=== PATIENT | male | born 1950 | race Caucasian/White ===

== ENCOUNTER 2020-03-28 13:47 | Outpatient (CLI) | payer MEDICARE, SELFPAY ==
[2020-03-28 14:21] LABS: Blood Urea Nitrogen 13 mg/dL (9-20); Calcium 8.9 mg/dL (8.4-10.2); Carbon Dioxide 28 mmol/L (22-30); Chloride 91 mmol/L (98-107); Estimated Glomerular Filt Rate > 60; Glucose 110 mg/dL (75-110); Potassium 4.6 mmol/L (3.4-5.0); Sodium 124 mmol/L (137-145)
== END 2020-03-28 13:48 | disposition home or self-care (01) ==
PROVIDERS: PCP Physician Assistant; Visit Provider Internal Medicine Cardiovascular Disease
DX: R60.0 Localized edema (principal)
CPT/HCPCS: 36415; 80048; 83735

== ENCOUNTER 2020-08-10 13:09 | Outpatient (RCR) | payer MEDICARE, SELFPAY ==
--- NOTE | 2020-08-10 14:06 | PTOPEVAL ---
Thank you for referring Ced Sellers to [facility].? The patient is scheduled to be seen for therapy? ____x/week for ___ weeks. Please review, sign, date and return this plan of care WADE. I agree with and certify that the following plan of care is medically necessary. Referring Physician Date Admitting Provider: Attending Provider: Nora Aragon, JALEN Referring Provider: *GLADYS Outpatient Evaluation Start: 08/10/20 13:02 Freq: Status: Active Protocol: Document 08/10/20 13:03 [facility] (Rec: 08/10/20 14:05 [facility] [id number]) Therapy Assessment Status Assessment Status Assessment Status Evaluation Evaluation Information Problem Diagnosis chronic low back pain with bilateral sciatica Onset 08/08/20 Additional Evaluation Detail oswestry = 58% functionally declined. Subjective Information patient reports he has chronic Query Text:As Reported By Patient/ lower back pain. patient Family reports this is his 4th time going to therapy for his back in the past 10 years. he reports he is getting to the point now when he is unable to get up after bending over. he reports he has had x-rays and MRI's of the lower back. he reports he has had chiropractic work. he reports he was last in physical therapy about 2-3 years ago. he reports he did pool therapy at that time. Prior Level of Function Comments Additional Prior Level of Function patient reports he is Comments struggling lately to stand without assist, walking up and down steps (must go down backwards), and reports he must use a walker for ambulation early in the mornings. he reports he does not want to have surgery. he reports he has never seen a surgeon for his back. he has had no injections for the back recently. 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 patient has a diastisis recti. Pain Assessment Timing of Pain Assessment Timing of Pain Assessment Asses
== END 2020-09-01 18:44 | disposition home or self-care (01) ==
LOC: CHSPT 13:09
PROVIDERS: PCP Physician Assistant; Visit Provider Physician Assistant
DX: M54.42 Lumbago with sciatica, left side (principal)
CPT/HCPCS: 97014; 97110; 97162; G0283

== ENCOUNTER 2020-09-12 10:12 | Emergency (ER) | payer MEDICARE, SELFPAY ==
[2020-09-12 10:30] VITALS: BP 157/90; PULSE 79; RESP 20; TEMP 36.6; O2SAT 98
[2020-09-12 10:47] LABS: Add Urine Microscopic? NO; Appearance Urine Clear (Clear); Bilirubin Urine Negative (Negative); Blood Urine Negative (Negative); Color Urine Yellow (Yellow); Glucose Urine UA Negative (Negative); Ketones Urine Negative (Negative); Leukocyte Esterase Ur Negative LEU/UL (Negative); Nitrate Urine Negative (Negative); Protein Urine Negative (Negative); Urobilinogen Urine 0.2 mg/dL (0.2-1.0); pH Urine 5.5 (5.0-8.0)
--- NOTE | 2020-09-12 10:57 | ED.MALEGU ---
HPI - Male Genitourinary General Chief complaint: Urogenital-Male Stated complaint: painful unrination Source: patient and RN notes reviewed Mode of arrival: ambulatory (Walks with a cane) Limitations: no limitations History of Present Illness HPI Narrative: Patient states he has been having some burning in his urethra. He he has some urinary frequency but also states that is pretty normal for him. He thinks he may have a yeast infection the tip of his penis has been red and sticky at times. He was prescribed some Lotrimin powder and then also had some Mycelex cream which seemed to help a little. He denies any fever chills. Onset (ago): day(s) (5) Relieving factors: none Exacerbating factors: urination Related Data Home Medications Medication Instructions Recorded Confirmed acetaminophen 500 mg tablet 500 mg PO Q6H PRN tablet 09/25/19 09/12/20 gabapentin 300 mg capsule 300 mg PO TID cap 09/25/19 09/12/20 loratadine 10 mg capsule 10 mg PO DAILY 09/25/19 09/12/20 tramadol 50 mg tablet 50 mg PO Q6H PRN 03/28/20 09/12/20 aspirin [Aspir-81] 81 mg PO DAILY 09/12/20 09/12/20 carvedilol 12.5 mg PO BID 09/12/20 09/12/20 melatonin 1 mg PO HS PRN 09/12/20 09/12/20 Allergies Allergy/AdvReac Type Severity Reaction Status Date / Time Sulfa (Sulfonamide Allergy Unknown Unknown Verified 03/28/20 13:07 Antibiotics) Review of Systems Review of Systems: All systems reviewed & are unremarkable except as noted in HPI and below PMFSH Past Medical History Medical History OG (dyspnea on exertion) Edema of both legs HTN (hypertension) (07/03/18) Hyperlipidemia (07/03/18) Hypersomnia SAIMA on CPAP Type 2 diabetes mellitus (07/03/18) Surgical History Surgical History History of hip replacement History of knee surgery History of shoulder surgery Family History Family History Mother Family history of chronic obstructive pulmonary disease Father Family history of lung cancer Mother Family history of chronic obstructive pulmonary disease Social History Social History Smoking status: Never smoker Exam Const: General: healthy appearing and no acute distress Nutritional Appearance: obese Orientation/consciousness: oriented to person and patient oriented x3 HENMT: Head: normal to inspection Ears: external ears normal Eyes: Conjunctivae: conjunctivae normal Pupils: Equal, round and reactive pupils present EOM: EOMs intact bilaterally Neck: Neck: normal visual inspection Resp: Effort & Inspection: normal respiratory effort Auscultation: clear to auscultation bilaterally Cardio: Rate: regular rate Rhythm: regular rhythm GI: GI Palp: Yes Soft to palpation and No Tenderness to palpation present (GI) Auscultation: normal bowel sounds : Penis: Yes circumcised Meatus: no meatla discharge and Erythema at meatus (Mild with erythema inside on the distal urethra) Back/Spine/Pelvis: Cervical Spine: cervical ROM normal Thoracic/Lumbar Spine: thoraco-lumbar ROM normal Skin: General skin exam: normal color Neuro: General: patient oriented x3, moves all extremities and no focal motor deficits Speech: normal speech Gait exam (Neuro): Normal gait present Extrem: General: normal to inspection Psych: Appearance: grossly normal and well kempt Mental Status: mental status grossly normal Affect: normal affect Attitude: cooperative Thought content: Yes Normal thought content present Course Course Emergency Course: Patient given single dose of Diflucan. He will follow up with primary care if he is not significantly improving to 3 days. MDM - Male Genitourinary Lab Data Labs: Lab Results 09/12/20 Range/Units 10:40 Urine Color Yellow (Yellow) Urine Appearance Clear (Clear) Urine pH 5.5
[2020-09-12] MEDS: FLUCONAZOLE 100 MG TABLET 150 MG PO (11:14)
== END 2020-09-12 11:22 | disposition home or self-care (01) ==
PROVIDERS: Emergency Provider Emergency Medicine; PCP Physician Assistant
DX: N34.2 Other urethritis (principal); I10 Essential (primary) hypertension; E78.5 Hyperlipidemia, unspecified; E11.9 Type 2 diabetes mellitus without complications; G47.33 Obstructive sleep apnea (adult) (pediatric)
CPT/HCPCS: 81003; 99282; 99283; A9270

== ENCOUNTER 2020-09-26 14:17 | Outpatient (CLI) | payer MEDICARE, SELFPAY ==
[2020-09-26 15:49] LABS: Cholesterol 141 mg/dL (0-200); HDL Direct 54 mg/dL (40-60); LDL Cholesterol Calculated 61 mg/dL (<130); Triglycerides 132 mg/dL (0-150)
[2020-09-26 16:13] LABS: Anion Gap 5 mmol/L (8-16); Blood Urea Nitrogen 15 mg/dL (7-18); Calcium 9.2 mg/dL (8.5-10.1); Carbon Dioxide 30 mmol/L (21-32); Chloride 95 mmol/L (98-108); Estimated Glomerular Filt Rate > 60; Glucose 108 mg/dL (70-99); Osmolality Calculated 271 mOsm/kg (285-295); Potassium 4.8 mmol/L (3.5-5.1); Sodium 130 mmol/L (136-145)
== END 2020-09-26 14:18 | disposition home or self-care (01) ==
LOC: CHSLAB 14:19
PROVIDERS: PCP Physician Assistant; Visit Provider Internal Medicine Cardiovascular Disease
DX: E78.5 Hyperlipidemia, unspecified (principal)
CPT/HCPCS: 36415; 80048; 80061

== ENCOUNTER 2020-12-22 15:39 | Outpatient (CLI) | payer MEDICARE, SELFPAY ==
[2020-12-22 16:31] LABS: Anion Gap 5 mmol/L (8-16); Blood Urea Nitrogen 17 mg/dL (9-20); Calcium 9.2 mg/dL (8.4-10.2); Carbon Dioxide 29 mmol/L (22-30); Chloride 92 mmol/L (98-107); Estimated Glomerular Filt Rate > 60; Glucose 111 mg/dL (75-110); Magnesium 1.9 mg/dL (1.6-2.3); Potassium 4.5 mmol/L (3.4-5.0); Sodium 126 mmol/L (137-145)
== END 2020-12-22 15:40 | disposition home or self-care (01) ==
LOC: ANHLAB 15:41
PROVIDERS: PCP Physician Assistant; Visit Provider Internal Medicine Cardiovascular Disease
DX: R25.2 Cramp and spasm (principal); R35.0 Frequency of micturition; E78.5 Hyperlipidemia, unspecified; I10 Essential (primary) hypertension
CPT/HCPCS: 36415; 80048; 83735

== ENCOUNTER 2021-09-22 08:07 | Outpatient (CLI) | payer MEDICARE, SELFPAY ==
[2021-09-22 09:05] LABS: Alanine Aminotransferase 28 U/L (16-63); Albumin Level 3.5 g/dL (3.4-5.0); Alkaline Phosphatase 80 U/L (46-116); Anion Gap 9 mmol/L (8-16); Aspartate Amino Transferase 15 U/L (15-37); Bilirubin,Total 0.4 mg/dL (0.00-1.00); Blood Urea Nitrogen 14 mg/dL (7-18); Calcium 8.9 mg/dL (8.5-10.1); Carbon Dioxide 29 mmol/L (21-32); Chloride 100 mmol/L (98-108); Cholesterol 140 mg/dL (0-200); Estimated Glomerular Filt Rate > 60; Glucose 118 mg/dL (70-99); HDL Direct 44 mg/dL (40-60); LDL Cholesterol Calculated 77 mg/dL (<130); Osmolality Calculated 287 mOsm/kg (285-295); Potassium 4.4 mmol/L (3.5-5.1); Sodium 138 mmol/L (136-145); Total Protein 6.5 g/dL (6.4-8.2); Triglycerides 94 mg/dL (0-150)
== END 2021-09-22 08:08 | disposition home or self-care (01) ==
LOC: CHSLAB 08:08
PROVIDERS: PCP Physician Assistant; Visit Provider Internal Medicine Cardiovascular Disease
DX: E78.5 Hyperlipidemia, unspecified (principal)
CPT/HCPCS: 36415; 80053; 80061

== ENCOUNTER 2021-11-07 08:03 | Outpatient (CLI) | payer MEDICARE, SELFPAY ==
--- NOTE | ~2021-11-07 | XR_ITS ---
XR knee LT min 4V DATE: 11/07/2021 08:38 INDICATION: Chronic bilateral knee pain TECHNIQUE: [place], lateral and AP and PA weightbearing views of left knee COMPARISON: 05/19/2014 bilateral knees FINDINGS: There is prominent periarticular spurring at all 3 compartments and severe narrowing at the lateral and medial compartments. Diffuse osteopenia. No fracture or dislocation, periosteal reaction or bone destruction is detected. IMPRESSION: Severe tricompartment osteoarthritis Reviewed, dictated and finalized at location A. ERTY FIELD ADJUSTER
--- NOTE | ~2021-11-07 | XR_ITS ---
XR knee RT min 4V DATE: 11/07/2021 08:38 INDICATION: Chronic bilateral knee pain TECHNIQUE: [place], lateral and weightbearing AP and PA views COMPARISON: 05/19/2014 bilateral knees FINDINGS: There is chronic mild cupping of the lateral tibial plateau articular surface. There is severe tricompartment osteoarthritis, with prominent particular spurring at all 3 compartmen ts, severe joint space narrowing at the lateral compartment and moderately severe joint space narrowi ng at the medial compartment. There is mild lateral subluxation at the femoral tibial joint. Probable suprapatellar knee joint effusion. No fracture, dislocation, periosteal reaction or bone destruction is evident. IMPRESSION: Severe tricompartment osteoarthritis Probable joint effusion Reviewed, dictated and finalized at location A. CAL PRACTITIONERS
== END 2021-11-07 08:04 | disposition home or self-care (01) ==
LOC: CHSLAB 08:07
PROVIDERS: PCP Physician Assistant; Visit Provider Orthopaedic Surgery
DX: M25.562 Pain in left knee (principal); M25.561 Pain in right knee
CPT/HCPCS: 73564

== ENCOUNTER 2021-11-27 09:00 | Outpatient (CLI) | payer MEDICARE, SELFPAY ==
--- NOTE | ~2021-11-27 | NM_ITS ---
EXAMINATION: NM buddy stress w perfusion DATE: 11/27/2021 12:14 INDICATION: Other forms of dyspnea TECHNIQUE: Rest images were obtained following intravenous administration of 10.2 mCi Tc99m tetrofosm in (Myoview). The patient was infused intravenously with Lexiscan (Regadenoson). Then, 31 mCi Tc99m t etrofosmin (Myoview) was administered intravenously, and stress images were obtained. Data was recons tructed into short axis and horizontal and vertical long axis SPECT images. Gated SPECT images were a lso obtained. COMPARISON: None. FINDINGS: There is no definite reversible or fixed perfusion abnormality to suggest ischemia or infar ction. There is normal left ventricular chamber size, wall motion and ejection fraction. Left ventr icular ejection fraction measures >70%. IMPRESSION: 1. Normal myocardial perfusion at rest and during stress. 2. Left ventricular ejection fraction measuring >70%. Reviewed, dictated and finalized at location A. 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
--- NOTE | 2021-11-27 09:02 | EST_ITS ---
Patient Info Name: Ced Sellers Age: 70 years : 1950 Gender: Male Ht: 68 in Wt: 260 lbs BSA: 2.43 m2 HR: 70 bpm BP: 150 / 93 mmHg Heart Rhythm: Sinus Rhythm Exam Date: 11/27/2021 10:12 AM Exam Location: [facility] Stress Patient Status: Outpatient Admit Date: 11/27/2021 Staff Ordering Physician: Josef Morillo DO Attending Provider: Josef Morillo DO Exercise Technologist: Estephania Wright CT Exercise Physician: Josef Morillo DO Exam Type: CA stress buddy w NM Study Info Indications R06.09 - Other forms of dyspnea A regadenoson stress test was performed. Summary 1. 1. Negative lexiscan stress test for ischemic ST changes by ECG criteria. 2. 2. Baseline hypertension. 3. 3. Nuclear scan to follow and will be reported separately. Please correlate with it. 4. 4. Patient informed of the above results. Protocol: Lexiscan Stress ECG Details Stage: REST Duration (min): 0 min : 57 sec HR (bpm): 78 SBP (mmHg): 150 DBP (mmHg): 93 Stage: REST Duration (min): 10 min : 25 sec HR (bpm): 80 SBP (mmHg): 150 DBP (mmHg): 93 Stage: STAGE 1 Duration (min): 1 min : 0 sec HR (bpm): 101 SBP (mmHg): 143 DBP (mmHg): 64 Stage: RECOVERY Duration (min): 1 min : 0 sec HR (bpm): 108 SBP (mmHg): 143 DBP (mmHg): 64 Stage: RECOVERY Duration (min): 2 min : 0 sec HR (bpm): 103 SBP (mmHg): 143 DBP (mmHg): 64 Stage: RECOVERY Duration (min): 3 min : 0 sec HR (bpm): 97 SBP (mmHg): 136 DBP (mmHg): 67 Stage: RECOVERY Duration (min): 3 min : 3 sec HR (bpm): 97 SBP (mmHg): 136 DBP (mmHg): 67 Rest HR: 80 bpm Peak HR: 111 bpm Rest Sys BP: 150 mmHg Peak Sys BP: 143 mmHg Max Pred HR: 150 bpm % Max Pred HR: 74 % Target HR: 128 bpm Max RPP: 15,873 bpm*mmHg Termination Reason: Completed protocol Cardiac Symptoms: Shortness of breath, Dizziness Total Time: 1 min : 0 sec Rest Eckert BP: 93 mmHg Peak Eckert BP: 64 mmHg Total Dose: 0.4 mg Resting ECG Sinus rhythm. Stress ECG No ST changes. Arrhythmias None. Report Signatures
== END 2021-11-27 09:01 | disposition home or self-care (01) ==
PROVIDERS: PCP Physician Assistant; Visit Provider Internal Medicine Cardiovascular Disease
DX: R06.09 Other forms of dyspnea (principal)
CPT/HCPCS: 78452; 93017; A9502; J2785

== ENCOUNTER 2022-01-17 11:04 | Outpatient (RCR) | payer MEDICARE, SELFPAY ==
--- NOTE | 2022-01-17 11:48 | PTOPEVAL ---
Thank you for referring Ced Sellers to [facility].? The patient is scheduled to be seen for therapy? ____x/week for ___ weeks. Please review, sign, date and return this plan of care WADE. I agree with and certify that the following plan of care is medically necessary. Referring Physician Date Admitting Provider: Attending Provider: Nora Aragon, JALEN Referring Provider: *PT Outpatient Evaluation Start: 01/17/22 11:08 Freq: Status: Active Protocol: Document 01/17/22 11:08 [facility] (Rec: 01/17/22 11:48 [facility] [id number]) Therapy Assessment Status Assessment Status Assessment Status Evaluation Outpatient Past Medical History Cardiovascular History Hx Hypercholesterolemia Yes Hx Hypertension Yes Musculoskeletal History Hx Arthritis Yes Hx Back Pain Yes Hx Crutches or Walker Use Yes Query Text:If Yes, Enter Crutches, Walker, or Both in the Comment Endocrine History Hx Diabetes Yes Pain History Has Past Pain Affected Your Daily Life Yes Evaluation Information Problem Diagnosis generalized weakness Onset 01/08/22 Subjective Information patient reports he has been Query Text:As Reported By Patient/ loosing strength, mobility, Family and balance since lock down for fabio began. he reports he is having knee replacement on 02/20/22. he reports he would like to improve his strength and balance prior to knee surgery. he reports he has had no falls. he reports he uses a walker at home. he reports he uses a cane in the community, and keeps a walker in the car with him. Prior Level of Function Comments Additional Prior Level of Function patient has been getting Comments progressively weak for a few years since lock down for covid began. he reports he would like to be able to work on bicycles in his garage, work on his car, and work back and forth without feeling like he is going to fall. Pain Assessment Timing of Pain Assessment Timing of Pain Assessment Assessment Pain Scale Pain Scale Used Numeric (1 - 10) Self Report Pain Assessment Knee(s) Reported Pain Level 0 Greatest Pain Intensity 3 Pain Score Pain Scor
--- NOTE | 2022-02-01 12:24 | PTOPEVAL ---
Thank you for referring Ced Sellers to [facility].? The patient is scheduled to be seen for therapy? ____x/week for ___ weeks. Please review, sign, date and return this plan of care WADE. I agree with and certify that the following plan of care is medically necessary. Referring Physician Date Admitting Provider: Attending Provider: Nora Aragon, JALEN Referring Provider: *PT Outpatient Evaluation Start: 01/17/22 11:08 Freq: Status: Active Protocol: Document 02/01/22 11:05 [facility] (Rec: 02/01/22 12:16 [facility] [id number]) Therapy Assessment Status Assessment Status Assessment Status Discharge Outpatient Past Medical History Cardiovascular History Hx Hypercholesterolemia Yes Hx Hypertension Yes Musculoskeletal History Hx Arthritis Yes Hx Back Pain Yes Hx Crutches or Walker Use Yes Query Text:If Yes, Enter Crutches, Walker, or Both in the Comment Endocrine History Hx Diabetes Yes Pain History Has Past Pain Affected Your Daily Life Yes Evaluation Information Problem Diagnosis generalized weakness Onset 01/08/22 Additional Evaluation Detail LEFS = 63% functionally declined Subjective Information patient reports he feels good Query Text:As Reported By Patient/ this date. he reports he Family feels better in all areas since coming to therapy. he reports he is having knee replacement in february and will be back after surgery for therapy on the knee. Pain Assessment Timing of Pain Assessment Timing of Pain Assessment Assessment Pain Scale Pain Scale Used Numeric (1 - 10) Self Report Pain Assessment Knee(s) Reported Pain Level 3 Pain Score Pain Score 3: Self Report Interventions Used Interventions Used By Clinicians Activity or ADL's,Education, Exercise Lower Extremity Muscle Strength Testing General Lower Extremity Strength Gross Lower Extremity Strength 4/5 R hip flex sitting 4/5 L hip flex sitting 4/5 bilateral hip abd sitting 4+/5 bilateral knee flex 4/5 bilateral knee ext Balance Assessment Tinetti Balance Assessment Sitting Balance Steady, safe Ability to Arise Able, uses arms to help Attempts to Arise Arises on 1st attempt Immediate Standing Balance Steady w/o support Standing Balance Steady, wide stance Nudged Response Staggers, catches
== END 2022-02-01 17:00 | disposition home or self-care (01) ==
LOC: CHSPT 11:04
PROVIDERS: PCP Physician Assistant; Visit Provider Physician Assistant
DX: M62.81 Muscle weakness (generalized) (principal); R26.81 Unsteadiness on feet; E11.42 Type 2 diabetes mellitus with diabetic polyneuropathy
CPT/HCPCS: 97110; 97112; 97161; 97530

== ENCOUNTER 2022-02-20 13:06 | Outpatient (RCR) | payer MEDICARE, SELFPAY ==
--- NOTE | 2022-02-20 13:57 | PTOPEVAL ---
Thank you for referring Ced Sellers to [facility].? The patient is scheduled to be seen for therapy? ____x/week for ___ weeks. Please review, sign, date and return this plan of care WADE. I agree with and certify that the following plan of care is medically necessary. Referring Physician Date Admitting Provider: Attending Provider: Maurisio Burger MD Referring Provider: *PT Outpatient Evaluation Start: 02/20/22 13:06 Freq: Status: Active Protocol: Document 02/20/22 13:10 [facility] (Rec: 02/20/22 13:56 [facility] [id number]) Therapy Assessment Status Assessment Status Assessment Status Evaluation Outpatient Past Medical History Cardiovascular History Hx Hypercholesterolemia Yes Hx Hypertension Yes Musculoskeletal History Hx Arthritis Yes Hx Back Pain Yes Hx Crutches or Walker Use Yes Query Text:If Yes, Enter Crutches, Walker, or Both in the Comment Endocrine History Hx Diabetes Yes Pain History Has Past Pain Affected Your Daily Life Yes Evaluation Information Problem Diagnosis primary OA of bilateral knees Onset 02/13/22 Additional Evaluation Detail LEFS = 66% functionally declined Subjective Information patient reports he was Query Text:As Reported By Patient/ supposed to have surgery on Family the R knee today, but due to his current BMI he is unable to have surgery at this time. he reports he has had an injection on 02/13/22. he reports he wants to return to therapy because his knees have been feeling worse since stopping therapy last. he reports he has an appointment on 07/03/22 to have another physical done to assess for ability to have the R knee replaced. he reports he has difficulty with walking, stair ambulation, and standing. Prior Level of Function Comments Additional Prior Level of Function patient reports he has been Comments getting progressively worse since having covid about 1 year ago. Pain Assessment Timing of Pain Assessment Timing of Pain Assessment Assessment Pain Scale Pain Scale Used Numeric (1 - 10) Self Report Pain Assessment Lower Back Reported Pain Level 6 Bilateral Knee(s) Reporte
--- NOTE | 2022-03-16 13:23 | PTOPEVAL ---
Thank you for referring Ced Sellers to [facility].? The patient is scheduled to be seen for therapy? ____x/week for ___ weeks. Please review, sign, date and return this plan of care WADE. I agree with and certify that the following plan of care is medically necessary. Referring Physician Date Admitting Provider: Attending Provider: Maurisio Burger MD Referring Provider: *PT Outpatient Evaluation Start: 02/20/22 13:06 Freq: Status: Active Protocol: Document 03/16/22 11:00 [facility] (Rec: 03/16/22 11:36 [facility] [id number]) Therapy Assessment Status Assessment Status Assessment Status Discharge Outpatient Past Medical History Cardiovascular History Hx Hypercholesterolemia Yes Hx Hypertension Yes Musculoskeletal History Hx Arthritis Yes Hx Back Pain Yes Hx Crutches or Walker Use Yes Query Text:If Yes, Enter Crutches, Walker, or Both in the Comment Endocrine History Hx Diabetes Yes Pain History Has Past Pain Affected Your Daily Life Yes Evaluation Information Problem Diagnosis primary OA of bilateral knees Onset 02/13/22 Additional Evaluation Detail LEFS = 48% functionally impaired Subjective Information Pt reports that he has been Query Text:As Reported By Patient/ able to pick objects up off of Family the floor recently, and has not been able to do this for a while. He states that his back has been bothering him more recently also. He states that his knees have felt better, that his endurance has increased, and that he is able to walk with more confidence. Pain Assessment Timing of Pain Assessment Timing of Pain Assessment Pre-Treatment Pain Scale Pain Scale Used Numeric (1 - 10) Self Report Pain Assessment Lower Back Reported Pain Level 4 Bilateral Knee(s) Reported Pain Level 4 Pain Score Pain Score 4,4: Self Report Interventions Used Interventions Used By Clinicians Activity or ADL's,Education, Exercise Lower Extremity Range of Motion Knee Range of Motion Right Knee Extension Range of Motion - Active 122 Query Text: Knee Extension Range of Motion - Passive -3 Left Knee Flexion Range of Motion - Passive 110 Knee Extension Range of Motion - Passive -5 Lower Extremity Muscle Strength Testing Hip Strength Right Hip Flexion Strength 3+ Fair + Left Hip Flexion Strength
== END 2022-03-16 14:06 | disposition home or self-care (01) ==
LOC: CHSPT 13:06
PROVIDERS: PCP Physician Assistant; Visit Provider Orthopaedic Surgery
DX: M17.0 Bilateral primary osteoarthritis of knee (principal)
CPT/HCPCS: 97110; 97161; 97530

== ENCOUNTER 2022-04-04 07:06 | Outpatient (CLI) | payer MEDICARE, SELFPAY ==
[2022-04-04 07:27] LABS: Basophils Absolute Auto 0.04 K/mm3 (0.00-0.10); Basophils Percent Auto 0.5 % (0.0-1.0); Eosinophils Absolute Auto 0.19 K/mm3 (0.02-0.50); Eosinophils Percent Auto 2.4 % (1.0-6.0); Hematocrit 39.7 % (37.0-46.0); Hemoglobin 13.5 g/dL (12.4-15.3); Immature Granulocyte Absolute 0.04 K/mm3 (0.00-0.00); Immature Granulocyte Percent A 0.5 % (0.0-0.0); Lymphocytes Absolute Auto 1.68 K/mm3 (1.10-4.50); Lymphocytes Percent Auto 21.1 % (18.0-42.0); Mean Corpuscular Hemoglobin 29.9 pg (27.0-31.0); Mean Platelet Volume 9.9 fl (8.7-11.0); Monocytes Absolute Auto 0.69 K/mm3 (0.10-0.90); Monocytes Percent Auto 8.7 % (2.0-11.0); Neutrophils Absolute Auto 5.3 K/mm3 (1.7-7.2); Neutrophils Percent Auto 66.8 % (50.0-70.0); Platelet Count Result 210 K/mm3 (150-420); Red Blood Count 4.51 M/mm3 (4.70-6.10); Red Cell Distribution Width 13.1 % (11.6-14.4)
[2022-04-04 07:57] LABS: Alanine Aminotransferase 30 U/L (16-63); Albumin Level 3.5 g/dL (3.4-5.0); Alkaline Phosphatase 77 U/L (46-116); Anion Gap 7 mmol/L (8-16); Aspartate Amino Transferase 16 U/L (15-37); Bilirubin,Total 0.3 mg/dL (0.00-1.00); Blood Urea Nitrogen 13 mg/dL (7-18); Calcium 9.1 mg/dL (8.5-10.1); Carbon Dioxide 27 mmol/L (21-32); Chloride 98 mmol/L (98-108); Cholesterol 125 mg/dL (0-200); Estimated Glomerular Filt Rate > 60; Glucose 109 mg/dL (70-99); HDL Direct 45 mg/dL (40-60); LDL Cholesterol Calculated 55 mg/dL (<130); Osmolality Calculated 275 mOsm/kg (285-295); Potassium 4.3 mmol/L (3.5-5.1); Sodium 132 mmol/L (136-145); Thyroid Stimulating Hormone 1.78 uIU/mL (0.36-3.74); Total Protein 6.7 g/dL (6.4-8.2); Triglycerides 124 mg/dL (0-150)
[2022-04-04 15:22] LABS: Creatinine Urine 91.55 mg/dL (40-278); MALB Creatinine Ratio 14.1 mg/g (0-30); Microalbumin Urine Random < 13.0 mg/L
== END 2022-04-04 07:07 | disposition home or self-care (01) ==
LOC: CHSLAB 07:08
PROVIDERS: PCP Family Medicine; Visit Provider Family Medicine
DX: E78.2 Mixed hyperlipidemia (principal); E11.42 Type 2 diabetes mellitus with diabetic polyneuropathy
CPT/HCPCS: 36415; 80053; 80061; 82043; 83036; 84443; 85025

== ENCOUNTER → 2022-08-23 20:02 | Outpatient (CLI) | payer MEDICARE, MEDICAID, SELFPAY ==
--- NOTE | 2022-09-20 21:03 | WPDSLEEPSTUD ---
Sleep Study Date of Study: 08/23/22 Ordering Provider: Juan Polanco MD Interpreting Physician: Lia Reynoso MD Sleep Study Type: Split Polysomnogram Height: 1.7 m Weight: 120.656 kg Body Mass Index: 41.6 Neck Circumference (inches): 18 [place]: 12 Reason for Sleep Study Hypersomnolence; know obstructive sleep apnea * 07/02/2017, split night study; severe obstructive sleep apnea, AHI 54.6, desaturation and snoring, treated with CPAP 11 cm. Sleep History Ced Sellers is a 71-year-old man with with obstructive sleep apnea he uses CPAP regularly. He has been on treatment for 5 years. He does not awaken from sleep feeling short of breath. He occasionally awakens at night with heartburn, belching or coughing. He occasionally snores. When he does snore, it is frequently loud enough that others complain. He occasionally sweats excessively at night and occasionally notices his heart pounding or beating irregularly at night. He occasionally falls asleep during the day, occasionally falls asleep involuntarily but never while driving. He frequently has loss of muscle tone with strong emotion. He frequently has daytime difficulties due to excessive sleepiness. He frequently feels paralyzed on waking or falling asleep. He frequently has vivid dreamlike scenes upon awakening or falling asleep. He has never frayed to go to sleep. He occasionally has nightmares. He frequently remembers his dreams. He occasionally has racing thoughts. He rarely feels sad depressed or anxious. He frequently has muscular tension. He rarely notices parts of his body jerking. He occasionally kicks at night. He rarely has crawling aching feelings in his legs. at night. Denies morning jaw pain. He does not grind his teeth at night. He frequently is bothered by pain during the day. He occasionally is awakened by pain at night. He frequently wakes up feeling stiff in the morning. Rarely wakes up with sore achy muscles. He always wakes up with pain in the neck and spine. Normal bedtime 10 30-11 p.m., falling asleep within 5-10 minutes, typically waking 2-3 times at night to urinate, and he is able to return to sleep within 5 minutes. He wakes between 6 and 7:00 a.m.. Weekend schedule is the same. He estimates getting 7 hours of sleep at night. He takes naps during the day. A short nap lasting 10 or 15 minutes may be refreshing. Most of the time he feels adequate on waking. He feels better in the morning compared to other times of day. Habits: Caffeine 2 cups in the morning. [facility] Past Medical History Medical History (Updated 09/20/22 @ 21:34 by Lia Reynoso MD) Arthritis Chronic migraine OG (dyspnea on exertion) Edema of both legs GERD (gastroesophageal reflux disease) History of adverse reaction to anesthesia History of COVID-19 HTN (hypertension) (07/03/18) Hyperlipidemia (07/03/18) Hypersomnia Obstructive sleep apnea SAIMA on CPAP Osteoporosis Type 2 diabetes mellitus (07/03/18) Urinary frequency Surgical History Surgical History History of hip replacement History of knee surgery History of shoulder surgery Family History Family History Mother Family history of chronic obstructive pulmonary disease Father Family history of lung cancer Mother Family history of chronic obstructive pulmonary disease Daughter Cerebrovascular accident Deficient knowledge of pacemaker insertion Other Arthritis Asthma Diabetes mellitus Hypertension Neuropathy Social History Social History Smoking status: Never smoker Substance use: never Gender identity (if verbalized by the patient): Male Medications Home Medications Medication Instructions Recorded Confirmed Type acetaminophen 500 mg tablet 500 mg PO Q6H PRN Pain 09/25/19 07/03/22 Hist
[2022-09-20 21:09] VITALS: BMI 41.6
== END ==
PROVIDERS: PCP Family Medicine; Visit Provider Family Medicine
DX: G47.33 Obstructive sleep apnea (adult) (pediatric) (principal)
CPT/HCPCS: 95811

== ENCOUNTER 2023-02-20 11:48 | Outpatient (CLI) | payer MEDICARE, SELFPAY ==
--- NOTE | ~2023-02-20 | XR_ITS ---
Right Shoulder Technique: AP and scapular Y views were obtained. Clinical History: Pain Findings: No fracture or dislocation is seen. Osseous alignment is anatomic. There is moderate AC mary nt degenerative change. There is minimal glenohumeral joint degenerative change.. Soft tissues are un remarkable. Impression: Degenerative changes, as above. Reviewed, dictated and finalized at location . Impression: Degenerative changes, as above.
== END 2023-02-20 11:49 | disposition home or self-care (01) ==
LOC: CHSIMG 11:50
PROVIDERS: PCP Family Medicine; Visit Provider Family Medicine
DX: M25.511 Pain in right shoulder (principal)
CPT/HCPCS: 73030

== ENCOUNTER 2023-02-26 08:21 | Outpatient (CLI) | payer MEDICARE, MEDICAID, SELFPAY ==
--- NOTE | ~2023-02-26 | XR_ITS ---
Right Knee Technique: AP, lateral, and sunrise views were obtained. Clinical History: Pain, osteoarthritis Findings: No fracture or dislocation is seen. There is severe tricompartmental degenerative change of the knee, with tricompartment osteophytes. There is marked lateral compartment narrowing with remode ling of the lateral tibial plateau. There is also moderate to severe medial compartment joint space n arrowing. Small joint effusion is seen. Impression: Severe tricompartmental osteoarthritis, especially in the medial and lateral compartments, as detaile d above. Small joint effusion. Reviewed, dictated and finalized at location M. Impression: Severe tricompartmental osteoarthritis, especially in the medial and lateral co mpartments, as detailed above. Small joint effusion.
--- NOTE | ~2023-02-26 | XR_ITS ---
Left Knee Technique: AP, lateral, and sunrise views were obtained. Clinical History: Pain Findings: No fracture or dislocation is seen. There is severe tricompartmental osteoarthritis. There is marked narrowing of the medial and lateral joint spaces with mild remodeling of the medial and lat eral tibial plateaus. Large joint effusion is seen, with probable small intra-articular loose body in the suprapatellar pouch. There is amorphous mineralization posterior to the right could reflect debr is within a Lucas's cyst. Impression: Severe tricompartmental osteoarthritis, as detailed above. Large joint effusion with interarticular loose body in suprapatellar pouch. Suspected mineralized debris/small loose bodies within a Lucas's cyst posterior to the knee. Reviewed, dictated and finalized at location M. Impression: Severe tricompartmental osteoarthritis, as detailed above. Large joint effusion with interarticular loose body in suprapatellar pouch. Suspected mineralized debris/small loose bodies within a Lucas's cyst posterior to the knee.
== END 2023-02-26 08:22 | disposition home or self-care (01) ==
LOC: CHSIMG 08:24
PROVIDERS: PCP Family Medicine; Visit Provider Orthopaedic Surgery
DX: M25.561 Pain in right knee (principal); M25.562 Pain in left knee; M25.462 Effusion, left knee; M23.42 Loose body in knee, left knee; M71.22 Synovial cyst of popliteal space [Baker], left knee; M17.0 Bilateral primary osteoarthritis of knee; M25.461 Effusion, right knee
CPT/HCPCS: 73564

== ENCOUNTER 2023-03-01 09:45 | Outpatient (RCR) | payer MEDICARE, MEDICAID, SELFPAY ==
--- NOTE | 2023-03-01 10:58 | PTOPEVAL1 ---
Assessment and note entered by Grecia Bolton DPT Evaluation Information Assessment Status Evaluation Diagnosis R shoulder pain Onset 02/20/23 Subjective Information Patient reports he started having R shoulder pain around February 18. He reports he first fell out of bed onto the R shoulder and then a few days later and reached up while shopping and lifted a box and felt a pop in the R shoulder. Since inital injury he reports his shoulder has improved. He reports his pain is posterior at the R shoulder. Patient reports he now has trouble reaching over head, lifting anything of weight, and push/pull. He reports pain is better with anti inflammatory and heat. Patient is retired. He reports prior L shoulder RTC repair Reported Pain Level Pain Score 4: Self Report Assessment PT Clinical Summary Patient is a 72 year old male who presents to PT with R shoulder pain. Patient demonstrates decreased R shoulder ROM, decreased R shoulder strength and positive empty can test indicating possible RTC involement. He has difficulty with reaching and lifting for house hold activites and would benefit from skilled PT to address impairments and return to PLOF. Plan of Care Interventions Electrical Stimulation,Hot Pack/Cold Pack,Manual Therapy,Neuro Re-education,Patient/Caregiver Educati,Therapeutic Activities,Therapeutic Exercise PT Services Indicated Yes Treatment Frequency and 3x weekly for 12 visits Duration These treatments will address the objective and functional deficits as defined above. The patient will be advanced safely and appropriately in order for the patient to progress towards his/her prior level of function. Additional exercises will be introduced and as well as a comprehensive home exercise program upon discharge, if needed, ?to ensure carryover of functional gains achieved in the clinic. This treatment plan has been reviewed and agreement upon by the patient.
--- NOTE | 2023-03-25 15:30 | PTOPEVAL1 ---
Assessment and note entered by JT File, PT Evaluation Information Assessment Status Discharge Diagnosis R shoulder pain Onset 02/20/23 Subjective Information Patient reports he started having R shoulder pain around February 18. He reports he first fell out of bed onto the R shoulder and then a few days later and reached up while shopping and lifted a box and felt a pop in the R shoulder. Since inital injury he reports his shoulder has improved. He reports his pain is posterior at the R shoulder. Patient reports he now has trouble reaching over head, lifting anything of weight, and push/pull. He reports pain is better with anti inflammatory and heat. Patient is retired. He reports prior L shoulder RTC repair Reported Pain Level Pain Score 0: Self Report Assessment PT Clinical Summary mr. richardson presents to skilled PT services for his 7th skilled PT visit. he presents today with no pain, and reports he has had no pain for more than a week. he was in the hospital recently due to other medical issues. as of today, he has met all goals for skilled PT, except for mm strength goal. he would benefit from continued HEP exercises at home to improve strength, but will DC skilled PT this date. Plan of Care Interventions Electrical Stimulation,Hot Pack/Cold Pack,Manual Therapy,Neuro Re-education,Patient/Caregiver Educati,Therapeutic Activities,Therapeutic Exercise PT Services Indicated Yes Treatment Frequency and DC to independent HEP Duration These treatments will address the objective and functional deficits as defined above. The patient will be advanced safely and appropriately in order for the patient to progress towards his/her prior level of function. Additional exercises will be introduced and as well as a comprehensive home exercise program upon discharge, if needed, ?to ensure carryover of functional gains achieved in the clinic. This treatment plan has been reviewed and agreement upon by the patient.
== END 2023-03-25 17:02 | disposition home or self-care (01) ==
LOC: CHSPT 09:45
PROVIDERS: PCP Family Medicine; Visit Provider Family Medicine
DX: M25.511 Pain in right shoulder (principal)
CPT/HCPCS: 97014; 97110; 97140; 97161; G0283

== ENCOUNTER 2023-03-17 20:20 | Observation (INO) | payer MEDICARE, MEDICAID, SELFPAY ==
--- NOTE | ~2023-03-17 | XR_ITS ---
EXAMINATION: XR chest 1V DATE: 03/17/2023 22:01 INDICATION: Chest injury. TECHNIQUE: A single frontal view of the chest was obtained. COMPARISON: Chest 2 views 06/26/2010, thoracic spine CT 03/17/2023 FINDINGS: There is mild atelectasis versus scarring at the lung bases. No pleural effusion or pneumot horax. The heart size is normal. There are suture anchors in left humeral head. IMPRESSION: 1. Mild atelectasis versus scarring at the lung bases. Reviewed, dictated and finalized at location A.
--- NOTE | ~2023-03-17 | CT_ITS ---
EXAMINATION: CT thoracic lumbar wo con DATE: 03/17/2023 22:04 INDICATION: Acute on chronic back pain. Fall. TECHNIQUE: Computed tomography (CT) of the thoracic and lumbar spine was performed without intravenou s contrast. Automated exposure control and iterative reconstruction technique were employed. The dose -length product was 2067.94 mGy-cm. COMPARISON: None FINDINGS: CT THORACIC SPINE: There is a small sliding hiatal hernia. There is 9 degrees dextrocurvature of thor acic spine. There is mild chronic anterior wedging of T1, T2, T3, T11, and T12 vertebral bodies. Ther e is multilevel decreased disc height, severe from T1-T2 through T5-T6 and at T8-T9, T10-T11, and T11 -T12. There is interbody fusion at T3-T4 and T10-T11. There is multilevel facet joint osteoarthritis, severe at many levels. There is multilevel mild neural foraminal stenosis bilaterally. On the right, there is moderate neural foraminal stenosis at T1-T2, T8-T9, and T11-T12. On the left, there is mode rate neural foraminal stenosis at T6-T7, T8-T9, T9-T10, and T10-T11. There is mild central canal sten osis at T2-T3, T4-T5, T5-T6, T7-T8, T8-T9, T9-T10, and T10-T11. CT LUMBAR SPINE: Partially visualized is a 7.2 x 6.2 cm hypodense mass in right iliopsoas muscle. The re is 12 degrees levoscoliosis of lumbar spine. There are chronic bilateral L5 pars defects. There is 13 mm anterolisthesis of L5 on S1. There is severely decreased disc height from L1-L2 through L5-S1 with interbody fusion at L5-S1. The following disc levels are specifically discussed: L1-L2: The disc is bulging. There is moderate right and mild left facet joint osteoarthritis. There i s moderate right and mild left neural foraminal stenosis. There is mild central canal stenosis. L2-L3: The disc is bulging. There is moderate bilateral facet joint osteoarthritis. There is moderate bilateral neural foraminal stenosis. There is mild central canal stenosis. L3-L4: The disc is bulging. There is severe bilateral facet joint osteoarthritis. There is moderate b ilateral neural foraminal stenosis. There is mild central canal stenosis. L4-L5: The disc is bulging. There is moderate right and severe left facet joint osteoarthritis. There is moderate bilateral neural foraminal stenosis. There is mild central canal stenosis. L5-S1: There is moderate bilateral facet joint osteoarthritis. There is moderate bilateral neural for aminal stenosis. There is moderate central canal stenosis. IMPRESSION: 1. No acute fracture. 2. Severe thoracic and lumbar spondylosis. 3. Lumbar levoscoliosis. 4. Partially visualized 7.2 cm mass in right iliopsoas muscle, likely a subacute hematoma. Reviewed, dictated and finalized at location A. IMPRESSION: 1. No acute fracture. 2. Severe thoracic and lumbar spondylosis. 3. Lumbar levoscoliosis. 4. Partially visualized 7.2 cm mass in right iliopsoas muscle, likely a subacut e hematoma.
--- NOTE | ~2023-03-17 | CT_ITS ---
EXAMINATION: CT cervical spine wo con DATE: 03/17/2023 22:03 INDICATION: Neck pain. Fall. TECHNIQUE: Computed tomography (CT) of the cervical spine was performed without intravenous contrast. Automated exposure control and iterative reconstruction technique were employed. The dose-length pro duct was 443.53 mGy-cm. COMPARISON: None FINDINGS: There is 6 degrees dextrocurvature of cervical spine. There is 2 mm retrolisthesis of C6 on C7. There is mild chronic anterior wedging of T1 vertebral body. C1 and C2 are ununited posteriorly, normal variants. There is severely decreased disc height from C3-C4 through C6-C7 and moderately dec reased disc height at C7-T1. The following disc levels are specifically discussed: C2-C3: There is severe bilateral uncovertebral joint osteoarthritis. There is moderate right and alejandra re left facet joint osteoarthritis. There is mild right and moderate left neural foraminal stenosis. There is no central canal stenosis. C3-C4: There is severe bilateral uncovertebral joint osteoarthritis. There is moderate right and alejandra re left facet joint osteoarthritis. There is mild right and moderate left neural foraminal stenosis. There is mild central canal stenosis. C4-C5: There is severe bilateral uncovertebral joint osteoarthritis. There is severe bilateral facet joint osteoarthritis. There is moderate right and mild left neural foraminal stenosis. There is mild central canal stenosis. C5-C6: There is mild right and severe left uncovertebral joint osteoarthritis. There is mild right an d moderate left facet joint osteoarthritis. There is mild bilateral neural foraminal stenosis. There is mild central canal stenosis. C6-C7: There is severe bilateral uncovertebral joint osteoarthritis. There is moderate bilateral face t joint osteoarthritis. There is moderate bilateral neural foraminal stenosis. There is mild central canal stenosis. C7-T1: There is no uncovertebral joint osteoarthritis. There is mild right and moderate left facet jayda int osteoarthritis. There is no neural foraminal stenosis. There is no central canal stenosis. IMPRESSION: 1. No fracture. 2. Severe cervical spondylosis. Reviewed, dictated and finalized at location A.
--- NOTE | ~2023-03-17 | CT_ITS ---
EXAMINATION: CT brain wo con DATE: 03/17/2023 22:03 INDICATION: Head injury. Headache. TECHNIQUE: Computed tomography (CT) of the head was performed without intravenous contrast. The mA wa s adjusted according to patient size. Iterative reconstruction technique was employed. The dose-lengt h product was 681.00 mGy-cm. COMPARISON: Head CT 12/30/2016 FINDINGS: There is no intracranial hemorrhage, acute infarction, or abnormal intracranial mass lesion . The ventricles are normal in size. There is mild mucosal thickening in the paranasal sinuses. There are bilateral mastoid effusions. There is a posterior scalp lipoma. IMPRESSION: 1. Normal brain. Reviewed, dictated and finalized at location A. IMPRESSION: 1. Normal brain.
[2023-03-17 20:29] VITALS: BP 171/100; PULSE 86; RESP 18; TEMP 37.1; O2SAT 97
--- NOTE | 2023-03-17 21:04 | ED.GENADULT ---
HPI - General Adult General Chief complaint: Head Injury Stated complaint: Fall Source: patient Mode of arrival: ambulatory Limitations: no limitations History of Present Illness HPI narrative: Fell backwards when his walker that he sat on broke and he fell back and hit his head on the grass with questionable loss of consciousness and then after 3-5 minutes feeling little dizzy he was better night complains of a headache a 5/10 in severity. Patient thinks that he was off balance and that is why fell on the ground. Does have peripheral neuropathy and bad knees. Says he has not felt well for the last few days has been dizzy when he stands he is more irritable and the light seems to be bothering his eyes. And he has a headache. 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 He last saw his primary care provider Dr. Moore here in town and 20 days ago his sodium low 117. his doctor told him to restrict his fluids to 2 L a day which he has done and then pt had a second Na drawn 13 days ago But the doctor never called him back. Past medical history:? hypertension, dyslipidemia, DM, SAIMA on CPAP (followed by PCP), hyponatremia.? Sleep apnea GERD Past surgical history:? Bilateral knee osteoarthritis severe DJD tonsillectomy and adenoidectomy arthroscopy joint replacement hip replacement rotator cuff tear surgery, right knee arthroscopy and ACL reconstruction Related Data Home Medications Medication Instructions Recorded Confirmed acetaminophen 500 mg tablet 500 mg PO Q6H PRN Pain 09/25/19 03/17/23 (Tylenol Extra Strength) loratadine 10 mg capsule 10 mg PO DAILY 09/25/19 03/17/23 aspirin 81 mg tablet,delayed 81 mg PO DAILY 09/12/20 03/17/23 release melatonin 1 mg tablet 1 mg PO HS PRN Sleep 09/12/20 03/17/23 metformin 500 mg tablet 500 mg PO BID 11/10/21 03/17/23 tamsulosin 0.4 mg capsule 0.4 mg PO DAILY 11/10/21 03/17/23 docusate sodium 100 mg capsule 100 mg PO BID 10/01/22 03/17/23 tramadol 50 mg PO Q6-8H PRN Pain 03/17/23 03/17/23 Allergies Allergy/AdvReac Type Severity Reaction Status Date / Time Sulfa (Sulfonamide Allergy Unknown Unknown Verified 03/17/23 20:38 Antibiotics) Review of Systems Constitutional: Constitutional: Denies chills, Denies fatigue, Denies fever(s) and Denies weakness Eyes: Eyes: Reports photophobia ENT: Denies dysphagia, Reports dizziness and Denies sore throat Neurologic: Reports dizziness, Reports headache(s), Denies focal weakness and Reports weakness Comments: patient states he gets dizzy when he stands up Psychiatric: Comments: he has had feelings of feeling irritable Endocrine: Endocrine: Denies excessive sweating and Denies polydipsia Hematologic/Lymphatic: Hematologic/Lymphatic: Denies easy bleeding and Denies easy bruising Allergic/Immunologic: Allergic/Immunologic: Denies lip swelling and Denies throat swelling PMFSH Past Medical History Medical History Arthritis Chronic migraine OG (dyspnea on exertion) Edema of both legs GERD (gastroesophageal reflux disease) History of adverse reaction to anesthesia History of COVID-19 HTN (hypertension) (07/03/18) Hyperlipidemia (07/03/18) Hypersomnia Obstructive sleep apnea SAIMA on CPAP Osteoporosis Type 2 diabetes mellitus (07/03/18) Urinary frequency Surgical History Surgical History History of hip replacement History of knee surgery History of shoulder surgery Family History Family History Mother Family history of chronic obstructive pulmonary disease Father Family history of lung cancer Mother Family history of chronic obstructive p
--- NOTE | 2023-03-17 21:05 | ECG_ITS ---
Measurements Intervals [place] Rate: 83 P: 100 TX: 170 QRS: -11 QRSD: 93 T: 3 QT: 347 QTc: 410 Interpretive Statements SINUS RHYTHM CONSIDER INFERIOR INFARCT, AGE INDETERMINATE BASELINE ARTIFACT- I, II, III, AVR, AVL, AVF, V1 ABNORMAL ECG NO PREVIOUS ECG AVAILABLE FOR COMPARISON Electronically Signed On 03-18-2023 8:03:47 CDT by Josef Morillo D.O.
[2023-03-17 21:31] LABS: Hematocrit 39.5 % (37.0-46.0); Hemoglobin 13.5 g/dL (12.4-15.3); Mean Corpuscular HGB Conc 34.2 g/dL (32.0-36.0); Mean Corpuscular Hemoglobin 29.8 pg (27.0-31.0); Mean Corpuscular Volume 87.2 fL (78.0-102.0); Platelet Count Result 220 K/mm3 (150-420); Red Blood Count 4.53 M/mm3 (4.70-6.10); Red Cell Distribution Width 13.2 % (11.6-14.4); White Blood Count 6.7 K/mm3 (4.8-10.8)
[2023-03-17 21:45] LABS: INR 0.9; Partial Thromboplastin Time 27.1 SEC (23.90-30.70); Prothrombin Time 10.2 Seconds (9.50-12.10)
[2023-03-17 21:48] LABS: Alanine Aminotransferase 44 U/L (16-63); Albumin Level 3.7 g/dL (3.4-5.0); Alkaline Phosphatase 86 U/L (46-116); Aspartate Amino Transferase 25 U/L (15-37); Bilirubin,Total 0.3 mg/dL (0.00-1.00); Blood Urea Nitrogen 18 mg/dL (7-18); Calcium 8.3 mg/dL (8.5-10.1); Carbon Dioxide 30 mmol/L (21-32); Estimated CRCL calculation 83 ml/min; Estimated Glomerular Filt Rate > 60; Glucose 125 mg/dL (70-99); Total Protein 6.7 g/dL (6.4-8.2); Troponin I 5.7 ng/L (0.00-60.4)
[2023-03-17] MEDS: HYDROcodone/acetaminophen (*CRX) 7.5-325 MG TABLET 1 TAB PO (22:01)
[2023-03-17 22:02] LABS: Anion Gap -2 mmol/L (8-16); Chloride 88 mmol/L (98-108); Osmolality Calculated 244 mOsm/kg (285-295); Potassium 3.8 mmol/L (3.5-5.1)
[2023-03-17 22:03] LABS: Sodium 116 mmol/L (136-145)
[2023-03-17 22:20] VITALS: BP 175/116; PULSE 83; RESP 18; O2SAT 96
[2023-03-17 23:05] VITALS: PULSE 83; RESP 19; O2SAT 96
[2023-03-17 23:08] VITALS: PULSE 80; RESP 13; O2SAT 94
[2023-03-18] VITALS (12 sets, daily range): BP systolic 135–160; BP diastolic 77–90; PULSE 71–97; RESP 17–19; TEMP 36–36.7; O2SAT 94–97; BMI 41.1
[2023-03-18] MEDS: SODIUM CHLORIDE 3% 100 ML 300 ML IV CONT (00:31)
--- NOTE | 2023-03-18 01:10 | ADMGEN ---
This patient, Ced Sellers, was admitted to 2nd Floor Room 205-1. Patient oriented to hospital policies and general routines including ID bracelet, bed and alarms, visiting hours, pain management, procedures, bathroom and other care routines, personal items, smoking policy, room service/diet, and visiting hours. Information on how to activate the Rapid Response Team has been discussed. Patient are encouraged to report perceived risks to care and to ask questions if they do not understand what they are told or what they should do.
[2023-03-18 01:22] LABS: Creatinine Urine 62.23 mg/dL (40-278)
--- NOTE | 2023-03-18 01:34 | PC.NURSE ---
Pt to hold hydrochlorothiazide doses per Dr. Baker in ED.
[2023-03-18 01:53] LABS: Sodium Urine Random 162 mmol/L (20-110)
[2023-03-18 02:07] LABS: Appearance Urine Clear (Clear); Bilirubin Urine Negative (Negative); Blood Urine Negative (Negative); Color Urine Light Yellow (Yellow); Glucose Urine UA Negative (Negative); Ketones Urine Negative (Negative); Leukocyte Esterase Ur Negative (Negative); Nitrate Urine Negative (Negative); Protein Urine Negative (Negative); Urobilinogen Urine 0.2 mg/dL (0.2-1.0)
[2023-03-18 02:12] LABS: Add Urine Microscopic? NO
[2023-03-18 02:12] LABS: Anion Gap 8 mmol/L (8-16); Blood Urea Nitrogen 16 mg/dL (7-18); Calcium 8.3 mg/dL (8.5-10.1); Carbon Dioxide 26 mmol/L (21-32); Chloride 96 mmol/L (98-108); Estimated CRCL calculation 87 ml/min; Estimated Glomerular Filt Rate > 60; Glucose 115 mg/dL (70-99); Osmolality Calculated 272 mOsm/kg (285-295); Potassium 4.3 mmol/L (3.5-5.1); Sodium 130 mmol/L (136-145)
[2023-03-18 02:14] LABS: Uric Acid 4.3 mg/dL (3.5-7.2)
[2023-03-18 02:14] LABS: Thyroid Stimulating Hormone 1.99 uIU/mL (0.36-3.74)
--- NOTE | 2023-03-18 02:41 | PC.NURSE ---
Pt does not have CGM device. Pt does use a glucometer at home to test his bg levels.
[2023-03-18 06:07] LABS: Alanine Aminotransferase 38 U/L (16-63); Albumin Level 3.4 g/dL (3.4-5.0); Alkaline Phosphatase 72 U/L (46-116); Anion Gap 8 mmol/L (8-16); Aspartate Amino Transferase 18 U/L (15-37); Bilirubin,Total 0.3 mg/dL (0.00-1.00); Blood Urea Nitrogen 13 mg/dL (7-18); Carbon Dioxide 26 mmol/L (21-32); Chloride 96 mmol/L (98-108); Estimated CRCL calculation 91 ml/min; Estimated Glomerular Filt Rate > 60; Glucose 111 mg/dL (70-99); Osmolality Calculated 271 mOsm/kg (285-295); Potassium 4.2 mmol/L (3.5-5.1); Sodium 130 mmol/L (136-145); Total Protein 6.1 g/dL (6.4-8.2)
[2023-03-18] MEDS: ASPIRIN 81 MG ENTERIC TABLET PO (09:53)
[2023-03-18] MEDS: amLODIPine BESYLATE 5 MG TABLET BY MOUTH (09:53)
[2023-03-18] MEDS: hydroCHLOROthiazide 12.5 MG CAPSULE BY MOUTH (09:53)
[2023-03-18] MEDS: DICLOFENAC SODIUM 1% 100 GM GEL (*BKC) 1 APPLIC TOPICAL ×3 (09:53→21:11)
[2023-03-18] MEDS: LORATADINE 10 MG TABLET PO (09:53)
[2023-03-18] MEDS: PRAVASTATIN SODIUM 10 MG TABLET BY MOUTH (09:53)
[2023-03-18] MEDS: TAMSULOSIN HCL 0.4 MG CAPSULE PO (09:53)
[2023-03-18] MEDS: carvediloL 12.5 MG TABLET BY MOUTH ×2 (09:53→21:10)
[2023-03-18] MEDS: cloNIDine HCL 0.1 MG TABLET PO ×2 (09:53→21:10)
--- NOTE | 2023-03-18 10:24 | PM.IMHP ---
H&P: HPI History of Present Illness Date/Time: 03/18/23 10:24 Chief Complaint: Fall, Hyponatremia Narrative: this is a 72-year-old male that presented to the emergency room at [facility] fall off of his walker that broke fell hit his head on the grass patient was not able to tell whether or not he had loss of consciousness patient had a CT of his head, cervical spine, thoracic spine nothing acute was noted. Patient did have noted a sodium level of 114 in which she was admitted due to hyponatremia started on some IV fluids patient also had a subacute mass noted. Patient today sodium is 130 patient states he has a history of hyponatremia past medical history of some diabetes, obesity, hypertension, chronic headaches/migraines, hyperlipidemia,. Patient today is alert oriented talking no sense of confusion at this time noted we will continue to monitor patient's intake and output as well as maintain him on a fluid restriction plan for possible discharge in the morning. Review of Systems Review of Systems: head ache, Hyponatremia All systems reviewed & are unremarkable except as noted in HPI and below PMFSH Past Medical History Medical History Arthritis Chronic migraine OG (dyspnea on exertion) Edema of both legs GERD (gastroesophageal reflux disease) History of adverse reaction to anesthesia History of COVID-19 HTN (hypertension) (07/03/18) Hyperlipidemia (07/03/18) Hypersomnia Obstructive sleep apnea SAIMA on CPAP Osteoporosis Type 2 diabetes mellitus (07/03/18) Urinary frequency Surgical History Surgical History History of hip replacement History of knee surgery History of shoulder surgery Family History Family History Mother Family history of chronic obstructive pulmonary disease Father Family history of lung cancer Mother Family history of chronic obstructive pulmonary disease Daughter Cerebrovascular accident Deficient knowledge of pacemaker insertion Other Arthritis Asthma Diabetes mellitus Hypertension Neuropathy Social History Social History Smoking status: Never smoker Second hand tobacco smoke exposure: No Alcohol intake: never Substance use: never Lack of Transportation: No Lack of Food: Never True Current Housing: I Have Housing Concerned About Future Housing: No Difficulty Paying Gas/Electric Bills: No Difficulty Paying for Meds: No Currently Unemployed: No Education: Decline to Answer Difficulty w/ Childcare or Family Care: No Living arrangements: [place] Occupation/Education: retired Gender identity (if verbalized by the patient): Male Spiritual care concerns: No Meds Home Medications and Allergies Home Medications Medication Instructions Recorded Confirmed Type acetaminophen 500 mg tablet 500 mg PO Q6H PRN Pain 09/25/19 03/18/23 History (Tylenol Extra Strength) loratadine 10 mg capsule 10 mg PO DAILY 09/25/19 03/17/23 History aspirin 81 mg tablet,delayed 81 mg PO DAILY 09/12/20 03/17/23 History release melatonin 1 mg tablet 1 mg PO HS PRN Sleep 09/12/20 03/17/23 History metformin 500 mg tablet 500 mg PO DAILY 11/10/21 03/18/23 History tamsulosin 0.4 mg capsule 0.4 mg PO DAILY 11/10/21 03/17/23 History carvedilol 12.5 mg tablet See Rx Instructions .Route 04/02/22 03/17/23 Rx .COMPLEX #180 tabs hydrochlorothiazide 12.5 mg tablet See Rx Instructions .Route 04/02/22 03/17/23 Rx .COMPLEX #90 tabs docusate sodium 100 mg capsule 100 mg PO BID PRN Constipation 10/01/22 03/17/23 History clonidine HCl 0.1 mg tablet See Rx Instructions .Route 11/19/22 03/17/23 Rx .COMPLEX #60 tabs olmesartan 40 mg tablet See Rx Instructions .Route 11/19/22 03/17/23 Rx .COMPLEX #90 tabs amlodipine 5 mg tablet S
[2023-03-18] MEDS: DOCUSATE SODIUM 100 MG CAPSULE PO ×2 (12:30→21:10)
[2023-03-19] VITALS: BP 146/88; PULSE 63; PULSE 70; RESP 20; TEMP 36.5; O2SAT 95
--- NOTE | 2023-03-19 00:12 | PC.NURSE ---
Pt up to the bathroom with standby assist of one. Pt voided 250 ml of clear, yellow urine and returned to bed with assist of one.
--- NOTE | 2023-03-19 01:15 | PC.NURSE ---
Pt up to the bathroom with standby assist and voided 250 ml of clear, yellow urine. Pt back to bed with standby assist of one.
[2023-03-19 04:00] VITALS: BP 137/80; PULSE 64; PULSE 68; RESP 20; TEMP 36.2; O2SAT 96
--- NOTE | 2023-03-19 04:00 | PC.NURSE ---
VS taken and pt doesnt voice any c/o discomfort.
--- NOTE | 2023-03-19 05:10 | PC.NURSE ---
Pt up to the bathroom with standby assist and the walker. Pt voided 250 ml of clear, yellow urine and returned to the chair with the walker and standby assist of one.
[2023-03-19 05:48] LABS: Hematocrit 39.7 % (37.0-46.0); Hemoglobin 13.4 g/dL (12.4-15.3); Mean Corpuscular HGB Conc 33.8 g/dL (32.0-36.0); Mean Corpuscular Hemoglobin 29.5 pg (27.0-31.0); Mean Corpuscular Volume 87.4 fL (78.0-102.0); Mean Platelet Volume 9.9 fl (8.7-11.0); Platelet Count Result 205 K/mm3 (150-420); Red Blood Count 4.54 M/mm3 (4.70-6.10); Red Cell Distribution Width 13.1 % (11.6-14.4); White Blood Count 7.1 K/mm3 (4.8-10.8)
[2023-03-19 06:08] LABS: Anion Gap 5 mmol/L (8-16); Blood Urea Nitrogen 14 mg/dL (7-18); Carbon Dioxide 28 mmol/L (21-32); Chloride 96 mmol/L (98-108); Estimated CRCL calculation 95 ml/min; Estimated Glomerular Filt Rate > 60; Glucose 106 mg/dL (70-99); Osmolality Calculated 268 mOsm/kg (285-295); Potassium 4.4 mmol/L (3.5-5.1); Sodium 129 mmol/L (136-145)
[2023-03-19 06:21] LABS: Calcium 8.5 mg/dL (8.5-10.1)
[2023-03-19 08:00] VITALS: BP 142/84; PULSE 67; PULSE 72; RESP 16; TEMP 35.9; O2SAT 99
[2023-03-19 08:10] VITALS: PULSE 72
[2023-03-19] MEDS: carvediloL 12.5 MG TABLET BY MOUTH (08:10)
[2023-03-19] MEDS: DOCUSATE SODIUM 100 MG CAPSULE PO (08:10)
[2023-03-19] MEDS: cloNIDine HCL 0.1 MG TABLET PO (08:10)
[2023-03-19] MEDS: ASPIRIN 81 MG ENTERIC TABLET PO (08:10)
[2023-03-19] MEDS: PRAVASTATIN SODIUM 10 MG TABLET BY MOUTH (08:12)
[2023-03-19] MEDS: TAMSULOSIN HCL 0.4 MG CAPSULE PO (08:12)
[2023-03-19] MEDS: amLODIPine BESYLATE 5 MG TABLET BY MOUTH (08:13)
[2023-03-19] MEDS: DICLOFENAC SODIUM 1% 100 GM GEL (*BKC) 1 APPLIC TOPICAL (08:13)
[2023-03-19] MEDS: LORATADINE 10 MG TABLET PO (08:13)
[2023-03-19] MEDS: SODIUM CHLORIDE 1 GM TABLET PO (08:47)
[2023-03-19] MEDS: hydroCHLOROthiazide 12.5 MG CAPSULE BY MOUTH (08:47)
--- NOTE | 2023-03-19 10:24 | PM.DS ---
DS: Admitting Diagnosis Discharge Date 03/19/2023 Admitting Diagnosis Hyponatremia, Fall, Cervical strain DS: Discharge Diagnosis Discharge Diagnosis (1) Hyponatremia: Code(s): E87.1 - Hypo-osmolality and hyponatremia Status: Acute Assessment and Plan: fluid restriction monitor lab levels IV fluids as indication 116...130...130 (2) Fall from ground level: Code(s): W18.30XA - Fall on same level, unspecified, initial encounter Status: Acute Assessment and Plan: fall precation monitor use walker PT/OT to evaluate (3) Cervical muscle strain: Qualifiers: Encounter type: initial encounter Qualified Code(s): S16.1XXA - Strain of muscle, fascia and tendon at neck level, initial encounter Code(s): S16.1XXA - Strain of muscle, fascia and tendon at neck level, initial encounter Status: Acute Assessment and Plan: Tylenol and or Ibuprofen (4) Low back pain: Qualifiers: Back pain laterality: unspecified Chronicity: unspecified Sciatica presence: without sciatica Qualified Code(s): M54.50 - Low back pain, unspecified Code(s): M54.50 - Low back pain, unspecified Status: Acute (5) Obesity (BMI 35.0-39.9 without comorbidity): Code(s): E66.9 - Obesity, unspecified Status: Acute (6) HTN (hypertension): Onset Date: 07/03/18 Code(s): I10 - Essential (primary) hypertension Status: Acute Assessment and Plan: continue home medication monitor blood pressure make adjustment as indicated DS: Summary Hospital Course Reason for hospitalization: Cervical Strain, hyponatremia, fall Hospital Course: ?this is a 72-year-old male that [facility] with Hyponatremia and cervical strain. Patient has a past medical history of diabetes, obesity, hypertension, chronic headaches or migraines, hyperlipidemia. Patient was treated with fluid restriction was given some IV normal saline was treated for his pain due to his headache and was placed on fall precautions patient so this shows sodium was 114 patient was worried in trying to get back home patient discharged home with a sodium of 128. Patient has been alert and oriented and seems to be doing a lot better call placed to patient's primary care provider and informed him of patient's condition patient was adamant that he was not going to stay send him home with a few days of sodium tablets prior to talking to the primary care provider patient discharged home but he is aware and will have close follow-up. Time Spent with Patient Time attestation: Total time spent providing and/or coordinating discharge services: Exam Narrative: GENERAL:Well-appearing, well-nourished, and in no acute distress. HEAD:Normocephalic, traumatic. nothing noted at this time EYES: PERRLA ENT: Nares clear, no rhinorrhea or epistaxis. Mucous membranes moist. CHEST: Clear to auscultation. No respiratory distress. HEART: Regular rate and rhythm. Normal peripheral pulses. ABDOMEN: Soft, nontender, nondistended, normal active bowel sounds. EXTREMITIES: Normal range of motion. trace edema bilaterally SKIN: Warm, dry, no rash. NEURO: No focal deficits. Alert and oriented x3. Eyes: Direct Ophthalmoscopy: photophobia DS: Data Data Completed and Pending Labs on day of discharge: Labs from last 24 hours 03/19/23 05:28 WBC 7.1 RBC 4.54 L Hgb 13.4 Hct 39.7 MCV 87.4 MCH 29.5 MCHC 33.8 RDW 13.1 Plt Count 205 MPV 9.9 Sodium 129 L Potassium 4.4 Chloride 96 L Carbon Dioxide 28 Anion Gap 5 L BUN 14 Creatinine 0.75 Estim Creat Clear Calc 95 Estimated GFR > 60 Glucose 106 H Calculated Osmolality 268 L Calcium 8.5 Discharge Plan Discharge Attending physician on discharge: Clay Gonsalez Consulting providers: Teresa Nazario; Josef Morillo; Crow Pires V. Discharging Clinician: Teresa Nazario
[2023-03-19 12:00] VITALS: BP 138/77; PULSE 77; RESP 14; TEMP 36.4; O2SAT 100
[2023-03-19 12:20] LABS: Sodium 128 mmol/L (136-145)
--- NOTE | 2023-03-19 14:37 | PC.NURSE ---
Discussed lab results with patient. Patient requested to return home. Prescription for sodium tablets given. F/U with Dr. Abreu on 03/26 at 0930. Lab work order given to be drawn on 03/22. Daughter aware of appointments Taken to private vehicle via wheelchair. Transferred self to vehicle.
--- NOTE | 2023-03-20 12:49 | PC.NURSE ---
Pt states he received and understood his discharge instructions. Pt also states the nurses were excellent, they were really good to me. They were nice to talk too. The food was excellent and they did a great job keeping the room clean every day.
[2023-03-20 22:40] LABS: Osmolality, Urine 778 mOsm/kg (50-1200)
[2023-03-22 04:52] LABS: Cortisol Random 2.1 mcg/dL (***)
== END 2023-03-19 14:35 | disposition home or self-care (01) ==
LOC: CHSED 21:54 → CHS2ND 03-18 00:57
PROVIDERS: Nurse Practitioner Family; Admitting Provider Internal Medicine; Emergency Provider Emergency Medicine; PCP Family Medicine; Visit Provider Internal Medicine
DX: E87.1 Hypo-osmolality and hyponatremia (principal); I10 Essential (primary) hypertension; E78.5 Hyperlipidemia, unspecified; E11.42 Type 2 diabetes mellitus with diabetic polyneuropathy; K21.9 Gastro-esophageal reflux disease without esophagitis; M81.0 Age-related osteoporosis without current pathological fracture; M54.50 Low back pain, unspecified; R51.9 Headache, unspecified; G47.33 Obstructive sleep apnea (adult) (pediatric); S16.1XXA Strain of muscle, fascia and tendon at neck level, initial encounter; W19.XXXA Unspecified fall, initial encounter; Z79.82 Long term (current) use of aspirin; Z96.649 Presence of unspecified artificial hip joint
CPT/HCPCS: 36415; 70450; 71045; 72125; 72128; 72131; 80048; 80053; 81003; 82533; 82570; 83735; 83930; 83935; 84295; 84300; 84443; 84484; 84550; 85027; 85610; 85730; 93005; 97161; 99285; A9270; G0378; J7131

== ENCOUNTER 2023-03-22 10:31 | Outpatient (CLI) | payer MEDICARE, SELFPAY ==
[2023-03-22 10:43] LABS: Hematocrit 39.1 % (37.0-46.0); Hemoglobin 13.4 g/dL (12.4-15.3); Mean Corpuscular HGB Conc 34.3 g/dL (32.0-36.0); Mean Corpuscular Hemoglobin 30.3 pg (27.0-31.0); Mean Corpuscular Volume 88.5 fL (78.0-102.0); Mean Platelet Volume 9.3 fl (8.7-11.0); Platelet Count Result 223 K/mm3 (150-420); Red Blood Count 4.42 M/mm3 (4.70-6.10); Red Cell Distribution Width 13.1 % (11.6-14.4); White Blood Count 6.9 K/mm3 (4.8-10.8)
[2023-03-22 11:04] LABS: Anion Gap 6 mmol/L (8-16); Blood Urea Nitrogen 16 mg/dL (7-18); Calcium 8.6 mg/dL (8.5-10.1); Carbon Dioxide 28 mmol/L (21-32); Chloride 96 mmol/L (98-108); Estimated Glomerular Filt Rate > 60; Glucose 123 mg/dL (70-99); Osmolality Calculated 272 mOsm/kg (285-295); Potassium 4.7 mmol/L (3.5-5.1); Sodium 130 mmol/L (136-145)
== END 2023-03-22 10:32 | disposition home or self-care (01) ==
LOC: CHSLAB 10:33
PROVIDERS: PCP Family Medicine; Visit Provider Nurse Practitioner Family
DX: I10 Essential (primary) hypertension (principal); E78.5 Hyperlipidemia, unspecified; E87.1 Hypo-osmolality and hyponatremia
CPT/HCPCS: 36415; 80048; 85027

== ENCOUNTER 2023-03-26 08:20 | Outpatient (CLI) | payer MEDICARE, MEDICAID, SELFPAY ==
[2023-03-26 09:31] LABS: Anion Gap 9 mmol/L (8-16); Blood Urea Nitrogen 20 mg/dL (7-18); Calcium 9.4 mg/dL (8.5-10.1); Carbon Dioxide 28 mmol/L (21-32); Chloride 98 mmol/L (98-108); Estimated Glomerular Filt Rate > 60; Glucose 123 mg/dL (70-99); Osmolality Calculated 283 mOsm/kg (285-295); Potassium 4.7 mmol/L (3.5-5.1); Sodium 135 mmol/L (136-145)
== END 2023-03-26 08:21 | disposition home or self-care (01) ==
LOC: CHSLAB 08:22
PROVIDERS: PCP Family Medicine; Visit Provider Family Medicine
DX: E87.1 Hypo-osmolality and hyponatremia (principal)
CPT/HCPCS: 36415; 80048

== ENCOUNTER 2023-04-10 08:25 | Outpatient (CLI) | payer MEDICARE, MEDICAID, SELFPAY ==
--- NOTE | 2023-04-14 18:04 | WPDPFTINT ---
PFT Procedure Performed PFT Procedure Performed Spirometry with Pre/Post Bronchodilator Plethysmography (Lung Vol) Diffusing Cap (DLCO) PFT Interpretation DOS: 04/10/2023 REQUESTING: Juan Polanco MD REASON FOR TESTING: Cough PULMONARY FUNCTION TESTS Results for the spirometry, lung volumes and diffusion are reproducible. Spirometry: Pre-bronchodilator FEV1 is 2.74 L, 103%, normal. Pre-bronchodilator FVC is 3.75 L, 107% predicted. FEV1/FVC is 74%, normal. After bronchodilator, there is a 1% decrease in FEV1 and 1% increase in FVC. FEV1/FVC ratio is 72%. Lung volumes: Total lung capacity is 5.56 L, 96% predicted, normal. RV is 1.81 L, 81% predicted. RV/TLC is 33%, not elevated. Airway resistance is 3.23, 172%, elevated. Diffusion: DLCO is 22.1, 89% predicted. DLCO/VA is 4.27, 121%, normal. Flow volume loop: The flow volume loop had artifact, was not reproducible. IMPRESSION: Normal spirometry, lung volumes and diffusion. No response to bronchodilator. Lack of response to bronchodilator should not preclude use if clinically indicated. Lia Reynoso MD
== END 2023-04-10 08:26 | disposition home or self-care (01) ==
PROVIDERS: PCP Family Medicine; Visit Provider Family Medicine
DX: R05.8 Other specified cough (principal)
CPT/HCPCS: 94060; 94726; 94729

== ENCOUNTER 2023-04-22 07:35 | Outpatient (CLI) | payer MEDICARE, SELFPAY ==
[2023-04-22 08:35] LABS: Anion Gap 6 mmol/L (8-16); Blood Urea Nitrogen 14 mg/dL (7-18); Calcium 8.7 mg/dL (8.5-10.1); Carbon Dioxide 30 mmol/L (21-32); Chloride 94 mmol/L (98-108); Estimated Glomerular Filt Rate > 60; Potassium 4.9 mmol/L (3.5-5.1); Sodium 130 mmol/L (136-145)
[2023-04-22 08:42] LABS: Glucose 141 mg/dL (70-99); Osmolality Calculated 272 mOsm/kg (285-295)
== END 2023-04-22 07:36 | disposition home or self-care (01) ==
LOC: CHSLAB 07:37
PROVIDERS: PCP Family Medicine; Visit Provider Family Medicine
DX: E87.1 Hypo-osmolality and hyponatremia (principal)
CPT/HCPCS: 36415; 80048

== ENCOUNTER 2023-04-24 09:31 | Outpatient (CLI) | payer MEDICARE, MEDICAID, SELFPAY ==
--- NOTE | ~2023-04-24 | XR_ITS ---
Lumbosacral Spine: AP and lateral views Clinical History: Pain Findings: There is 16 degrees levoscoliosis. There is probable 5 mm retrolisthesis of L1 over L2. The re is anterolisthesis of L5 over S1, measuring up to 19 mm. There is severe degenerative disc narrowi ng at all lumbar levels. There is severe facet arthropathy at L4-L5 and L5-S1. The sacroiliac joints are normally outlined. Impression: Severe degenerative spondylosis, with associated 19 mm anterolisthesis of L5 over S1, and 5 mm retrol isthesis of L1 over L2. 16 degrees levoscoliosis. Reviewed, dictated and finalized at location M. Impression: Severe degenerative spondylosis, with associated 19 mm anterolisthesis of L5 ov er S1, and 5 mm retrolisthesis of L1 over L2. 16 degrees levoscoliosis.
--- NOTE | ~2023-04-24 | XR_ITS ---
EXAMINATION: XR hip LT min 2V DATE: 04/24/2023 09:55 INDICATION: Left hip pain TECHNIQUE: Anteroposterior and frog-leg lateral views of the left hip were obtained. COMPARISON: 05/19/2014 FINDINGS: Alignment is normal. No fracture or suspected avascular necrosis. Partially visualized acetabular com ponent of a right total hip arthroplasty. Mild osteoarthritis at the left hip and bilateral sacroilia c joints. A few phleboliths in the pelvis. Enthesopathic ossification along the bilateral ischial tub erosities, right greater than left and at the left lesser trochanter. IMPRESSION: 1. Mild osteoarthritis at the left hip and bilateral sacroiliac joints. Reviewed, dictated and finalized at location B.
== END 2023-04-24 09:32 | disposition home or self-care (01) ==
LOC: CHSIMG 09:33
PROVIDERS: PCP Family Medicine; Visit Provider Family Medicine
DX: M25.552 Pain in left hip (principal); M48.00 Spinal stenosis, site unspecified; M43.06 Spondylolysis, lumbar region; M41.87 Other forms of scoliosis, lumbosacral region
CPT/HCPCS: 72100; 73502

== ENCOUNTER 2023-05-02 10:33 | Outpatient (CLI) | payer MEDICARE, MEDICAID, SELFPAY ==
--- NOTE | ~2023-05-02 | MR_ITS ---
MRI of the lumbar spine Clinical History: Stenosis Technique: Axial T2-weighted images, and sagittal T1-weighted, T2-weighted, and T2 fat-sat images wer e acquired. Findings: There are bilateral L5 pars interarticularis defects, with 16 mm anterolisthesis of L5 over S1. No other fracture seen. There is reactive marrow edema due to underlying degenerative disc disea se in the lumbar spine. There is advanced degenerative disc narrowing at all lumbar levels. At L1-L2, there is minimal disc bulge with minimal facet arthropathy. No central canal stenosis. Ther e is moderate to severe right neural foraminal narrowing, and minimal left neural foraminal narrowing . At L2-L3, there is minimal disc bulge with advanced right-sided facet arthropathy and mild to moderat e left facet arthropathy. No central canal stenosis. There is severe bilateral neural foraminal narro wing. At L3-L4, there is left paracentral disc extrusion, which in conjunction with facet arthropathy, resu lts in severe spinal canal stenosis/thecal sac compression. There is moderate to severe right neural foraminal narrowing and moderate left neural foraminal narrowing. At L4-L5, disc bulge and facet arthropathy result in moderate to severe spinal canal stenosis/thecal sac compression. There is severe bilateral neural foraminal narrowing. At L5-S1, there is focal severe spinal canal stenosis related to the listhesis. There is advanced fac et arthropathy. There is severe bilateral neural foraminal narrowing. Paravertebral soft tissues are unremarkable. There is a partially imaged probable cystic mass in the right upper pelvis measuring 6.5 cm in diameter. Impression: Bilateral L5 pars interarticularis defects, with 16 mm anterolisthesis of L5 over S1. Severe degenerative spondylosis throughout the lumbar spine, as detailed above. Partially imaged probable cystic, or at least partially cystic, mass in the upper right pelvis measur ing at least 6.5 cm in diameter. Consider dedicated imaging to further evaluate. Reviewed, dictated and finalized at [facility]. Impression: Bilateral L5 pars interarticularis defects, with 16 mm anterolisthesis of L5 ov er S1. Severe degenerative spondylosis throughout the lumbar spine, as detailed above. Partially imaged probable cystic, or at least partially cystic, mass in the upp er right pelvis measuring at least 6.5 cm in diameter. Consider dedicated imagi ng to further evaluate.
== END 2023-05-02 10:34 | disposition home or self-care (01) ==
LOC: CHSIMG 10:34
PROVIDERS: PCP Family Medicine; Visit Provider Family Medicine
DX: M48.00 Spinal stenosis, site unspecified (principal); M43.16 Spondylolisthesis, lumbar region; R19.09 Other intra-abdominal and pelvic swelling, mass and lump
CPT/HCPCS: 72148

== ENCOUNTER 2023-05-11 10:02 | Outpatient (CLI) | payer MEDICARE, MEDICAID, SELFPAY ==
--- NOTE | ~2023-05-11 | MR_ITS ---
EXAMINATION: MR pelvis wo/w con DATE: 05/11/2023 11:15 INDICATION: Pelvic cyst seen on prior lumbar spine MR TECHNIQUE: Magnetic resonance imaging (MRI) of the pelvis was performed without and with 20 mL Multih ance intravenous contrast. Sequences included axial T1-weighted FSE, axial T2-weighted FS FSE, bundy l T1-weighted FSE, coronal fluid sensitive FSE STIR and postcontrast axial, sagittal and coronal T1-w eighted FS FSE. COMPARISON: Lumbar spine MR dated 05/02/[address] lumbar spine dated 03/17/2023 FINDINGS: There is prominent metallic magnetic field artifact associated with a right total hip arthroplasty. T his obscures the immediately adjacent bone and soft tissues. There is loss of fat saturation extendin g into the soft tissues of the greater distance from the arthroplasty which somewhat limits the asses sment on the post contrast imaging. There is a large T2 hyperintense cystic structure measuring 7.7 x 6.8 x 6.9 cm located along the posterior margin of the distal right psoas muscle. This was partially visualized on the CT from 2 months prior. There is a second smaller T2 hyperintense cystic structure measuring 4.5 x 2.6 x 2.2 cm within the distal right iliacus muscle. No evident solid nodular enhanc ing soft tissue component associated with either lesion. Differential would include chronic hematomas or more likely ganglion cyst arising from the joint or iliopsoas bursitis. No evident separate right hip joint effusion. Asymmetric fatty atrophy of the left gluteus medius and minimus muscle bellies w ith retraction of the myotendinous junctions consistent with partial tears of the left gluteus medius and minimus tendons. There is also a small region with proximal retraction of the myotendinous junct ion at the midportion of the right gluteus medius medius consistent with additional smaller partial t ear. Mild lumbar levoscoliosis with severe spondylosis. Normal bone marrow signal with no fracture, r eactive edema or pathologic marrow replacing process. Small fat-containing left inguinal hernia. Blad randy and visualized portions of bowels are unremarkable. No pathologically enlarged pelvic or inguinal lymphadenopathy. IMPRESSION: 1. Right total hip arthroplasty with large cystic structure along the distal right psoas muscle and s maller cystic structure within the distal right iliacus muscle most likely representing either gangli on cysts arising from the right hip joint or iliopsoas bursitis versus less likely chronic hematoma/s eromas related to muscle strains. No solid enhancing soft tissue component to suggest neoplasm. Reviewed, dictated and finalized at location A. IMPRESSION: 1. Right total hip arthroplasty with large cystic structure along the distal ri ght psoas muscle and smaller cystic structure within the distal right iliacus m uscle most likely representing either ganglion cysts arising from the right hip joint or iliopsoas bursitis versus less likely chronic hematoma/seromas relate d to muscle strains. No solid enhancing soft tissue component to suggest neopla sm.
== END 2023-05-11 10:03 | disposition home or self-care (01) ==
LOC: CHSIMG 10:04
PROVIDERS: PCP Family Medicine; Visit Provider Family Medicine
DX: R19.07 Generalized intra-abdominal and pelvic swelling, mass and lump (principal); Z96.641 Presence of right artificial hip joint
CPT/HCPCS: 72197; A9577

== ENCOUNTER 2023-05-24 09:52 | Outpatient (RCR) | payer MEDICARE, MEDICAID, SELFPAY ==
--- NOTE | 2023-05-24 11:09 | OPREHPOC ---
Outpatient Therapy Plan of Care This is a Multidisciplinary Plan of Care that may contain components documented by all disciplines (PT, OT, and ST.) PT Problem 1 PT Problem #1 Knowledge Deficit PT Goal 1 Goal Patient to demonstrate independence with HEP Target Visit 6 PT Problem 2 PT Problem #2 Pain PT Goal 1 Goal 1. Patient to report highest pain at 2/10 2. Patient to report ability perform ADLs at PLOF Target Visit 18 PT Problem 3 PT Problem #3 Impaired Strength PT Goal 1 Goal Patient to display 5/5 strength of B LE to improve ability to lift for hosue hold tasks Target Visit 18 PT Problem 4 PT Problem #4 Impaired Functional Mobil PT Goal 1 Goal 1. Patient to report ability to get into and out of car with no increase in pain 2. Patient to report ability to complete yard work at PLOF. 3. Patient to report ability to ambulate >30 minutes for grocery shopping Target Visit 18
--- NOTE | 2023-05-24 11:09 | PTOPEVAL1 ---
Assessment and note entered by Grecia Bolton DPT Evaluation Information Assessment Status Evaluation Diagnosis low back pain Onset 03/17/23 Subjective Information Patient reports low back pain following incident of doing yard work and falling backward when sitting down on rollator. Patient reports he went to the ER and was kept overnight. Patient reports he was given a back brace and is scheduled for an injections. Patient reports that pain is worse standing, walking, standing up from chair, and getting into and out of the van. Pain is better with sitting and heat. Prior to fall patient had low back pain but reports it has since increased. Reported Pain Level Pain Score 6: Self Report Assessment PT Clinical Summary Patient is a 72 year old male who presents to PT with low back pain following fall. Patient demonstrates decreased lumbar ROM, decreased B LE ROM and impaired posture limting his ability to get into and out of his car, perofmr house hold tasks, and ambulating prolonged distances. He would benefit from skilled PT to address impairments and return to PLOF. Plan of Care Interventions Electrical Stimulation,Gait Training,Hot Pack/Cold Pack,Manual Therapy,Mechanical Traction,Neuro Re- education,Patient/Caregiver Educati,Therapeutic Activities,Therapeutic Exercise PT Services Indicated Yes Treatment Frequency and 3x weekly for 18 visits Duration These treatments will address the objective and functional deficits as defined above. The patient will be advanced safely and appropriately in order for the patient to progress towards his/her prior level of function. Additional exercises will be introduced and as well as a comprehensive home exercise program upon discharge, if needed, ?to ensure carryover of functional gains achieved in the clinic. This treatment plan has been reviewed and agreement upon by the patient.
--- NOTE | 2023-06-20 08:57 | OPREHPOC ---
Outpatient Therapy Plan of Care This is a Multidisciplinary Plan of Care that may contain components documented by all disciplines (PT, OT, and ST.) PT Problem 1 PT Problem #1 Knowledge Deficit PT Goal 1 Goal Patient to demonstrate independence with HEP Target Visit 6 Progress Met PT Problem 2 PT Problem #2 Pain PT Goal 1 Goal 1. Patient to report highest pain at 2/10 2. Patient to report ability perform ADLs at PLOF Target Visit 18 Progress Met PT Problem 3 PT Problem #3 Impaired Strength PT Goal 1 Goal Patient to display 5/5 strength of B LE to improve ability to lift for hosue hold tasks Target Visit 18 Progress Partially Met PT Problem 4 PT Problem #4 Impaired Functional Mobil PT Goal 1 Goal 1. Patient to report ability to get into and out of car with no increase in pain 2. Patient to report ability to complete yard work at PLOF. 3. Patient to report ability to ambulate >30 minutes for grocery shopping Target Visit 18 Progress Partially Met
--- NOTE | 2023-06-20 08:58 | PTOPDC ---
Assessment and note entered by Grecia Bolton DPT Evaluation Information Assessment Status Re-evaluation Diagnosis low back pain Onset 03/17/23 Subjective Information Patient reports since starting PT his back has improved. He reports he has days with no pain. He reports that he can stand up straighter for longer periods of time without increase in pain. He reports he is independent with HEP Reported Pain Level Pain Score 2: Self Report Assessment PT Clinical Summary Patient has been seen for 10 visits of skilled PT with great progress towards goals. He demonstrates improved lumbar ROM and LE strength with reports of improved ability to stand for cooking and walking for grocery shopping. Patient reports he is independent with HEP and is appropriate for DC at this time. Plan of Care PT Services Indicated No
== END 2023-06-20 15:43 | disposition home or self-care (01) ==
LOC: CHSPT 09:52
PROVIDERS: Visit Provider Nurse Practitioner Family
DX: M54.50 Low back pain, unspecified (principal)
CPT/HCPCS: 97012; 97014; 97110; 97112; 97150; 97161; 97530; G0283

== ENCOUNTER 2023-05-27 10:09 | Outpatient (CLI) | payer MEDICARE, MEDICAID, SELFPAY ==
--- NOTE | 2023-05-27 10:15 | ECHO_ITS ---
Patient Info Name: Ced Sellers Age: 72 years : 1950 Gender: Male Ht: 67 in Wt: 273 lbs BSA: 2.48 m2 HR: 85 bpm BP: 177 / 98 mmHg Heart Rhythm: Sinus Rhythm Technical Quality: Fair Exam Date: 05/27/2023 10:24 AM Exam Location: [facility] Patient Status: Outpatient Admit Date: 05/27/2023 Staff Ordering Physician: Josef Morillo DO Restaurant Area Director: Jessica Prescott RDCS Attending Provider: Josef Morillo DO Referring Physician: Ilia AVITIA; Exam Type: CA echo dop color flow w con Study Info Indications - other forms of dyspnea Complete two-dimensional, color flow and Doppler transthoracic echocardiogram is performed with contrast to opacify the left ventricle and to improve the deliniation of the left ventricle endocardial borders. Summary 1. Left ventricular chamber dimension is normal. 2. Definity contrast administered improved wall motion interpretation. 3. Left ventricular systolic function is normal, estimated at 65-70%. 4. There is mild concentric increased left ventricular wall thickness. 5. The left ventricular diastolic function is grade I diastolic dysfunction. 6. E/e' 11 is mildly elevated. 7. Left atrial chamber dimension is mildly enlarged. 8. There is mild aortic valve sclerosis. 9. No pulmonary hypertension, estimated pulmonary arterial systolic pressure is 13 mmHg. Left Ventricle E/e' 11 is mildly elevated. Definity contrast administered improved wall motion interpretation. Left ventricular chamber dimension is normal. Left ventricular systolic function is normal, estimated at 65-70%. There is mild concentric increased left ventricular wall thickness. The left ventricular diastolic function is grade I diastolic dysfunction. Right Ventricle Right ventricular systolic function is normal and with normal TAPSE 2.9 cm. Right ventricular chamber dimension is normal. Left Atria Left atrial chamber dimension is mildly enlarged. Right Atria Right atrial chamber dimension is normal. Aortic Valve The aortic valve is trileaflet. There is mild aortic valve sclerosis. There is no aortic valve stenosis. There is no aortic valve regurgitation. Pulmonic Valve There is no pulmonic regurgitation. Mitral Valve There is no mitral valve stenosis. There is no mitral valve regurgitation. Tricuspid Valve There is no tricuspid valve regurgitation. No pulmonary hypertension, estimated pulmonary arterial systolic pressure is 13 mmHg. Pericardium/Pleural There is no pericardial effusion. Inferior Vena Cava Normal inferior vena cava with >50% collapse upon inspiration consistent with normal right atrial pressure, 5 mmHg. Aorta The aortic root size at the sinus of Valsalva is normal. Left Ventricular Outflow Tract Name Value Normal LVOT 2D LVOT Diameter 2.10 cm LVOT Doppler LVOT Peak Velocity 108.40 cm/s LVOT Peak Gradient 5 mmHg LVOT Mean Gradient 2 mmHg LVOT VTI 25.94 cm LVOT VTI/AV VTI Ratio 0.90 LVOT Stroke Volume 90.21 ml Pulmonic Valve Name
== END 2023-05-27 10:10 | disposition home or self-care (01) ==
LOC: CHSIMG 10:10
PROVIDERS: PCP Family Medicine; Visit Provider Internal Medicine Cardiovascular Disease
DX: I51.7 Cardiomegaly (principal); I35.8 Other nonrheumatic aortic valve disorders; R06.09 Other forms of dyspnea; R93.1 Abnormal findings on diagnostic imaging of heart and coronary circulation; I50.30 Unspecified diastolic (congestive) heart failure
CPT/HCPCS: C8929

== ENCOUNTER 2023-07-22 08:58 | Outpatient (RCR) | payer MEDICARE, MEDICAID, SELFPAY ==
--- NOTE | 2023-07-22 09:37 | PTOPEVAL1 ---
Assessment and note entered by Ced Mckinney Evaluation Information Assessment Status Evaluation Diagnosis right and left knee pain Onset 07/17/23 Subjective Information Pt. reports that he has experineced right and left knee pain for years. He states that he cannot walk for greater than 5-10 minutes due to his pain . He currently uses a cane for all walking and will use a walker occasional at night. He reports that he has been using some sort of AD for the past several months. He reports that he has home health workers that assist with his grocery shopping. He reports that he can go to the store if a scooter is provided to ride. He still drives . He reports that his goal is to be able to stand longer and reduce his pain. Reported Pain Level Pain Score 0,0: Self Report Assessment PT Clinical Summary Pt. is a 72 year old male who enters the clinic with bilateral knee pain. He presents with impaired knee ROM, impaired gait, impaired standing endurance, pain and functional decline. Continued skilled PT is indicated in order to improve these areas to allow the pt. to be able to complete standing activities with better comfort and efficiency. Plan of Care Interventions Electrical Stimulation,Gait Training,Hot Pack/Cold Pack,Manual Therapy,Neuro Re-education,Patient/ Caregiver Educati,Therapeutic Activities, Therapeutic Exercise PT Services Indicated Yes Treatment Frequency and 2x/week x 10 visits Duration These treatments will address the objective and functional deficits as defined above. The patient will be advanced safely and appropriately in order for the patient to progress towards his/her prior level of function. Additional exercises will be introduced and as well as a comprehensive home exercise program upon discharge, if needed, ?to ensure carryover of functional gains achieved in the clinic. This treatment plan has been reviewed and agreement upon by the patient.
--- NOTE | 2023-07-22 09:38 | OPREHPOC ---
Outpatient Therapy Plan of Care This is a Multidisciplinary Plan of Care that may contain components documented by all disciplines (PT, OT, and ST.) PT Problem 1 PT Problem #1 Knowledge Deficit PT Goal 1 Goal Independent with a HEP addressing strength and ROM orthodoxy. Target Visit 2 PT Problem 2 PT Problem #2 Impaired Range of Motion PT Goal 1 Goal -Pt. will present at less than 5 degrees from full knee extension on right and left to improve gait mechanics. Target Visit 10 PT Problem 3 PT Problem #3 Impaired Gait PT Goal 1 Goal -Pt. will demonstrate ability to stand for 10-20 minutes to complete ckc exercise in order to improve ability to complete standing ADL's and IADL's. Target Visit 10 PT Problem 4 PT Problem #4 Impaired Strength PT Goal 1 Goal Pt. will increase left hip abductor strength to 3+ /5 to improve gait mechanics and stability with standing activities. Target Visit 10
--- NOTE | 2023-09-04 12:53 | OPREHPOC ---
Outpatient Therapy Plan of Care This is a Multidisciplinary Plan of Care that may contain components documented by all disciplines (PT, OT, and ST.) PT Problem 1 PT Problem #1 Knowledge Deficit PT Goal 1 Goal Independent with a HEP addressing strength and ROM latter-day. Target Visit 2 Progress Met PT Problem 2 PT Problem #2 Impaired Range of Motion PT Goal 1 Goal -Pt. will present at less than 5 degrees from full knee extension on right and left to improve gait mechanics. Target Visit 14 Progress Not Met PT Problem 3 PT Problem #3 Impaired Gait PT Goal 1 Goal -Pt. will demonstrate ability to stand for 10-20 minutes to complete ckc exercise in order to improve ability to complete standing ADL's and IADL's. Target Visit 14 Progress Not Met PT Problem 4 PT Problem #4 Impaired Strength PT Goal 1 Goal Pt. will increase left hip abductor strength to 3+ /5 to improve gait mechanics and stability with standing activities. Target Visit 14 Progress Not Met
--- NOTE | 2023-09-04 12:53 | PTOPREEVAL ---
Assessment and note entered by JT File, PT Evaluation Information Assessment Status Re-evaluation Diagnosis right and left knee pain Onset 07/17/23 Subjective Information patient reports he has had pain in the bilateral kness since his last injection. he reports he has his final injections today. he reports he has a new order from the MD to continue skilled PT for 2 more weeks. he reports he requires to continue skilled PT as he has been having more pain since the last injection. he reports standing or walking for more than 10 minutes requires holding/leaning onto something. Reported Pain Level Pain Score 8,8: Self Report Assessment PT Clinical Summary mr. richardson presents to skilled PT for his 10th skilled therapy visit. over the past few weeks he has been getting injections to the knees. he was doing well after the 1st injection, but the 2nd injection has left him with increased pain since. he displays increased ambulation endurance today and improved bilateral knee strength. however, he continues to have pain with standing/ambulation, weak hips, and difficulty with ambulation and stair climbing. he would benefit from continued skilled PT per patient wishes and MD orders to further improve objective/functional deficits and progress towards achievement of all goals. Plan of Care Interventions Electrical Stimulation,Gait Training,Hot Pack/Cold Pack,Manual Therapy,Neuro Re-education,Patient/ Caregiver Educati,Therapeutic Activities, Therapeutic Exercise PT Services Indicated Yes Treatment Frequency and continue skilled PT 2x weekly for 4 more visits Duration These treatments will address the objective and functional deficits as defined above. The patient will be advanced safely and appropriately in order for the patient to progress towards his/her prior level of function. Additional exercises will be introduced and as well as a comprehensive home exercise program upon discharge, if needed, ?to ensure carryover of functional gains achieved in the clinic. This treatment plan has been reviewed and agreement upon by the patient.
--- NOTE | 2023-09-17 13:48 | OPREHPOC ---
Outpatient Therapy Plan of Care This is a Multidisciplinary Plan of Care that may contain components documented by all disciplines (PT, OT, and ST.) PT Problem 1 PT Problem #1 Knowledge Deficit PT Goal 1 Goal Independent with a HEP addressing strength and ROM cheondoism. Target Visit 2 Progress Met PT Problem 2 PT Problem #2 Impaired Range of Motion PT Goal 1 Goal -Pt. will present at less than 5 degrees from full knee extension on right and left to improve gait mechanics. Target Visit 14 Progress Not Met PT Problem 3 PT Problem #3 Impaired Gait PT Goal 1 Goal -Pt. will demonstrate ability to stand for 10-20 minutes to complete ckc exercise in order to improve ability to complete standing ADL's and IADL's. Target Visit 14 Progress Not Met PT Problem 4 PT Problem #4 Impaired Strength PT Goal 1 Goal Pt. will increase left hip abductor strength to 3+ /5 to improve gait mechanics and stability with standing activities. Target Visit 14 Progress Not Met
--- NOTE | 2023-09-17 13:48 | PTOPDC ---
Assessment and note entered by Grecia Bolton DPT Evaluation Information Assessment Status Re-evaluation Diagnosis right and left knee pain Onset 07/17/23 Subjective Information Patient reports when he wears braces he notices an increase in pain. Patient reports since getting injections pain levels increased. He reports he is able to stand for 5 minutes prior to needing to set down due to pain. He report he follows up with MD on 09/24/23. Reported Pain Level Pain Score 8,8: Self Report Assessment PT Clinical Summary Mr. Sellers attended 13 visits of skilled PT. He did not meet goals set during POC except for HEP. He continues to lack strength and ROM and has increased pain at B knees. He returns to MD next week regarding continued knee pain. Patient will be discharged at this time due to minimal progress made during POC. Plan of Care PT Services Indicated No
== END 2023-09-17 14:37 | disposition home or self-care (01) ==
LOC: CHSPT 08:58
PROVIDERS: Visit Provider Nurse Practitioner Family
DX: M25.561 Pain in right knee (principal); M25.562 Pain in left knee
CPT/HCPCS: 97110; 97161; 97530; 97750

== ENCOUNTER 2023-07-26 07:15 | Outpatient (CLI) | payer MEDICARE, MEDICAID, SELFPAY ==
[2023-07-26 07:31] LABS: Basophils Absolute Auto 0.04 K/mm3 (0.00-0.10); Basophils Percent Auto 0.5 % (0.0-1.0); Eosinophils Absolute Auto 0.15 K/mm3 (0.02-0.50); Eosinophils Percent Auto 1.9 % (1.0-6.0); Hematocrit 41.5 % (37.0-46.0); Hemoglobin 13.9 g/dL (12.4-15.3); Immature Granulocyte Absolute 0.07 K/mm3 (0.00-0.00); Immature Granulocyte Percent A 0.9 % (0.0-0.0); Lymphocytes Absolute Auto 1.38 K/mm3 (1.10-4.50); Lymphocytes Percent Auto 17.9 % (18.0-42.0); Mean Corpuscular HGB Conc 33.5 g/dL (32.0-36.0); Mean Corpuscular Hemoglobin 29.7 pg (27.0-31.0); Mean Corpuscular Volume 88.7 fL (78.0-102.0); Monocytes Absolute Auto 0.86 K/mm3 (0.10-0.90); Monocytes Percent Auto 11.1 % (2.0-11.0); Neutrophils Absolute Auto 5.2 K/mm3 (1.7-7.2); Neutrophils Percent Auto 67.7 % (50.0-70.0); Platelet Count Result 213 K/mm3 (150-420); Red Blood Count 4.68 M/mm3 (4.70-6.10); White Blood Count 7.7 K/mm3 (4.8-10.8)
[2023-07-26 07:43] LABS: Hemoglobin A1C 6.2 % (<5.7)
[2023-07-26 08:11] LABS: Alanine Aminotransferase 39 U/L (16-63); Albumin Level 3.6 g/dL (3.4-5.0); Alkaline Phosphatase 76 U/L (46-116); Anion Gap 6 mmol/L (8-16); Aspartate Amino Transferase 14 U/L (15-37); Bilirubin,Total 0.4 mg/dL (0.00-1.00); Blood Urea Nitrogen 15 mg/dL (7-18); Calcium 9.1 mg/dL (8.5-10.1); Carbon Dioxide 27 mmol/L (21-32); Chloride 97 mmol/L (98-108); Estimated Glomerular Filt Rate > 60; Glucose 123 mg/dL (70-99); Osmolality Calculated 271 mOsm/kg (285-295); Potassium 4.7 mmol/L (3.5-5.1); Sodium 130 mmol/L (136-145); Total Protein 6.2 g/dL (6.4-8.2)
== END 2023-07-26 07:16 | disposition home or self-care (01) ==
LOC: CHSLAB 07:18
PROVIDERS: PCP Family Medicine; Visit Provider Family Medicine
DX: E11.40 Type 2 diabetes mellitus with diabetic neuropathy, unspecified (principal); E87.1 Hypo-osmolality and hyponatremia
CPT/HCPCS: 36415; 80053; 83036; 85025

== ENCOUNTER 2023-10-30 08:00 | Outpatient (CLI) | payer MEDICARE, MEDICAID, SELFPAY ==
[2023-10-30 08:29] LABS: Basophils Absolute Auto 0.04 K/mm3 (0.00-0.10); Basophils Percent Auto 0.6 % (0.0-1.0); Eosinophils Absolute Auto 0.17 K/mm3 (0.02-0.50); Eosinophils Percent Auto 2.4 % (1.0-6.0); Hematocrit 42.3 % (37.0-46.0); Hemoglobin 14.2 g/dL (12.4-15.3); Immature Granulocyte Absolute 0.05 K/mm3 (0.00-0.00); Immature Granulocyte Percent A 0.7 % (0.0-0.0); Lymphocytes Absolute Auto 1.35 K/mm3 (1.10-4.50); Lymphocytes Percent Auto 18.7 % (18.0-42.0); Mean Corpuscular HGB Conc 33.6 g/dL (32.0-36.0); Mean Corpuscular Hemoglobin 29.7 pg (27.0-31.0); Mean Corpuscular Volume 88.5 fL (78.0-102.0); Mean Platelet Volume 9.5 fl (8.7-11.0); Monocytes Absolute Auto 0.61 K/mm3 (0.10-0.90); Monocytes Percent Auto 8.4 % (2.0-11.0); Neutrophils Percent Auto 69.2 % (50.0-70.0); Platelet Count Result 211 K/mm3 (150-420); Red Blood Count 4.78 M/mm3 (4.70-6.10); Red Cell Distribution Width 12.5 % (11.6-14.4); White Blood Count 7.2 K/mm3 (4.8-10.8)
[2023-10-30 09:07] LABS: Alanine Aminotransferase 35 U/L (16-63); Albumin Level 3.5 g/dL (3.4-5.0); Alkaline Phosphatase 84 U/L (46-116); Anion Gap 8 mmol/L (8-16); Aspartate Amino Transferase 17 U/L (15-37); Bilirubin,Total 0.5 mg/dL (0.00-1.00); Blood Urea Nitrogen 13 mg/dL (7-18); Calcium 9.4 mg/dL (8.5-10.1); Carbon Dioxide 29 mmol/L (21-32); Chloride 95 mmol/L (98-108); Estimated Glomerular Filt Rate > 60; Glucose 125 mg/dL (70-99); Osmolality Calculated 275 mOsm/kg (285-295); Potassium 4.8 mmol/L (3.5-5.1); Sodium 132 mmol/L (136-145); Total Protein 6.4 g/dL (6.4-8.2)
== END 2023-10-30 08:01 | disposition home or self-care (01) ==
LOC: CHSLAB 08:01
PROVIDERS: PCP Family Medicine; Visit Provider Family Medicine
DX: E11.40 Type 2 diabetes mellitus with diabetic neuropathy, unspecified (principal); J06.9 Acute upper respiratory infection, unspecified
CPT/HCPCS: 36415; 80053; 83036; 85025

== ENCOUNTER 2024-02-17 16:02 | Outpatient (CLI) | payer MEDICARE, MEDICAID, SELFPAY ==
--- NOTE | ~2024-02-17 | XR_ITS ---
EXAMINATION: XR abdomen obstructive series DATE: 02/17/2024 16:35 INDICATION: Constipation. TECHNIQUE: Supine and upright views of the abdomen. FINDINGS: Supine and upright views of the abdomen The visualized lung parenchyma is normal.. There is a nonobstructive bowel gas pattern. Large amount of retained fecal material in the colon. Gas and stool are seen throughout the colon to the level of the rectum. There is no free air. There are changes of right total hip arthroplasty. Severe lumbar s pondylosis with levoscoliosis. IMPRESSION: 1. No acute abdominal abnormality. Reviewed, dictated and finalized at location B.
== END 2024-02-17 16:03 | disposition home or self-care (01) ==
LOC: CHSIMG 16:05
PROVIDERS: PCP Family Medicine; Visit Provider Family Medicine
DX: K59.00 Constipation, unspecified (principal)
CPT/HCPCS: 74019

== ENCOUNTER 2024-03-06 07:23 | Outpatient (CLI) | payer MEDICARE, MEDICAID, SELFPAY ==
[2024-03-06 08:04] LABS: Basophils Absolute Auto 0.04 K/mm3 (0.00-0.10); Basophils Percent Auto 0.6 % (0.0-1.0); Eosinophils Absolute Auto 0.19 K/mm3 (0.02-0.50); Eosinophils Percent Auto 2.9 % (1.0-6.0); Hematocrit 41.6 % (37.0-46.0); Hemoglobin 13.9 g/dL (12.4-15.3); Immature Granulocyte Absolute 0.06 K/mm3 (0.00-0.00); Immature Granulocyte Percent A 0.9 % (0.0-0.0); Lymphocytes Absolute Auto 1.31 K/mm3 (1.10-4.50); Lymphocytes Percent Auto 19.9 % (18.0-42.0); Mean Corpuscular HGB Conc 33.4 g/dL (32-36); Mean Corpuscular Hemoglobin 29.3 pg (27.0-31.0); Mean Corpuscular Volume 87.8 fL (78.0-102.0); Mean Platelet Volume 9.4 fl (8.7-11.0); Monocytes Absolute Auto 0.57 K/mm3 (0.10-0.90); Monocytes Percent Auto 8.7 % (2.0-11.0); Neutrophils Absolute Auto 4.41 K/mm3 (1.70-7.20); Platelet Count Result 227 K/mm3 (150-420); Red Blood Count 4.74 M/mm3 (4.70-6.10); White Blood Count 6.6 K/mm3 (4.8-10.8)
[2024-03-06 08:33] LABS: Anion Gap 6 mmol/L (4-12); Blood Urea Nitrogen 17 mg/dL (7-18); Calcium 9.5 mg/dL (8.5-10.1); Carbon Dioxide 30 mmol/L (21-32); Chloride 95 mmol/L (98-108); Estimated Glomerular Filt Rate > 60; Glucose 113 mg/dL (70-99); Osmolality Calculated 274 mOsm/kg (285-295); Potassium 4.5 mmol/L (3.5-5.1); Sodium 131 mmol/L (136-145)
== END 2024-03-06 07:24 | disposition home or self-care (01) ==
LOC: CHSLAB 07:26
PROVIDERS: PCP Family Medicine; Visit Provider Family Medicine
DX: I10 Essential (primary) hypertension (principal); E11.40 Type 2 diabetes mellitus with diabetic neuropathy, unspecified
CPT/HCPCS: 36415; 80048; 83036; 85025

== ENCOUNTER 2024-05-12 10:45 | Outpatient (CLI) | payer MEDICARE, MEDICAID, SELFPAY ==
--- NOTE | ~2024-05-12 | XR_ITS ---
3 VIEWS LUMBAR SPINE Ordering provider: Jaun Polanco MD History: . severe low back pain X 15 days, THR 15 yrs ago . Comparison: April 24, 2023 FINDINGS: VERTEBRAL BODIES: Anterolisthesis at the level of L5-S1. Levoscoliosis. Degenerative changes of the s pine. Right hip arthroplasty. No visible fracture or subluxation. DISK SPACES: Narrowing of all the disc space. Multilevel facet joint disease. SOFT TISSUES: Calcific area in the right paraspinal region unchanged from previous examination. IMPRESSION: No acute osseous abnormality lumbar spine. Multilevel degenerative disc disease. Levoscoliosis. Reviewed, dictated and finalized at location A.
== END 2024-05-12 10:46 | disposition home or self-care (01) ==
LOC: CHSLAB 10:48 → CHSIMG 10:51
PROVIDERS: PCP Family Medicine; Visit Provider Family Medicine
DX: M54.50 Low back pain, unspecified (principal); M51.36 Other intervertebral disc degeneration, lumbar region; M41.86 Other forms of scoliosis, lumbar region
CPT/HCPCS: 72100

== ENCOUNTER 2024-05-13 08:06 | Emergency (ER) | payer MEDICARE, MEDICAID, SELFPAY ==
[2024-05-13] VITALS (15 sets, daily range): BP systolic 162–189; BP diastolic 90–106; PULSE 74–92; RESP 12–24; TEMP 36.8; O2SAT 93–97
--- NOTE | ~2024-05-13 | XR_ITS ---
XR chest 1V portable Ordering provider: Merlin Bradford MD History: 73 years Male with . rule out pneumonia . Comparison: March 17, 2023 FINDINGS: MEDIASTINUM: The cardiac silhouette is slightly enlarged. Prominent right hilum. LUNGS: No effusions or pneumothorax. Minimal opacification in the left lung base is not excluded. Pro minent markings in the right perihilar area. OTHER: No free air under the diaphragm. IMPRESSION: Minimal opacification in the left lung base which may indicate atelectasis versus pneumonia. Follow-u p advised. Prominent markings in the right perihilar area. Reviewed, dictated and finalized at location A. IMPRESSION: Minimal opacification in the left lung base which may indicate atelectasis vers us pneumonia. Follow-up advised. Prominent markings in the right perihilar area .
--- NOTE | ~2024-05-13 | CT_ITS ---
CT brain wo con Ordering provider: Merlin Bradford MD History: 73 years Male with . dizziness . Comparison: March 17, 2023 Technique: CT of the head without contrast. Radiation reduction technique utilized. The dose-length product was 756.67 mGy-cm. FINDINGS: BRAIN PARENCHYMA AND CSF SPACES: No midline shift, mass effect or hemorrhage. The brain parenchyma a nd CSF spaces are otherwise normal. VISUALIZED PARANASAL SINUSES: Bilateral ethmoid sinus disease. MASTOIDS: Bilateral air cells effusion. BONES: The bones appear intact. Bifid posterior arch of C1. SOFT TISSUES: Visualized nasopharynx is normal. Superficial soft tissues are normal. IMPRESSION: No acute intracranial findings. Reviewed, dictated and finalized at location A.
--- NOTE | 2024-05-13 08:21 | ED.DIZZY ---
HPI - Dizziness General Chief Complaint: Dizziness Stated Complaint: right lower back pain; dizziness Source: patient Mode of arrival: ambulatory Limitations: no limitations History of Present Illness HPI Narrative: 73-year-old male with a history of obesity, SAIMA on CPAP, arthritis status post hip and knee replacement, hyponatremia, hypertension, dyslipidemia, diabetes mellitus, EF of 65-70%, diastolic dysfunction, negative stress test in November of 2019 to presents to the ED with a 2 day history of -- upper respiratory tract symptoms. The patient has nasal congestion, sore throat and noisy respiration from upper respiratory sounds. the patient has been tested negative for influenza /RSV / COVID at his doctor's office yesterday -- dizziness. The patient does not have lightheadedness. The patient has vertigo especially with change of position. The vertigo is associated with nausea. The patient has a prior diagnosis of benign positional vertigo. The patient does not have any focal neuro deficits. patient has some gait instability secondary to his dizziness. The patient normally uses a walker on a regular basis. -- Chronic low back pain the patient's symptoms appear to have worsened after he started doxycycline. The patient read the package insert for doxycycline and noted that it causes dizziness. -- headache. the headache is bilateral and is similar to his usual headaches. Patient denied chest pain shortness of breath. No fever or chills. No vomiting or diarrhea MD elicited complaint: dizziness and difficulty walking Pertinent past history: BPPV Onset (ago): day(s) ( 2 days) Timing: gradual onset Severity: moderate Description: room spinning Context: change in medication History of similar symptoms: Yes Exacerbating factors: change in body position Relieving factors: remaining still Associated symptoms: nausea Related Data Home Medications Medication Instructions Recorded Confirmed acetaminophen 500 mg tablet 500 mg PO Q6H PRN Pain 09/25/19 05/13/24 (Tylenol Extra Strength) loratadine 10 mg capsule 10 mg PO DAILY 09/25/19 05/13/24 aspirin 81 mg tablet,delayed 81 mg PO DAILY 09/12/20 05/13/24 release melatonin 1 mg tablet 1 mg PO HS PRN Sleep 09/12/20 05/13/24 docusate sodium 100 mg capsule 100 mg PO BID PRN Constipation 10/01/22 05/13/24 amlodipine 5 mg tablet 5 mg PO DAILY 05/13/24 05/13/24 carvedilol 12.5 mg tablet 12.5 mg PO DAILY 05/13/24 05/13/24 clonidine HCl 0.1 mg tablet 0.1 mg PO DAILY 05/13/24 05/13/24 olmesartan 40 mg tablet 40 mg PO DAILY 05/13/24 05/13/24 pravastatin 10 mg tablet 10 mg PO DAILY 05/13/24 05/13/24 Allergies Allergy/AdvReac Type Severity Reaction Status Date / Time Sulfa (Sulfonamide Allergy Unknown Unknown Verified 05/13/24 08:14 Antibiotics) Review of Systems Review of Systems: All systems reviewed & are unremarkable except as noted in HPI and below Constitutional: Constitutional: Reports as per HPI and Reports no additional constitutional complaints Eyes: Eyes: Reports as per HPI and Reports no additional eye complaints ENT: Reports system reviewed and no additional complaints, except as documented, Reports as per HPI, Reports vertigo, Reports dizziness and Reports nasal congestion Cardiovascular: Cardiovascular: Reports as per HPI and Reports no additional cardiovascular complaints Respiratory: Respiratory: Reports as per HPI and Reports no additional respiratory complaints Gastrointestinal: Gastrointestinal: Reports as per HPI, Reports no additional gastrointestinal complaints and Reports nausea Genitourinary: Genitourinary: Reports no additional male genitourinary complaints and Reports as per HPI Musculoskeletal: Musculoskeletal: Reports no additional musculoskeletal complaints and Reports as per HPI Integumentary/Breasts: Skin/Breast: Reports system reviewed and no additional complaints, except as docu and Reports as per HPI Neurologic: Reports system rev
--- NOTE | 2024-05-13 08:35 | ECG_ITS ---
Test Date: 2024-05-13 09:08:41 Measurements Intervals [place] Rate: 81 P: 24 SC: 148 QRS: 5 QRSD: 103 T: -13 QT: 357 QTc: 416 Interpretive Statements SINUS RHYTHM INFERIOR MYOCARDIAL INFARCTION , OF INDETERMINATE AGE ABNORMAL ECG No previous ECG available for comparison Electronically Signed On 05-13-2024 09:10:23 CDT by Josef Morillo D.O.
[2024-05-13 08:40] LABS: Appearance Urine Clear (Clear); Bilirubin Urine Negative (Negative); Blood Urine Negative (Negative); Color Urine Light Yellow (Yellow); Glucose Urine UA Negative (Negative); Ketones Urine Negative (Negative); Leukocyte Esterase Ur Negative LEU/UL (Negative); Nitrate Urine Negative (Negative); Protein Urine Negative (Negative); Urobilinogen Urine 0.2 mg/dL (0.2-1.0)
[2024-05-13 08:41] LABS: Add Urine Microscopic? NO
[2024-05-13 09:06] LABS: Basophils Absolute Auto 0.02 K/mm3 (0.00-0.10); Basophils Percent Auto 0.2 % (0.0-1.0); Eosinophils Absolute Auto 0.28 K/mm3 (0.02-0.50); Eosinophils Percent Auto 3.1 % (1.0-6.0); Hematocrit 41.1 % (37.0-46.0); Hemoglobin 14.7 g/dL (12.4-15.3); Immature Granulocyte Absolute 0.05 K/mm3 (0.00-0.00); Immature Granulocyte Percent A 0.5 % (0.0-0.0); Lymphocytes Absolute Auto 0.93 K/mm3 (1.10-4.50); Lymphocytes Percent Auto 10.2 % (18.0-42.0); Mean Corpuscular HGB Conc 35.8 g/dL (32-36); Mean Corpuscular Hemoglobin 29.8 pg (27.0-31.0); Mean Corpuscular Volume 83.4 fL (78.0-102.0); Mean Platelet Volume 8.7 fl (8.7-11.0); Monocytes Absolute Auto 0.82 K/mm3 (0.10-0.90); Neutrophils Absolute Auto 7.06 K/mm3 (1.70-7.20); Platelet Count Result 223 K/mm3 (150-420); Red Blood Count 4.93 M/mm3 (4.70-6.10); Red Cell Distribution Width 12.4 % (11.6-14.4); White Blood Count 9.2 K/mm3 (4.8-10.8)
[2024-05-13 09:29] LABS: Alanine Aminotransferase 36 U/L (16-63); Albumin Level 3.9 g/dL (3.4-5.0); Alkaline Phosphatase 89 U/L (46-116); Anion Gap 9 mmol/L (4-12); Aspartate Amino Transferase 22 U/L (15-37); Bilirubin,Total 0.5 mg/dL (0.00-1.00); Blood Urea Nitrogen 13 mg/dL (7-18); Calcium 8.9 mg/dL (8.5-10.1); Carbon Dioxide 25 mmol/L (21-32); Chloride 84 mmol/L (98-108); Estimated CRCL calculation 89 ml/min; Estimated Glomerular Filt Rate > 60; Glucose 129 mg/dL (70-99); NT Pro B Type Natriuretic Pept 100 pg/mL (0-125); Osmolality Calculated 248 mOsm/kg (285-295); Potassium 4.4 mmol/L (3.5-5.1); Total Protein 7.3 g/dL (6.4-8.2); Troponin I 4.8 ng/L (0.00-60.4)
[2024-05-13 09:30] LABS: Sodium 118 mmol/L (136-145)
--- NOTE | 2024-05-13 09:47 | PC.NURSE ---
Pt resting comfortably in his bed. Called house sup at [facility] to request ICU bed for hyponatremia.
[2024-05-13 10:06] LABS: Thyroid Stimulating Hormone Reflex 1.34 u/IU/mL (0.36-3.74)
[2024-05-13] MEDS: SODIUM CHLORIDE 3% 100 ML 30 ML IV CONT (10:44)
--- NOTE | 2024-05-13 11:55 | PC.NURSE ---
Pt resting semi supine in stretcher. Reports that his headache has not improved. Son at bedside.
--- NOTE | 2024-05-13 13:00 | PC.NURSE ---
Pt given cereal and reid crackers. Sitting on side of bed eating. Son at bedside.
== END 2024-05-13 13:22 | disposition short-term general hospital (02) ==
PROVIDERS: Emergency Provider Internal Medicine Critical Care Medicine; PCP Family Medicine
DX: E87.1 Hypo-osmolality and hyponatremia (principal); R42 Dizziness and giddiness; E78.5 Hyperlipidemia, unspecified; I10 Essential (primary) hypertension; E11.9 Type 2 diabetes mellitus without complications; I51.89 Other ill-defined heart diseases; Z79.899 Other long term (current) drug therapy; Z79.82 Long term (current) use of aspirin
CPT/HCPCS: 36415; 70450; 71045; 80053; 81003; 83880; 84443; 84484; 85025; 93005; 96360; 96361; 99285; J7131

== ENCOUNTER 2024-05-13 15:23 | Inpatient (IN) | payer MEDICARE, MEDICAID, SELFPAY ==
[2024-05-13] VITALS (7 sets, daily range): BP systolic 155–172; BP diastolic 93–111; PULSE 81–98; RESP 22; TEMP 36.4–37.2; O2SAT 95–96; BMI 42.5
--- NOTE | ~2024-05-13 | CT_ITS ---
CT diagnostic chest wo con Ordering provider: Susan Decker MD History: 73 years Male with . wheeze, hyponatremia, productive cough . Comparison: None. Technique: CT chest without IV contrast. FINDINGS: VISUALIZED THORACIC INLET: Normal. MEDIASTINUM: Aorta/coronary arteries: Mild atheromatous disease. Heart/other: The heart is not enlarged. Trace of pericardial effusion. Lymph nodes: No mediastinal or hilar adenopathy. LUNGS: Atelectatic changes with underlying fibrotic changes. Minimal left pleural effusion or thicken ing. No pulmonary nodules or masses. No infiltrates. No pneumothorax. VISUALIZED UPPER ABDOMEN: Sliding hiatus hernia. Small left adrenal adenoma. No follow-up is advised unless clinically warranted. Otherwise, the visualized upper abdomen is normal. MUSCULOSKELETAL: Soft tissues: The superficial soft tissues are normal. Bones: Age appropriate degenerative changes of the spine. Fusion of vertebrae is seen in the lower th oracic area. IMPRESSION: 1. No acute cardiopulmonary pathology. 2. Minimal fibrotic changes seen in the lung bases with minimal pleural thickening. 3. Sliding hiatus hernia. 4. Small adrenal adenoma. Reviewed, dictated and finalized at location A. IMPRESSION: 1. No acute cardiopulmonary pathology. 2. Minimal fibrotic changes seen in the lung bases with minimal pleural thicke stuart. 3. Sliding hiatus hernia. 4. Small adrenal adenoma.
--- NOTE | ~2024-05-13 | US_ITS ---
EXAMINATION:US venous doppler LE BI INDICATION:Bilateral lower extremity edema TECHNIQUE: Multiple grayscale, color flow and Doppler images of the right and left lower extremity de ep venous systems were obtained and reviewed. COMPARISON:No prior studies for comparison. FINDINGS: The common femoral, superficial femoral and popliteal veins demonstrate normal respiratory variation, augmentation and compressibility. Color flow is also seen within the posterior tibial, pe roneal, greater saphenous and profunda veins. IMPRESSION: 1: No lower extremity deep venous thrombosis. Reviewed, dictated and finalized at location B.
--- NOTE | 2024-05-13 14:28 | ADMGEN ---
This patient, Ced Sellers, was admitted to IMU Room 203-01. Patient/family oriented to hospital policies and general routines including ID bracelet, bed and alarms, visiting hours, pain management, procedures, bathroom and other care routines, personal items, smoking policy, room service/diet, and visiting hours. Information on how to activate the Rapid Response Team has been discussed. Patient/Family are encouraged to report perceived risks to care and to ask questions if they do not understand what they are told or what they should do.
--- NOTE | 2024-05-13 15:15 | PM.IMHP ---
H&P: HPI History of Present Illness Date/Time: 05/13/24 15:15 Chief Complaint: Hyponatremia. Narrative: This is a pleasant 73-year-old male with hypertension, hyperlipidemia, diastolic dysfunction,, obstructive sleep apnea on CPAP, type 2 diabetes mellitus, and chronic back pain who is being directly admitted to the IMU from the emergency department at [facility] for further treatment and evaluation after he was found to have severe hyponatremia. The patient presented to their facility with complaints of lightheadedness and dizziness with nasal congestion, sore throat, and wet but nonproductive cough for couple of days. He was prescribed doxycycline (respiratory panel was negative) and was told he could take Coricidin which he reports ?dried me out.? When he got up this morning he felt dehydrated, nauseated, and dizzy. He drank 2, 16.9 oz of bottled water however he continued to feel poorly and he went to the ER. He was found to have a sodium of 118 for which he was given a liter normal saline bolus. Transfer was initiated to [facility] for higher level of care. It is noted that he has a history of hyponatremia with sodiums as low as 116 in February 2023. He was told to restrict his fluid to 64 oz a day which he continues to do. He was on HCTZ for many years and that was recently changed too indapamide. At the time my evaluation he reports that he has urinated quite a bit after receiving the fluid. He has chronic lower extremity edema which is unchanged. He continues to feel nauseated but would like to try something the eat. He also complains of a generalized headache and his chronic low back pain. He denies fever, chills, sweats, vomiting, and diarrhea. Of note, the patient's last week and he reports having increasing anxiety since then. Review of Systems Review of Systems: 12 systems were reviewed and are negative except for as per HPI. [facility] Past Medical History Medical History (Updated 05/13/24 @ 21:46 by Ashley Stack PA-C) Arthritis Benign prostatic hyperplasia Chronic back pain Chronic migraine Diastolic dysfunction Gastroesophageal reflux disease History of adverse reaction to anesthesia History of COVID-19 Hyperlipidemia Hypertension Obstructive sleep apnea Osteoporosis Type 2 diabetes mellitus Surgical History Surgical History (Updated 05/13/24 @ 21:33 by Ashley Stack PA-C) History of arthroplasty of right hip (2007) History of arthroscopy of right knee (1996) History of repair of left rotator cuff (2000) Family History Family History Mother Family history of chronic obstructive pulmonary disease Father Family history of lung cancer Mother Family history of chronic obstructive pulmonary disease Daughter Cerebrovascular accident Deficient knowledge of pacemaker insertion Other Arthritis Asthma Diabetes mellitus Hypertension Neuropathy Social History Social History (Updated 05/13/24 @ 21:40 by Ashley Stack PA-C) Social History: Surrogate medical decision maker: Ronna Garber, daughter. Code status: Full code. Smoking status: Never smoker Second hand tobacco smoke exposure: No Alcohol intake: never Substance use: never Do You Feel Safe in your Home?: Yes Lack of Transportation: No Lack of Food: Never True Current Housing: I Have Housing Concerned About Future Housing: No Difficulty Paying Gas/Electric Bills: No Difficulty Paying for Meds: No Currently Unemployed: No Education: High School Diploma/GED Difficulty w/ Childcare or Family Care: No Living arrangements: senior living [facility] Occupation/Education: retired Spiritual care concerns: No Meds Home Medications and Allergies Home Medications Medication Instructions Recorded Confirmed Type acetaminophen 500 mg tablet 500 mg PO Q6H PRN Pain 09/25/19 05/13/24 History (Tylenol Extra Strength)
[2024-05-13] MEDS: amLODIPine BESYLATE 5 MG TABLET PO (15:33)
[2024-05-13] MEDS: cloNIDine HCL 0.1 MG TABLET PO (15:34)
[2024-05-13] MEDS: ONDANSETRON INJ 4 MG/2 ML VIAL IV PUSH (15:44)
[2024-05-13] MEDS: ACETAMINOPHEN 325 MG TABLET 650 MG PO ×2 (15:44→20:53)
[2024-05-13 17:17] LABS: Anion Gap 10 mmol/L (4-12); Blood Urea Nitrogen 12 mg/dL (9-20); Calcium 8.9 mg/dL (8.4-10.2); Carbon Dioxide 26 mmol/L (22-30); Chloride 81 mmol/L (98-107); Estimated CRCL calculation 102 ml/min; Estimated Glomerular Filt Rate > 60; Glucose 130 mg/dL (65-110); Potassium 4.1 mmol/L (3.4-5.0); Sodium 117 mmol/L (137-145)
[2024-05-13 18:23] LABS: Glucose Point of Care 130 mg/dl (65-105)
[2024-05-13 18:34] LABS: Urea Random Urine 593 MG/DL
[2024-05-13 18:41] LABS: Sodium Urine Random 183 meq/L
[2024-05-13] MEDS: DOCUSATE SODIUM 100 MG CAPSULE PO (20:53)
[2024-05-13] MEDS: carvediloL 12.5 MG TABLET PO (20:53)
[2024-05-13] MEDS: LIDOCAINE 1 EACH XX (21:20)
[2024-05-13] MEDS: MELATONIN 3 MG TABLET PO (21:30)
[2024-05-13] MEDS: LIDOCAINE 5% PATCH 1 PATCH TRANSDERM (21:30)
[2024-05-13] MEDS: polyethylene glycoL 3350 17 GM POWD.PACK PO (21:31)
[2024-05-13 23:46] LABS: Sodium 117 mmol/L (137-145)
[2024-05-14] VITALS (20 sets, daily range): BP systolic 111–167; BP diastolic 54–88; PULSE 66–85; RESP 19–22; TEMP 35.8–36.5; O2SAT 96–100
[2024-05-14 00:11] LABS: Glucose Point of Care 140 mg/dl (65-105)
[2024-05-14 03:21] LABS: Sodium 116 mmol/L (137-145)
[2024-05-14] MEDS: ACETAMINOPHEN 325 MG TABLET 650 MG PO ×2 (05:18→20:03)
[2024-05-14 05:27] LABS: Glucose Point of Care 128 mg/dl (65-105)
[2024-05-14] MEDS: LIDOCAINE 5% PATCH 1 PATCH TRANSDERM (08:30)
[2024-05-14] MEDS: LORATADINE 10 MG TABLET PO (08:31)
[2024-05-14] MEDS: carvediloL 12.5 MG TABLET PO ×2 (08:31→20:04)
[2024-05-14] MEDS: PRAVASTATIN SODIUM 10 MG TABLET PO (08:31)
[2024-05-14] MEDS: ASPIRIN 81 MG ENTERIC TABLET PO (08:32)
[2024-05-14] MEDS: DOCUSATE SODIUM 100 MG CAPSULE PO ×2 (08:32→20:04)
[2024-05-14] MEDS: OLMESARTAN MEDOXOMIL 20 MG TABLET 40 MG PO (08:33)
[2024-05-14] MEDS: cloNIDine HCL 0.1 MG TABLET PO (08:34)
[2024-05-14] MEDS: ENOXAPARIN 40 MG/0.4 ML SYRINGE SUB-Q (08:34)
[2024-05-14] MEDS: amLODIPine BESYLATE 5 MG TABLET PO (08:34)
[2024-05-14] MEDS: polyethylene glycoL 3350 17 GM POWD.PACK PO (08:35)
[2024-05-14 09:17] LABS: Sodium 117 mmol/L (137-145)
[2024-05-14 11:20] LABS: Glucose Point of Care 137 mg/dl (65-105)
[2024-05-14 12:11] LABS: Sodium 118 mmol/L (137-145)
--- NOTE | 2024-05-14 12:52 | PM.CNNEP ---
Assessment and Plan Assessment and plan (1) Hyponatremia: Code(s): E87.1 - Hypo-osmolality and hyponatremia Status: Acute Assessment and Plan: the patient has hyponatremia. He has had longstanding low sodiums for about the last 16 years. At 1st they are intermittent and now they are fairly constant. He was on hydrochlorothiazide in the past but only took this as needed so I doubt if this is the only reason his sodium is low. His cortisol level was only 2 in the past. It is unclear what the setting was when they checked that but will recheck 1 today. Causes of hyponatremia include: DINING ROOM MAID disease. 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 Pulmonary disease. His chest x-ray is clear and he has no. History or symptoms of this. Cancer. He has no history of cancer and seems to be fairly up-to-date with his screening. Medicines. He is on indapamide. This was discontinued hormone will check a cortisol level. TSH is okay the patient also had acutely worsened hyponatremia. Possibly when he was sick he was drinking more water than he realized. He insists that he didn't drink more water. He does say that he drink the 2 bottles of water the morning before admission which may have diluted the sodium a little bit but probably not from 130-117. At this point since we stopped the indapamide, he may spontaneously correct. we will continue the fluid restriction and watch for the rise in sodium. If nothing happens by tomorrow will add other measures to try to get the sodium back up. In the meantime will get serum and urine osmolality, cortisol level, and SPEP. (2) SAIMA on CPAP: Code(s): G47.33 - Obstructive sleep apnea (adult) (pediatric); Z99.89 - Dependence on other enabling machines and devices Status: Acute (3) Hyperlipidemia: Code(s): E78.5 - Hyperlipidemia, unspecified Status: Acute Assessment and Plan: He is on pravastatin (4) HTN (hypertension): Onset Date: 07/03/18 Code(s): I10 - Essential (primary) hypertension Status: Acute Assessment and Plan: he takes olmesartan and amlodipine (5) Type 2 diabetes mellitus: Code(s): E11.9 - Type 2 diabetes mellitus without complications Status: Acute Assessment and Plan: he is on Accu-Cheks. Hospitalist managing this (6) Diastolic dysfunction: Code(s): I51.89 - Other ill-defined heart diseases Status: Acute Assessment and Plan: he sees Dr. Morillo History of Present Illness Reason for Consult Consult date: 05/14/24 Chief Complaint Chief complaint: Hyponatremia severe History of Present Illness Narrative: Ced is a very pleasant 73-year-old gentleman who has multiple medical problems including hypertension, diabetes, hyperlipidemia diastolic dysfunction, BPH and overactive bladder, obstructive sleep apnea, dyslipidemia, GERD, chronic migraines. The patient came in the hospital because of low sodium. He has had low sodiums for a long time to a mild degree. The 1st low sodium I can find in the records was in 2007. And it has been mostly low since then. Generally it runs somewhere between 126 and 135. He has had much lower sodiums than that and been hospitalized twice before this. Each time they gave him medications that brought the sodiums up and he was discharged and continue to have his mildly low sodiums after that. He says that he was on hydrochlorothiazide for a long time which he only took as needed for swelling. Recently he was switched from hydrochlorothiazide to indapamide and he took that every day. He says that he watches a fluid he drinks. He is very limited on what he drinks only taking sips. This is because his doctor told him if restrict his fluids to keep his sodium from going down. He has had some issues in the last week or so with cough and drainage. He went to urgent care and he was given inhalers. Then he was told to take chlo
[2024-05-14 14:06] LABS: Cortisol Random 9.12 ug/dL
--- NOTE | 2024-05-14 15:44 | PM.IMPN ---
Progress Note: A&P Assessment and Plan (1) Hyponatremia: Code(s): E87.1 - Hypo-osmolality and hyponatremia Status: Acute (2) Bronchitis: Code(s): J40 - Bronchitis, not specified as acute or chronic Status: Acute (3) Hypertension: Code(s): I10 - Essential (primary) hypertension Status: Acute (4) Obstructive sleep apnea: Code(s): G47.33 - Obstructive sleep apnea (adult) (pediatric) Status: Acute (5) Type 2 diabetes mellitus: Code(s): E11.9 - Type 2 diabetes mellitus without complications Status: Acute (6) Benign prostatic hyperplasia: Code(s): N40.0 - Benign prostatic hyperplasia without lower urinary tract symptoms Status: Acute Plan The patient presented to the emergency department the outside facility with complaints of dizziness, nasal congestion, and cough as detailed in HPI. Labs, imaging, EKG, and all reports were personally reviewed. He has profound hyponatremia of unclear etiology although he has had issues with chronic hyponatremia for at least several years. He has some tahir ankle edema but does not look overtly volume overloaded nor does he look dehydrated. Hold on initiating further IV fluid pending repeat sodium, urine and serum osmolalities, urine sodium and urea, and TSH. Fluid restrict and hold thiazide diuretic. Sodium will be monitored closely. Bladder scan to rule out urinary retention which could lead to SIADH. Clinically he has bronchitis and doxycycline will be continued. Radiologist recommends follow-up chest x-ray to resolution. Rpt sodium levels in AM continue fluid restriction hopeful vern martinez Nephrology rounding Subjective Date/time seen: 05/14/24 15:44 Interval history: 73-year-old male with hypertension, hyperlipidemia, diastolic dysfunction,, obstructive sleep apnea on CPAP, type 2 diabetes mellitus, and chronic back pain who is being directly admitted to the IMU from the emergency department at [facility] for further treatment and evaluation after he was found to have severe hyponatremia. The patient presented to their facility with complaints of lightheadedness and dizziness with nasal congestion, sore throat, and wet but nonproductive cough for couple of days. He was prescribed doxycycline (respiratory panel was negative) and was told he could take Coricidin which he reports ?dried me out.? When he got up this morning he felt dehydrated, nauseated, and dizzy. He drank 2, 16.9 oz of bottled water however he continued to feel poorly and he went to the ER. He was found to have a sodium of 118 for which he was given a liter normal saline bolus. Transfer was initiated to [facility] for higher level of care. It is noted that he has a history of hyponatremia with sodiums as low as 116 in February 2023. He was told to restrict his fluid to 64 oz a day which he continues to do. He was on HCTZ for many years and that was recently changed too indapamide. 05/14 sodium improving to 118 pt runs low chronically hopeful dc michelle if sodium is around 120 and above pt seen by nephrology MD Review of Systems Review of Systems: Asymptomatic Exam Narrative: General: Well-developed, nontoxic-appearing male sitting at the side of bed in no distress. Respiratory: Lungs are clear to auscultation bilaterally. Cardiovascular: Regular rate and rhythm with S1-S2. Gastrointestinal: Abdomen is soft, protuberant, nontender, and nondistended with positive bowel sounds. Skin: Warm and dry. Extremities: No cyanosis or clubbing. 1+ tahir ankle edema bilaterally, left greater than right. No palpable knots or cords. Radial and pedal pulses intact. Neurological: Alert. Cranial nerves 2-12 are grossly intact. No gross focal deficits to casual conversation. Psychiatric: Pleasant and cooperative with normal mood and affect. Judgment and insight intact. Objective Data Vital Signs Vital Signs: Vital Signs - 24 hr 05/13/24 16:00 05/13/24
[2024-05-14 15:54] LABS: Glucose Point of Care 125 mg/dl (65-105)
[2024-05-14 16:38] LABS: Osmolality, Urine 621 mOsm/kg (50-1200)
[2024-05-14 16:44] LABS: Sodium 118 mmol/L (137-145)
[2024-05-14 19:40] LABS: Glucose Point of Care 132 mg/dl (65-105)
[2024-05-14] MEDS: MELATONIN 3 MG TABLET PO (20:04)
[2024-05-14 22:44] LABS: Sodium 115 mmol/L (137-145)
[2024-05-15] VITALS (15 sets, daily range): BP systolic 108–162; BP diastolic 67–100; PULSE 63–87; RESP 16–24; TEMP 36.3–36.9; O2SAT 96–98
[2024-05-15] MEDS: ACETAMINOPHEN 325 MG TABLET 650 MG PO ×3 (03:34→21:09)
[2024-05-15 05:08] LABS: Anion Gap 10 mmol/L (4-12); Blood Urea Nitrogen 16 mg/dL (9-20); Calcium 8.6 mg/dL (8.4-10.2); Carbon Dioxide 25 mmol/L (22-30); Chloride 82 mmol/L (98-107); Estimated CRCL calculation 89 ml/min; Estimated Glomerular Filt Rate > 60; Glucose 116 mg/dL (65-110); Potassium 4.3 mmol/L (3.4-5.0); Sodium 117 mmol/L (137-145)
[2024-05-15 06:31] LABS: Glucose Point of Care 118 mg/dl (65-105)
[2024-05-15 08:33] LABS: Protein, Total 6.1 g/dL (6.1-8.1)
[2024-05-15] MEDS: amLODIPine BESYLATE 5 MG TABLET PO ×2 (08:53→11:10)
[2024-05-15] MEDS: OLMESARTAN MEDOXOMIL 20 MG TABLET 40 MG PO (08:53)
[2024-05-15] MEDS: LORATADINE 10 MG TABLET PO (08:53)
[2024-05-15] MEDS: ENOXAPARIN 40 MG/0.4 ML SYRINGE SUB-Q (08:54)
[2024-05-15] MEDS: cloNIDine HCL 0.1 MG TABLET PO (08:54)
[2024-05-15] MEDS: carvediloL 12.5 MG TABLET PO ×2 (08:54→21:08)
[2024-05-15] MEDS: PRAVASTATIN SODIUM 10 MG TABLET PO (08:54)
[2024-05-15] MEDS: LIDOCAINE 5% PATCH 1 PATCH TRANSDERM (08:54)
[2024-05-15] MEDS: ASPIRIN 81 MG ENTERIC TABLET PO (08:54)
--- NOTE | 2024-05-15 10:41 | PM.PNNEP ---
Progress Note: A&P Assessment and Plan (1) Hyponatremia: Code(s): E87.1 - Hypo-osmolality and hyponatremia Status: Acute Assessment and Plan: the patient has hyponatremia. He has had longstanding low sodiums for about the last 16 years. At 1st they are intermittent and now they are fairly constant. He was on hydrochlorothiazide in the past but only took this as needed so I doubt if this is the only reason his sodium is low. His cortisol level was only 2 in the past. It is unclear what the setting was when they checked that but will recheck 1 today. 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 Pulmonary disease. His chest x-ray is clear and he has no. History or symptoms of this. Cancer. He has no history of cancer and seems to be fairly up-to-date with his screening. Medicines. He is on indapamide. This was discontinued hormone will check a cortisol level. TSH is okay Fractional excretion of urea shows pre renal azotemia. Cortisol level was 9.1 the patient also had acutely worsened hyponatremia. Possibly due to his indapamide and fluid intake. He might be a bit dry. He does have an infiltrate on his chest x-ray as well. Adrenal insufficiency could do this as well. We waited 24hours to treat because of the concern for auto correction. He has not started doing this and I think the and the indapamide has probably worn off. At this point will try sodium chloride since the fractional excretion of urea was low. Will check a sodium this afternoon. Sodium comes up that great. If it goes down then we will use 3% saline. Will get a Cortrosyn stim test. Consider antibiotics for his chest x-ray infiltrate? I discussed with Dr Raymundo. she will investigate. (2) SAIMA on CPAP: Code(s): G47.33 - Obstructive sleep apnea (adult) (pediatric); Z99.89 - Dependence on other enabling machines and devices Status: Acute (3) Hyperlipidemia: Code(s): E78.5 - Hyperlipidemia, unspecified Status: Acute Assessment and Plan: He is on pravastatin (4) HTN (hypertension): Onset Date: 07/03/18 Code(s): I10 - Essential (primary) hypertension Status: Acute Assessment and Plan: he takes olmesartan and amlodipine Will increase the latter to 10mg (5) Type 2 diabetes mellitus: Code(s): E11.9 - Type 2 diabetes mellitus without complications Status: Acute Assessment and Plan: he is on Accu-Cheks. Hospitalist managing this (6) Diastolic dysfunction: Code(s): I51.89 - Other ill-defined heart diseases Status: Acute Assessment and Plan: he sees Dr. Morillo Subjective Date/time seen: 05/15/24 10:41 Interval history: Ced is feeling about the same. Sitting up in a chair. He has a cough with very thick tenacious sputum. No shortness of breath and his oxygen level has been fine. Review of Systems Cardiovascular: Cardiovascular: Reports no additional cardiovascular complaints Respiratory: Respiratory: Reports no additional respiratory complaints Gastrointestinal: Gastrointestinal: Reports no additional gastrointestinal complaints Genitourinary: Genitourinary: Reports no additional male genitourinary complaints Exam Narrative: WDWN in NAD skin no rash head ncat lungs clear cor reg no rub abd BS+ nontender and soft ext 1+ bilateral edema. Objective Data Vital Signs Vital Signs: Vital Signs - 24 hr 05/14/24 11:03 05/14/24 12:20 05/14/24 13:59 Temperature 96.5 F L Pulse Rate 75 80 69 Respiratory Rate 20 Blood Pressure 135/77 Pulse Oximetry 98 Oxygen Delivery 05/14/24 15:44 05/14/24 16:35 05/14/24 16:35 Temperature 96.9 F L Pulse Rate 74 78 78 Respiratory Rate 20 20 Blood Pressure 146/85 H Pulse Oximetry 96 96 Oxygen Delivery Room Air 05/14/24 18:00 05/14/24 19:51 05/14/24 20:04 Temperature 97.6 F Puls
[2024-05-15] MEDS: COSYNTROPIN 0.25 MG/ML VIAL IV PUSH (11:06)
[2024-05-15] MEDS: SODIUM CHLORIDE 0.9% IV 1,000 ML 100 ML IV CONT (11:10)
[2024-05-15 11:26] LABS: Glucose Point of Care 154 mg/dl (65-105)
--- NOTE | 2024-05-15 14:23 | PM.IMPN ---
Progress Note: A&P Assessment and Plan (1) Hyponatremia: Code(s): E87.1 - Hypo-osmolality and hyponatremia Status: Acute (2) Bronchitis: Code(s): J40 - Bronchitis, not specified as acute or chronic Status: Acute (3) Hypertension: Code(s): I10 - Essential (primary) hypertension Status: Acute (4) Obstructive sleep apnea: Code(s): G47.33 - Obstructive sleep apnea (adult) (pediatric) Status: Acute (5) Type 2 diabetes mellitus: Code(s): E11.9 - Type 2 diabetes mellitus without complications Status: Acute (6) Benign prostatic hyperplasia: Code(s): N40.0 - Benign prostatic hyperplasia without lower urinary tract symptoms Status: Acute Plan The patient presented to the emergency department the outside facility with complaints of dizziness, nasal congestion, and cough as detailed in HPI. Labs, imaging, EKG, and all reports were personally reviewed. He has profound hyponatremia of unclear etiology although he has had issues with chronic hyponatremia for at least several years. He has some tahir ankle edema but does not look overtly volume overloaded nor does he look dehydrated. Hold on initiating further IV fluid pending repeat sodium, urine and serum osmolalities, urine sodium and urea, and TSH. Fluid restrict and hold thiazide diuretic. Sodium will be monitored closely. Bladder scan to rule out urinary retention which could lead to SIADH. Clinically he has bronchitis and doxycycline will be continued. Radiologist recommends follow-up chest x-ray to resolution. Rpt sodium levels in AM pt started on iv fluids, iv rocephin and zithromax today Nephrology rounding await improvement on sodium levels Subjective Date/time seen: 05/15/24 14:23 Interval history: 73-year-old male with hypertension, hyperlipidemia, diastolic dysfunction,, obstructive sleep apnea on CPAP, type 2 diabetes mellitus, and chronic back pain who is being directly admitted to the IMU from the emergency department at [facility] for further treatment and evaluation after he was found to have severe hyponatremia. The patient presented to their facility with complaints of lightheadedness and dizziness with nasal congestion, sore throat, and wet but nonproductive cough for couple of days. He was prescribed doxycycline (respiratory panel was negative) and was told he could take Coricidin which he reports ?dried me out.? When he got up this morning he felt dehydrated, nauseated, and dizzy. He drank 2, 16.9 oz of bottled water however he continued to feel poorly and he went to the ER. He was found to have a sodium of 118 for which he was given a liter normal saline bolus. Transfer was initiated to [place] for higher level of care. It is noted that he has a history of hyponatremia with sodiums as low as 116 in February 2023. He was told to restrict his fluid to 64 oz a day which he continues to do. He was on HCTZ for many years and that was recently changed too indapamide. 05/14 sodium improving to 118 pt runs low chronically hopeful dc michelle if sodium is around 125 and above pt seen by nephrology MD 05/15 Pt with wet cough cxr shows L opacification will start IV abx, fluids started, watch Na, sp cosyntropin test, Nephrology rounding Review of Systems Review of Systems: mild cough Exam Narrative: General: Well-developed, nontoxic-appearing male sitting at the side of bed in no distress. Respiratory: Lungs with crackles at bases Cardiovascular: Regular rate and rhythm with S1-S2. Gastrointestinal: Abdomen is soft, protuberant, nontender, and nondistended with positive bowel sounds. Skin: Warm and dry. Extremities: No cyanosis or clubbing. 1+ tahir ankle edema bilaterally, left greater than right. No palpable knots or cords. Radial and pedal pulses intact. Neurological: Alert. Cranial nerves 2-12 are grossly intact. No gross focal deficits to casual conversation. Psychiatric: Pleasant a
[2024-05-15 16:03] LABS: Sodium 116 mmol/L (137-145)
[2024-05-15 16:04] LABS: Albumin 3.5 g/dL (3.8-4.8); Alpha 1 Globulin 0.3 g/dL (0.2-0.3); Alpha 2 Globulin 0.8 g/dL (0.5-0.9); Beta 1 Globulin 0.4 g/dL (0.4-0.6); Gamma Globulin 0.7 g/dL (0.8-1.7)
[2024-05-15 16:18] LABS: Glucose Point of Care 142 mg/dl (65-105)
[2024-05-15] MEDS: SODIUM CHLORIDE 3% 500 ML 50 ML IV CONT (16:50)
[2024-05-15 20:51] LABS: Glucose Point of Care 125 mg/dl (65-105)
[2024-05-15] MEDS: guaiFENesin 12 HR 600 MG TABCR PO (21:08)
[2024-05-15] MEDS: MELATONIN 3 MG TABLET PO (21:09)
[2024-05-16] VITALS (7 sets, daily range): BP systolic 147–155; BP diastolic 76–83; PULSE 67–86; RESP 16–20; TEMP 36.1–36.4; O2SAT 96–100
[2024-05-16 05:00] LABS: Albumin Level 4.1 g/dL (3.5-5.1); Anion Gap 9 mmol/L (4-12); Blood Urea Nitrogen 14 mg/dL (9-20); Calcium 8.5 mg/dL (8.4-10.2); Carbon Dioxide 26 mmol/L (22-30); Chloride 86 mmol/L (98-107); Estimated CRCL calculation 89 ml/min; Estimated Glomerular Filt Rate > 60; Glucose 111 mg/dL (65-110); Phosphorus 2.9 mg/dL (2.5-4.5); Potassium 3.9 mmol/L (3.4-5.0); Sodium 121 mmol/L (137-145)
[2024-05-16 06:37] LABS: Glucose Point of Care 106 mg/dl (65-105)
[2024-05-16] MEDS: ASPIRIN 81 MG ENTERIC TABLET PO (08:36)
[2024-05-16] MEDS: OLMESARTAN MEDOXOMIL 20 MG TABLET 40 MG PO (08:36)
[2024-05-16] MEDS: ENOXAPARIN 40 MG/0.4 ML SYRINGE SUB-Q (08:36)
[2024-05-16] MEDS: amLODIPine BESYLATE 10 MG TABLET PO (08:37)
[2024-05-16] MEDS: carvediloL 12.5 MG TABLET PO ×2 (08:37→20:49)
[2024-05-16] MEDS: LORATADINE 10 MG TABLET PO (08:37)
[2024-05-16] MEDS: AZITHROMYCIN 250 MG TABLET 500 MG PO (08:37)
[2024-05-16] MEDS: cloNIDine HCL 0.1 MG TABLET PO (08:37)
[2024-05-16] MEDS: guaiFENesin 12 HR 600 MG TABCR PO ×2 (08:38→20:50)
[2024-05-16] MEDS: PRAVASTATIN SODIUM 10 MG TABLET PO (08:40)
[2024-05-16] MEDS: LIDOCAINE 5% PATCH 1 PATCH TRANSDERM (08:42)
[2024-05-16] MEDS: FUROSEMIDE 20 MG TABLET PO ×2 (10:32→16:21)
[2024-05-16] MEDS: SODIUM CHLORIDE 1 GM TABLET PO ×2 (10:33→16:21)
--- NOTE | 2024-05-16 11:48 | PM.PNNEP ---
Progress Note: A&P Assessment and Plan (1) Hyponatremia: Code(s): E87.1 - Hypo-osmolality and hyponatremia Status: Acute Assessment and Plan: the patient has hyponatremia. He has had longstanding low sodiums for about the last 16 years. At 1st they are intermittent and now they are fairly constant. 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 Pulmonary disease. His chest x-ray is clear and he has no. History or symptoms of this. Cancer. He has no history of cancer and seems to be fairly up-to-date with his screening. Medicines. He was on indapamide. This was discontinued hormone hunter stim test okay TSH is okay Fractional excretion of urea shows pre renal azotemia. He was on hydrochlorothiazide in the past but only took this as needed so I doubt if this is the only reason his sodium was chronically low but may have contributed at times when on the med. the patient also had acutely worsened hyponatremia. Possibly due to his indapamide and fluid intake. He might be a bit dry (urine 'lytes prerenal). He does have an infiltrate on his chest x-ray as well. He didn't autocorrect so yesterday I gave a dose of 3% saline. his sodium came up to 121 this am. will give lasix and salt tabs and repeat Na at 4pm he continues on the fluid restriction (2) SAIMA on CPAP: Code(s): G47.33 - Obstructive sleep apnea (adult) (pediatric); Z99.89 - Dependence on other enabling machines and devices Status: Acute (3) Hyperlipidemia: Code(s): E78.5 - Hyperlipidemia, unspecified Status: Acute Assessment and Plan: He is on pravastatin (4) HTN (hypertension): Onset Date: 07/03/18 Code(s): I10 - Essential (primary) hypertension Status: Acute Assessment and Plan: he takes olmesartan and amlodipine BP doing really well today (5) Type 2 diabetes mellitus: Code(s): E11.9 - Type 2 diabetes mellitus without complications Status: Acute Assessment and Plan: he is on Accu-Cheks. Hospitalist managing this (6) Diastolic dysfunction: Code(s): I51.89 - Other ill-defined heart diseases Status: Acute Assessment and Plan: he sees Dr. Morillo (7) Pulmonary infiltrate: Code(s): R91.8 - Other nonspecific abnormal finding of lung field Status: Acute Assessment and Plan: pt has a pulmonary infiltrate. he is on azith and ceftriaxone. Subjective Date/time seen: 05/16/24 11:48 Interval history: pt sitting up in a chair. cough seems better. no sob . eating okay Exam Narrative: WDWN in NAD skin no rash head ncat lungs clear bilaterally. some inc in expiratory phase cor reg no rub or gallop abd BS+ nontender and soft ext 1+ bilateral edema. Objective Data Vital Signs Vital Signs: Vital Signs - 24 hr 05/15/24 12:00 05/15/24 15:57 05/15/24 12:00 Temperature 97.4 F L Pulse Rate 74 80 Respiratory Rate 24 H Blood Pressure 131/79 Pulse Oximetry 98 Oxygen Delivery Room Air 05/15/24 16:00 05/15/24 19:47 05/15/24 23:40 Temperature 98.4 F 98.3 F Pulse Rate 76 85 73 Respiratory Rate 18 16 Blood Pressure 134/70 108/67 Pulse Oximetry 98 97 Oxygen Delivery 05/15/24 22:27 05/16/24 02:50 05/16/24 07:38 Temperature 97.0 F L Pulse Rate 65 69 83 Respiratory Rate 20 Blood Pressure 148/81 H Pulse Oximetry 96 97 98 Oxygen Delivery Autopap Autopap 05/16/24 08:37 05/16/24 08:00 Temperature Pulse Rate 80 Respiratory Rate Blood Pressure Pulse Oximetry Oxygen Delivery Room Air Intake/Output Intake/Output: Intake & Output 05/13/24 05/14/24 05/15/24 05/16/24 23:59 23:59 23:59 23:59 Intake Total 034 109 0756.7 480 Output Total 250 1550 1250 400 Balance -14 -764 1411.7 80 Meds/Results Medications: Active Medications Generic Name Dose Route Start Last Admin Trade Name Freq
[2024-05-16 12:13] LABS: Glucose Point of Care 122 mg/dl (65-105)
--- NOTE | 2024-05-16 12:45 | PC.NURSE ---
This patient, Ced Sellers, was received from IMU [id number] on 05/16/24 at 1245. Patient/family oriented to unit policies and routines. Report received per Ame FAGAN.
--- NOTE | 2024-05-16 13:08 | PC.NURSE ---
This patient, Ced Sellers, was transferred to [[id number]] on 05/16/24 at 1240. Personal belongings sent with patient. Report given to [Josefina FAGAN ]. Appropriate documentation sent with patient.
--- NOTE | 2024-05-16 15:12 | PM.IMPN ---
Progress Note: A&P Assessment and Plan (1) Hyponatremia: Code(s): E87.1 - Hypo-osmolality and hyponatremia Status: Acute (2) Bronchitis: Code(s): J40 - Bronchitis, not specified as acute or chronic Status: Acute (3) Hypertension: Code(s): I10 - Essential (primary) hypertension Status: Acute (4) Obstructive sleep apnea: Code(s): G47.33 - Obstructive sleep apnea (adult) (pediatric) Status: Acute (5) Type 2 diabetes mellitus: Code(s): E11.9 - Type 2 diabetes mellitus without complications Status: Acute (6) Benign prostatic hyperplasia: Code(s): N40.0 - Benign prostatic hyperplasia without lower urinary tract symptoms Status: Acute Plan Infiltrate noted on x-ray although it is not impressive. Patient has cough productive of white sputum (for 1 whole year now) but no fever shortness of breath. Like to investigate this further considering his hyponatremia. Obtain CT chest without contrast. 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 He has never been diagnosed with any lung conditions. Continue to cycle sodium levels. Management Nephrology. Full code. Subjective Date/time seen: 05/16/24 15:12 Interval history: Complaining of cough productive clear sputum. No fever no shortness of breath Review of Systems Review of Systems: All systems reviewed & are unremarkable except as noted in HPI and below (Subjective) Exam Const: General: comfortable and no acute distress Eyes: Pupils: Equal, round and reactive pupils present Neck: Neck: supple Resp: Effort & Inspection: normal respiratory effort Auscultation: clear to auscultation bilaterally Cardio: Rate: regular rate Rhythm: regular rhythm GI: GI Palp: Yes Soft to palpation and No Tenderness to palpation present (GI) Extrem: General: no edema Objective Data Vital Signs Vital Signs: Vital Signs - 24 hr 05/15/24 15:57 05/15/24 16:00 05/15/24 19:47 Temperature 97.4 F L 98.4 F Pulse Rate 74 76 85 Respiratory Rate 24 H 18 Blood Pressure 131/79 134/70 Pulse Oximetry 98 98 Oxygen Delivery 05/15/24 23:40 05/15/24 22:27 05/16/24 02:50 Temperature 98.3 F Pulse Rate 73 65 69 Respiratory Rate 16 Blood Pressure 108/67 Pulse Oximetry 97 96 97 Oxygen Delivery Autopap Autopap 05/16/24 07:38 05/16/24 08:37 05/16/24 08:00 Temperature 97.0 F L Pulse Rate 83 80 Respiratory Rate 20 Blood Pressure 148/81 H Pulse Oximetry 98 Oxygen Delivery Room Air Intake/Output Intake/Output: Intake & Output 05/13/24 05/14/24 05/15/24 05/16/24 23:59 23:59 23:59 23:59 Intake Total 528 546 6634.7 720 Output Total 250 1550 1250 600 Balance -14 -770 1411.7 120 Meds/Results Medications: Active Medications Generic Name Dose Route Start Last Admin Trade Name Freq PRN Reason Stop Dose Admin Acetaminophen 650 mg 05/13/24 15:13 05/15/24 21:09 Acetaminophen 325 Mg Tablet PO 650 mg Q4H PRN Administration Mild Pain (1-3) or Fever Amlodipine Besylate 10 mg 05/16/24 09:00 05/16/24 08:37 Amlodipine Besylate 10 Mg Tablet PO 10 mg DAILY ÓSCAR Administration Aspirin 81 mg 05/14/24 09:00 05/16/24 08:36 Aspirin 81 Mg Enteric Tablet PO 81 mg DAILY ÓSCAR Administration Azithromycin 500 mg 05/16/24 09:00 05/16/24 08:37 Azithromycin 250 Mg Tablet PO 500 mg DAILY ÓSCAR Administration Carvedilol 12.5 mg 05/13/24 21:00 05/16/24 08:37 Carvedilol 12.5 Mg Tablet PO 12.5 mg Q12HR ÓSCAR Administration Clonidine HCl 0.1 mg 05/13/24 15:20 05/16/24 08:37 Clonidine Hcl 0.1 Mg Tablet PO 0.1 mg DAILY ÓSCAR Administration Docusate Sodium 100 mg 05/13/24 15:16 05/14/24 20:04 Docusate Sodium 100 Mg Capsule PO 100 mg BID PRN Administration Constipation Enoxaparin Sodium 40 mg 05/14/24 09:00 05/16/24 08:36 Enoxaparin 40 Mg/0.4 Ml Syringe SUB-Q 40 mg DAILY S
[2024-05-16 16:40] LABS: Sodium 120 mmol/L (137-145)
--- NOTE | 2024-05-16 16:54 | PC.NURSE ---
On 05/16/24, the RETRIMMER, Josefina Harris, provided care and completed [employer] documentation on this patient. I have reviewed the RETRIMMER's documentation and agree with the findings.
[2024-05-16 16:55] LABS: Glucose Point of Care 106 mg/dl (65-105)
[2024-05-16] MEDS: MELATONIN 3 MG TABLET PO (20:50)
[2024-05-16 21:20] LABS: Glucose Point of Care 124 mg/dl (65-105)
[2024-05-17] MEDS: ACETAMINOPHEN 325 MG TABLET 650 MG PO (04:53)
[2024-05-17 05:59] VITALS: BP 125/74; PULSE 84; RESP 16; TEMP 36.4; O2SAT 100
[2024-05-17 06:39] LABS: Albumin Level 4.1 g/dL (3.5-5.1); Anion Gap 8 mmol/L (4-12); Blood Urea Nitrogen 15 mg/dL (9-20); Calcium 8.5 mg/dL (8.4-10.2); Carbon Dioxide 27 mmol/L (22-30); Chloride 90 mmol/L (98-107); Estimated CRCL calculation 91 ml/min; Estimated Glomerular Filt Rate > 60; Glucose 111 mg/dL (65-110); Potassium 4.3 mmol/L (3.4-5.0); Sodium 125 mmol/L (137-145)
[2024-05-17 08:13] LABS: Glucose Point of Care 119 mg/dl (65-105)
[2024-05-17] MEDS: LIDOCAINE 5% PATCH 1 PATCH TRANSDERM (10:08)
[2024-05-17] MEDS: amLODIPine BESYLATE 10 MG TABLET PO (10:08)
[2024-05-17] MEDS: PRAVASTATIN SODIUM 10 MG TABLET PO (10:10)
[2024-05-17] MEDS: OLMESARTAN MEDOXOMIL 20 MG TABLET 40 MG PO (10:10)
[2024-05-17] MEDS: cloNIDine HCL 0.1 MG TABLET PO (10:10)
[2024-05-17] MEDS: LORATADINE 10 MG TABLET PO (10:11)
[2024-05-17] MEDS: FUROSEMIDE 20 MG TABLET PO ×2 (10:11→16:51)
[2024-05-17 10:12] VITALS: PULSE 60
[2024-05-17] MEDS: guaiFENesin 12 HR 600 MG TABCR PO ×2 (10:12→21:10)
[2024-05-17] MEDS: carvediloL 12.5 MG TABLET PO ×2 (10:12→21:10)
[2024-05-17] MEDS: ASPIRIN 81 MG ENTERIC TABLET PO (10:13)
[2024-05-17] MEDS: AZITHROMYCIN 250 MG TABLET 500 MG PO (10:13)
[2024-05-17] MEDS: SODIUM CHLORIDE 1 GM TABLET PO ×2 (10:14→16:52)
[2024-05-17] MEDS: ENOXAPARIN 40 MG/0.4 ML SYRINGE SUB-Q (10:14)
--- NOTE | 2024-05-17 10:35 | PM.PNNEP ---
Progress Note: A&P Assessment and Plan (1) Hyponatremia: Code(s): E87.1 - Hypo-osmolality and hyponatremia Status: Acute Assessment and Plan: the patient has hyponatremia. He has had longstanding low sodiums for about the last 16 years. At 1st they are intermittent and now they are fairly constant. 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 Pulmonary disease. His chest x-ray is clear and he has no. History or symptoms of this. Cancer. He has no history of cancer and seems to be fairly up-to-date with his screening. Medicines. He was on indapamide. This was discontinued hormone hunter stim test okay TSH is okay Fractional excretion of urea shows pre renal azotemia. Most likely the hyponatremia that we have now is due to the indapamide plus fluid intake. Sodium level did not auto correct. Was given 3% saline on Saturday which brought him from 117-121. Yesterday during the day the sodium level still did not change even though he is on fluid restriction plus Lasix plus salt tablets. So a get another round of 3% saline and today it is up to 125. Will repeat the sodium level at 4:00 p.m. today. I can give another round if we need to. he continues on the fluid restriction as well as salt tablets and Lasix. (2) SAIMA on CPAP: Code(s): G47.33 - Obstructive sleep apnea (adult) (pediatric); Z99.89 - Dependence on other enabling machines and devices Status: Acute (3) Hyperlipidemia: Code(s): E78.5 - Hyperlipidemia, unspecified Status: Acute Assessment and Plan: He is on pravastatin (4) HTN (hypertension): Onset Date: 07/03/18 Code(s): I10 - Essential (primary) hypertension Status: Acute Assessment and Plan: he takes olmesartan and amlodipine BP running 125-155. Will wait another day before adjusting meds (5) Type 2 diabetes mellitus: Code(s): E11.9 - Type 2 diabetes mellitus without complications Status: Acute Assessment and Plan: he is on Accu-Cheks. Hospitalist managing this (6) Diastolic dysfunction: Code(s): I51.89 - Other ill-defined heart diseases Status: Acute Assessment and Plan: He has diastolic dysfunction he sees Dr. Morillo (7) Pulmonary infiltrate: Code(s): R91.8 - Other nonspecific abnormal finding of lung field Status: Acute Assessment and Plan: pt has a pulmonary infiltrate. The CT scan showed no infiltrate. he is on azith and ceftriaxone. Subjective Date/time seen: 05/17/24 10:35 Interval history: Mr. Hernandez feels better. Sitting up in a chair pain Cough is better but he still has some. Exam Narrative: WDWN in NAD skin no rash head ncat lungs clear bilaterally. some inc in expiratory phase. No wheezing. cor reg no rub or gallop abd BS+ nontender and soft ext 1+ bilateral edema. Objective Data Vital Signs Vital Signs: Vital Signs - 24 hr 05/16/24 16:00 05/16/24 12:45 05/16/24 20:49 Temperature 96.9 F L Pulse Rate 86 68 Respiratory Rate 16 Blood Pressure 147/76 H Pulse Oximetry 100 Oxygen Delivery Room Air 05/16/24 22:46 05/16/24 23:33 05/17/24 05:59 Temperature 97.5 F L 97.5 F L Pulse Rate 67 83 84 Respiratory Rate 17 16 Blood Pressure 155/83 H 125/74 Pulse Oximetry 96 98 100 Oxygen Delivery Autopap 05/17/24 10:12 Temperature Pulse Rate 60 Respiratory Rate Blood Pressure Pulse Oximetry Oxygen Delivery Intake/Output Intake/Output: Intake & Output 05/14/24 05/15/24 05/16/24 05/17/24 23:59 23:59 23:59 23:59 Intake Total 780 2661.7 1250 830 Output Total 1550 1250 600 Balance -770 1411.7 650 830 Meds/Results Medications: Active Medications Generic Name Dose Route Start Last Admin Trade Name Freq PRN Reason Stop Dose Admin Acetaminophen 650 mg 05/13/24 15:13 05/17/24 04:53 Acetaminophen 325 Mg Tablet PO 650 mg
[2024-05-17 12:08] LABS: Glucose Point of Care 136 mg/dl (65-105)
--- NOTE | 2024-05-17 14:15 | PM.IMPN ---
Progress Note: A&P Assessment and Plan (1) SAIMA on CPAP: Code(s): G47.33 - Obstructive sleep apnea (adult) (pediatric); Z99.89 - Dependence on other enabling machines and devices Status: Acute (2) Hyponatremia: Code(s): E87.1 - Hypo-osmolality and hyponatremia Status: Acute (3) Lung fibrosis: Code(s): J84.10 - Pulmonary fibrosis, unspecified Status: Acute (4) Occupational exposure to chemicals: Code(s): Z77.098 - Contact with and (suspected) exposure to other hazardous, chiefly nonmedicinal, chemicals Status: Acute Plan H&P via Ashley Stack PA-C This is a pleasant 73-year-old male with hypertension, hyperlipidemia, diastolic dysfunction,, obstructive sleep apnea on CPAP, type 2 diabetes mellitus, and chronic back pain who is being directly admitted to the IMU from the emergency department at [facility] for further treatment and evaluation after he was found to have severe hyponatremia. The patient presented to their facility with complaints of lightheadedness and dizziness with nasal congestion, sore throat, and wet but nonproductive cough for couple of days. He was prescribed doxycycline (respiratory panel was negative) and was told he could take Coricidin which he reports ?dried me out.? When he got up this morning he felt dehydrated, nauseated, and dizzy. He drank 2, 16.9 oz of bottled water however he continued to feel poorly and he went to the ER. He was found to have a sodium of 118 for which he was given a liter normal saline bolus. Transfer was initiated to [place] for higher level of care. It is noted that he has a history of hyponatremia with sodiums as low as 116 in February 2023. He was told to restrict his fluid to 64 oz a day which he continues to do. He was on HCTZ for many years and that was recently changed too indapamide. At the time my evaluation he reports that he has urinated quite a bit after receiving the fluid. He has chronic lower extremity edema which is unchanged. He continues to feel nauseated but would like to try something the eat. He also complains of a generalized headache and his chronic low back pain. He denies fever, chills, sweats, vomiting, and diarrhea. Of note, the patient's last week and he reports having increasing anxiety since then. ----- May 17: His sodium is improving. Continue salt tabs and fluid restriction and Lasix per Nephrology. Differential is wide, could be due to his chronic cough and fibrosis. Fractional excretion of urea demonstrates pre renal azotemia however it did not correct her fluid resuscitation. There was improvement with hypertonic saline alongside fluid restriction Lasix and salt tablets. Previously identified right perihilar infiltrate not consistent with CT scan chest without contrast. Antibiotics not indicated. Check a quad viral screen. He has very fine crackles at the bilateral bases. CT chest reveals lung fibrosis and minimal left pleural effusion versus thickening. 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 He reports large amount of exposure to chemical aerosols. He possibly has a pneumoconiosis. Suspect his 1 year for coughing and mucus production has something to do with this. Continue guaifenesin and Tessalon Perles. Patient would like to follow-up with his PCP/establish care with pulmonology to investigate further. Patient is a never smoker. Advised to avoid secondhand smoke, mold, dust, chemical aerosols exposure. Full code. Lovenox 40 mg subQ q.day. patient requires continued admission to monitor sodium to prevent sudden morbidity/mortality. Subjective Date/time seen: 05/17/24 14:15 Interval history: No acute overnight events. Patient reports the Tessalon Perles and guaifenesin have greatly improved his ingestion. He has expectorated almost all of his mucus. He has no complaints. Review of Systems Review of Systems: All systems reviewed & are unremarkable
[2024-05-17 16:19] LABS: Sodium 124 mmol/L (137-145)
[2024-05-17] MEDS: BENZONATATE 100 MG CAPSULE 200 MG PO (16:51)
[2024-05-17] MEDS: DICLOFENAC SODIUM 1% 100 GM GEL (*BKC) 1 APPLIC TOPICAL (17:00)
[2024-05-17 17:34] LABS: Influenza A QL RT-PCR Negative (Negative); Influenza B QL RT-PCR Negative (Negative); RSV RNA, RT-PCR Negative (Negative); SARS-CoV-2 RNA PCR Negative (Negative)
[2024-05-17 17:39] LABS: Glucose Point of Care 128 mg/dl (65-105)
--- NOTE | 2024-05-17 20:08 | PC.NURSE ---
On 05/17/24, the COLLECTIONS TECHNICIAN, Josefina, provided care and completed [facility] documentation on this patient. I have reviewed the COLLECTIONS TECHNICIAN's documentation and agree with the findings.
[2024-05-17 20:15] VITALS: BP 125/83; PULSE 79; RESP 20; TEMP 37.6; O2SAT 98
[2024-05-17 21:10] VITALS: PULSE 79
[2024-05-17] MEDS: MELATONIN 3 MG TABLET PO (21:10)
[2024-05-17 21:56] LABS: Glucose Point of Care 137 mg/dl (65-105)
[2024-05-17 22:50] VITALS: PULSE 74; O2SAT 97
[2024-05-18 04:35] VITALS: BP 161/87; PULSE 80; RESP 20; TEMP 37.1; O2SAT 99
[2024-05-18 06:02] LABS: Anion Gap 8 mmol/L (4-12); Blood Urea Nitrogen 14 mg/dL (9-20); Calcium 8.4 mg/dL (8.4-10.2); Carbon Dioxide 25 mmol/L (22-30); Chloride 93 mmol/L (98-107); Estimated CRCL calculation 90 ml/min; Estimated Glomerular Filt Rate > 60; Glucose 107 mg/dL (65-110); Potassium 3.9 mmol/L (3.4-5.0); Sodium 126 mmol/L (137-145)
[2024-05-18 07:41] LABS: Glucose Point of Care 129 mg/dl (65-105)
[2024-05-18] MEDS: BENZONATATE 100 MG CAPSULE 200 MG PO ×3 (07:59→17:52)
[2024-05-18] MEDS: ENOXAPARIN 40 MG/0.4 ML SYRINGE SUB-Q (07:59)
[2024-05-18] MEDS: SODIUM CHLORIDE 1 GM TABLET PO ×2 (07:59→17:52)
[2024-05-18] MEDS: carvediloL 12.5 MG TABLET PO ×2 (07:59→20:55)
[2024-05-18] MEDS: guaiFENesin 12 HR 600 MG TABCR PO ×2 (07:59→20:59)
[2024-05-18] MEDS: DOCUSATE SODIUM 100 MG CAPSULE PO (07:59)
[2024-05-18] MEDS: ASPIRIN 81 MG ENTERIC TABLET PO (07:59)
[2024-05-18] MEDS: LORATADINE 10 MG TABLET PO (07:59)
[2024-05-18] MEDS: LIDOCAINE 5% PATCH 1 PATCH TRANSDERM (07:59)
[2024-05-18] MEDS: DICLOFENAC SODIUM 1% 100 GM GEL (*BKC) 1 APPLIC TOPICAL (07:59)
[2024-05-18] MEDS: ACETAMINOPHEN 325 MG TABLET 650 MG PO ×2 (08:00→23:04)
[2024-05-18] MEDS: amLODIPine BESYLATE 10 MG TABLET PO (08:00)
[2024-05-18] MEDS: cloNIDine HCL 0.1 MG TABLET PO (08:00)
[2024-05-18] MEDS: PRAVASTATIN SODIUM 10 MG TABLET PO (08:00)
[2024-05-18] MEDS: FUROSEMIDE 20 MG TABLET PO ×2 (08:00→17:52)
[2024-05-18] MEDS: OLMESARTAN MEDOXOMIL 20 MG TABLET 40 MG PO (08:00)
[2024-05-18 11:29] LABS: Glucose Point of Care 176 mg/dl (65-105)
--- NOTE | 2024-05-18 13:36 | PM.PNNEP ---
Progress Note: A&P Assessment and Plan (1) Hyponatremia: Code(s): E87.1 - Hypo-osmolality and hyponatremia Status: Acute Assessment and Plan: the patient has hyponatremia. He has had longstanding low sodiums for about the last 16 years. At 1st they are intermittent and now they are fairly constant. 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 Pulmonary disease. His chest x-ray is clear and he has no. History or symptoms of this. Cancer. He has no history of cancer and seems to be fairly up-to-date with his screening. Medicines. He was on indapamide. This was discontinued hormone hunter stim test okay TSH is okay Fractional excretion of urea shows pre renal azotemia. Most likely the hyponatremia that we have now is due to the indapamide plus fluid intake. Sodium level has been difficult to increase. He is on fluid restriction Lasix and salt tabs. But this does not seem to be working to increase it however does keep it from dropping. He will receive another dose of 3% saline today. Will repeat the sodium level at 4:00 p.m. today. He can probably be discharged pretty soon. He will need to follow up in our office to monitor his sodium. (2) SAIMA on CPAP: Code(s): G47.33 - Obstructive sleep apnea (adult) (pediatric); Z99.89 - Dependence on other enabling machines and devices Status: Acute (3) Hyperlipidemia: Code(s): E78.5 - Hyperlipidemia, unspecified Status: Acute Assessment and Plan: He is on pravastatin (4) HTN (hypertension): Onset Date: 07/03/18 Code(s): I10 - Essential (primary) hypertension Status: Acute Assessment and Plan: he takes olmesartan and amlodipine BP running 120s-160s. he is on amlodipine 10, carvedilol 12.5 twice a day, clonidine, furosemide, olmesartan. He cannot have a diuretic, of course. It is not ideal to have him on both clonidine and carvedilol. Carvedilol is much better for the heart. I will increase the carvedilol to 25mg twice a day. Will try to wean the clonidine while here or as an outpatient As permitted by the blood pressure. (5) Type 2 diabetes mellitus: Code(s): E11.9 - Type 2 diabetes mellitus without complications Status: Acute Assessment and Plan: he is on Accu-Cheks. Hospitalist managing this (6) Diastolic dysfunction: Code(s): I51.89 - Other ill-defined heart diseases Status: Acute Assessment and Plan: He has diastolic dysfunction he sees Dr. Morillo (7) Pulmonary infiltrate: Code(s): R91.8 - Other nonspecific abnormal finding of lung field Status: Acute Assessment and Plan: pt has a pulmonary infiltrate on plane film of the chest. The CT scan showed no infiltrate. he is on azith and ceftriaxone. Subjective Date/time seen: 05/18/24 13:36 Interval history: patient is up in a chair. He is feeling much better. Exam Narrative: WDWN in NAD skin no rash head ncat lungs clear bilaterally. cor reg no rub or gallop abd BS+ nontender and soft ext Trace to 1+ bilateral edema. Objective Data Vital Signs Vital Signs: Vital Signs - 24 hr 05/17/24 21:10 05/17/24 20:15 05/17/24 22:50 Temperature 99.7 F H Pulse Rate 79 79 74 Respiratory Rate 20 Blood Pressure 125/83 Pulse Oximetry 98 97 Oxygen Delivery Autopap 05/18/24 04:35 05/18/24 08:00 Temperature 98.7 F Pulse Rate 80 Respiratory Rate 20 Blood Pressure 161/87 H Pulse Oximetry 99 Oxygen Delivery Room Air Intake/Output Intake/Output: Intake & Output 05/15/24 05/16/24 05/17/24 05/18/24 23:59 23:59 23:59 23:59 Intake Total 2661.7 1250 1550 840 Output Total 1250 600 Balance 1411.7 650 1550 840 Meds/Results Medications: Active Medications Generic Name Dose Route Start Last Admin Trade Name Freq PRN Reason Stop Dose Admin Acetaminophen 650 mg
--- NOTE | 2024-05-18 13:52 | PM.IMPN ---
Progress Note: A&P Assessment and Plan (1) SAIMA on CPAP: Code(s): G47.33 - Obstructive sleep apnea (adult) (pediatric); Z99.89 - Dependence on other enabling machines and devices Status: Acute (2) Hyponatremia: Code(s): E87.1 - Hypo-osmolality and hyponatremia Status: Acute (3) Lung fibrosis: Code(s): J84.10 - Pulmonary fibrosis, unspecified Status: Acute (4) Occupational exposure to chemicals: Code(s): Z77.098 - Contact with and (suspected) exposure to other hazardous, chiefly nonmedicinal, chemicals Status: Acute Plan H&P via Ashley Stack PA-C This is a pleasant 73-year-old male with hypertension, hyperlipidemia, diastolic dysfunction,, obstructive sleep apnea on CPAP, type 2 diabetes mellitus, and chronic back pain who is being directly admitted to the IMU from the emergency department at [facility] for further treatment and evaluation after he was found to have severe hyponatremia. The patient presented to their facility with complaints of lightheadedness and dizziness with nasal congestion, sore throat, and wet but nonproductive cough for couple of days. He was prescribed doxycycline (respiratory panel was negative) and was told he could take Coricidin which he reports ?dried me out.? When he got up this morning he felt dehydrated, nauseated, and dizzy. He drank 2, 16.9 oz of bottled water however he continued to feel poorly and he went to the ER. He was found to have a sodium of 118 for which he was given a liter normal saline bolus. Transfer was initiated to [place] for higher level of care. It is noted that he has a history of hyponatremia with sodiums as low as 116 in February 2023. He was told to restrict his fluid to 64 oz a day which he continues to do. He was on HCTZ for many years and that was recently changed too indapamide. At the time my evaluation he reports that he has urinated quite a bit after receiving the fluid. He has chronic lower extremity edema which is unchanged. He continues to feel nauseated but would like to try something the eat. He also complains of a generalized headache and his chronic low back pain. He denies fever, chills, sweats, vomiting, and diarrhea. Of note, the patient's last week and he reports having increasing anxiety since then. ----- May 17: His sodium is improving. Continue salt tabs and fluid restriction and Lasix per Nephrology. Differential is wide, could be due to his chronic cough and fibrosis. Fractional excretion of urea demonstrates pre renal azotemia however it did not correct her fluid resuscitation. There was improvement with hypertonic saline alongside fluid restriction Lasix and salt tablets. Previously identified right perihilar infiltrate not consistent with CT scan chest without contrast. Antibiotics not indicated. Check a quad viral screen. He has very fine crackles at the bilateral bases. CT chest reveals lung fibrosis and minimal left pleural effusion versus thickening. 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 He reports large amount of exposure to chemical aerosols. He possibly has a pneumoconiosis. Suspect his 1 year for coughing and mucus production has something to do with this. Continue guaifenesin and Tessalon Perles. Patient would like to follow-up with his PCP/establish care with pulmonology to investigate further. Patient is a never smoker. Advised to avoid secondhand smoke, mold, dust, chemical aerosols exposure. May 18: His sodium has improved to 126. Continue management per Nephrology which currently includes hypertonic saline again today with trending BMP. Suspect discharge tomorrow although will follow-up. He will need continue follow-up in the outpatient setting for sodium levels. Full code. Lovenox 40 mg subQ q.day. patient requires continued admission to monitor sodium to prevent sudden morbidity/mortality. Subjective Date/time seen: 05/18/24 13:52
[2024-05-18 14:00] VITALS: BP 126/73; PULSE 80; RESP 18; TEMP 36.4; O2SAT 97
[2024-05-18 16:44] LABS: Sodium 130 mmol/L (137-145)
[2024-05-18 16:59] LABS: Glucose Point of Care 113 mg/dl (65-105)
[2024-05-18] MEDS: polyethylene glycoL 3350 17 GM POWD.PACK PO (17:52)
[2024-05-18 20:55] VITALS: BP 175/85; PULSE 83; PULSE 84; RESP 20; TEMP 36.6; O2SAT 99
[2024-05-18] MEDS: MELATONIN 3 MG TABLET PO (20:59)
[2024-05-18 22:00] LABS: Glucose Point of Care 115 mg/dl (65-105)
[2024-05-18 23:04] VITALS: PULSE 80; O2SAT 97
[2024-05-18 23:35] VITALS: BP 134/66; PULSE 77; RESP 20; TEMP 36.6; O2SAT 97
[2024-05-19 02:22] VITALS: PULSE 83; O2SAT 98
[2024-05-19 03:55] VITALS: BP 145/75; PULSE 84; RESP 20; TEMP 35.9; O2SAT 99
[2024-05-19 06:37] LABS: Anion Gap 10 mmol/L (4-12); Blood Urea Nitrogen 13 mg/dL (9-20); Calcium 9.1 mg/dL (8.4-10.2); Carbon Dioxide 26 mmol/L (22-30); Chloride 92 mmol/L (98-107); Estimated CRCL calculation 101 ml/min; Estimated Glomerular Filt Rate > 60; Glucose 105 mg/dL (65-110); Potassium 4.1 mmol/L (3.4-5.0); Sodium 128 mmol/L (137-145)
[2024-05-19 07:37] LABS: Glucose Point of Care 124 mg/dl (65-105)
[2024-05-19] MEDS: OLMESARTAN MEDOXOMIL 20 MG TABLET 40 MG PO (08:17)
[2024-05-19] MEDS: guaiFENesin 12 HR 600 MG TABCR PO (08:17)
[2024-05-19] MEDS: ENOXAPARIN 40 MG/0.4 ML SYRINGE SUB-Q (08:17)
[2024-05-19] MEDS: LORATADINE 10 MG TABLET PO (08:17)
[2024-05-19] MEDS: LIDOCAINE 5% PATCH 1 PATCH TRANSDERM (08:17)
[2024-05-19] MEDS: cloNIDine HCL 0.1 MG TABLET PO (08:17)
[2024-05-19] MEDS: amLODIPine BESYLATE 10 MG TABLET PO (08:17)
[2024-05-19] MEDS: ASPIRIN 81 MG ENTERIC TABLET PO (08:17)
[2024-05-19] MEDS: PRAVASTATIN SODIUM 10 MG TABLET PO (08:17)
[2024-05-19] MEDS: SODIUM CHLORIDE 1 GM TABLET PO (08:17)
[2024-05-19] MEDS: ACETAMINOPHEN 325 MG TABLET 650 MG PO (08:17)
[2024-05-19] MEDS: BENZONATATE 100 MG CAPSULE 200 MG PO (08:17)
[2024-05-19 08:24] VITALS: PULSE 82
[2024-05-19] MEDS: carvediloL 12.5 MG TABLET PO (08:24)
[2024-05-19] MEDS: FUROSEMIDE 20 MG TABLET PO (08:24)
--- NOTE | 2024-05-19 11:17 | PM.PNNEP ---
Progress Note: A&P Assessment and Plan (1) Hyponatremia: Code(s): E87.1 - Hypo-osmolality and hyponatremia Status: Acute Assessment and Plan: acute on chronic long standing issue that has been present for the last 16 years evaluation to date: CT of head negative (no VALIDATION ANALYST issues/problems) CXR clear (no lung disease) no evidence of malgnancy TSH okay cortisol good urine electroytes c/w prerenal azotemia indapamide (thiazide diuretic) on hold suspect drop in sodium due to indapamide + increased free water intake s/p 3% saline due to resistance in increasing sodium level on salt tabs + lasix + fluid restriction as well follow trend of repeat sodiums (2) HTN (hypertension): Onset Date: 07/03/18 Code(s): I10 - Essential (primary) hypertension Status: Acute Assessment and Plan: reasonable control follow trend of hemodynamics (3) Type 2 diabetes mellitus: Code(s): E11.9 - Type 2 diabetes mellitus without complications Status: Acute Assessment and Plan: follow accu-cheks glycemic control per hospitalists Not opposed to discharge from renal perspective if otherwise medically stable -- he can follow-up with Dr. Zamudio for ongoing management of his hyponatremia. Will continue to follow. Subjective Date/time seen: 05/19/24 11:17 Interval history: Follow-up for acute on chronic hyponatremia. Chart reviewed -- assuming care from Dr. Zamudio; sodium remains relatively stable on current interventions/therapy; no apparent distress noted at the time of my visit; asking me about possible discharge today since he feels pretty good. Exam Narrative: General: elderly but WD/WN male in NAD Heart: normal S1 and S2; no rub Lungs: clear to auscultation Abdomen: soft, nontender, nondistended, positive bowel sounds Extremities: no cyanosis or clubbing; trace edema Skin: warm and dry Objective Data Vital Signs Vital Signs: Vital Signs Temp Pulse Resp BP Pulse Ox O2 Del Method 05/19/24 08:00 Room Air 05/19/24 08:24 82 05/19/24 03:55 96.6 F L 84 20 145/75 H 99 05/19/24 02:22 83 98 Autopap 05/18/24 23:35 98 F 77 20 134/66 97 05/18/24 23:04 80 97 Autopap 05/18/24 20:55 98 F 84 20 175/85 H 99 05/18/24 20:55 83 05/18/24 14:00 97.6 F 80 18 126/73 97 Intake/Output Intake/Output: Intake & Output 05/16/24 05/17/24 05/18/24 05/19/24 23:59 23:59 23:59 23:59 Intake Total 1250 1550 1935 840 Output Total 600 1 Balance 650 1550 1934 840 Meds/Results Medications: Active Medications Generic Name Dose Route Start Last Admin Trade Name Freq PRN Reason Stop Dose Admin Acetaminophen 650 mg 05/13/24 15:13 05/19/24 08:17 Acetaminophen 325 Mg Tablet PO 650 mg Q4H PRN Administration Mild Pain (1-3) or Fever Amlodipine Besylate 10 mg 05/16/24 09:00 05/19/24 08:17 Amlodipine Besylate 10 Mg Tablet PO 10 mg DAILY ÓSCAR Administration Aspirin 81 mg 05/14/24 09:00 05/19/24 08:17 Aspirin 81 Mg Enteric Tablet PO 81 mg DAILY ÓSCAR Administration Benzonatate 200 mg 05/17/24 17:00 05/19/24 08:17 Benzonatate 100 Mg Capsule PO 200 mg TID ÓSCAR Administration Carvedilol 12.5 mg 05/13/24 21:00 05/19/24 08:24 Carvedilol 12.5 Mg Tablet PO 12.5 mg Q12HR ÓSCAR Administration Clonidine HCl 0.1 mg 05/13/24 15:20 05/19/24 08:17 Clonidine Hcl 0.1 Mg Tablet PO 0.1 mg DAILY ÓSCAR Administration Diclofenac Sodium 1 applic 05/17/24 10:33 05/18/24 07:59 Diclofenac Sodium 1% 100 Gm Gel (*Bkc) TOPICAL 1 applic QID PRN Administration pain Docusate Sodium 100 mg 05/13/24 15:16 05/18/24 07:59 Docusate Sodium 100 Mg Capsule PO 100 mg BID PRN Administration Constipation Enoxaparin Sodium 40 mg 05/14/24 09:00 05/19/24 08:17 Enoxaparin 40 Mg/0.4 Ml Syringe SUB-Q 40 mg DAILY [facility] Adm
[2024-05-19 11:27] LABS: Glucose Point of Care 131 mg/dl (65-105)
--- NOTE | 2024-05-19 12:33 | PC.NURSE ---
IV discontinued and discharge teaching done. Patient awaiting ride
--- NOTE | 2024-05-24 16:09 | PM.DS ---
DS: Admitting Diagnosis Discharge Date 05/19/24 Admitting Diagnosis Lightheadedness, dizziness, nasal congestion, sore throat, wet but nonproductive cough, hyponatremia DS: Discharge Diagnosis Discharge Diagnosis (1) Occupational exposure to chemicals: Code(s): Z77.098 - Contact with and (suspected) exposure to other hazardous, chiefly nonmedicinal, chemicals Status: Acute (2) SAIMA on CPAP: Code(s): G47.33 - Obstructive sleep apnea (adult) (pediatric); Z99.89 - Dependence on other enabling machines and devices Status: Acute (3) Lung fibrosis: Code(s): J84.10 - Pulmonary fibrosis, unspecified Status: Acute (4) Hyponatremia: Code(s): E87.1 - Hypo-osmolality and hyponatremia Status: Acute DS: Summary Hospital Course Hospital Course: H&P via Ashley Stack PA-C This is a pleasant 73-year-old male with hypertension, hyperlipidemia, diastolic dysfunction,, obstructive sleep apnea on CPAP, type 2 diabetes mellitus, and chronic back pain who is being directly admitted to the IMU from the emergency department at [facility] for further treatment and evaluation after he was found to have severe hyponatremia. The patient presented to their facility with complaints of lightheadedness and dizziness with nasal congestion, sore throat, and wet but nonproductive cough for couple of days. He was prescribed doxycycline (respiratory panel was negative) and was told he could take Coricidin which he reports ?dried me out.? When he got up this morning he felt dehydrated, nauseated, and dizzy. He drank 2, 16.9 oz of bottled water however he continued to feel poorly and he went to the ER. He was found to have a sodium of 118 for which he was given a liter normal saline bolus. Transfer was initiated to [place] for higher level of care. It is noted that he has a history of hyponatremia with sodiums as low as 116 in February 2023. He was told to restrict his fluid to 64 oz a day which he continues to do. He was on HCTZ for many years and that was recently changed too indapamide. At the time my evaluation he reports that he has urinated quite a bit after receiving the fluid. He has chronic lower extremity edema which is unchanged. He continues to feel nauseated but would like to try something the eat. He also complains of a generalized headache and his chronic low back pain. He denies fever, chills, sweats, vomiting, and diarrhea. Of note, the patient's last week and he reports having increasing anxiety since then. ----- May 17: His sodium is improving. Continue salt tabs and fluid restriction and Lasix per Nephrology. Differential is wide, could be due to his chronic cough and fibrosis. Fractional excretion of urea demonstrates pre renal azotemia however it did not correct her fluid resuscitation. There was improvement with hypertonic saline alongside fluid restriction Lasix and salt tablets. Previously identified right perihilar infiltrate not consistent with CT scan chest without contrast. Antibiotics not indicated. Check a quad viral screen. He has very fine crackles at the bilateral bases. CT chest reveals lung fibrosis and minimal left pleural effusion versus thickening. 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 He reports large amount of exposure to chemical aerosols. He possibly has a pneumoconiosis. Suspect his 1 year for coughing and mucus production has something to do with this. Continue guaifenesin and Tessalon Perles. Patient would like to follow-up with his PCP/establish care with pulmonology to investigate further. Patient is a never smoker. Advised to avoid secondhand smoke, mold, dust, chemical aerosols exposure. May 18: His sodium has improved to 126. Continue management per Nephrology which currently includes hypertonic saline again today with trending BMP. Suspect discharge tomorrow although will follow-up. He will need continue follow-up in the
== END 2024-05-19 13:15 | disposition home or self-care (01) | DRG 641 ==
LOC: ANHIMU 05-14 11:56 → ANH3MEDSUR 05-16 11:42
PROVIDERS: Internal Medicine Nephrology; Physician Assistant; Admitting Provider Family Medicine; PCP Family Medicine; Visit Provider General Practice
DX: E87.1 Hypo-osmolality and hyponatremia (principal); E11.9 Type 2 diabetes mellitus without complications; G47.33 Obstructive sleep apnea (adult) (pediatric); J84.10 Pulmonary fibrosis, unspecified; R91.8 Other nonspecific abnormal finding of lung field; Z77.098 Contact with and (suspected) exposure to other hazardous, chiefly nonmedicinal, chemicals; E78.5 Hyperlipidemia, unspecified; M54.9 Dorsalgia, unspecified; G89.29 Other chronic pain; Z20.822 Contact with and (suspected) exposure to COVID-19; M19.90 Unspecified osteoarthritis, unspecified site; J40 Bronchitis, not specified as acute or chronic; K21.9 Gastro-esophageal reflux disease without esophagitis; I10 Essential (primary) hypertension; M81.0 Age-related osteoporosis without current pathological fracture; Z99.89 Dependence on other enabling machines and devices; Z86.16 Personal history of COVID-19; Z96.641 Presence of right artificial hip joint; Z79.82 Long term (current) use of aspirin; N40.1 Benign prostatic hyperplasia with lower urinary tract symptoms; N32.81 Overactive bladder
CPT/HCPCS: 36415; 71250; 80048; 80069; 82533; 82570; 82948; 83930; 83935; 84155; 84165; 84295; 84300; 84443; 84540; 87637; 93970; A9270; G0378; G0379; J0696; J0834; J1650; J2405; J7030; J7131

== ENCOUNTER 2024-05-21 09:47 | Outpatient (CLI) | payer MEDICARE, MEDICAID, SELFPAY ==
[2024-05-21 10:25] LABS: Anion Gap 6 mmol/L (4-12); Blood Urea Nitrogen 18 mg/dL (7-18); Carbon Dioxide 28 mmol/L (21-32); Chloride 96 mmol/L (98-108); Estimated Glomerular Filt Rate > 60; Glucose 121 mg/dL (70-99); Osmolality Calculated 272 mOsm/kg (285-295); Potassium 4.9 mmol/L (3.5-5.1); Sodium 130 mmol/L (136-145)
== END 2024-05-21 09:48 | disposition home or self-care (01) ==
LOC: CHSLAB 09:51
PROVIDERS: PCP Family Medicine; Visit Provider General Practice
DX: E87.1 Hypo-osmolality and hyponatremia (principal)
CPT/HCPCS: 36415; 80048

== ENCOUNTER 2024-05-25 09:57 | Outpatient (CLI) | payer MEDICARE, MEDICAID, SELFPAY ==
[2024-05-26 17:16] LABS: Anion Gap 10 mmol/L (4-12); Blood Urea Nitrogen 19 mg/dL (7-18); Calcium 8.9 mg/dL (8.5-10.1); Carbon Dioxide 27 mmol/L (21-32); Chloride 97 mmol/L (98-108); Estimated Glomerular Filt Rate > 60; Glucose 117 mg/dL (70-99); Osmolality Calculated 281 mOsm/kg (285-295); Potassium 4.7 mmol/L (3.5-5.1); Sodium 134 mmol/L (136-145)
== END 2024-05-25 09:58 | disposition home or self-care (01) ==
LOC: CHSLAB 09:59
PROVIDERS: PCP Family Medicine; Visit Provider General Practice
DX: E87.1 Hypo-osmolality and hyponatremia (principal)
CPT/HCPCS: 36415; 80048

== ENCOUNTER 2024-06-03 13:34 | Outpatient (RCR) | payer MEDICARE, MEDICAID, SELFPAY ==
--- NOTE | 2024-06-03 14:56 | PTOPEVAL1 ---
Assessment and note entered by Ced Mckinney Evaluation Information Assessment Status Evaluation ICD-10 Condition Codes (PT) M54.16 Onset 05/28/24 Subjective Information Pt. reports that he was hospitalized last week with low sodium. He was in IMU for 6 days. He reports that he did not move much while in the hospital and developed low back pain. He describes pain across the low back pain in the middle of the low back. He states that the pain does come and go since being able to return home and sleep in his own bed. He reports that pain is most notable with turning over in bed and changing positions. He reports that pain can wake him on occasion. He does use a heating pad and anti-inflammatory cream which help. He states that he is using a walker with all activities currently, but was using no AD in the home prior to his hospitalization. He reports that his goal is to reduce pain. Reported Pain Level Pain Score 9: Self Report Assessment PT Clinical Summary Pt. is a 73 year old male who enters the clinic with low back pain following prolonged hospitalization. He presents impaired balance, impaired gait, generalized l.e. weakness and low back pain making completion of IADL's difficult and unsafe. Continued skilled PT is indicated in order to improve these areas to allow for improved safety and efficiency with IADL's. Plan of Care Interventions Electrical Stimulation,Gait Training,Hot Pack/Cold Pack,Manual Therapy,Mechanical Traction,Neuro Re- education,Patient/Caregiver Educati,Therapeutic Activities,Therapeutic Exercise PT Services Indicated Yes Treatment Frequency and 3x/week x 12 visits Duration These treatments will address the objective and functional deficits as defined above. The patient will be advanced safely and appropriately in order for the patient to progress towards his/her prior level of function. Additional exercises will be introduced and as well as a comprehensive home exercise program upon discharge, if needed, ?to ensure carryover of functional gains achieved in the clinic. This treatment plan has been reviewed and agreement upon by the patient.
--- NOTE | 2024-06-03 14:57 | OPREHPOC ---
Outpatient Therapy Plan of Care This is a Multidisciplinary Plan of Care that may contain components documented by all disciplines (PT, OT, and ST.) PT Problem 1 PT Problem #1 Knowledge Deficit PT Goal 1 Goal Independent with a HEP addressing l.e. strength and trunk mobility Target Visit 2 PT Problem 2 PT Problem #2 Impaired Balance PT Goal 1 Goal Improve tinetti score to 24 or greater indicating low fall risk. Target Visit 12 PT Problem 3 PT Problem #3 Impaired Gait PT Goal 1 Goal Pt. will be able to ambulate 100' without an AD for easier navigation within the home. Target Visit 12 PT Problem 4 PT Problem #4 Impaired Strength PT Goal 1 Goal Present with 4+/5 gross l.e. strength in order to improve stability with standing activities Target Visit 12 PT Problem 5 PT Problem #5 Impaired Gait PT Goal 1 Goal Pt. will complete the 6 minute walk test with standard cane for a distance of 600' demonstrating improved gait efficiency. Target Visit 12
--- NOTE | 2024-06-26 15:18 | OPREHPOC ---
Outpatient Therapy Plan of Care This is a Multidisciplinary Plan of Care that may contain components documented by all disciplines (PT, OT, and ST.) PT Problem 1 PT Problem #1 Knowledge Deficit PT Goal 1 Goal / Goal Update Independent with a HEP addressing l.e. strength and trunk mobility Target Visit 2 Progress Met PT Problem 2 PT Problem #2 Impaired Balance PT Goal 1 Goal / Goal Update Improve tinetti score to 24 or greater indicating low fall risk. Target Visit 12 Progress Not Met PT Problem 3 PT Problem #3 Impaired Gait PT Goal 1 Goal / Goal Update Pt. will be able to ambulate 100' without an AD for easier navigation within the home. Target Visit 12 Progress Not Met PT Problem 4 PT Problem #4 Impaired Strength PT Goal 1 Goal / Goal Update Present with 4+/5 gross l.e. strength in order to improve stability with standing activities Target Visit 12 Progress Not Met PT Problem 5 PT Problem #5 Impaired Gait PT Goal 1 Goal / Goal Update Pt. will complete the 6 minute walk test with standard cane for a distance of 600' demonstrating improved gait efficiency. Target Visit 12 Progress Not Met
--- NOTE | 2024-06-26 15:18 | PTOPPROGNS ---
Assessment and note entered by JT File, PT Evaluation Information Assessment Status Progress ICD-10 Condition Codes (PT) M54.16 Onset 05/28/24 Subjective Information patient reports he is increased in pain today. he reports being very sore. he reports he is sleeping well, and is able to bend down to parts picker objects off the floor. he reports he is able to sit without pain. he reports he is unsure why his soreness/pain is increased today. Assessment PT Clinical Summary mr. richardson presents to skilled PT today for his 10th skilled PT visit. he presents with increased pain and soreness today. he has made minimal progress towards goals, but this is likely the result of his increased pain and soreness. he has been compliant with his HEP. patient will benefit from continued skilled PT to address his remaining objective/functional deficits and achievement of nursing home goals for skilled PT/quality of life. Plan of Care Interventions Electrical Stimulation,Gait Training,Hot Pack/Cold Pack,Manual Therapy,Mechanical Traction,Neuro Re- education,Patient/Caregiver Educati,Therapeutic Activities,Therapeutic Exercise PT Services Indicated Yes Treatment Frequency and continue skilled PT per initial POC Duration These treatments will address the objective and functional deficits as defined above. The patient will be advanced safely and appropriately in order for the patient to progress towards his/her prior level of function. Additional exercises will be introduced and as well as a comprehensive home exercise program upon discharge, if needed, ?to ensure carryover of functional gains achieved in the clinic. This treatment plan has been reviewed and agreement upon by the patient.
--- NOTE | 2024-07-03 14:07 | PTOPREEVAL ---
Assessment and note entered by JT File, PT Evaluation Information Assessment Status Re-evaluation ICD-10 Condition Codes (PT) M54.16 Onset 05/28/24 Subjective Information patient reports he has not noticed much change since being in skilled PT thus far. he reports his pain has changed minimally. he is most painful in the mornings, and a little bit better in the afternoons. he reports he feels he has improved maybe 30% overall. he reports he is in a lot of pain today, and feels it is due to the change in weather. he reports he has tried several bouts of hot pack application at home, but this has not helped much. he reports his ultimate goal is to be able to walk without a walker. he reports he has used a walker in his home for a year and a half or more. he reports he has also used his walker outside for a significant portion of time as well. he reports he feels he is fearful of falling and doesn't feel stable on his feet, knees, and back to walk without his walker. Reported Pain Level Pain Score 8: Self Report Assessment PT Clinical Summary mr. richardson presents to skilled PT services again today with continued increased pain in the back, hips, and knees. he presents with little improvement towards his goals from his progress note on 06/26/24. however, again, this could be due to his current pain status. he would like to continue therapy as he feels it has helped in the past, and he is hopeful it will help again with more time. given patient has yet to achieve goals, he would benefit from continued skilled PT. he will see the MD this coming week and is hopeful to get a referral to a new pain management doctor. he has been educated about the adjustment of some goals to make them more achievable and realistic for his future. Plan of Care Interventions Electrical Stimulation,Gait Training,Hot Pack/Cold Pack,Manual Therapy,Mechanical Traction,Neuro Re- education,Patient/Caregiver Educati,Therapeutic Activities,Therapeutic Exercise PT Services Indicated Yes Treatment Frequency and continue skilled PT 2x weekly for 6 more visits Duration These treatments will address the objective and functional deficits as defined above. The patient will be advanced safely and appropriately in order for the patient to progress towards his/her prior level of function. Additional exercises will be introduced and as well as a comprehensive home exercise program upon discharge, if nee
--- NOTE | 2024-07-22 15:04 | OPREHPOC ---
Outpatient Therapy Plan of Care This is a Multidisciplinary Plan of Care that may contain components documented by all disciplines (PT, OT, and ST.) PT Problem 1 PT Problem #1 Knowledge Deficit PT Goal 1 Goal / Goal Update Independent with a HEP addressing l.e. strength and trunk mobility Target Visit 2 Progress Met PT Problem 2 PT Problem #2 Impaired Balance PT Goal 1 Goal / Goal Update Improve tinetti score to 24 or greater indicating low fall risk. Target Visit 18 Progress Not Met PT Problem 3 PT Problem #3 Impaired Gait PT Goal 1 Goal / Goal Update Pt. will be able to ambulate 100' without an AD for easier navigation within the home. Target Visit 12 Progress Not Met PT Goal 2 Goal / Goal Update DC goal PT Problem 4 PT Problem #4 Impaired Strength PT Goal 1 Goal / Goal Update Present with 4+/5 gross l.e. strength in order to improve stability with standing activities Target Visit 18 Progress Not Met PT Problem 5 PT Problem #5 Impaired Gait PT Goal 1 Goal / Goal Update Pt. will complete the 6 minute walk test with wheeled walker for a distance of 600' or more demonstrating improved gait efficiency. Target Visit 18 Progress Not Met PT Goal 2 Goal / Goal Update modified goal to be completed with wheeled walker Progress Not Met
--- NOTE | 2024-07-22 15:04 | PTOPDC ---
Assessment and note entered by JT File, PT Evaluation Information Assessment Status Discharge ICD-10 Condition Codes (PT) M54.16 Onset 05/28/24 Subjective Information patient reports he feels pretty good today. he reports feeling he is ready to be done. he reports he has had no falls. he reports he uses a mix of the cane and walker for ambulation, and almost always now wears his bilateral knee braces and lower back brace. Reported Pain Level Pain Score 2: Self Report Pain Score 0: Self Report Assessment PT Clinical Summary mr. richardson presents to skilled PT for his 18th skilled PT visit. he presents today with continued high fall risk per the tinetti, tug, and 5x sit to stand. however, he is now more consistent with his bilateral knee and lower back brace wear and walker/cane use. he has met only 20% of goals for skilled PT. due to his lack of significant progress/change, he will be DC'd from skilled PT, and patient will continue with his HEP independent at home. Plan of Care PT Services Indicated Yes
== END 2024-07-22 15:31 | disposition home or self-care (01) ==
LOC: CHSPT 13:34
PROVIDERS: Visit Provider Nurse Practitioner Family
DX: M46.1 Sacroiliitis, not elsewhere classified (principal); M41.9 Scoliosis, unspecified; M54.59 Other low back pain; M54.16 Radiculopathy, lumbar region
CPT/HCPCS: 97110; 97150; 97161; 97530

== ENCOUNTER 2024-06-08 10:47 | Outpatient (CLI) | payer MEDICARE, MEDICAID, SELFPAY ==
[2024-06-08 11:38] LABS: Albumin Level 4.1 g/dL (3.5-5.1); Anion Gap 6 mmol/L (4-12); Blood Urea Nitrogen 22 mg/dL (9-20); Calcium 9.2 mg/dL (8.4-10.2); Carbon Dioxide 29 mmol/L (22-30); Chloride 101 mmol/L (98-107); Estimated Glomerular Filt Rate > 60; Glucose 127 mg/dL (65-110); Phosphorus 3.8 mg/dL (2.5-4.5); Potassium 4.2 mmol/L (3.4-5.0); Sodium 136 mmol/L (137-145)
== END 2024-06-08 10:48 | disposition home or self-care (01) ==
PROVIDERS: PCP Family Medicine; Visit Provider Internal Medicine Nephrology
DX: E87.1 Hypo-osmolality and hyponatremia (principal)
CPT/HCPCS: 36415; 80069

== ENCOUNTER 2024-07-07 11:11 | Outpatient (CLI) | payer MEDICARE, SELFPAY ==
[2024-07-07 12:07] LABS: Albumin Level 4.2 g/dL (3.5-5.1); Anion Gap 11 mmol/L (4-12); Blood Urea Nitrogen 14 mg/dL (9-20); Carbon Dioxide 24 mmol/L (22-30); Chloride 98 mmol/L (98-107); Estimated Glomerular Filt Rate > 60; Glucose 121 mg/dL (65-110); Phosphorus 3.7 mg/dL (2.5-4.5); Potassium 4.2 mmol/L (3.4-5.0); Sodium 133 mmol/L (137-145)
== END 2024-07-07 11:12 | disposition home or self-care (01) ==
PROVIDERS: PCP Family Medicine; Visit Provider Internal Medicine Nephrology
DX: E87.1 Hypo-osmolality and hyponatremia (principal)
CPT/HCPCS: 36415; 80069

== ENCOUNTER 2024-07-14 09:43 | Outpatient (CLI) | payer MEDICARE, MEDICAID, SELFPAY ==
--- NOTE | 2024-07-14 13:54 | WPDPFTINT ---
PFT Procedure Performed PFT Procedure Performed Spirometry with Pre/Post Bronchodilator Plethysmography (Lung Vol) Diffusing Cap (DLCO) PFT Interpretation DOS: 07/14/2024 REQUESTING: Dr. 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 Spirometry: The pre-bronchodilator FEV1 is 2.66 L, 105%. The pre-bronchodilator FVC is 3.64 L, 110%. The FEV1/FVC ratio is 73%. After bronchodilator, the FEV1 is 2.58 L, 102%, -3%.. The FVC is 3.51 L, 106%, -4%. The FEV1/FVC ratio is 73%. Lung volumes: The total lung capacity is 5.34 L, 97%. The residual volume is 1.70 L, 73%. The RV/TLC is 32%. Airway resistance is increased. Diffusion: DLCO is 19.8, 80%. The DLCO/VA is 4.04, 116%. Flow volume loop: The flow volume loop is unremarkable. IMPRESSION: This study shows normal spirometry without response to bronchodilator, normal lung volumes and normal diffusion. It is similar to a prior study on 04/10/2023. Lia Reynoso MD
== END 2024-07-14 09:44 | disposition home or self-care (01) ==
LOC: CHSCARD 09:45
PROVIDERS: PCP Family Medicine; Visit Provider Internal Medicine Pulmonary Disease
DX: J61 Pneumoconiosis due to asbestos and other mineral fibers (principal); R94.2 Abnormal results of pulmonary function studies
CPT/HCPCS: 94060; 94726; 94729

== ENCOUNTER 2024-07-21 10:03 | Outpatient (CLI) | payer MEDICARE, MEDICAID, SELFPAY ==
[2024-07-21 10:55] LABS: Albumin Level 3.5 g/dL (3.4-5.0); Anion Gap 5 mmol/L (4-12); Blood Urea Nitrogen 16 mg/dL (7-18); Calcium 9.7 mg/dL (8.5-10.1); Carbon Dioxide 31 mmol/L (21-32); Chloride 98 mmol/L (98-108); Estimated Glomerular Filt Rate > 60; Glucose 141 mg/dL (70-99); Osmolality Calculated 281 mOsm/kg (285-295); Phosphorus 4.5 mg/dL (2.6-4.7); Potassium 4.7 mmol/L (3.5-5.1); Sodium 134 mmol/L (136-145)
== END 2024-07-21 10:04 | disposition home or self-care (01) ==
LOC: CHSLAB 10:04
PROVIDERS: PCP Family Medicine; Visit Provider Internal Medicine Nephrology
DX: E87.1 Hypo-osmolality and hyponatremia (principal)
CPT/HCPCS: 36415; 80069

== ENCOUNTER 2024-07-30 11:30 | Outpatient (CLI) | payer MEDICARE, MEDICAID, SELFPAY ==
[2024-07-30 12:20] LABS: Influenza A QL RT-PCR Negative (Negative); Influenza B QL RT-PCR Negative (Negative); SARS-CoV-2 RNA PCR Negative (Negative)
== END 2024-07-30 11:31 | disposition home or self-care (01) ==
PROVIDERS: PCP Family Medicine; Visit Provider Family Medicine
DX: J01.10 Acute frontal sinusitis, unspecified (principal)
CPT/HCPCS: 87636

== ENCOUNTER 2024-08-18 02:39 | Day surgery (SDC) | payer MEDICARE, MEDICAID, SELFPAY ==
[2024-08-06 11:43] VITALS: BMI 42.3
[2024-08-18 07:09] VITALS: BP 152/82; PULSE 77; RESP 20; TEMP 36.2; O2SAT 98
[2024-08-18] MEDS: LACTATED RINGERS 1,000 ML 150 ML IV CONT (07:17)
[2024-08-18 10:18] VITALS: BP 133/70; PULSE 68; RESP 20; O2SAT 97
--- NOTE | 2024-08-18 12:31 | PM.IMHP ---
H&P: HPI History of Present Illness Date/Time: 08/18/24 12:31 Chief Complaint: screening for colorectal cancer Narrative: this is a 73-year-old man who presents for colonoscopy. He denies any family history of colon cancer. He denies any hematochezia or melena. He thinks he had a colonoscopy around 5 years ago which she says was normal. Records are not available for review here. Review of Systems Review of Systems: All systems reviewed & are unremarkable except as noted in HPI and below Constitutional: Constitutional: Denies chills, Denies fever(s), Denies headache(s) and Denies weight loss Eyes: Eyes: Denies change in vision ENT: Denies dizziness, Denies headache(s), Denies neck mass and Denies throat swelling Cardiovascular: Cardiovascular: Denies chest pain, Denies lightheadedness and Denies dyspnea Respiratory: Respiratory: Denies cough, Denies dyspnea and Denies wheezing Gastrointestinal: Gastrointestinal: Denies abdominal pain, Denies change in bowel habits, Denies nausea and Denies vomiting Genitourinary: Genitourinary: Denies hematuria and Denies dysuria Musculoskeletal: Musculoskeletal: Reports as per HPI Integumentary/Breasts: Skin/Breast: Reports as per HPI Neurologic: Denies dizziness and Denies headache(s) Allergic/Immunologic: Allergic/Immunologic: Denies throat swelling and Denies wheezing PMFSH Past Medical History Medical History Arthritis Benign prostatic hyperplasia Chronic back pain Chronic migraine Diastolic dysfunction Gastroesophageal reflux disease History of adverse reaction to anesthesia History of COVID-19 Hyperlipidemia Hypertension Obstructive sleep apnea Osteoporosis Type 2 diabetes mellitus Surgical History Surgical History History of arthroplasty of right hip (2007) History of arthroscopy of right knee (1996) History of repair of left rotator cuff (2000) Family History Family History Mother Family history of chronic obstructive pulmonary disease Father Family history of lung cancer Mother Family history of chronic obstructive pulmonary disease Daughter Cerebrovascular accident Deficient knowledge of pacemaker insertion Other Arthritis Asthma Diabetes mellitus Hypertension Neuropathy Social History Social History Social History: Surrogate medical decision maker: Ronna Garber, daughter. Code status: Full code. Smoking status: Never smoker Second hand tobacco smoke exposure: No Alcohol intake: never Substance use: never Substance use type: does not use Do You Feel Safe in your Home?: Yes Lack of Transportation: No Lack of Food: Never True Current Housing: I Have Housing Concerned About Future Housing: No Difficulty Paying Gas/Electric Bills: No Difficulty Paying for Meds: No Currently Unemployed: No Education: High School Diploma/GED Difficulty w/ Childcare or Family Care: No Living arrangements: with family Occupation/Education: retired Gender identity (if verbalized by the patient): Male Spiritual care concerns: No Meds Home Medications and Allergies Home Medications Medication Instructions Recorded Confirmed Type acetaminophen 500 mg tablet 500 mg PO Q6H PRN Pain 09/25/19 08/18/24 History (Tylenol Extra Strength) loratadine 10 mg capsule 10 mg PO DAILY 09/25/19 08/18/24 History aspirin 81 mg tablet,delayed 81 mg PO DAILY 09/12/20 08/18/24 History release melatonin 1 mg tablet 1 mg PO HS PRN Sleep 09/12/20 08/18/24 History docusate sodium 100 mg capsule 100 mg PO BID PRN Constipation 10/01/22 08/18/24 History carvedilol 12.5 mg tablet 12.5 mg PO DAILY 05/13/24 08/18/24 History clonidine HCl 0.1 mg tablet 0.1 mg PO DAILY 05/13/24 08/18/24 History olmesartan 40 mg tablet 40 mg PO DAILY 05/13/24 08/18/24 History pravastatin 10 mg tablet 10 mg PO DAILY 05/13/24 08/18/24 History guaifenesin 600 mg tablet, 600 mg PO Q12HR PRN congestion #60 05/19/24 08/18/24 Rx extended release 12 hr (Mucus tabs Relief ER) sodium chloride 1,000 mg soluble 1,000 mg PO BID #60 tabs 05/19/24 08/18/24 Rx tablet amlodipine 10 mg tablet 10 mg PO DAILY #30 tabs 06/15/24 08/18/24 Rx furosemide 20 mg tablet 20 mg PO BID #60 tabs 06/15/24 08/18/24 Rx polyethylene glycol 3350 17 17 g PO DAILY 08/06/24 08/18/24 History gram/dose oral powder (Miralax) Allergies Allergy/AdvReac Type Severity Reaction Status Date / Time Sulfa (Sulfonamide Allergy Unknown Unknown Verified 08/18/24 07:02 Antibiotics) Vital Signs Vital Signs - 24 hr 08/18/24 07:09 08/18/24 10:18 Temperature 97.1 F L Pulse Rate 77 68 Respiratory Rate 20 20 Blood Pressure 152/82 H 133/70 Pulse Oximetry 98 97 Oxygen Delivery Room Air Room Air Exam Const: General: no acute distress and alert Orientation/consciousness: patient oriented x3 HENMT: Head: normocephalic and atraumatic Ears: hearing grossly normal bilaterally Face/Nose/Sinus: Normal nares present Mouth: Yes Normal oral and palatal mucosa present Eyes: Periorbital: periorbital findings normal Sclera: sclerae normal EOM: EOMs intact bilaterally Neck: Neck: normal visual inspection, no lymphadenopathy and trachea midline Chest: Chest palpation & inspection: normal inspection of the chest Resp: Effort & Inspection: normal respiratory effort Auscultation: clear to auscultation bilaterally Cardio: Jugular venous distension: no JVD Rate: regular rate Rhythm: regular rhythm Heart sounds: S1 normal heart sound present and S2 normal heart sound present Peripheral pulses: Peripheral pulses 2+ throughout GI: Inspection: normal to inspection GI Palp: Yes Soft to palpation, No Tenderness to palpation present (GI), No Guarding due to palpation present (GI) and No Rebound tenderness present Percussion: Yes normal to percussion Auscultation: normal bowel sounds : General: Yes no CVA tenderness Back/Spine/Pelvis: Back: no CVA tenderness Neuro: General: patient oriented x3, no focal motor deficits and CN's II-XI intact bilaterally Cognition (Neuro): normal cognition Speech: normal speech Motor exam (neuro): 5/5 motor strength present throughout Extrem: General: capillary refill normal and no clubbing, cyanosis or edema Assessment and Plan Assessment and plan (1) Screening for colorectal cancer: Code(s): Z12.11 - Encounter for screening for malignant neoplasm of colon; Z12.12 - Encounter for screening for malignant neoplasm of rectum Status: Acute Assessment and Plan: I have recommended colonoscopy. I have discussed the procedure, risks, benefits, and alternatives. Questions were answered. Patient is agreeable to proceed.
[2024-08-18 14:03] VITALS: BP 114/68; PULSE 83; RESP 19; O2SAT 93
[2024-08-18 14:13] VITALS: BP 112/70; PULSE 76; RESP 24; O2SAT 97
[2024-08-18 14:23] VITALS: BP 144/79; PULSE 74; RESP 23; O2SAT 97
--- NOTE | 2024-08-18 14:27 | SUR.PREOP ---
Pt. reports having a cough drop at 0430 this morning, and anesthesia team aware. Will continue to monitor.
== END 2024-08-18 14:35 | disposition home or self-care (01) ==
PROVIDERS: PCP Family Medicine; Visit Provider Surgery
PROC: 0DJD8ZZ Inspection of Lower Intestinal Tract, Via Natural or Artificial Opening Endoscopic (ICD-10-PCS; CPT 45378; principal; 2024-08-18 08:30)
DX: Z12.11 Encounter for screening for malignant neoplasm of colon (principal); D12.0 Benign neoplasm of cecum; D12.3 Benign neoplasm of transverse colon; K57.30 Diverticulosis of large intestine without perforation or abscess without bleeding; E78.5 Hyperlipidemia, unspecified; E11.9 Type 2 diabetes mellitus without complications; N40.0 Benign prostatic hyperplasia without lower urinary tract symptoms; I11.0 Hypertensive heart disease with heart failure; I50.30 Unspecified diastolic (congestive) heart failure; K21.9 Gastro-esophageal reflux disease without esophagitis; G47.33 Obstructive sleep apnea (adult) (pediatric); G89.29 Other chronic pain; M54.9 Dorsalgia, unspecified; G43.909 Migraine, unspecified, not intractable, without status migrainosus; M81.0 Age-related osteoporosis without current pathological fracture; Z79.82 Long term (current) use of aspirin; Z98.890 Other specified postprocedural states; Z80.1 Family history of malignant neoplasm of trachea, bronchus and lung; Z82.49 Family history of ischemic heart disease and other diseases of the circulatory system
CPT/HCPCS: 45385; 88305; J2704; J7120

== ENCOUNTER 2024-12-24 08:09 | Outpatient (CLI) | payer MEDICARE, MEDICAID, SELFPAY ==
--- OUTSIDE RECORDS SUMMARY | 2024-12-24 08:22 | XMS_ITS | Encounter Summary ---
Author Organization [facility] Address [address] [place] [address] Care Team Providers Care Meter Mechanic Name Role Phone Reanna Owen DO Primary Care Provider [phone] Nora Aragon Primary Care Provider [phone] Juan Polanco MD Primary Care Provider [phone] Tejas Yu DOJairo V Unavailable [phone] Encounter Details Date Type Department Care Team (Late st Contact Info) Description 03/28/2019 Abstract [facility]FL CONVERSION [address] [place] [address] , Generic Conversion, Social History Tobacco Use Types Packs/Day Years Used Date Smoking Tobacco: Never Assessed Sex and Gender Information Value Date Recorded Sex Assigned at Male 11/19/2024 1:28 PM 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 Legal Sex Male 1:26 AM CDT Gender Identity Not on file Sexual Orientation Not on file documented as of this encounter Plan of Treatment Not on file documented as of this encounter Visit Diagnoses Not on filedocumented in this encounter Additional Health Concerns Infection Onset Date Last Indicated Resolved Time COVID-19 Rule Out 01/14/2021 01/14/2021 01/15/2021 12:25 PM CDT documented as of this encounter Care Teams Meter Mechanic Relationship Specialty Start Date End Date Reanna Owen DO PCP - General FAMILY PRACTICE 04/27/19 01/09/21 Nora Aragon PA [address] [place] [address] PCP - General PHYSICIAN SALT PLANT OPERATOR 01/10/21 04/23/23 Juan Polanco MD [address] [place] [address] PCP - General FAMILY PRACTICE 04/24/23 Jairo Lazaro Jr., [address] [place] [address] Physician ORTHOPAEDIC SURGERY 12/17/24 documented as of this encounter
--- OUTSIDE RECORDS SUMMARY | 2024-12-24 08:22 | XMS_ITS ---
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 Name Role Phone EVIE ERNANDEZ Unavailable [phone] Juan Polanco Unavailable Unavailable JOSE RAUL IBRAHIM Unavailable [phone] Allergies Allergen (clinical drug ingredient) Drug/Non Drug Allergy documented on EMR Reaction Allergy Type Onset Date Status Product containing sulfonamide (product) (uncoded) Unknown Allergy 02/14/2019 active REASON FOR VISIT *General care Medications Medication SIG (Take, Route, Frequency, Duration) Notes Start Date End Date Status hydroCHLOROthiazide 12.5 MG Oral for 90 Days Active Carvedilol 12.5 MG Oral for 90 Days Active metFORMIN HCl 500 MG Oral for 90 Days Active Olmesartan Medoxomil 40 MG Oral for 90 Days Active cloNIDine HCl 0.1 MG Oral for 30 Days Active Tamsulosin HCl 0.4 MG Oral for 30 Days Active Pravastatin Sodium 10 MG Oral for 30 Days Active amLODIPine Besylate 5 MG Oral for 90 Days Active Encounters Encounter Location Date Provider Diagnosis [address] [id number] 06/11/2024 JOSE RAUL IBRAHIM Tinea unguium B35.1 ; Pain in right toe(s) M79.674 ; Pain in left toe(s) M79.675 ; Other hammer toe(s) (acquired), right foot M20.41 ; Other hammer toe(s) (acquired), left foot M20.42 ; Unspecified atherosclerosis of [place] arteries of extremities, bilateral legs I70.203 and Type 2 diabetes mellitus with diabetic peripheral angiopathy without gangrene E11.51 Assessments Encounter Date Diagnosis (ICD Code) Assessment Notes Treatment Notes Treatment Clinical Notes Section Notes 06/11/2024 Tinea unguium (ICD-10 - B35.1) Aseptic debridement of elongated thickened nails x 10 using sterile nippers, nails were debrided in length and thickness by 30% utilizing a nail nipper without incident. The patient was educated regarding all treatment options that include topical and oral antifungal treatments. I discussed the options of taking a sample of the nail to confirm diagnosis. Nail clippings were not sent for pathology analysis. The patient was educated why and how the fungal infection evolved in their feet and the patient was given information regarding how to prevent further infection. The patient was told to keep feet dry and change socks. The patient was told to be careful with old shoes and excessive sweating. The patient was educated regarding both OTC and prescription treatments. 06/11/2024 Pain in right toe(s) (ICD-10 - M79.674) 06/11/2024 Pain in left toe(s) (ICD-10 - M79.675) 06/11/2024 Other hammer toe(s) (acquired), right foot (ICD-10 - M20.41) The patient was educated regarding how to mechanically stabilize their deformity. The patient was given education about shoe recommendations specific for the condition. The patient was educated about custom orthotics and how appropriate shoes and orthotics can prevent further worsening of the deformity. The patient was educated about how bad shoe habits can worsen the condition. NSAIDS, P.T., injections and other conservative treatments were discussed. Both surgical and non surgical treatments were discussed, but conservative options were emphasized. 06/11/2024 Other hammer toe(s) (acquired), left foot (ICD-10 - M20.42) 06/11/2024 Unspecified atherosclerosis of [place] arteries of extremities, bilateral legs (ICD-10 - I70.203) Patient educated on risks and aggravating factors of PVD, including conservative treatment options such as a diet and exercise regimen to aid in slowing progression of vascular disease 06/11/2024 Type 2 diabetes mellitus with diabetic peripheral angiopathy without gangrene (ICD-10 - E11.51) Patient educated on proper diabetic foot care and the importance of tight glycemic control in regards to the prevention of diabetic manifestations and symptomatology in lower extremity. Explained to patient the importance of keeping interdigital spaces dry, not walking bare foot, having supportive shoe gear, using moisturizer to skin on feet daily especially in winter months, and checking feet daily for any new lesions or areas suspicious of trauma infection or ulceration. Explained to patient to return to ED if any change in foot health associated with signs of systemic infection including but not limited to nausea, vomiting, fever. Plan Of Treatment Treatment Notes Assessment Notes Tinea unguium Aseptic debridement of elongated thickened nails x 10 using sterile nippers, nails were debrided in length and thickness by 30% utilizing a nail nipper without incident. The patient was educated regarding all treatment options that include topical and oral antifungal treatments. I discussed the options of taking a sample of the nail to confirm diagnosis. Nail clippings were not sent for pathology analysis. The patient was educated why and how the fungal infection evolved in their feet and the patient was given information regarding how to prevent further infection. The patient was told to keep feet dry and change socks. The patient was told to be careful with old shoes and excessive sweating. The patient was educated regarding both OTC and prescription treatments. Other hammer toe(s) (acquired), right fo ot The patient was educated regarding how to mechanically stabilize their deformity. The patient was given education about shoe recommendations specific for the condition. The patient was educated about custom orthotics and how appropriate shoes and orthotics can prevent further worsening of the deformity. The patient was educated about how bad shoe habits can worsen the condition. NSAIDS, P.T., injections and other conservative treatments were discussed. Both surgical and non surgical treatments were discussed, but conservative options were emphasized. Unspecified atherosclerosis of [place] arteries of extremities, bilateral legs Patient educated on risks and aggravating factors of PVD, including conservative treatment options such as a diet and exercise regimen to aid in slowing progression of vascular disease Type 2 diabetes mellitus wit h diabetic peripheral angiopathy without gangrene Patient educated on proper diabetic foot care and the importance of tight glycemic control in regards to the prevention of diabetic manifestations and symptomatology in lower extremity. Explained to patient the importance of keeping interdigital spaces dry, not walking bare foot, having supportive shoe gear, using moisturizer to skin on feet daily especially in winter months, and checking feet daily for any new lesions or areas suspicious of trauma infection or ulceration. Explained to patient to return to ED if any change in foot health associated with signs of systemic infection including but not limited to nausea, vomiting, fever. Next Appt Details Follow Up: 3 Months, Reason: Progress Notes * CYNTHIA AUSTIN EDOB:[birth year] (73 yo M)Acc No.[id number]:06/11/2024 Patient: CYNTHIA DA SILVA Provider: Bety IBRAHIM :1950 A ge:73 Y S ex:Male Date:06/11/2024 Address:[address] [place] [address] Subjective: * Chief Complaints: * 1 . *General care. * HPI: H PI: General care P atient presents to the office for diabetic foot care. Patient states that their nails are thickened, elongated and painful. Patient states that it is aggravated by shoe gear. Onset is gradual., Patient denies taking prescription blood thinners but does take a daily aspirin., Date last seen by Dr. Polanco was 05/2024., Initials [facility]. * ROS: G eneral / Constitutional: Patient denies w eakness. R espiratory: Patient denies c hronic cough, shortness of breath, sputum production. C ardiovascular: Patient denies c hest pain, history of MA, irregular heartbeat. M usculoskeletal: Patient complains of h ammertoes. P eripheral Vascular: Patient denies b lanching of skin, cold extremities, decreased sensation in extremities. S kin: Patient complains of f ungal nails, nail changes. ? N eurologic: Patient denies d izziness, gait abnormality, headache. * Medical History: * Medications: T aking [...] Allergy - Onset Date 02/14/2019. Objective: * Examination: P hysical Examination: V ascular: Dorsalis Pedis pulse noted at 1/4 right foot and 1/4 left foot and Posterior Tibial pulse noted at 1/4 right foot and 1/4 left foot, Capillary refill times noted to be less than three seconds x ten, Temperature gradient noted to be warm to cool to bilateral foot, pedal hair present to bilateral foot and no varicosities are noted Dermatologic: there are no open lesions, no signs of active clinical infection, no erythema noted, no ecchymoses, nails are elongated thickened and dystrophic with subungual debris x ten Musculoskeletal: there is pain to palpation onto nail plate x ten, no calf pain noted bilaterally, arch height noted at 2/5 non-weight bearing bilaterally, first metatarsophalangeal joint range of motion 30 deg non-weight bearing bilaterally, flexible fifth digit hammer toe deformity noted to bilateral foot reducible with kelikian push up test Neurology: protective sensation intact to light touch bilateral digits one through five, vibratory sensation intact to first metatarsophalangeal joint bilaterally. Assessment: * Assessment: 1. T inea unguium - B35.1 (Primary) 2 . P ain in right toe(s) - M79.674 3 . P ain in left toe(s) - M79.675 4 . O ther hammer toe(s) (acquired), right foot - M20.41 5 .?Other hammer toe(s) (acquired), left foot - M20.42 6 . U nspecified atherosclerosis of [place] arteries of extremities, bilateral legs - I70.203 7 . T ype 2 diabetes mellitus with diabetic peripheral angiopathy without gangrene - E11.51 Plan: * Treatment: 2. O ther hammer toe(s) (acquired), right foot Notes: The patient was educated regarding how to mechanically stabilize their deformity. The patient was given education about shoe recommendations specific for the condition. The patient was educated about custom orthotics and how appropriate shoes and orthotics can prevent further worsening of the deformity. The patient was educated about how bad shoe habits can worsen the condition. NSAIDS, P.T., injections and other conservative treatments were discussed. Both surgical and non surgical treatments were discussed, but conservative options were emphasized. 3. U nspecified atherosclerosis of [place] arteries of extremities, bilateral legs Notes: Patient educated on risks and aggravating factors of PVD, including conservative treatment options such as a diet and exercise regimen to aid in slowing progression of vascular disease ? 4. T ype 2 diabetes mellitus with diabetic peripheral angiopathy without gangrene Notes: Patient educated on proper diabetic foot care and the importance of tight glycemic control in regards to the prevention of diabetic manifestations and symptomatology in lower extremity. Explained to patient the importance of keeping interdigital spaces dry, not walking bare foot, having supportive shoe gear, using moisturizer to skin on feet daily especially in winter months, and checking feet daily for any new lesions or areas suspicious of trauma infection or ulceration. Explained to patient to return to ED if any change in foot health associated with signs of systemic infection including but not limited to nausea, vomiting, fever. * Follow Up: 3 Months * Billing Information: * Visit Code: 30961 Office Visit, Est Pt., Level 3. 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 Polanco was 05/2024., Initials [facility] Examination Category Sub-Category Detail Notes Category Not es Physical Examination Vascular: Dorsalis Pedis pulse noted at 1/4 right foot and 1/4 left foot and Posterior Tibial pulse noted at 1/4 right foot and 1/4 left foot, Capillary refill times noted to be less than three seconds x ten, Temperature gradient noted to be warm to cool to bilateral foot, pedal hair present to bilateral foot and no varicosities are noted Dermatologic: there are no open lesions, no signs of active clinical infection, no erythema noted, no ecchymoses, nails are elongated thickened and dystrophic with subungual debris x ten Musculoskeletal: there is pain to palpation onto nail plate x ten, no calf pain noted bilaterally, arch height noted at 2/5 non-weight bearing bilaterally, first metatarsophalangeal joint range of motion 30 deg non-weight bearing bilaterally, flexible fifth digit hammer toe deformity noted to bilateral foot reducible with kelikian push up test Neurology: protective sensation intact to light touch bilateral digits one through five, vibratory sensation intact to first metatarsophalangeal joint bilaterally
--- OUTSIDE RECORDS SUMMARY | 2024-12-24 08:22 | XMS_ITS | Encounter Summary ---
Author Organization [facility] Address [address] [place] [address] Care Team Providers Care Director Strategic Planning Name Role Phone Juan Polanco MD Primary Care Provider [phone] Tejas Yu DO, George V Unavailable [phone] Encounter Details Date Type Department Care Team (Late st Contact Info) Description 11/19/2024 Aframe Message [facility] [address] [facility] [address] [place] [address] Aneta Wong, [facility] [address] [place] [address] [place] [address] Visit Follow Up Social History Tobacco Use Types Packs/Day Years Used Date Smoking Tobacco: Never Smokeless Tobacco: Never Alcohol Use Standard Drinks/Week Comments Not Currently 0 (1 standard drink = 0.6 oz pur e alcohol) Sex and Gender Information Value Date Recorded Sex Assigned at Male 11/19/2024 1:28 PM [employer] Legal Sex Male 1:26 AM CDT Gender Identity Not on file Sexual Orientation Not on file documented as of this encounter Plan of Treatment Not on file documented as of this encounter Visit Diagnoses Not on filedocumented in this encounter Care Teams Director Strategic Planning Relationship Specialty Start Date End Date Juan Polanco MD [address] [place] [address] PCP - General FAMILY PRACTICE 04/24/23 Jairo Lazaro Jr., DO [address] [place] [address] Physician ORTHOPAEDIC SURGERY 12/17/24 documented as of this encounter
--- OUTSIDE RECORDS SUMMARY | 2024-12-24 08:22 | XMS_ITS | Clinical Summary ---
Author Organization [facility] Address [address] [place] [address] Care Team Providers Care Edge Baster Name Role Phone Juan Polanco MD Primary Care Provider [phone] Tejas Yu DO, George V Unavailable [phone] Allergies Active Allergy Reactions Criticality Noted Date Comments Sulfa Antibiotics Unknown 05/05/2015 Medications carvedilol 12.5 MG tablet 5 04/22/2019 Active cloNIDine 0.1 MG tablet 3 03/13/2019 Active amlodipine 5 MG tablet 3 03/17/2019 Active pravastatin 10 MG tablet 3 03/13/2019 Active Melatonin 5 MG Cap 03/26/2017 Active aspirin EC (ASPIRIN EC) 81 MG tablet Take 1 tablet (81 mg total) by mouth daily. 03/26/2017 Active traMADol 50 MG tablet Take 1 tablet (50 mg total) by mouth as needed. 0 04/09/2019 Active Olmesartan Medoxomil 40 MG Tab 02/27/2021 Active tamsulosin 0.4 MG Cap 02/27/2021 Active acetaminophen 325 MG tablet Take 2 tablets (650 mg total) by mouth every 6 (six) hours as needed for Pain. Active furosemide (LASIX) 20 MG tablet Take 1 tablet (20 mg total) by mouth 2 (two) times daily as needed. Active loratadine (CLARITIN) 10 MG tablet Take 1 tablet (10 mg total) by mouth daily. Active docusate sodium (COLACE) 100 MG capsule Take 1 capsule (100 mg total) by mouth daily. Active omeprazole (PRILOSEC) 40 MG capsule Take 1 capsule (40 mg total) by mouth daily. Active Active Problems Problem Noted Date Diagnosed Date Effusion of left knee joint 03/16/2021 Primary osteoarthritis of right knee 03/15/2021 Primary osteoarthritis of left knee 03/15/2021 Effusion of right knee joint 03/15/2021 Frequency of micturition 01/16/2021 Overview (01/16/2021): Added automatically from request for surgery [id number] Micturition frequency 01/10/2021 Overview (01/10/2021): Added automatically from request for surgery [id number] Puncture wound without forei gn body, left thigh, subsequent encounter 04/29/2019 Open wound of right thigh, subsequent encounter 04/29/2019 Lumbar stenosis 02/08/2017 Left lumbar radiculopathy 02/03/2017 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 Resolved Problems Problem Noted Date Diagnosed Date Resolved Date History of constipation 03/26/201710/23 Backache 01/31/2017 11/19/2024 Ganglion cyst of wrist 05/05/201511/19 Encounters Date Type Department Care Team Description 12/17/[address] [address] Jairo Lazaro Jr., DO Follow Up Call 12/14/2024 1:15 PM PRICE ACCURACY SUPERVISOR Office Visit [address] [address] Jairo Lazaro Jr., DO Knee Pain (RIGHT); Pre-Op Exam 12/14/2024 Travel 11/23/[address] [address] Lisa Collins PA Surgical Clearance (Cardiac) 11/19/2024 2:00 PM PRICE ACCURACY SUPERVISOR Office Visit [address] [place] [address] Vinay Wong FNP-BC New Patient; Knee Pain (BILATERAL) 11/19/2024 1:30 PM PRICE ACCURACY SUPERVISOR - 11/19/2024 11:59 PM PRICE ACCURACY SUPERVISOR Hospital Encounter [facility] [address] [place] [address] Vinay Wong FNP-BC Discharge Disposition: Home or Self Care (Routine Discharge) 11/19/2024 MyChart Message Enc [address] [address] Vinay Wong FNP-BC Visit Follow Up 11/19/2024 Travel 11/13/2024 Orders Only [address] [address] Vinay Wong FNP-BC from Last 3 Months Family History Medical History Relation Comments Cancer Father Diabetes Maternal Grandmother Cancer Mother Diabetes Paternal Grandmother Relation Status Comments Father Maternal Grandfather Maternal Grandmother Mother Paternal Grandfather Paternal Grandmother Social History Tobacco Use Types Packs/Day Years Used Date Smoking Tobacco: Never Smokeless Tobacco: Never Alcohol Use Standard Drinks/Week Comments Not Currently 0 (1 standard drink = 0.6 oz pur e alcohol) Sex and Gender Information Value Date Recorded Sex Assigned at Male 11/19/2024 1:28 PM PRICE ACCURACY SUPERVISOR Legal Sex Male 1:26 AM CDT Gender Identity Not on file Sexual Orientation Not on file Last Filed Vital Signs Vital Sign Reading Time Taken Comments Blood Pressure 140/80 01/17/2021 8:14 AM CDT Pulse 77 01/17/2021 8:14 AM CDT Temperature 35.4 C (95.7 F) 01/17/2021 8:14 AM CDT Respiratory Rate 18 01/17/2021 8:14 AM CDT Oxygen Saturation 97% 01/17/2021 8:14 AM CDT Inhaled Oxygen Concentration - - Weight 126.6 kg (279 lb) 12/14/2024 1:06 PM PRICE ACCURACY SUPERVISOR Height 170.2 cm (5' 7 ) 12/14/2024 1:06 PM PRICE ACCURACY SUPERVISOR Body Mass Index 43.7 12/14/2024 1:06 PM PRICE ACCURACY SUPERVISOR Plan of Treatment Health Maintenance Due Date Last Done Comments Colorectal Cancer Screening Colonoscopy (10 Years) 1950 Hepatitis C 1968 DTaP, Tdap and Td Vaccines ( 1 - Tdap) 1969 RSV Immunization or 60+ Years (1 - Risk 60-74 years 1-dose series) 2010 Annual Medicare Wellness Visit 2015 Pneumococcal Vaccine: 65+ Years (2 of 2 - PPSV23 or PCV20) 07/15/2018 07/15/2017 Zoster Vaccines (2 of 3) 01/29/2020 12/04/2019 COVID-19 Vaccine (3 - 2023-2 5 season) 2024 01/04/2021, 12/13/2020 Influenza Adult (#1) 2024 07/29/2023 Meningococcal B Vaccine Aged Out No l onger eligible based on patient's age to complete this topic Meningococcal Vaccine Aged Out No erasto leonid eligible based on patient's age to complete this topic RSV Immunizations Under 20 Months Aged Out No longer eligible b ased on patient's age to complete this topic Procedures Procedure Name Priority Date/Time Associated Diagnosis Comments XR KNEE STAND AP JT ONLY Routine 11/19/2024 1:50 PM PRICE ACCURACY SUPERVISOR Acute pain of right knee XR KNEE JT 3V Routine 11/19/2024 1:50 PM PRICE ACCURACY SUPERVISOR Acute pain of right knee from Last 3 Months Results * XR KNEE TJ 3V (11/19/2024 1:50 PM PRICE ACCURACY SUPERVISOR) Anatomical Region Laterality Modality Knee Radiographic Marlen ging 11/20/2024 1:34 PM PRICE ACCURACY SUPERVISOR Impressions 11/20/2024 1:36 PM PRICE ACCURACY SUPERVISOR IMPRESSION: 1) Interval progression of 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 Ordered By: VINAY WONG Interpreted By: Jayy Vee MD, 11/20/2024 1:34 PM Narrative 11/20/2024 1:36 PM PRICE ACCURACY SUPERVISOR [place] [id number] [place] [address] Examination: XR KNEE STAND AP JT ONLY, XR KNEE JT 3V Exam time: 11/19/2024 1:32 PM Clinical history: Chronic knee pain Comparison: 03/15/2021 Technique: Standing PA views of both knees were obtained along with a lateral and sunrise views of both knees. Findings: Right knee: No acute soft tissue abnormality. No joint effusion. No evidence of acute fracture or focal lytic bone destructive lesion. There is been interval progression of severe chronic degenerative osteoarthritis involving the lateral compartment more than medial compartment with valgus angulation. There is essentially complete loss of lateral articular cartilage with subchondral sclerosis and osteophyte formation. Left knee: No soft tissue abnormality. No significant joint effusion. No evidence of acute fracture or focal lytic bone destructive lesion. Severe chronic degenerative osteoarthritis medial compartment worse than lateral compartment similar to previous study. Patellofemoral compartment is fairly well-maintained. There is near complete loss of medial articular cartilage with subchondral sclerosis and osteophyte formation. Procedure Note Jayy Vee MD - 11/20/2024 [facility] [address] [place] [address] Examination: XR KNEE STAND AP JT ONLY, XR KNEE JT 3V Exam time: 11/19/2024 1:32 PM Clinical history: Chronic knee pain Comparison: 03/15/2021 Technique: Standing PA views of both knees were obtained along with alateral and sunrise views of both knees. Findings: Right knee: No acute soft tissue abnormality. No joint effusion. Noevidence of acute fracture or focal lytic bone destructive lesion. Thereis been interval progression of severe chronic degenerative osteoarthritisinvolving the lateral compartment more than medial compartment with valgusangulation. There is essentially complete loss of lateral articularcartilage with subchondral sclerosis and osteophyte formation. Left knee: No soft tissue abnormality. No significant joint effusion. Noevidence of acute fracture or focal lytic bone destructive lesion. Severechronic degenerative osteoarthritis medial compartment worse than lateralcompartment similar to previous study. Patellofemoral compartment isfairly well-maintained. There is near complete loss of medial articularcartilage with subchondral sclerosis and osteophyte formation. IMPRESSION: 1) Interval progression of severe chronic degenerative osteoarthritismedial and lateral compartments of both knees as described. Ordered By: VINAY WONG Interpreted By: Jayy Vee MD, 11/20/2024 1:34 PM us Vinay Wong TRAFFIC OBSERVER-BC GENERAL IMAGING Final Resu lt * XR KNEE STAND AP JT ONLY (11/19/2024 1:50 PM PRICE ACCURACY SUPERVISOR) Anatomical Region Laterality Modality Knee Radiographic Marlen ging 11/20/2024 1:34 PM PRICE ACCURACY SUPERVISOR Impressions 11/20/2024 1:36 PM PRICE ACCURACY SUPERVISOR IMPRESSION: 1) Interval progression of 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 Ordered By: VINAY WONG Interpreted By: Jayy Vee MD, 11/20/2024 1:34 PM Narrative 11/20/2024 1:36 PM PRICE ACCURACY SUPERVISOR [address] [place] [address] Examination: XR KNEE STAND AP JT ONLY, XR KNEE JT 3V Exam time: 11/19/2024 1:32 PM Clinical history: Chronic knee pain Comparison: 03/15/2021 Technique: Standing PA views of both knees were obtained along with a lateral and sunrise views of both knees. Findings: Right knee: No acute soft tissue abnormality. No joint effusion. No evidence of acute fracture or focal lytic bone destructive lesion. There is been interval progression of severe chronic degenerative osteoarthritis involving the lateral compartment more than medial compartment with valgus angulation. There is essentially complete loss of lateral articular cartilage with subchondral sclerosis and osteophyte formation. Left knee: No soft tissue abnormality. No significant joint effusion. No evidence of acute fracture or focal lytic bone destructive lesion. Severe chronic degenerative osteoarthritis medial compartment worse than lateral compartment similar to previous study. Patellofemoral compartment is fairly well-maintained. There is near complete loss of medial articular cartilage with subchondral sclerosis and osteophyte formation. Procedure Note Jayy Vee MD - 11/20/2024 [place] [id number] [place] [address] Examination: XR KNEE STAND AP JT ONLY, XR KNEE JT 3V Exam time: 11/19/2024 1:32 PM Clinical history: Chronic knee pain Comparison: 03/15/2021 Technique: Standing PA views of both knees were obtained along with alateral and sunrise views of both knees. Findings: Right knee: No acute soft tissue abnormality. No joint effusion. Noevidence of acute fracture or focal lytic bone destructive lesion. Thereis been interval progression of severe chronic degenerative osteoarthritisinvolving the lateral compartment more than medial compartment with valgusangulation. There is essentially complete loss of lateral articularcartilage with subchondral sclerosis and osteophyte formation. Left knee: No soft tissue abnormality. No significant joint effusion. Noevidence of acute fracture or focal lytic bone destructive lesion. Severechronic degenerative osteoarthritis medial compartment worse than lateralcompartment similar to previous study. Patellofemoral compartment isfairly well-maintained. There is near complete loss of medial articularcartilage with subchondral sclerosis and osteophyte formation. IMPRESSION: 1) Interval progression of severe chronic degenerative osteoarthritismedial and lateral compartments of both knees as described. Ordered By: VINAY WONG Interpreted By: Jayy Vee MD, 11/20/2024 1:34 PM us Vinay Wong TRAFFIC OBSERVER-BC GENERAL IMAGING Final Resu lt from Last 3 Months Insurance MEDICARE MEDICAID Care Teams Edge Baster Relationship Specialty Start Date End Date Juan Polanco MD [address], [place] [id number] PCP - General FAMILY PRACTICE 04/24/23 Jairo Lazaro Jr., DO [address] [place] [phone] Physician ORTHOPAEDIC SURGERY 12/17/24
--- OUTSIDE RECORDS SUMMARY | 2024-12-24 08:22 | XMS_ITS | Patient Health Record ---
Author Organization [facility] Address [address] [place], [place] [address] Care Team Providers Care New Product Trainer Name Role Phone EVIE ERNANDEZ Unavailable [phone] Juan Polanco Unavailable Unavailable JOSE RAUL IBRAHIM Unavailable [phone] Allergies Allergen (clinical drug ingredient) Drug/Non Drug Allergy documented on EMR Reaction Allergy Type Onset Date Status Product containing sulfonamide (product) (uncoded) Unknown Allergy 02/14/2019 active Reason For Referral No Information Medications Medication SIG (Take, Route, Frequency, Duration) Notes Start Date End Date Status hydroCHLOROthiazide 12.5 MG Oral for 90 Days Active Pravastatin Sodium 10 MG Oral for 30 Days Active amLODIPine Besylate 5 MG Oral for 90 Days Active cloNIDine HCl 0.1 MG Oral for 30 Days Active Tamsulosin HCl 0.4 MG Oral for 30 Days Active Olmesartan Medoxomil 40 MG Oral for 90 Days Active Carvedilol 12.5 MG Oral for 90 Days Active metFORMIN HCl 500 MG Oral for 90 Days Active Immunizations Vaccine Route Administration Date Status Comme nts Influenza, high dose seasonal Unknown 07/29/2023 Admini stered Vital Signs Height-cm 172.72 cm 04/09/2024 Weight-kg 117.93 kg 04/09/2024 Height 68.00 in 04/09/2024 Weight 260 lbs 04/09/2024 BMI 39.53 kg/m2 04/09/2024 Encounters Encounter Location Date Provider Diagnosis [address] [id number] 02/06/2024 JOSE RAUL IBRAHIM Tinea unguium B35.1 ; Pain in right toe(s) M79.674 ; Pain in left toe(s) M79.675 ; Other hammer toe(s) (acquired), right foot M20.41 ; Other hammer toe(s) (acquired), left foot M20.42 ; Unspecified atherosclerosis of [place] arteries of extremities, bilateral legs I70.203 and Type 2 diabetes mellitus with diabetic peripheral angiopathy without gangrene E11.[address] [id number] 04/09/2024 JOSE RAUL IBRAHIM Tinea unguium B35.1 ; Pain in right toe(s) M79.674 ; Pain in left toe(s) M79.675 ; Other hammer toe(s) (acquired), right foot M20.41 ; Other hammer toe(s) (acquired), left foot M20.42 ; Unspecified atherosclerosis of [place] arteries of extremities, bilateral legs I70.203 and Type 2 diabetes mellitus with diabetic peripheral angiopathy without gangrene E11.[address] [id number] 06/11/2024 JOSE RAUL IBRAHIM Tinea unguium B35.1 ; Pain in right toe(s) M79.674 ; Pain in left toe(s) M79.675 ; Other hammer toe(s) (acquired), right foot M20.41 ; Other hammer toe(s) (acquired), left foot M20.42 ; Unspecified atherosclerosis of [place] arteries of extremities, bilateral legs I70.203 and Type 2 diabetes mellitus with diabetic peripheral angiopathy without gangrene E11.51 Assessments Encounter Date Diagnosis (ICD Code) Assessment Notes Treatment Notes Treatment Clinical Notes Section Notes 02/06/2024 Tinea unguium (ICD-10 - B35.1) Aseptic debridement [...] educated regarding both OTC and prescription treatments. 02/06/2024 Pain in right toe(s) (ICD-10 - M79.674) 04/09/2024 Tinea unguium (ICD-10 - B35.1) Aseptic debridement [...] educated regarding both OTC and prescription treatments. 04/09/2024 Pain in right toe(s) (ICD-10 - M79.674) 06/11/2024 Tinea unguium (ICD-10 - B35.1) Aseptic [...] Pain in left toe(s) (ICD-10 - M79.675) 04/09/2024 Pain in left toe(s) (ICD-10 - M79.675) 02/06/2024 Pain in left toe(s) (ICD-10 - M79.675) 02/06/2024 Other hammer toe(s) (acquired), right foot (ICD-10 [...] were discussed, but conservative options were emphasized. 04/09/2024 Other hammer toe(s) (acquired), right foot (ICD-10 [...] were emphasized. 06/11/2024 Other hammer toe(s) (acquired), right foot [...] toe(s) (acquired), left foot (ICD-10 - M20.42) 04/09/2024 Other hammer toe(s) (acquired), left foot (ICD-10 - M20.42) 02/06/2024 Other hammer toe(s) (acquired), left foot (ICD-10 - M20.42) 02/06/2024 Unspecified atherosclerosis of [place] arteries of extremities, bilateral legs (ICD-10 - I70.203) Patient educated on risks and aggravating factors of PVD, including conservative treatment options such as a diet and exercise regimen to aid in slowing progression of vascular disease 04/09/2024 Unspecified atherosclerosis of [place] arteries of extremities, bilateral legs (ICD-10 - I70.203) Patient educated on risks and aggravating factors of PVD, including conservative treatment options such as a diet and exercise regimen to aid in slowing progression of vascular disease 06/11/2024 Unspecified atherosclerosis of [place] arteries of extremities, bilateral legs (ICD-10 - [...] but not limited to nausea, vomiting, fever. 04/09/2024 Type 2 diabetes mellitus with diabetic peripheral [...] but not limited to nausea, vomiting, fever. 02/06/2024 Type 2 diabetes mellitus with diabetic peripheral [...] to nausea, vomiting, fever. Plan Of Treatment No Information Insurance Providers Payer Name Payer Address Payer Phone Subscriber Number Group Number Insured Name Patient Relationship to Insured Coverage Start Date Coverage End Date AARP MedicareComp lidia ([facility]) [address] [place], [place] [id number] CYNTHIA GUTIERREZ Self - patient is the insured
--- OUTSIDE RECORDS SUMMARY | 2024-12-24 08:23 | XMS_ITS ---
Author Organization [facility] Address [address] [place], [place] [address] Care Team Providers Care Clinical Research Spec Name Role Phone EVIE ERNANDEZ Unavailable [phone] Juan Polanco Unavailable Unavailable JOSE RAUL IBRAHIM Unavailable [phone] Allergies Allergen (clinical drug ingredient) Drug/Non Drug Allergy documented on EMR Reaction Allergy Type Onset Date Status Product containing sulfonamide (product) (uncoded) Unknown Allergy 02/14/2019 active REASON FOR VISIT *General care Medications Medication SIG (Take, Route, Frequency, Duration) Notes Start Date End Date Status hydroCHLOROthiazide 12.5 MG Oral for 90 Days Active cloNIDine HCl 0.1 MG Oral for 30 Days Active Olmesartan Medoxomil 40 MG Oral for 90 Days Active Carvedilol 12.5 MG Oral for 90 Days Active metFORMIN HCl 500 MG Oral for 90 Days Active Pravastatin Sodium 10 MG Oral for 30 Days Active amLODIPine Besylate 5 MG Oral for 90 Days Active Tamsulosin HCl 0.4 MG Oral for 30 Days Active Encounters Encounter Location Date Provider Diagnosis [address] [id number] 08/13/2024 JOSE RAUL IBRAHIM Plan Of Treatment No Information Progress Notes * CYNTHIA AUSTIN EDOB:[birth year] (74 yo M)Acc No.[id number]:08/13/2024 Patient: Ho CYNTHIA CARNEY Provider: Bety IBRAHIM :1950 A ge:73 Y S ex:Male Date:08/13/2024 Address:[address] [place] [address] , [place] [address] Subjective: * Chief Complaints: * 1 . [...] seen by Dr. Polanco was 07/2024., Initials [facility]. * Medical History: * Medications: T aking [...] Electronic signature of CHAY IBRAHIM DPM on 12/24/2024 at 08:23 AM METAL COATER Sign off status: Pending * Provider: Bety IBRAHIM Date: 1 Generated for Chun kearney/Jeff/Mabel on: 0 12/24/2024 08:23 AM METAL COATER History and Physical Notes * HPI (History [...] seen by Dr. Polanco was 07/2024., Initials [facility]
--- OUTSIDE RECORDS SUMMARY | 2024-12-24 08:23 | XMS_ITS ---
Author Organization [facility] Address [address] [place], [place] [address] Care Team Providers Care Seconds Handler Name Role Phone EVIE ERNANDEZ Unavailable [phone] Juan Polanco Unavailable Unavailable JOSE RAUL IBRAHIM Unavailable [phone] Allergies Allergen (clinical drug ingredient) Drug/Non Drug Allergy documented on EMR Reaction Allergy Type Onset Date Status Product containing sulfonamide (product) (uncoded) Unknown Allergy 02/14/2019 active REASON FOR VISIT *General care Medications Medication SIG (Take, Route, Frequency, Duration) Notes Start Date End Date Status Carvedilol 12.5 MG Oral for 90 Days Active hydroCHLOROthiazide 12.5 MG Oral for 90 Days Active amLODIPine Besylate 5 MG Oral for 90 Days Active Olmesartan Medoxomil 40 MG Oral for 90 Days Active metFORMIN HCl 500 MG Oral for 90 Days Active Pravastatin Sodium 10 MG Oral for 30 Days Active Tamsulosin HCl 0.4 MG Oral for 30 Days Active cloNIDine HCl 0.1 MG Oral for 30 Days Active Vital Signs Height 68.00 in 04/09/2024 Weight 260 lbs 04/09/2024 BMI 39.53 kg/m2 04/09/2024 Height-cm 172.72 cm 04/09/2024 Weight-kg 117.93 kg 04/09/2024 Encounters Encounter Location Date Provider Diagnosis [address] [id number] 04/09/2024 JOSE RAUL IBRAHIM Tinea unguium B35.1 ; Pain in right toe(s) M79.674 ; Pain in left toe(s) M79.675 ; Other hammer toe(s) (acquired), right foot M20.41 ; Other hammer toe(s) (acquired), left foot M20.42 ; Unspecified atherosclerosis of [place] arteries of extremities, bilateral legs I70.203 and Type 2 diabetes mellitus with diabetic peripheral angiopathy without gangrene E11.51 Assessments Encounter Date Diagnosis (ICD Code) Assessment Notes Treatment Notes Treatment Clinical Notes Section Notes 04/09/2024 Tinea unguium (ICD-10 - B35.1) Aseptic [...] in right toe(s) (ICD-10 - M79.674) 04/09/2024 Pain in left toe(s) (ICD-10 - M79.675) 04/09/2024 Other hammer toe(s) (acquired), right foot [...] were emphasized. 04/09/2024 Other hammer toe(s) (acquired), left foot (ICD-10 - M20.42) 04/09/2024 Unspecified atherosclerosis of [place] arteries of extremities, bilateral legs (ICD-10 - I70.203) Patient educated on risks and aggravating factors of PVD, including conservative treatment options such as a diet and exercise regimen to aid in slowing progression of vascular disease 04/09/2024 Type 2 diabetes mellitus with diabetic [...] conservative options were emphasized. Unspecified atherosclerosis of [place] arteries of extremities, bilateral legs Patient educated [...] * CYNTHIA AUSTIN EDOB:[birth year] (73 yo M)Acc No.[id number]:04/09/2024 Patient: CYNTHIA DA SILVA Provider: Bety IBRAHIM :1950 A ge:73 Y S ex:Male Date:04/09/2024 Address:[address] [place] [address] Subjective: * Chief Complaints: * 1 . *General care. * HPI: H PI: General care P atient presents to the office for at risk foot care. Patient states that their nails are thickened, elongated and painful. Patient states that it is aggravated by shoe gear. Onset is gradual. Patient denies being diabetic., Patient denies taking prescription blood thinners but does take a daily aspirin., Date last seen by Dr. Polanco was 12/2023. GENIA;mls. * ROS: G eneral / Constitutional: Patient denies w eakness. R espiratory: Patient denies c hronic cough, shortness of breath, sputum production. C ardiovascular: Patient denies c hest pain, history of HI, irregular heartbeat. M usculoskeletal: Patient complains of h ammertoes. P eripheral Vascular: Patient denies b lanching of skin, cold extremities, decreased sensation in extremities. S kin: Patient complains of f ungal nails, nail changes. ? N eurologic: Patient denies d izziness, gait abnormality, headache. * Medical History: * Family History: F ather: PRN - Father: :: Arthritis,,known absent , :: Cancer,,known absent . M other: PRN - Mother: . Collette rother: SIB - Brother: . S ister: SIB - Sister: . * Social History: M igrated Social History: M igrated Social History: Smoking Status : Never smoked , History of tobacco use :. * Medications: T aking amLODIPine Besylate 5 [...] - Onset Date 02/14/2019. Objective: * Vitals: W t:260lbs, Wt-k.93 kg, Ht: 68.00 in, Ht-cm: 172.72 cm, BMI:39.53Index, Body Surface Area: 2.38. * Examination: P hysical Examination: V ascular: [...] M20.42 6 . U nspecified atherosclerosis of [place] arteries of extremities, bilateral legs - I70.203 [...] were emphasized. 3. U nspecified atherosclerosis of [place] arteries of extremities, bilateral legs Notes: Patient [...] Months * Billing Information: * Visit Code: 05666 Office Visit, Est Pt., Level 3. * Procedure Codes: * Sign off status: Completed true * Provider: Bety IBRAHIM Date: 0 04/09/2024 Generated for Chun kearney/Jeff/Mabel on: 0 12/24/2024 08:22 AM PACK TRAIN DRIVER History and Physical Notes * HPI (History of Present Illness) Category Sub-Category Detail Notes Category Not es HPI General care Patient presents to the office for at risk foot care. Patient states that their nails are thickened, elongated and painful. Patient states that it is aggravated by shoe gear. Onset is gradual. Patient denies being diabetic., Patient denies taking prescription blood thinners but does take a daily aspirin., Date last seen by Dr. Polanco was 12/2023. MA;mls Examination Category Sub-Category Detail Notes Category Not [...]
--- NOTE | 2024-12-24 08:26 | ECG_ITS ---
Test Date: 2024-12-24 08:41:23 Measurements Intervals [place] Rate: 71 P: 34 [place]: 143 QRS: 60 QRSD: 91 T: 7 QT: 364 QTc: 397 Interpretive Statements SINUS RHYTHM Compared to ECG 05/13/2024 09:08:41 Myocardial infarct finding no longer present Electronically Signed On 12-24-2024 14:00:20 ADMINISTRATIVE AND PROGRAM SPECIALIST by Randall Echols M.D.
[2024-12-24 08:31] LABS: Basophils Absolute Auto 0.04 K/mm3 (0.00-0.10); Basophils Percent Auto 0.5 % (0.0-1.0); Eosinophils Absolute Auto 0.18 K/mm3 (0.02-0.50); Eosinophils Percent Auto 2.1 % (1.0-6.0); Hematocrit 41.7 % (37.0-46.0); Hemoglobin 13.8 g/dL (12.4-15.3); Immature Granulocyte Absolute 0.04 K/mm3 (0.00-0.00); Immature Granulocyte Percent A 0.5 % (0.0-0.0); Lymphocytes Absolute Auto 1.36 K/mm3 (1.10-4.50); Lymphocytes Percent Auto 15.6 % (18.0-42.0); Mean Corpuscular HGB Conc 33.1 g/dL (32-36); Mean Corpuscular Hemoglobin 29.5 pg (27.0-31.0); Mean Corpuscular Volume 89.1 fL (78.0-102.0); Mean Platelet Volume 9.6 fl (8.7-11.0); Monocytes Percent Auto 9.2 % (2.0-11.0); Neutrophils Percent Auto 72.1 % (50.0-70.0); Platelet Count Result 231 K/mm3 (150-420); Red Blood Count 4.68 M/mm3 (4.70-6.10); Red Cell Distribution Width 13.8 % (11.6-14.4); White Blood Count 8.7 K/mm3 (4.8-10.8)
[2024-12-24 09:20] LABS: Alanine Aminotransferase 26 U/L (16-63); Albumin Level 3.8 g/dL (3.4-5.0); Alkaline Phosphatase 102 U/L (46-116); Anion Gap 9 mmol/L (4-12); Aspartate Amino Transferase 12 U/L (15-37); Bilirubin,Total 0.5 mg/dL (0.00-1.00); Blood Urea Nitrogen 16 mg/dL (7-18); Carbon Dioxide 28 mmol/L (21-32); Chloride 99 mmol/L (98-108); Estimated Glomerular Filt Rate > 60; Glucose 138 mg/dL (70-99); Osmolality Calculated 285 mOsm/kg (285-295); Potassium 4.8 mmol/L (3.5-5.1); Sodium 136 mmol/L (136-145); Total Protein 6.9 g/dL (6.4-8.2)
[2024-12-24 09:51] LABS: MRSA (PCR) NOT DETECTED (NOT DETECTE)
== END 2024-12-24 08:10 | disposition home or self-care (01) ==
LOC: CHSLAB 08:15
PROVIDERS: PCP Family Medicine; Visit Provider Internal Medicine Nephrology
DX: E11.40 Type 2 diabetes mellitus with diabetic neuropathy, unspecified (principal); I10 Essential (primary) hypertension
CPT/HCPCS: 36415; 80053; 85025; 87641; 93005

== ENCOUNTER 2025-01-18 14:38 | Outpatient (CLI) | payer MEDICARE, MEDICAID, SELFPAY ==
[2025-01-18 14:55] LABS: Basophils Absolute Auto 0.04 K/mm3 (0.00-0.10); Basophils Percent Auto 0.5 % (0.0-1.0); Eosinophils Absolute Auto 0.24 K/mm3 (0.02-0.50); Hemoglobin 13.7 g/dL (12.4-15.3); Immature Granulocyte Absolute 0.04 K/mm3 (0.00-0.00); Immature Granulocyte Percent A 0.5 % (0.0-0.0); Lymphocytes Absolute Auto 1.57 K/mm3 (1.10-4.50); Lymphocytes Percent Auto 19.9 % (18.0-42.0); Mean Corpuscular HGB Conc 33.4 g/dL (32-36); Mean Corpuscular Hemoglobin 29.4 pg (27.0-31.0); Mean Platelet Volume 10.2 fl (8.7-11.0); Monocytes Absolute Auto 0.74 K/mm3 (0.10-0.90); Monocytes Percent Auto 9.4 % (2.0-11.0); Neutrophils Absolute Auto 5.25 K/mm3 (1.70-7.20); Neutrophils Percent Auto 66.7 % (50.0-70.0); Platelet Count Result 243 K/mm3 (150-420); Red Blood Count 4.66 M/mm3 (4.70-6.10); Red Cell Distribution Width 13.1 % (11.6-14.4); White Blood Count 7.9 K/mm3 (4.8-10.8)
[2025-01-18 15:27] LABS: Alanine Aminotransferase 26 U/L (16-63); Albumin Level 3.6 g/dL (3.4-5.0); Alkaline Phosphatase 107 U/L (46-116); Amylase 35 U/L (25-115); Anion Gap 8 mmol/L (4-12); Aspartate Amino Transferase 14 U/L (15-37); Bilirubin,Total 0.5 mg/dL (0.00-1.00); Blood Urea Nitrogen 18 mg/dL (7-18); Calcium 8.7 mg/dL (8.5-10.1); Carbon Dioxide 28 mmol/L (21-32); Chloride 101 mmol/L (98-108); Estimated Glomerular Filt Rate > 60; Glucose 126 mg/dL (70-99); Lipase 27 U/L (16-77); Osmolality Calculated 287 mOsm/kg (285-295); Potassium 4.4 mmol/L (3.5-5.1); Sodium 137 mmol/L (136-145); Total Protein 6.6 g/dL (6.4-8.2)
--- OUTSIDE RECORDS SUMMARY | 2025-01-18 16:08 | XMS_ITS | Encounter Summary ---
Author Organization [facility] Address [address] [place] [address] Care Team Providers Care Farm Supervisor Name Role Phone Reanna Owen DO Primary Care Provider [phone] Nora Aragon Primary Care Provider [phone] Juan Polanco MD Primary Care Provider [phone] Tejas Yu DOJairo V Unavailable [phone] Encounter Details Date Type Department Care Team (Late st Contact Info) Description 03/28/2019 Abstract SFL CONVERSION [address] [place] [address] , Generic Conversion, Social History Tobacco Use Types Packs/Day Years Used Date Smoking Tobacco: Never Assessed Sex and Gender Information Value Date Recorded Sex Assigned at Male 11/19/2024 1:28 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
--- OUTSIDE RECORDS SUMMARY | 2025-01-18 16:08 | XMS_ITS ---
Author Organization [facility] Address [address] [place], [place] [address] Care Team Providers Care Convertible Top Installer Name Role Phone EVIE ERNANDEZ Unavailable [phone] Juan Polanco Unavailable Unavailable JOSE RAUL IBRAHIM Unavailable [phone] Allergies Allergen (clinical drug ingredient) Drug/Non Drug [...] 04/09/2024 Encounters Encounter Location Date Provider Diagnosis [address] [id number] 04/09/2024 JOSE RAUL IBRAHIM Tinea unguium B35.1 ; Pain in right toe(s) M79.674 ; Pain in left toe(s) M79.675 ; Other hammer toe(s) (acquired), right foot M20.41 ; Other hammer toe(s) (acquired), left foot M20.42 ; Unspecified atherosclerosis of [place] arteries of extremities, bilateral legs I70.203 and [...] (ICD-10 - M20.42) 04/09/2024 Unspecified atherosclerosis of [place] arteries of extremities, bilateral legs (ICD-10 - [...] conservative options were emphasized. Unspecified atherosclerosis of [place] arteries of extremities, bilateral legs Patient educated [...] * CYNTHIA AUSTIN EDOB:[birth year] (73 yo M)Acc No.[id number]:04/09/2024 Patient: CYNTHIA DA SILVA Provider: Bety IBRAHIM :1950 A ge:73 Y S ex:Male Date:04/09/2024 Address:[address] [place] [address] Subjective: * Chief Complaints: * 1 . [...] Patient denies c hest pain, history of NH, irregular heartbeat. M usculoskeletal: Patient complains of [...] M20.42 6 . U nspecified atherosclerosis of [place] arteries of extremities, bilateral legs - I70.203 [...] were emphasized. 3. U nspecified atherosclerosis of [place] arteries of extremities, bilateral legs Notes: Patient [...] Months * Billing Information: * Visit Code: 97270 Office Visit, Est Pt., Level 3. * Procedure Codes: * Sign off status: Completed true * Provider: Bety IBRAHIM Date: 0 04/09/2024 Generated for Chun kearney/Jeff/Mabel on: 0 01/18/2025 04:08 PM CDT History and Physical Notes * HPI [...]
--- OUTSIDE RECORDS SUMMARY | 2025-01-18 16:08 | XMS_ITS ---
Author Organization [facility] Address [address] [place], [place] [address] Care Team Providers Care Small Offset Printer Name Role Phone EVIE ERNANDEZ Unavailable [phone] Juan Polanco Unavailable Unavailable JOSE RAUL IBRAHIM Unavailable [phone] Allergies Allergen (clinical drug ingredient) Drug/Non Drug [...] Active Encounters Encounter Location Date Provider Diagnosis [address] [id number] 06/11/2024 JOSE RAUL IBRAHIM Tinea unguium B35.1 ; Pain in right toe(s) M79.674 ; Pain in left toe(s) M79.675 ; Other hammer toe(s) (acquired), right foot M20.41 ; Other hammer toe(s) (acquired), left foot M20.42 ; Unspecified atherosclerosis of [place] arteries of extremities, bilateral legs I70.203 and [...] (ICD-10 - M20.42) 06/11/2024 Unspecified atherosclerosis of [place] arteries of extremities, bilateral legs (ICD-10 - [...] conservative options were emphasized. Unspecified atherosclerosis of [place] arteries of extremities, bilateral legs Patient educated [...] * CYNTHIA AUSTIN EDOB:[birth year] (73 yo M)Acc No.[id number]:06/11/2024 Patient: CYNTHIA DA SILVA Provider: Bety IBRAHIM :1950 A ge:73 Y S ex:Male Date:06/11/2024 Address:[address] [place] [address] Subjective: * Chief Complaints: * 1 . [...] seen by Dr. Polanco was 05/2024., [facility]. * ROS: G eneral / Constitutional: Patient [...] M20.42 6 . U nspecified atherosclerosis of [place] arteries of extremities, bilateral legs - I70.203 [...] were emphasized. 3. U nspecified atherosclerosis of [place] arteries of extremities, bilateral legs Notes: Patient [...] Months * Billing Information: * Visit Code: 79893 Office Visit, Est Pt., Level 3. * Procedure Codes: * Sign off status: Completed true * Provider: Bety IBRAHIM Date: 0 06/11/2024 Generated for Chun kearney/Jeff/Mabel on: 0 01/18/2025 04:07 PM CDT History and Physical Notes * [...]
--- OUTSIDE RECORDS SUMMARY | 2025-01-18 16:08 | XMS_ITS | Clinical Summary ---
Author Organization [facility] Address [address] [place] [address] Care Team Providers Care Service Worker Name Role Phone Juan Polanco MD Primary Care Provider [phone] Tejas Yu DO, George V Unavailable [phone] Allergies Active Allergy Reactions Criticality Noted Date [...] (01/16/2021): Added automatically from request for surgery [id number] Micturition frequency 01/10/2021 Overview (01/10/2021): Added automatically from request for surgery [id number] Puncture wound without forei gn body, left [...] Type Department Care Team Description 12/17/[address] [address] Jairo Lazaro Jr., DO Follow Up Call 12/14/2024 1:15 PM SPORTS LAWYER Office Visit [address] [address] Jairo Lazaro Jr., DO Knee Pain (RIGHT); Pre-Op Exam 12/14/2024 Travel 11/23/[address] [address] Lisa Collins PA Surgical Clearance (Cardiac) 11/19/2024 2:00 PM SPORTS LAWYER Office Visit [address] [place] [address] Vinay Wong FNP-BC New Patient; Knee Pain (BILATERAL) 11/19/2024 1:30 PM SPORTS LAWYER - 11/19/2024 11:59 PM SPORTS LAWYER Hospital Encounter [facility] [address] [place] [address] Vinay Wong FNP-BC Discharge Disposition: Home or Self Care (Routine Discharge) 11/19/2024 MyChart Message Enc [address] [address] Vinay Wong FNP-BC Visit Follow Up 11/19/2024 Travel 11/13/2024 Orders Only [address] [address] Vinay Wong FNP-BC from Last 3 Months [...] Sex Assigned at Male 11/19/2024 1:28 PM SPORTS LAWYER Legal Sex Male 1:26 AM CDT Gender [...] 126.6 kg (279 lb) 12/14/2024 1:06 PM SPORTS LAWYER Height 170.2 cm (5' 7 ) 12/14/2024 1:06 PM SPORTS LAWYER Body Mass Index 43.7 12/14/2024 1:06 PM SPORTS LAWYER Plan of Treatment Health Maintenance Due Date [...] AP JT ONLY Routine 11/19/2024 1:50 PM SPORTS LAWYER Acute pain of right knee XR KNEE JT 3V Routine 11/19/2024 1:50 PM SPORTS LAWYER Acute pain of right knee from Last 3 Months Results * XR KNEE JT 3V (11/19/2024 1:50 PM SPORTS LAWYER) Anatomical Region Laterality Modality Knee Radiographic Marlen ging 11/20/2024 1:34 PM SPORTS LAWYER Impressions 11/20/2024 1:36 PM SPORTS LAWYER IMPRESSION: 1) Interval progression of 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 Ordered By: VINAY WONG Interpreted By: Jayy Vee MD, 11/20/2024 1:34 PM Narrative 11/20/2024 1:36 PM SPORTS LAWYER [place] [address] [place] [address] Examination: XR KNEE STAND AP JT ONLY, [...] Procedure Note Jayy Vee MD - 11/20/2024 [facility] [address] 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 Ordered By: VINAY WONG Interpreted By: Jayy Vee MD, 11/20/2024 1:34 PM Narrative 11/20/2024 1:36 PM SPORTS LAWYER [address] [place] [address] Examination: XR KNEE STAND AP JT ONLY, [...] Procedure Note Jayy Vee MD - 11/20/2024 [place] [address] [place] [address] Examination: XR KNEE STAND AP JT ONLY, [...] MD, 11/20/2024 1:34 PM us Vinay Wong [facility] Final Resu lt from Last 3 Months Insurance MEDICARE MEDICAID Care Teams Service Worker Relationship Specialty Start Date End Date Juan Polanco MD [address] [place], [place] [address] PCP - General FAMILY PRACTICE 04/24/23 Jairo Lazaro Jr., DO [address] [place] [id number] Physician ORTHOPAEDIC SURGERY 12/17/24
--- OUTSIDE RECORDS SUMMARY | 2025-01-18 16:08 | XMS_ITS ---
Author Organization [facility] Address [address] [place], [place] [address] Care Team Providers Care Education And Outreach Coordinator Name Role Phone EVIE ERNANDEZ Unavailable [phone] Juan Polanco Unavailable Unavailable JOSE RAUL IBRAHIM Unavailable [phone] Allergies Allergen (clinical drug ingredient) Drug/Non Drug [...] Active Encounters Encounter Location Date Provider Diagnosis [address] [id number] 08/13/2024 JOSE RAUL IBRAHIM Plan Of Treatment No Information Progress Notes * CYNTHIA AUSTIN EDOB:[birth year] (74 yo M)Acc No.[id number]:08/13/2024 Patient: Ho CYNTHIA CARNEY Provider: Bety IBRAHIM :1950 A ge:73 Y S ex:Male Date:08/13/2024 Address:[address] [place] [address] , [place] [address] Subjective: * Chief Complaints: * 1 . [...] seen by Dr. Polanco was 07/2024., Initials [facility]. * Medical History: * Medications: T [...] Electronic signature of CHAY IBRAHIM DPM on 01/18/2025 at 04:08 PM CDT Sign off status: Pending * Provider: Bety IBRAHIM Date: 1 Generated for Chun kearney/Jeff/Mabel on: 0 01/18/2025 [...] seen by Dr. Polanco was 07/2024., Initials [facility]
--- OUTSIDE RECORDS SUMMARY | 2025-01-18 16:08 | XMS_ITS | Patient Health Record ---
Author Organization [facility] Address [address] [place], [place] [address] Care Team Providers Care Men'S Swim Coach Name Role Phone EVIE ERNANDEZ Unavailable [phone] Juan Polanco Unavailable Unavailable JOSE RAUL IBRAHIM Unavailable [phone] Allergies Allergen (clinical drug ingredient) Drug/Non Drug [...] 04/09/2024 Encounters Encounter Location Date Provider Diagnosis [address] [id number] 02/06/2024 JOSE RAUL IBRAHIM Tinea unguium B35.1 ; Pain in right toe(s) M79.674 ; Pain in left toe(s) M79.675 ; Other hammer toe(s) (acquired), right foot M20.41 ; Other hammer toe(s) (acquired), left foot M20.42 ; Unspecified atherosclerosis of [place] arteries of extremities, bilateral legs I70.203 and Type 2 diabetes mellitus with diabetic peripheral angiopathy without gangrene E11.[address] [id number] 04/09/2024 JOSE RAUL IBRAHIM Tinea unguium B35.1 ; Pain in right toe(s) M79.674 ; Pain in left toe(s) M79.675 ; Other hammer toe(s) (acquired), right foot M20.41 ; Other hammer toe(s) (acquired), left foot M20.42 ; Unspecified atherosclerosis of [place] arteries of extremities, bilateral legs I70.203 and Type 2 diabetes mellitus with diabetic peripheral angiopathy without gangrene E11.[address] [id number] 06/11/2024 JOSE RAUL IBRAHIM Tinea unguium B35.1 ; Pain in right toe(s) M79.674 ; Pain in left toe(s) M79.675 ; Other hammer toe(s) (acquired), right foot M20.41 ; Other hammer toe(s) (acquired), left foot M20.42 ; Unspecified atherosclerosis of [place] arteries of extremities, bilateral legs I70.203 and [...] (ICD-10 - M20.42) 02/06/2024 Unspecified atherosclerosis of [place] arteries of extremities, bilateral legs (ICD-10 - I70.203) Patient educated on risks and aggravating factors of PVD, including conservative treatment options such as a diet and exercise regimen to aid in slowing progression of vascular disease 04/09/2024 Unspecified atherosclerosis of [place] arteries of extremities, bilateral legs (ICD-10 - I70.203) Patient educated on risks and aggravating factors of PVD, including conservative treatment options such as a diet and exercise regimen to aid in slowing progression of vascular disease 06/11/2024 Unspecified atherosclerosis of [place] arteries of extremities, bilateral legs (ICD-10 - [...] Date Coverage End Date AARP MedicareComp lidia ([facility]) [address] [place], [place] [id number] CYNTHIA GUTIERREZ Self - patient is the insured
--- OUTSIDE RECORDS SUMMARY | 2025-01-18 16:08 | XMS_ITS | Encounter Summary ---
Author Organization [facility] Address [address] [place] [address] Care Team Providers Care Bight Maker Name Role Phone Juan Polanco MD Primary Care Provider [phone] Tejas Yu DO, George V Unavailable [phone] Encounter Details Date Type Department Care Team (Late st Contact Info) Description 11/19/2024 [employer] 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
[2025-01-18 16:10] LABS: MRSA (PCR) NOT DETECTED (NOT DETECTE)
== END 2025-01-18 14:39 | disposition home or self-care (01) ==
LOC: CHSLAB 14:41
PROVIDERS: PCP Family Medicine; Visit Provider Family Medicine
DX: Z01.818 Encounter for other preprocedural examination (principal); I10 Essential (primary) hypertension
CPT/HCPCS: 36415; 80053; 82150; 83690; 85025; 87641

== ENCOUNTER 2025-01-29 14:44 | Outpatient (RCR) | payer MEDICARE, MEDICAID, SELFPAY ==
--- NOTE | 2025-02-01 16:19 | PCPTNOTE ---
Patient called & cancelled scheduled appointment this date due to incision.
--- NOTE | 2025-02-09 07:58 | PCPTNOTE ---
PT spoke with Aneta Wong from surgeons office on date of evaluation to discuss and show the issues with drainage on the R knee after TKA. she instructed PT to tell patient to avoid flexion activities over the weekend, and they will see him on Saturday to discuss any other steps. she would like him to keep the leg elevated, and wear a compression stocking or lenny bandage.
--- NOTE | 2025-02-09 08:00 | OPREHPOC ---
Outpatient Therapy Plan of Care This is a Multidisciplinary Plan of Care that may contain components documented by all disciplines (PT, OT, and ST.) PT Problem 1 PT Problem #1 Knowledge Deficit PT Goal 1 Goal / Goal Update independent and compliant with HEP Target Visit 6 PT Problem 2 PT Problem #2 Pain PT Goal 1 Goal / Goal Update decrease pain at worst to 2/10 or less in the R knee Target Visit 12 PT Problem 3 PT Problem #3 Impaired Range of Motion PT Goal 1 Goal / Goal Update 0- 110 degrees active R knee rom Target Visit 12 PT Problem 4 PT Problem #4 Impaired Strength PT Goal 1 Goal / Goal Update 4+/5 or better R knee strength 4/5 or better R hip flex 5/5 R ankle DF Target Visit 12 PT Problem 5 PT Problem #5 Impaired Functional Mobility PT Goal 1 Goal / Goal Update patient to ambulate with step through bilateral LE mechanics with equal stance time with a cane or less AD. patient to ambulate up and down steps with marked time pattern with 1 hand rail hold LEFS to display 40% or less functional deficits Target Visit 12
--- NOTE | 2025-02-09 08:00 | PTOPEVAL1 ---
Assessment and note entered by JT File, PT Evaluation Information Assessment Status Evaluation Diagnosis s/p R TKA ICD-10 Condition Codes (PT) Pain in right knee M25.561,Aftercare following joint replacement surgery Z47.1 Onset 01/26/25 Subjective Information patient reports he had R TKA earlier this week. he reports since surgery, he has not been able to walk. he does transfer and take a couple steps, but is getting around mostly with a WC/transport chair. he reports prior to his surgery, he was walking (WW and cane on and off). he reports the R knee had really been bothering him for a while, but was unable to get the operation for some time due to other medical issues. he repots the knee has been draining since an incident at home when he was on a little floor pedal bike and felt a pop in the knee. he had a soiled bandage at his PCP visit today which they changed and he is now he for skilled PT evaluation. Assessment PT Clinical Summary mr. richardson presents to skilled PT services for evaluation and treatment s/p R TKA. he presents today with some moderate drainage occuring on the R knee post op bandage. his surgeons office was notified, and patient is following up first thing next week. he displays decreased rom, mm weakness, pain, and deficits in ambulation/ADL independence . continued skilled PT is indicated to improve his objective/functional deficits, allow full healing of the R knee, and return to his prior level functional activity performance/quality of life. Plan of Care Interventions Electrical Stimulation,Hot Pack/Cold Pack,Manual Therapy,Neuro Re-education,Patient/Caregiver Education,Therapeutic Activities,Therapeutic Exercise PT Services Indicated Yes Treatment Frequency and 3x weekly for 12 visits Duration These treatments will address the objective and functional deficits as defined above. The patient will be advanced safely and appropriately in order for the patient to progress towards his/her prior level of function. Additional exercises will be introduced and as well as a comprehensive home exercise program upon discharge, if needed, ?to ensure carryover of functional gains achieved in the clinic. This treatment plan has been reviewed and agreement upon by the patient.
--- NOTE | 2025-02-19 12:58 | PCPTNOTE ---
Not going to make session. Will be here next week.
--- NOTE | 2025-02-22 10:05 | PCPTNOTE ---
Mr. Sellers contacted the clinic. He states that he was getting into his car last week and felt a ping in his knee. He reports having intense pain since. He reports that he contacted his doctor and was told to get an x-ray before proceeding with treatment.
--- NOTE | 2025-03-05 16:11 | OPREHPOC ---
Outpatient Therapy Plan of Care This is a Multidisciplinary Plan of Care that may contain components documented by all disciplines (PT, OT, and ST.) PT Problem 1 PT Problem #1 Knowledge Deficit PT Goal 1 Goal / Goal Update independent and compliant with HEP Target Visit 6 Progress Met PT Problem 2 PT Problem #2 Pain PT Goal 1 Goal / Goal Update decrease pain at worst to 2/10 or less in the R knee Target Visit 12 Progress Met PT Problem 3 PT Problem #3 Impaired Range of Motion PT Goal 1 Goal / Goal Update 0- 110 degrees active R knee rom Target Visit 12 Progress Partially Met PT Problem 4 PT Problem #4 Impaired Strength PT Goal 1 Goal / Goal Update 4+/5 or better R knee strength 4/5 or better R hip flex 5/5 R ankle DF Target Visit 12 Progress Not Met PT Problem 5 PT Problem #5 Impaired Functional Mobility PT Goal 1 Goal / Goal Update patient to ambulate with step through bilateral LE mechanics with equal stance time with a cane or less AD. -met patient to ambulate up and down steps with marked time pattern with 1 hand rail hold -not met LEFS to display 40% or less functional deficits - not met Target Visit 12 Progress Partially Met
--- NOTE | 2025-03-05 16:11 | PTOPPROG ---
Assessment and note entered by Janae Kwok, PT Evaluation Information Assessment Status Progress Diagnosis s/p R TKA ICD-10 Condition Codes (PT) Pain in right knee M25.561,Aftercare following joint replacement surgery Z47.1 Onset 01/26/25 Subjective Information Cayetano reports his knee feels good today and denies any pain at start of session. He feels like his range of motion has improved and his swelling is decreasing. He still has a weeping blister on his leg but keeps it covered. His incision is healing well and he continues to perform his HEP, ice and elevate his leg. Assessment PT Clinical Summary Mr. Sellers has attended 10 total skilled PT visits following R TKA on 01/26/25. Since beginning PT his pain has reduced, his R knee AROM has improved as well as his LE strength. He has also transitioned to using an SPC for ambulation. He still lacks full extension and displays functional deficits such as difficulty performing stairs and getting out of a chair. He will benefit from continued skilled PT to continue progressing toward goals to be able to perform daily functional tasks at home and in the community safely. Plan of Care Interventions Electrical Stimulation,Hot Pack/Cold Pack,Manual Therapy,Neuro Re-education,Patient/Caregiver Education,Therapeutic Activities,Therapeutic Exercise PT Services Indicated Yes Treatment Frequency and Continue per original POC Duration These treatments will address the objective and functional deficits as defined above. The patient will be advanced safely and appropriately in order for the patient to progress towards his/her prior level of function. Additional exercises will be introduced and as well as a comprehensive home exercise program upon discharge, if needed, ?to ensure carryover of functional gains achieved in the clinic. This treatment plan has been reviewed and agreement upon by the patient.
--- NOTE | 2025-03-17 14:16 | OPREHPOC ---
Outpatient Therapy Plan of Care This is a Multidisciplinary Plan of Care that may contain components documented by all disciplines (PT, OT, and ST.) PT Problem 1 PT Problem #1 Knowledge Deficit PT Goal 1 Goal / Goal Update independent and compliant with HEP Target Visit 6 Progress Met PT Problem 2 PT Problem #2 Pain PT Goal 1 Goal / Goal Update decrease pain at worst to 2/10 or less in the R knee Target Visit 12 Progress Met PT Problem 3 PT Problem #3 Impaired Range of Motion PT Goal 1 Goal / Goal Update 0- 110 degrees active R knee rom Target Visit 12 Progress Partially Met PT Goal 2 Goal / Goal Update Updated goal: Patient will maintain 120 degrees flexion and obtain 0 degrees extension AROM in the right knee. Target Visit 20 PT Problem 4 PT Problem #4 Impaired Strength PT Goal 1 Goal / Goal Update 4+/5 or better R knee strength 4/5 or better R hip flex 5/5 R ankle DF Target Visit 12 Progress Not Met PT Goal 2 Goal / Goal Update continue Target Visit 20 PT Problem 5 PT Problem #5 Impaired Functional Mobility PT Goal 1 Goal / Goal Update patient to ambulate with step through bilateral LE mechanics with equal stance time with a cane or less AD. -met patient to ambulate up and down steps with marked time pattern with 1 hand rail hold -not met LEFS to display 40% or less functional deficits - not met Target Visit 12 Progress Partially Met PT Goal 2 Goal / Goal Update Continue Target Visit 20
--- NOTE | 2025-03-17 14:16 | PTOPPROG ---
Assessment and note entered by Danielle Powell, PT Evaluation Information Assessment Status Progress Diagnosis s/p R TKA ICD-10 Condition Codes (PT) Pain in right knee M25.561,Aftercare following joint replacement surgery Z47.1 Onset 01/26/25 Subjective Information Cayetano reports he saw his surgeon on 03/12/25 and he thought his knee was doing well and told him it was up to PT if he continued. He will see his surgeon again on 04/21/25. He is reporting no pain today and reports he has not had a lot of pain in the right knee and his left knee is more of the problem. He will have his left knee replace eventually but not anytime soon. He has been using his walker and sometimes his cane to get around. He has been able to go up stairs at his daughter's without difficulty. He is showering by himself and is able to pick items up off the floor again. Assessment PT Clinical Summary Ced Sellers has attended 12 total skilled PT visits following R TKA on 01/26/25. Since beginning PT his pain has reduced, his R knee AROM has improved as well as his LE strength. He has also transitioned to using an SPC for ambulation. He still lacks full extension and displays functional deficits such as difficulty performing stairs and getting out of a chair. He will benefit from continued skilled PT to continue progressing toward goals to be able to perform daily functional tasks at home and in the community safely. Plan of Care Interventions Electrical Stimulation,Hot Pack/Cold Pack,Manual Therapy,Neuro Re-education,Patient/Caregiver Education,Therapeutic Activities,Therapeutic Exercise PT Services Indicated Yes Treatment Frequency and Continue skilled PT 2 times a week for 8 visits Duration These treatments will address the objective and functional deficits as defined above. The patient will be advanced safely and appropriately in order for the patient to progress towards his/her prior level of function. Additional exercises will be introduced and as well as a comprehensive home exercise program upon discharge, if needed, ?to ensure carryover of functional gains achieved in the clinic. This treatment plan has been reviewed and agreement upon by the patient.
--- NOTE | 2025-04-15 14:26 | OPREHPOC ---
Outpatient Therapy Plan of Care This is a Multidisciplinary Plan of Care that may contain components documented by all disciplines (PT, OT, and ST.) PT Problem 1 PT Problem #1 Knowledge Deficit PT Goal 1 Goal / Goal Update independent and compliant with HEP Target Visit 6 Progress Met PT Problem 2 PT Problem #2 Pain PT Goal 1 Goal / Goal Update decrease pain at worst to 2/10 or less in the R knee Target Visit 12 Progress Met PT Problem 3 PT Problem #3 Impaired Range of Motion PT Goal 1 Goal / Goal Update 0- 110 degrees active R knee rom Target Visit 12 Progress Met PT Goal 2 Goal / Goal Update Updated goal: Patient will maintain 120 degrees flexion and obtain 0 degrees extension AROM in the right knee. Target Visit 20 Progress Met PT Problem 4 PT Problem #4 Impaired Strength PT Goal 1 Goal / Goal Update 4+/5 or better R knee strength 4/5 or better R hip flex 5/5 R ankle DF Target Visit 12 Progress Met PT Goal 2 Goal / Goal Update continue Target Visit 20 Progress Met PT Problem 5 PT Problem #5 Impaired Functional Mobility PT Goal 1 Goal / Goal Update patient to ambulate with step through bilateral LE mechanics with equal stance time with a cane or less AD. -met patient to ambulate up and down steps with marked time pattern with 1 hand rail hold -not met LEFS to display 40% or less functional deficits - not met Target Visit 12 Progress Partially Met PT Goal 2 Goal / Goal Update Continue Target Visit 20 Progress Partially Met
--- NOTE | 2025-04-15 14:26 | PTOPDC ---
Assessment and note entered by Janae Kwok, PT Evaluation Information Assessment Status Discharge Diagnosis s/p R TKA ICD-10 Condition Codes (PT) Pain in right knee M25.561,Aftercare following joint replacement surgery Z47.1 Onset 01/26/25 Subjective Information Pt enters the clinic for his 20th skilled PT visit following R TKA. He denies pain and reports his knee is feeling near normal compared to before surgery. He does not have difficulty with stairs or walking and has continued fall class 2x per week and his HEP with assistance occasionally from his home health aide. He states he feels ready to discharge from PT this date and plans on seeing his doctor about his back pain and eventually doing PT for it. Reported Pain Level Pain Score 0: Self Report Assessment PT Clinical Summary Mr. Sellers has attended 20 total skilled PT visits following R TKA on 01/26/25. Since beginning therapy he has made excellent improvements in his LE strength and knee ROM. He now ambulates independently using a cane, has resumed driving and can perform walking and stair climbing without difficulty. He has met or partially met all therapeutic goals set for him and is appropriate for discharge from skilled PT this date. Plan of Care PT Services Indicated No
== END 2025-04-15 20:00 | disposition home or self-care (01) ==
LOC: CHSPT 14:44
DX: Z96.651 Presence of right artificial knee joint (principal); Z47.1 Aftercare following joint replacement surgery
CPT/HCPCS: 97016; 97110; 97112; 97150; 97161; 97530

== ENCOUNTER 2025-02-10 08:58 | Emergency (ER) | payer MEDICARE, MEDICAID, SELFPAY ==
--- NOTE | ~2025-02-10 | US_ITS ---
EXAMINATION: US venous doppler LE RT DATE: 02/10/2025 10:03 INDICATION: Right lower limb swelling post knee replacement TECHNIQUE: Grayscale ultrasound images without and with compression and Doppler ultrasound images of the right lower extremity veins were obtained. COMPARISON: None. FINDINGS: The visualized portions of right common femoral vein, profunda (deep) femoral vein, femoral vein, pop liteal vein, peroneal trunk, posterior tibial veins, peroneal veins, gastrocnemius vein and greater s aphenous vein outflow are patent. IMPRESSION: 1. No deep venous thrombosis in the right lower limb. Reviewed, dictated and finalized at location A.
[2025-02-10 08:58] VITALS: BP 174/84; PULSE 93; RESP 18; TEMP 36.7; O2SAT 96
--- NOTE | 2025-02-10 09:14 | ED_ITS ---
HPI - General Adult General Chief complaint: Extremity Problem,Nontraumatic Stated complaint: leg pain Time Seen by Provider: 02/10/25 09:13 Source: patient Mode of arrival: ambulatory Limitations: no limitations History of Present Illness HPI narrative: 74-year-old male with a history of diabetes mellitus, dyslipidemia,obesity, SAIMA on CPAP, pulmonary fibrosis, hypertension, diastolic dysfunction, negative stress test in 2021, arthritis, chronic low back pain, status post right knee replacement last month presents to the ED with -- pain and swelling of the right leg and foot. no history of trauma. --Bruising of the right lower extremity around the knee joint which extends down the patient went to physical therapy from where he was directed to the ED for possible right lower extremity blood clot. Patient had right total knee replacement on 01/26/2025. On 01/28 he was admitted tool [facility] till 02/01/2025. He was noted to have hyponatremia and right lower extremity swelling. He had a venous Doppler of the right lower extremity which did not show any evidence of DVT. Onset (ago): day(s) Location: lower extremity Radiation: non-radiation Severity: moderate Quality: aching Pain Consistency: constant Relieving factors: none Exacerbating factors: none Associated symptoms: denies other symptoms Treatments prior to arrival: none Related Data Home Medications ?Medication ?Instructions ?Recorded ?Confirmed ?Last Taken ?Type acetaminophen 500 mg tablet 500 mg PO Q6H PRN Pain 09/25/19 12/04/24 08/17/24 History (Tylenol Extra Strength) loratadine 10 mg capsule 10 mg PO DAILY 09/25/19 12/04/24 08/17/24 History aspirin 81 mg tablet,delayed 81 mg PO DAILY 09/12/20 12/04/24 08/17/24 History release melatonin 1 mg tablet 1 mg PO HS PRN Sleep 09/12/20 12/04/24 08/17/24 History docusate sodium 100 mg capsule 100 mg PO BID PRN Constipation 10/01/22 12/04/24 08/17/24 History olmesartan 40 mg tablet 40 mg PO DAILY 05/13/24 12/04/24 08/17/24 History polyethylene glycol 3350 17 17 g PO DAILY 08/06/24 12/04/24 08/17/24 History gram/dose oral powder (Miralax) tamsulosin 0.4 mg capsule mg PO 10/05/24 12/04/24 Unknown History Allergies Allergy/AdvReac Type Severity Reaction Status Date / Time Sulfa (Sulfonamide Allergy Unknown Unknown Verified 02/10/25 09:09 Antibiotics) Review of Systems 2 Review of Systems: All systems reviewed & are unremarkable except as noted in HPI and below Constitutional: Constitutional: Reports as per HPI and Reports no additional constitutional complaints Eyes: Eyes: Reports as per HPI and Reports no additional eye complaints ENT: Reports system reviewed and no additional complaints, except as documented and Reports as per HPI Cardiovascular: Cardiovascular: Reports as per HPI and Reports no additional cardiovascular complaints Respiratory: Respiratory: Reports as per HPI and Reports no additional respiratory complaints Gastrointestinal: Gastrointestinal: Reports as per HPI and Reports no additional gastrointestinal complaints Genitourinary: Genitourinary: Reports no additional male genitourinary complaints and Reports as per HPI Musculoskeletal: Musculoskeletal: Reports no additional musculoskeletal complaints and Reports as per HPI Comments: Swelling and pain of the right lower extremity status post right knee replacement with a healing incision bruising around the right knee joint which extends down Integumentary/Breasts: Skin/Breast: Reports system reviewed and no additional complaints, except as docu and Reports as per HPI Neurologic: Reports system reviewed and no additional complaints, except as documented and Reports as per HPI Psychiatric: Psychiatric: Reports no additional psychiatric complaints and Reports as per HPI Endocrine: Endocrine: Reports no additional endocrine complaints and Reports as per HPI Hematologic/Lymphatic: Hematologic/Lymphatic: Reports no additional hematologic/lymphatic complaints and Reports as per HPI Allergic/Immunologic: Allergic/Immunologic: Reports no additional allergic/immunologic complaints and Reports as per HPI PMFSH Past Medical History Medical History Diastolic dysfunction Type 2 diabetes mellitus Benign prostatic hyperplasia Chronic back pain Hypertension Gastroesophageal reflux disease Obstructive sleep apnea Arthritis Osteoporosis Chronic migraine History of COVID-19 History of adverse reaction to anesthesia Hyperlipidemia Surgical History Surgical History History of arthroplasty of right hip (2007) History of arthroscopy of right knee (1996) History of repair of left rotator cuff (2000) Family History Family History Mother Family history of chronic obstructive pulmonary disease Father Family history of lung cancer Mother Family history of chronic obstructive pulmonary disease Daughter Cerebrovascular accident Deficient knowledge of pacemaker insertion Other Arthritis Asthma Diabetes mellitus Hypertension Neuropathy Social History Social History Social History: Surrogate medical decision maker: Ronna Garber, daughter. Code status: Full code. Smoking status: Never smoker Second hand tobacco smoke exposure: No Alcohol intake: never Substance use: never Substance use type: does not use Do You Feel Safe in your Home?: Yes Lack of Transportation: No Lack of Food: Never True Current Housing: I Have Housing Concerned About Future Housing: No Difficulty Paying Gas/Electric Bills: No Difficulty Paying for Meds: No Currently Unemployed: No Education: High School Diploma/GED Difficulty w/ Childcare or Family Care: No Living arrangements: with family Occupation/Education: retired Gender identity (if verbalized by the patient): Male Spiritual care concerns: No Exam 2 Narrative: blood pressure of 174/84. Afebrile Const: General: healthy appearing and no acute distress Nutritional Appearance: well nourished Orientation/consciousness: patient oriented x3 Limitations: no limitations HENMT: Head: normal to inspection Ears: external ears normal F lenny/Nose/Sinus: Normal external nose present Face and sinus: normal facial exam Mouth: Yes Normal oral and palatal mucosa present Throat: posterior oropharynx normal Eyes: Conjunctivae: conjunctivae normal Pupils: Equal, round and reactive pupils present EOM: EOMs intact bilaterally Direct Ophthalmoscopy: no photophobia Neck: Neck: normal visual inspection, no lymphadenopathy and no meningeal signs Chest: Chest palpation & inspection: normal inspection of the chest Resp: Effort & Inspection: normal respiratory effort Other: basilar crackles Cardio: Rate: regular rate Rhythm: regular rhythm GI: GI Palp: Yes Soft to palpation Auscultation: normal bowel sounds : General: Yes no CVA tenderness Back/Spine/Pelvis: Back: no CVA tenderness Skin: Other: incision over the right knee looks dry without any drainage. No surrounding erythema. Bruising around the right knee joint which extends down swelling around the right knee joint, leg and foot. Cough tenderness noted. Neuro: General: patient oriented x3, moves all extremities, no meningeal signs, no focal motor deficits and CN's II-XI intact bilaterally Cranial nerves: Yes Nystagmus not present Speech: normal speech Gait exam (Neuro): Normal gait present Extrem: General: normal to inspection and no clubbing, cyanosis or edema Psych: Mental Status: mental status grossly normal Affect: normal affect Attitude: cooperative Course Course Emergency Course: right legs swelling/ bruising postoperatively-- ultrasound did not show any evidence of blood clots anemia with an H&H of 08/20.7 Vital Signs Vital signs: Vital Signs Temperature 36.7 C 02/10/25 08:58 Pulse Rate 93 02/10/25 08:58 Respiratory Rate 18 02/10/25 08:58 Blood Pressure 174/84 H 02/10/25 08:58 Pulse Oximetry 96 02/10/25 08:58 Oxygen Delivery Room Air 02/10/25 08:58 Temperature 36.7 C 02/10/25 08:58 Pulse Rate 93 02/10/25 08:58 Respiratory Rate 18 02/10/25 08:58 Blood Pressure 174/84 H 02/10/25 08:58 Pulse Oximetry 96 02/10/25 08:58 Oxygen Delivery Room Air 02/10/25 08:58 Medical Decision Making [facility] Narrative Medical decision making narrative: postop leg swelling anemia Differential Diagnosis Differential Diagnosis: cellulitis right leg Medical Records Medical records reviewed: Yes I reviewed the external patient's medical records. Vital Signs Vital Signs: Vital Signs Temperature 36.7 C 02/10/25 08:58 Pulse Rate 93 02/10/25 08:58 Respiratory Rate 18 02/10/25 08:58 Blood Pressure 174/84 H 02/10/25 08:58 Pulse Oximetry 96 02/10/25 08:58 Oxygen Delivery Room Air 02/10/25 08:58 Temperature 36.7 C 02/10/25 08:58 Pulse Rate 93 02/10/25 08:58 Respiratory Rate 18 02/10/25 08:58 Blood Pressure 174/84 H 02/10/25 08:58 Pulse Oximetry 96 02/10/25 08:58 Oxygen Delivery Room Air 02/10/25 08:58 Lab Data 02/10/25 09:52 02/10/25 09:52 Labs: Lab Results 02/10/25 02/10/25 Range/Units 09:39 09:52 WBC 8.4 (4.8-10.8) K/mm3 RBC 3.61 L (4.70-6.10) M/mm3 Hgb 10.3 L (12.4-15.3) g/dL Hct 31.7 L (37.0-46.0) % MCV 87.8 (78.0-102.0) fL MCH 28.5 (27.0-31.0) pg MCHC 32.5 (32-36) g/dL RDW 13.0 (11.6-14.4) % Plt Count 398 (150-420) K/mm3 MPV 8.1 L (8.7-11.0) fl Immature Gran % (Auto) 1.1 H (0.0-0.0) % Neut % (Auto) 77.1 H (50.0-70.0) % Lymph % (Auto) 10.0 L (18.0-42.0) % Leake % (Auto) 8.3 (2.0-11.0) % Eos % (Auto) 3.1 (1.0-6.0) % Baso % (Auto) 0.4 (0.0-1.0) % Lymph # (Auto) 0.84 L (1.10-4.50) K/mm3 Leake # (Auto) 0.70 (0.10-0.90) K/mm3 Eos # (Auto) 0.26 (0.02-0.50) K/mm3 Baso # (Auto) 0.03 (0.00-0.10) K/mm3 Abs Immat Gran (auto) 0.09 H (0.00-0.00) K/mm3 Absolute Neuts (auto) 6.52 (1.70-7.20) K/mm3 Absolute Nucleated RBC 0.00 (0.00-0.00) K/mm3 Nucleated RBC % 0.0 (0-0.0) % PT 10.9 (9.50-12.1) Seconds INR 1.0 APTT 28.1 (23.9-30.70) Sec Sodium 133 L (136-145) mmol/L Potassium 4.2 (3.5-5.1) mmol/L Chloride 96 L (98-108) mmol/L Carbon Dioxide 31 (21-32) mmol/L Anion Gap 6 (4-12) mmol/L BUN 14 (7-18) mg/dL Creatinine 0.90 (0.70-1.30) mg/dL Estim Creat Clear Calc 80 ml/min Estimated GFR > 60 (59 - ) Glucose 165 H (70-99) mg/dL Calculated Osmolality 280 L (285-295) mOsm/kg Lactic Acid 1.8 (0.4-2.0) mmol/L Calcium 8.5 (8.5-10.1) mg/dL Total Bilirubin 0.6 (0.00-1.00) mg/dL AST 36 (15-37) U/L ALT 93 H (16-63) U/L Alkaline Phosphatase 147 H (46-116) U/L Total Protein 6.8 (6.4-8.2) g/dL Albumin 2.8 L (3.4-5.0) g/dL Urine Color Light yellow (Yellow) Urine Appearance Clear (Clear) Urine pH 7.5 (5.0-8.0) Ur Specific Quinter 1.020 (1.010-1.020) Urine Protein Negative (Negative) Urine Glucose (UA) Negative (Negative) Urine Ketones Negative (Negative) Ur Blood (Man) Negative (Negative) Urine Nitrate Negative (Negative) Urine Bilirubin Negative (Negative) Urine Urobilinogen 0.2 (0.2-1.0) mg/dL Leukocyte Esterase Rfl Negative (Negative) LO/UL Discharge Plan Discharge Clinical Impression: Localized swelling of right lower leg Anemia Qualifiers: Anemia type: unspecified type Qualified Code(s): D64.9 - Anemia, unspecified Patient Disposition: Home Condition: Stable Instructions: Antibiotic Form, Leg Edema (ED), Anemia (ED) Patient Language: Sami Prescriptions: No Action olmesartan 40 mg tablet 40 mg PO DAILY aspirin 81 mg Tablet,Delayed Release (Dr/Ec) 81 mg PO DAILY melatonin 1 mg Tablet 1 mg PO HS PRN (Reason: Sleep) loratadine 10 mg capsule 10 mg PO DAILY acetaminophen [Tylenol Extra Strength] 500 mg tablet 500 mg PO Q6H PRN (Reason: Pain) docusate sodium 100 mg capsule 100 mg PO BID PRN (Reason: Constipation) polyethylene glycol 3350 [Miralax] 17 gram/dose powder 17 g PO DAILY tamsulosin 0.4 mg capsule PO guaifenesin [Mucus Relief ER] 600 mg Tablet Extended Release 12hr 600 mg PO Q12HR PRN (Reason: congestion) Qty: 60 0RF clonidine HCl 0.1 mg tablet See Rx Instructions .ROUTE .COMPLEX Qty: 180 2RF Dose Instruction: TAKE ONE TABLET BY MOUTH TWICE A DAY Rx Instructions: TAKE ONE TABLET BY MOUTH TWICE A DAY pravastatin 10 mg tablet See Rx Instructions .ROUTE .COMPLEX Qty: 90 2RF Dose Instruction: TAKE ONE TABLET BY MOUTH DAILY Rx Instructions: TAKE ONE TABLET BY MOUTH DAILY amlodipine 10 mg tablet See Rx Instructions .ROUTE .COMPLEX Qty: 30 5RF Dose Instruction: TAKE ONE TABLET BY MOUTH DAILY Rx Instructions: TAKE ONE TABLET BY MOUTH DAILY carvedilol 12.5 mg tablet See Rx Instructions .ROUTE .COMPLEX Qty: 180 2RF Dose Instruction: TAKE ONE TABLET BY MOUTH TWICE A DAY Rx Instructions: TAKE ONE TABLET BY MOUTH TWICE A DAY Follow-up/Referrals: Juan Polanco MD [Primary Care Provider] - Time of Disposition: 10:40
--- OUTSIDE RECORDS SUMMARY | 2025-02-10 09:38 | XMS_ITS ---
Author Organization [facility] Address [address] [place], [place] [id number] Care Team Providers Care Revising Clerk Name Role Phone EVIE ERNANDEZ Unavailable [phone] Juan Polanco Unavailable Unavailable JOSE RAUL IBRAHIM Unavailable [phone] Allergies Allergen (clinical drug ingredient) Drug/Non Drug [...] Active Encounters Encounter Location Date Provider Diagnosis [address] [id number] 06/11/2024 JOSE RAUL IBRAHIM Tinea unguium B35.1 ; Pain in right toe(s) M79.674 ; Pain in left toe(s) M79.675 ; Other hammer toe(s) (acquired), right foot M20.41 ; Other hammer toe(s) (acquired), left foot M20.42 ; 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 [...] seen by Dr. Polanco was 05/2024., Initials [facility]. * ROS: G eneral / Constitutional: Patient denies w eakness. R espiratory: Patient denies c hronic cough, shortness of breath, sputum production. C ardiovascular: Patient denies c hest pain, history of [place], irregular heartbeat. M usculoskeletal: Patient complains of [...] M20.42 6 . U nspecified atherosclerosis of hoh arteries of extremities, bilateral legs - I70.203 [...] were emphasized. 3. U nspecified atherosclerosis of hoh arteries of extremities, bilateral legs Notes: Patient [...] Months * Billing Information: * Visit Code: 10165 Office Visit, Est Pt., Level 3. * Procedure Codes: * Sign off status: Completed true * Provider: Bety IBRAHIM Date: 0 06/11/2024 Generated for Chun kearney/Jeff/Mabel on: 0 02/10/2025 09:38 AM CDT History and Physical Notes * [...]
--- OUTSIDE RECORDS SUMMARY | 2025-02-10 09:38 | XMS_ITS ---
Author Organization [facility] Address [address] [place], [place] [id number] Care Team Providers Care Head Of Mobile Name Role Phone EVIE ERNANDEZ Unavailable [phone] Juan Polanco Unavailable Unavailable JOSE RAUL IBRAHIM Unavailable [phone] Allergies Allergen (clinical drug ingredient) Drug/Non Drug [...] 04/09/2024 Encounters Encounter Location Date Provider Diagnosis [address] [id number] 04/09/2024 JOSE RAUL IBRAHIM Tinea unguium B35.1 ; Pain in right toe(s) M79.674 ; Pain in left toe(s) M79.675 ; Other hammer toe(s) (acquired), right foot M20.41 ; Other hammer toe(s) (acquired), left foot M20.42 ; Unspecified atherosclerosis of [place] arteries of extremities, bilateral legs I70.203 and [...] (ICD-10 - M20.42) 04/09/2024 Unspecified atherosclerosis of [place] arteries of extremities, bilateral legs (ICD-10 - [...] conservative options were emphasized. Unspecified atherosclerosis of [place] arteries of extremities, bilateral legs Patient educated [...] * CYNTHIA AUSTIN EDOB:[birth year] (73 yo M)Acc No.[id number]:04/09/2024 Patient: CYNTHIA DA SILVA Provider: Bety IBRAHIM :1950 A ge:73 Y S ex:Male Date:04/09/2024 Address:[address] [place] [address] Subjective: * Chief Complaints: * 1 . [...] Patient denies c hest pain, history of [place], irregular heartbeat. M usculoskeletal: Patient complains of [...] M20.42 6 . U nspecified atherosclerosis of [place] arteries of extremities, bilateral legs - I70.203 [...] were emphasized. 3. U nspecified atherosclerosis of [place] arteries of extremities, bilateral legs Notes: Patient [...] Months * Billing Information: * Visit Code: 34035 Office Visit, Est Pt., Level 3. * Procedure Codes: * Sign off status: Completed true * Provider: Bety IBRAHIM Date: 0 04/09/2024 Generated for Chun kearney/Jeff/Mabel on: 0 02/10/2025 [...]
--- OUTSIDE RECORDS SUMMARY | 2025-02-10 09:38 | XMS_ITS | Clinical Summary ---
Author Organization [facility] Address [address] [place] [address] Care Team Providers Care Custom Tailor Name Role Phone Juan Polanco MD Primary Care Provider [phone] Tejas Yu DO, George V Unavailable [phone] Allergies Active Allergy Reactions Criticality Noted Date Comments Diclofenac Rash Low 02/03/2025 Fentanyl Other (see comment) 02/01/2025 Caused patient to be loopy lasted 3 days Sulfa Antibiotics Unknown 05/05/2015 Medications carvedilol 12.5 MG tablet Take 1 tablet (12.5 mg total) by mouth 2 (two) times daily. 5 9 Active cloNIDine 0.1 MG tablet Take 1 tablet (0.1 mg total) by mouth 2 (two) times daily. 3 9 Active pravastatin 10 MG tablet Take 1 tablet (10 mg total) by mouth every evening. 3 9 Active Melatonin 5 MG Cap 7 Active aspirin EC (ASPIRIN EC) 81 MG tablet Take 1 tablet (81 mg total) by mouth daily. 7 Active Olmesartan Medoxomil 40 MG Tab Take 1 tablet (40 mg total) by mouth daily. 1 Active acetaminophen 325 MG tablet Take 1,000 mg by mouth 2 (two) times daily as needed for Pain. Active furosemide (LASIX) [...] (40 mg total) by mouth daily. Active traMADol (ULTRAM) 50 MG tablet Take 1 tablet (50 mg total) by mouth every 6 (six) hours as needed for Pain. Active amLODIPine (NORVASC) 5 MG tablet Take 1 tablet (5 mg total) by mouth daily for 30 days. 30 tablet 5 03/08/20 25 Active cephALEXin (KEFLEX) 500 MG capsule Take 1 capsule (500 mg total) by mouth every 6 (six) hours for 10 days. 40 capsule 5 02/17/20 25 Active sodium chloride 1 GM tablet Take 2 tablets (2 g total) by mouth 2 (two) times daily with meals. 120 tablet 1 5 Active amlodipine 5 MG tablet 3 9 02/02/20 25 Discontinue d(Discontin ued by another clinician) traMADol 50 MG tablet Take 1 tablet (50 mg total) by mouth as needed. 0 9 02/04/20 25 Discontinue d(Error) tamsulosin 0.4 MG Cap 1 02/04/20 25 Discontinue d(Error) amLODIPine (NORVASC) 10 MG tablet Take 1 tablet (10 mg total) by mouth daily. 5 02/07/20 25 Discontinue d(Stop Taking at Discharge) sodium chloride 1 GM tablet Take 1 tablet (1 g total) by mouth as needed. 02/07/20 25 Discontinue d(Stop Taking at Discharge) guaiFENesin ER (MUCINEX) 600 MG 12 hr tablet Take 2 tablets (1,200 mg total) by mouth. 02/07/20 25 Discontinue d(Stop Taking at Discharge) Active Problems Problem Noted Date Diagnosed Date Hyponatremia 02/03/2025 Status post right knee replacement 02/03/2025 01/26/2025 Effusion of left knee joint 03/16/2021 Primary osteoarthritis of right knee 03/15/2021 Primary osteoarthritis of left knee 03/15/2021 Effusion of right knee joint 03/15/2021 Frequency of micturition 01/16/2021 Overview (01/16/2021): Added automatically from request for surgery [id number] Micturition frequency 01/10/2021 Overview (01/10/2021): Added automatically from request for surgery [id number] Puncture wound without forei gn body, left [...] Encounters Date Type Department Care Team Description 02/04/2025 Orders Only [facility] [address] [facility] [place] [address] Jose Page MD 02/03/2025 11:27 AM CDT - 02/06/2025 11:03 AM CDT Hospital Encounter [facility] [address] [facility] [place] [address] Pily Christianson MD Johnson, Phillip W, MD Wound Discharge Disposition: Home or Self Care (Routine Discharge) 02/03/2025 Travel 02/01/2025 10:15 AM CDT Office Visit [address] [address] Jairo Lazaro Jr., DO Postop Followup (DOS: 01/26/2025 RIGHT TKA at [facility]) 02/01/2025 Travel 01/29/[address] [address] Jairo Lazaro Jr., DO Surgery Questions 12/17/[address] [address] Jairo Lazaro Jr., DO Follow Up Call 12/14/2024 1:15 PM KITCHEN CHEF Office Visit [address] [address] Jairo Lazaro Jr., DO Knee Pain (RIGHT); Pre-Op Exam 12/14/2024 Travel 11/23/[address] [address] Lisa Collins PA Surgical Clearance (Cardiac) 11/19/2024 2:00 PM KITCHEN CHEF Office Visit [address] [address] Vinay Childers FNP-MONIQUE New Patient; Knee Pain (BILATERAL) 11/19/2024 1:30 PM KITCHEN CHEF - 11/19/2024 11:59 PM KITCHEN CHEF Hospital Encounter [facility] [address] [place] [address] Vinay Childers FNP-MONIQUE Discharge Disposition: Home or Self Care (Routine Discharge) 11/19/2024 MyChart Message Enc [address] [address] Vinay Childers FNP-MONIQUE Visit Follow Up 11/19/2024 Travel 11/13/2024 Orders Only [address] [address] Vinay Childers FNP-BC from Last 3 Months Family History Medical History Relation Comments Arthritis Father Cancer Father Diabetes Maternal Grandmother COPD Mother Cancer Mother Diabetes Paternal Grandmother Relation Status Comments Father Maternal Grandfather Maternal Grandmother Mother Paternal Grandfather Paternal Grandmother Social History Tobacco Use Types Packs/Day Years Used Date Smoking Tobacco: Never Smokeless Tobacco: Never Tobacco Cessation:Counseling Given: Not Answered Alcohol Use Standard Drinks/Week Comments Not Currently 0 (1 standard drink = 0.6 oz pur e alcohol) [facility] Utilities Answer Date Recorded In the past 12 months has th e electric, gas, oil, or water company threatened to shut off services in your home? No 02/03/2025 Humiliation, Afraid, Rape, and Kick questionnair e Answer Date Recorded Within the last year, have y ou been afraid of your partner or ex-partner? No 02/03/2025 Within the last year, have y ou been humiliated or emotionally abused in other ways by your partner or ex-partner? No Within the last year, have y ou been kicked, hit, slapped, or otherwise physically hurt by your partner or ex-partner? No 02/03/2025 Within the last year, have y ou been raped or forced to have any kind of sexual activity by your partner or ex-partner? No 02/03/2025 Overall Financial Resource Strain (CARDIA) Answe r Date Recorded How hard is it for you to pa y for the very basics like food, housing, medical care, and heating? Not hard at all 02/03/2025 Hunger Vital Sign Answer Date Recorded Within the past 12 months, y ou worried that your food would run out before you got the money to buy more. Never true 02/04/20 25 Within the past 12 months, t he food you bought just didn't last and you didn't have money to get more. Never true 02/03/2025 PRAPARE - Transportation Answer Date Re corded In the past 12 months, has l ack of transportation kept you from medical appointments or from getting medications? No 01/19 In the past 12 months, has l ack of transportation kept you from meetings, work, or from getting things needed for daily living? No 02/03/2025 Housing Stability Vital Sign Answer Kingsley e Recorded In the last 12 months, was t here a time when you were not able to pay the mortgage or rent on time? No 02/03/2025 In the past 12 months, how m any times have you moved where you were living? 0 02/03/2025 At any time in the past 12 m [facility], were you homeless or living in a long term (including now)? 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 KITCHEN CHEF Legal Sex Male 1:26 AM CDT Gender Identity Not on file Sexual Orientation Not on file Last Filed Vital Signs Vital Sign Reading Time Taken Comments Blood Pressure 123/67 02/06/2025 8:30 AM CDT Pulse 83 02/06/2025 8:30 AM CDT Temperature 36.2 C (97.2 F) 02/06/2025 5:36 AM CDT Respiratory Rate 18 02/06/2025 8:30 AM CDT Oxygen Saturation 97% 02/06/2025 8:30 AM CDT Inhaled Oxygen Concentration - - Weight 125.5 kg (276 lb 9.6 oz) 02/06/2025 5:21 AM CDT Height 170.2 cm (5' 7 ) 02/03/2025 3:02 PM CDT Body Mass Index 43.32 02/03/2025 3:02 PM CDT Plan of Treatment Health Maintenance Due Date Last Done Comments Colorectal Cancer Screening Colonoscopy (10 Years) 1950 Hepatitis C 1968 DTaP, Tdap and Td Vaccines ( 1 - Tdap) 1969 RSV Immunization or 60+ Years (1 - Risk 60-74 years 1-dose series) 2010 Annual Medicare Wellness Visit 2015 Pneumococcal Vaccine: 50+ Years (2 of 2 - PPSV23) 07/15/2018 07/15/2017 Zoster Vaccines (2 of 3) 01/29/2020 12/04/2019 COVID-19 Vaccine (3 - 2023-2 5 season) 2024 01/04/2021, 12/13/2020 Meningococcal B Vaccine Aged Out No l onger eligible based on patient's age to complete this topic Meningococcal Vaccine Aged Out No erasto leonid eligible based on patient's age to complete this topic RSV Immunizations Under 20 Months Aged Out No longer eligible b ased on patient's age to complete this topic Procedures Procedure Name Priority Date/Time Associated Diagnosis Comments COMPREHENSIVE METABOLIC PANEL Routine 02/06/2025 4:09 AM CDT CBC W/DIFF AUTOMATED Routine 02/06/2025 4:09 AM CDT BASIC METABOLIC PANEL TIMED 02/05/2025 2:05 PM CDT PRO-BRAIN NATRIURETIC PEPTIDE Routine 02/05/2025 4:23 AM CDT COPEPTIN Routine 02/05/2025 4:23 AM CDT COMPREHENSIVE METABOLIC PANEL Routine 02/05/2025 4:23 AM CDT CBC W/DIFF AUTOMATED Routine 02/05/2025 4:23 AM CDT BASIC METABOLIC PANEL TIMED 02/04/2025 8:18 PM CDT BASIC METABOLIC PANEL TIMED 02/04/2025 3:21 PM CDT COMPREHENSIVE METABOLIC PANEL Routine 02/04/2025 4:42 AM CDT CBC W/DIFF AUTOMATED Routine 02/04/2025 4:42 AM CDT XR KNEE RT 3V STAT 02/03/2025 1:45 PM CDT HC URINALYSIS AUTO W/MICRO STAT 02/03/2025 1:15 PM CDT CULTURE, BACTERIA, BLOOD STAT 02/03/2025 1:04 PM CDT LACTIC ACID W REFLEX (SEPSIS) STAT 02/03/2025 12:54 PM CDT PARTIAL THROMBOPLASTIN TIME,PTT STAT 02/03/2025 12:54 PM CDT C-REACTIVE PROTEIN STAT 02/03/2025 12 :54 PM CDT SED RATE, ERYTHROCYTE (ESR) STAT 02/03/2025 12:54 PM CDT COMPREHENSIVE METABOLIC PANEL STAT 02/03/2025 12:54 PM CDT CBC W/DIFF AUTOMATED STAT 02/03/2025 12:54 PM CDT CULTURE, BACTERIA, BLOOD STAT 02/03/2025 12:53 PM CDT US NILA DUPLEX LOW EXT RT STAT 02/03/2025 12:44 PM CDT CULTURE, WOUND, W/GRAM STAIN STAT 02/03/2025 12:07 PM CDT URINE BACTERIA CULTURE STAT 12:06 PM CDT XR KNEE STAND AP JT ONLY Routine 11/19/2024 1:50 PM KITCHEN CHEF Acute pain of right knee XR KNEE JT 3V Routine 11/19/2024 1:50 PM KITCHEN CHEF Acute pain of right knee from Last 3 Months Results * (ABNORMAL) COMPREHENSIVE METABOLIC PANEL (02/06/2025 4:09 AM CDT) Only the most recent of4 resultswithin the time period is included. SODIUM S/P/B 122(L) 136 - 145 MMOL/L 02/06/2025 5:15 AM CDT [facility] POTASSIUM S/P/B 4.2 3.5 - 5.1 MMOL/L 02/06/2025 5:15 AM CDT [facility] CHLORIDE S/P/B 88(L) 98 - 107 MMOL/L 02/06/2025 5:15 AM CDT [facility] CO2 29.0 21.0 - 32.0 MMOL/L 02/06/2025 5:15 AM CDT [facility] GLUCOSE 120(H) 70 - 99 MG/DL 02/06/2025 5:15 AM CDT [facility] Comment: FASTING GLUCOSE 100 TO 125 MG/DL IS CONSISTENT WITH IMPAIRED FASTING GLUCOSE. FASTING GLUCOSE >125 MG/DL IS CONSISTENT WITH DIABETES. RANDOM GLUCOSE >200 MG/DL WITH HYPERGLYCEMIC SYMPTOMS IS CONSISTENT WITH DIABETES. PER ADA GUIDELINES BUN 16 6 - 24 MG/DL 02/06/2025 5:15 AM T [facility] CREATININE S/P/B 0.92 0.70 - 1.30 MG/DL 02/06/2025 5:15 AM [facility] CALCIUM S/P/B 8.4 8.4 - 10.5 MG/DL 02/06/2025 5:15 AM [facility] BILIRUBIN TOTAL S/P/B 0.9 0.2 - 1.0 MG/DL 02/06/2025 5:15 AM [facility] Comment: THIS ASSAY IS NOT RECOMMENDED FOR PATIENTS UNDERGOING TREATMENT WITH ELTROMBOPAG DUE TO THE POTENTIAL FOR FALSELY ELEVATED RESULTS. ALKALINE PHOSPHATASE S/P/B 113 45 - 115 U/L 02/06/2025 5:15 AM [facility] AST 42(H) 15 - 37 U/L 02/06/2025 5:15 AM [facility] ALT 84(H) 16 - 63 U/L 02/06/2025 5:15 AM [facility] TOTAL PROTEIN S/P/B 6.0(L) 6.4 - 8.2 G/DL 02/06/2025 5:15 AM [facility] ALBUMIN S/P/B 2.7(L) 3.4 - 5.0 G/DL 02/06/2025 5:15 AM [facility] ANION GAP 5.0 5.0 - 15.0 MMOL/L 02/06/2025 5:15 AM [facility] OSMOLALITY (CALC) 256 MOSM/KG 025 5:15 AM [facility] Comment:REFERENCE RANGE NOT ESTABLISHED GFR ESTIMATE 87(L) >89 ML/MIN/1. 73 M2 02/06/2025 5:15 AM [facility] GFR NOTES GFR REFERENCE S: 02/06/2025 5:15 AM [facility] Comment: THE ESTIMATED GFR IS CALCULATED USING THE 2020 CKD-EPI EQUATION. THE FOLLOWING CATEGORIES FOR GRADING RENAL FUNCTION ARE RECOMMENDED BY THE INTERNATIONAL SOCIETY OF NEPHROLOGY (KDIGO 2012 CLINICAL PRACTICE GUIDELINE). G1,NORMAL OR HIGH: >89 ml/min/1.73 m2 G2,MILDLY DECREASED: 60-89 ml/min/1.73 m2 G3A,MILDLY TO MODERATELY DECREASED: 45-59 ml/min/1.73 m2 G3B,MODERATELY TO SEVERELY DECREASED: 30-44 ml/min/1.73 m2 G4,SEVERELY DECREASED: 15-29 ml/min/1.73 m2 G5,KIDNEY FAILURE: <15 ml/min/1.73 m2 02/06/2025 4:09 AM CDT Ava Montes [facility] Final Res ult [facility] [address] [place] [address], * (ABNORMAL) CBC W/DIFF AUTOMATED (02/06/2025 4:09 AM CDT) Only the most recent of4 resultswithin the time period is included. WBC 12.26(H) 4.00 - 10.80 x10'3/uL 02/06/2025 4:55 AM CDT [facility] RBC 3.56(L) 4.50 - 6.10 x10'6/uL 02/06/2025 4:55 AM CDT [facility] HGB 10.4(L) 13.0 - 18.0 G/DL 02/06/2025 4:55 AM CDT [facility] HCT 29.8(L) 37.0 - 52.0 % 02/06/2025 4:55 AM CDT [facility] MCV 83.7 78.0 - 100.0 FL 02/06/2025 4:55 AM CDT [facility] MCH 29.2 27.0 - 31.0 PG 02/06/2025 4:55 AM CDT [facility] MCHC 34.9 33.0 - 36.0 G/DL 02/06/2025 4:55 AM CDT [facility] RDW 12.8 11.5 - 14.5 % 02/06/2025 4:55 AM CDT [facility] PLT 402(H) 150 - 350 x10'3/uL 02/06/2025 4:55 AM CDT [facility] MPV 9.1 7.4 - 10.4 FL 02/06/2025 4:55 AM CDT [facility] CBC COMMENT NORMAL REFERENCE RANGE NOT ESTABLISHED FOR THE PROPORTIONAL LEUKOCYTE DIFFERENTIAL. 02/06/2025 4:55 AM CDT [facility] SEG NEUTROPHILS 81 % 5:24 AM CDT [facility] BANDS 1 % 02/06/2025 5:24 AM CDT [facility] MYELOCYTES 1 % 02/06/2025 5:24 AM CDT [facility] LYMPHOCYTES 9 % 02/06/2025 5:24 AM CDT [facility] MONOCYTES 6 % 02/06/2025 5:24 AM CDT [facility] EOSINOPHILS 2 % 02/06/2025 5:24 AM CDT [facility] ABS SEGMENTED NEUTS 9.93(H) 1.60 - 8.30 x10'3/uL 02/06/2025 5:24 AM CDT [facility] ABS. BANDS 0.12 0.00 - 1.00 x10'3/uL 02/06/2025 5:24 AM CDT [facility] ABS. MYELOCYTES 0.12(H) 0.00 x10'3/uL 02/06/2025 5:24 AM CDT [facility] ABS. LYMPHOCYTES 1.10 0.80 - 4.70 x10'3/uL 02/06/2025 5:24 AM CDT [facility] ABS. MONOCYTES 0.74 0.10 - 1.50 x10'3/uL 02/06/2025 5:24 AM CDT [facility] ABS. EOSINOPHILS 0.25 0.00 - 0.40 x10'3/uL 02/06/2025 5:24 AM CDT [facility] PLT MORPH. INCREASED 02/06/2025 5:24 AM CDT [facility] RBC MORPHOLOGY NORMAL 02/06/2025 5:24 AM CDT [facility] 02/06/2025 4:09 AM CDT Ava Montes [facility] Final Res ult [facility] [address] [place] [address], * (ABNORMAL) BASIC METABOLIC PANEL (02/05/2025 2:05 PM CDT) Only the most recent of3 resultswithin the time period is included. SODIUM S/P/B 121(L) 136 - 145 MMOL/L 02/05/2025 2:48 PM CDT [facility] POTASSIUM S/P/B 4.0 3.5 - 5.1 MMOL/L 02/05/2025 2:48 PM CDT [facility] CHLORIDE S/P/B 86(L) 98 - 107 MMOL/L 02/05/2025 2:48 PM CDT [facility] CO2 29.7 21.0 - 32.0 MMOL/L 02/05/2025 2:48 PM CDT [facility] GLUCOSE 134(H) 70 - 99 MG/DL 02/05/2025 2:48 PM CDT [facility] Comment: FASTING GLUCOSE 100 TO 125 MG/DL IS CONSISTENT WITH IMPAIRED FASTING GLUCOSE. FASTING GLUCOSE >125 MG/DL IS CONSISTENT WITH DIABETES. RANDOM GLUCOSE >200 MG/DL WITH HYPERGLYCEMIC SYMPTOMS IS CONSISTENT WITH DIABETES. PER ADA GUIDELINES BUN 15 6 - 24 MG/DL 02/05/2025 2:48 PM CDT [facility] CREATININE S/P/B 1.00 0.70 - 1.30 MG/DL 02/05/2025 2:48 PM CDT [facility] CALCIUM S/P/B 8.1(L) 8.4 - 10.5 MG/DL 02/05/2025 2:48 PM CDT [facility] ANION GAP 5.3 5.0 - 15.0 MMOL/L 02/05/2025 2:48 PM CDT [facility] OSMOLALITY (CALC) 255 MOSM/KG 025 2:48 PM CDT [facility] Comment:REFERENCE RANGE NOT ESTABLISHED GFR ESTIMATE 79(L) >89 ML/MIN/1. 73 M2 02/05/2025 2:48 PM CDT [facility] GFR NOTES GFR REFERENCE S: 02/05/2025 2:48 PM CDT [facility] Comment: THE ESTIMATED GFR IS CALCULATED USING THE 2020 CKD-EPI EQUATION. THE FOLLOWING CATEGORIES FOR GRADING RENAL FUNCTION ARE RECOMMENDED BY THE INTERNATIONAL SOCIETY OF NEPHROLOGY (KDIGO 2012 CLINICAL PRACTICE GUIDELINE). G1,NORMAL OR HIGH: >89 ml/min/1.73 m2 G2,MILDLY DECREASED: 60-89 ml/min/1.73 m2 G3A,MILDLY TO MODERATELY DECREASED: 45-59 ml/min/1.73 m2 G3B,MODERATELY TO SEVERELY DECREASED: 30-44 ml/min/1.73 m2 G4,SEVERELY DECREASED: 15-29 ml/min/1.73 m2 G5,KIDNEY FAILURE: <15 ml/min/1.73 m2 02/05/2025 2:05 PM CDT Jose Page MD LABORATORY Final Resul t [facility] [address] [place] [address], * (ABNORMAL) COPEPTIN (02/05/2025 4:23 AM CDT) COPEPTIN 16.4(H) < OR = 13.7 pmol/L 02/09/2025 4:52 PM CDT [facility] Comment: This test was developed and its analytical performance characteristics have been determined by [facility]. It has not been cleared or approved by the FDA. This assay has been validated pursuant to the CLIA regulations and is used for clinical purposes. Test performed by [facility] [address] [id number] [place] General: Pita Salcedo MD,PHD,KIRK Test Reported by [facility], [facility], [address] [place] [address] Stiven Carranza M.D., Ph.D., Director of Laboratories , CLIA [id number] 02/05/2025 4:23 AM CDT us Jose Page MD LABORATORY Final Resul t Performing Organization Address City/[facility]/ZIP Co de Phone Number [facility] [address] , [place] [phone] * (ABNORMAL) PRO-BRAIN NATRIURETIC PEPTIDE (02/05/2025 4:23 AM CDT) PRO-B TYPE NATRIURETIC PEPTIDE 518(H) <125 PG/ML 02/05/2025 9:42 AM CDT [facility] Comment: CUT POINTS ESTABLISHED BY INTERNATIONAL COLLABORATIVE ON NT PROBNP (ICON) STUDY (2006). AGE INDEPENDENT: <300 PG/ML HAS A 99% NEGATIVE PREDICTIVE VALUE FOR EXCLUDING ACUTE CHF <50 YEARS: >450 PG/ML IS CONSISTENT WITH ACUTE CHF 50-75 YEARS: >900 PG/ML IS CONSISTENT WITH ACUTE CHF >75 YEARS: >1800 PG/ML IS CONSISTENT WITH ACUTE CHF IN PATIENTS WITH RENAL INSUFFICIENCY (GFR <60), >1200 PG/ML YIELDS A DIAGNOSTIC SENSITIVITY AND SPECIFICITY OF 89% AND 72% FOR ACUTE CHF. 02/05/2025 4:23 AM CDT us Jose Page MD LABORATORY Final Resul t [facility] [address] [place] [address], [place] [phone] * XR KNEE RT 3V (02/03/2025 1:45 PM CDT) Anatomical Region Laterality Modality Knee Radiographic Marlen ging 02/03/2025 1:51 PM CDT Impressions 02/03/2025 1:57 PM CDT IMPRESSION: INTACT APPEARANCE OF BICONDYLAR TRICOMPARTMENTAL ARTHROPLASTY CHANGES OF THE RIGHT KNEE. NO EVIDENCE OF HARDWARE LOOSENING OR FAILURE. CONSIDERABLE PERIARTICULAR SOFT TISSUE SWELLING AND EMPHYSEMA. THIS IS CONCERNING FOR AN INFECTIOUS OR INFLAMMATORY PROCESS AND STRONG EMPHASIS ON CLINICAL LABORATORY CORRELATION RECOMMENDED. Referred By: Interpreted By: Maicol Marcelo MD, 02/03/2025 1:51 PM Narrative 02/03/2025 1:57 PM [address]T [address] [place] [id number] EXAM: XR KNEE RT 3V INDICATION: Postsurgical pain and swelling after right total knee replacement. TECHNIQUE: Portable AP, patellar sunrise and crosstable lateral views of the right knee were obtained. COMPARISON EXAM: Bilateral knees from 11/19/2024. FINDINGS: Interval bicondylar arthroplasty including posterior patellar surface prosthesis. Satisfactory alignment. No evidence of hardware failure or loosening. There is a considerable degree of soft tissue swelling and diffuse scattered foci of soft tissue emphysema. This is unexpected except in the relatively recent postoperative state. Possible infectious or inflammatory processes not excluded. Clinical and laboratory correlation recommended. Procedure Note Maicol Marcelo MD - 02/03/[address] [place] [id number] EXAM: XR KNEE RT 3V INDICATION: Postsurgical pain and swelling after right total kneereplacement. TECHNIQUE: Portable AP, patellar sunrise and crosstable lateral views ofthe right knee were obtained. COMPARISON EXAM: Bilateral knees from 11/19/2024. FINDINGS: Interval bicondylar arthroplasty including posterior patellarsurface prosthesis. Satisfactory alignment. No evidence of hardwarefailure or loosening. There is a considerable degree of soft tissueswelling and diffuse scattered foci of soft tissue emphysema. This isunexpected except in the relatively recent postoperative state. Possibleinfectious or inflammatory processes not excluded. Clinical andlaboratory correlation recommended. IMPRESSION: INTACT APPEARANCE OF BICONDYLAR TRICOMPARTMENTAL ARTHROPLASTYCHANGES OF THE RIGHT KNEE. NO EVIDENCE OF HARDWARE LOOSENING ORFAILURE. CONSIDERABLE PERIARTICULAR SOFT TISSUE SWELLING AND EMPHYSEMA. THIS ISCONCERNING FOR AN INFECTIOUS OR INFLAMMATORY PROCESS AND STRONG EMPHASISON CLINICAL LABORATORY CORRELATION RECOMMENDED. Referred By: Interpreted By: Maicol Marcelo MD, 02/03/2025 1:51 PM Pily Christianson MD GENERAL IMAGING Final Resul t * (ABNORMAL) URINALYSIS (02/03/2025 1:15 PM CDT) COLOR (U) YELLOW 02/03/2025 1:38 PM CDT [facility] TRANSPARENCY CLEAR 02/03/2025 1:38 PM CDT [facility] SPECIFIC GRAVITY (U) 1.020 1.000 - 1.025 02/03/2025 1:38 PM CDT [facility] U PH 7.5 5.0 - 8.0 02/03/2025 1:38 PM CDT [facility] LEUKOCYTES (U) NEGATIVE NEGATIVE 02/03/2025 1:38 PM CDT [facility] NITRITES NEGATIVE NEGATIVE 02/03/2025 1:38 PM CDT [facility] PROTEIN RANDOM (U) NEGATIVE NEGATIVE 02/03/2025 1:38 PM CDT [facility] GLUCOSE (U) NEGATIVE NEGATIVE 02/03/2025 1:38 PM CDT [facility] KETONES MG/DL (U) NEGATIVE NEGATIVE 02/03/2025 1:38 PM CDT [facility] UROBILINOGEN 0.2 <1.0 EU/DL 02/03/2025 1:38 PM CDT [facility] BILIRUBIN (U) NEGATIVE NEGATIVE 02/03/2025 1:38 PM CDT [facility] BLOOD (U) NEGATIVE NEGATIVE 02/03/2025 1:38 PM CDT [facility] WBC/HPF NONE SEEN(A) 0 - 5 /HPF 02/03/2025 1:38 PM CDT [facility] RBC/HPF NONE SEEN(A) 0 - 5 /HPF 02/03/2025 1:38 PM CDT [facility] EPI/LPF RARE /LPF 02/03/2025 1:38 PM CDT [facility] BACTERIA (U) TRACE /HPF 02/03/2025 1:38 PM CDT [facility] URINE SPECIMEN OBTAINED BY CLEAN CATCH PROCEDURE / Unknown 02/03/2025 1:15 PM CDT us Pily Christianson MD URINE ORDERABLES Final Resu lt Performing Organization Address [facility] Co de Phone Number [address] [id number], * CULTURE, BACTERIA, BLOOD (02/03/2025 1:04 PM CDT) Only the most recent of2 resultswithin the time period is included. SPEC DESCRIPTION BLOOD 02/03/2025 11:59 AM CDT [facility] SPECIAL REQUESTS NO SPECIAL REQUEST 02/03/2025 11:59 AM CDT [facility] CULTURE RESULT NO GROWTH 5 DAYS 02/08/2025 7:24 PM CDT [facility] BLOOD SPECIMEN OBTAINED FOR BLOOD CULTURE / Unknown 02/03/2025 1:04 PM CDT 02/03/2025 1:05 PM CDT us Pily Christianson MD MICROBIOLOGY - GENERAL ORDE RABLES Final Result Performing Organization Address City/[facility]/ZIP Co de Phone Number [facility] [address] [place] [address], [place] [phone] [facility] [address] [place] [id number], * LACTIC ACID W REFLEX (SEPSIS) (02/03/2025 12:54 PM CDT) LACTIC ACID VENOUS 1.4 0.4 - 2.0 MMOL/L 02/03/2025 1:27 PM CDT [facility] 02/03/2025 12:5 4 PM CDT us Pily Christianson MD LABORATORY Final Resul t Performing Organization Address [facility] Co de Phone Number [address] [address], [place] [phone] * PARTIAL THROMBOPLASTIN TIME,PTT (02/03/2025 12:54 PM CDT) PTT 31.2 25.1 - 36.5 SEC 02/03/2025 1:16 PM CDT [facility] 02/03/2025 12:5 4 PM CDT us Pily Christianson MD LABORATORY Final Resul t Performing Organization Address [facility] de Phone Number [facility] [address] [place] [address], * (ABNORMAL) SED RATE, ERYTHROCYTE (ESR) (02/03/2025 12:54 PM CDT) ESR 61(H) 0 - 15 MM/HR 02/03/2025 1:32 PM CDT [facility] 02/03/2025 12:5 4 PM CDT us Pily Christianson MD LABORATORY Final Resul t Performing Organization Address City/[facility] Co de Phone Number [facility] [address] [place] [address], [place] [phone] * (ABNORMAL) C-REACTIVE PROTEIN (02/03/2025 12:54 PM CDT) C-REACTIVE PROTEIN 8.19(H) <0.30 mg/dL 02/03/2025 1:32 PM CDT [facility] 02/03/2025 12:5 4 PM CDT us Pily Christianson MD LABORATORY Final Resul t [facility] [address] [place] [address], * [place] NILA DUPLEX LOW EXT RT (02/03/2025 12:44 PM CDT) Anatomical Region Laterality Modality NA Ultrasound 02/03/2025 12:4 8 PM CDT Impressions 02/03/2025 12:48 PM CDT IMPRESSION: No evidence of deep venous thrombosis. Ordered By: PILY CHRISTIANSON Interpreted By: Pancho Laguerre MD, 02/03/2025 12:48 PM Narrative 02/03/2025 12:48 PM [address]T [address] [place] [address] Examination: Right lower extremity venous color Doppler ultrasound. Exam time: 1222 hours. Clinical history: Pain and swelling. Recent knee arthroplasty. Comparison: None. Technique: Grayscale and color Doppler images including spectral analysis. Findings: Color Doppler evaluation of the deep veins of the right lower extremity demonstrates normal appearing color flow, spectra and compressibility throughout. No intraluminal filling defects are identified. Procedure Note Pancho Laguerre MD - 02/03/[address] [place] [address] Examination: Right lower extremity venous color Doppler ultrasound. Exam time: 1222 hours. Clinical history: Pain and swelling. Recent knee arthroplasty. Comparison: None. Technique: Grayscale and color Doppler images including spectralanalysis. Findings: Color Doppler evaluation of the deep veins of the right lowerextremity demonstrates normal appearing color flow, spectra andcompressibility throughout. No intraluminal filling defects areidentified. IMPRESSION: No evidence of deep venous thrombosis. Ordered By: PILY CHRISTIANSON Interpreted By: Pancho Laguerre MD, 02/03/2025 12:48 PM us Pily Christianson MD ULTRASOUND Final Resul t * CULTURE, WOUND, W/GRAM STAIN (02/03/2025 12:07 PM CDT) SPEC DESCRIPTION KNEE,RIGHT 02/03/2025 12:10 PM CDT [facility] SPECIAL REQUESTS NO SPECIAL REQUEST 02/03/2025 12:10 PM CDT [facility] GRAM STAIN RESULT NO WHITE BLOOD CELLS SEEN 02/03/2025 1:37 PM CDT [facility] GRAM STAIN RESULT OCCASIONAL GRAM POSITIVE COCCI PAIRS/CLUSTERS 02/03/2025 1:37 PM CDT [facility] GRAM STAIN RESULT RARE GRAM NEGATIVE BACILLI 02/03/2025 1:37 PM CDT [facility] CULTURE RESULT MANY PROTEUS MIRABILIS 02/05/2025 9:18 AM CDT [facility] CULTURE RESULT MANY ENTEROCOCCUS FAECALIS 02/05/2025 9:18 AM CDT [facility] CULTURE RESULT MANY STAPHYLOCOCCUS , COAGULASE NEGATIVE 02/05/2025 9:18 AM CDT [facility] CULTURE RESULT MANY BACILLUS SPECIES NOT ANTHRACIS 02/05/2025 9:18 AM CDT [facility] STRUCTURE OF RIGHT KNEE REGION / Unknown 02/03/2025 12:07 PM CDT 02/03/2025 12:17 PM CDT Narrative Organism Antibiotic Method Susceptibility Proteus mirabilis CEFAZOLIN ESTEFANY (KB) Resistant Proteus mirabilis ESBL ESTEFANY (KB) Sensitive Proteus mirabilis AMPICILLIN ESTEFANY (VITEK) Resistant Proteus mirabilis AZTREONAM ESTEFANY (VITEK) Sensitive Proteus mirabilis CEFEPIME ESTEFANY (VITEK) Sensitive Proteus mirabilis CEFTRIAXONE ESTEFANY (VITEK) Sensitive Proteus mirabilis CIPROFLOXACIN ESTEFANY (VITEK) Sensitive Proteus mirabilis ERTAPENEM ESTEFANY (VITEK) Sensitive Proteus mirabilis GENTAMICIN ESTEFANY (VITEK) Sensitive Proteus mirabilis IMIPENEM ESTEFANY (VITEK) Resistant Proteus mirabilis LEVOFLOXACIN ESTEFANY (VITEK) Sensitive Proteus mirabilis MEROPENEM ESTEFANY (VITEK) Sensitive Proteus mirabilis PIPRACIL/TAZO ESTEFANY (VITEK) Sensitive Proteus mirabilis TRIMETH-SULFAMETH. ESTEFANY (VITEK) Sensitive Proteus mirabilis TETRACYCLINE ESTEFANY (VITEK) Resistant Enterococcus faecalis AMPICILLIN ESTEFANY (VITEK) Sensitive Enterococcus faecalis ERYTHROMYCIN ESTEFANY (VITEK) Resistant Enterococcus faecalis GENT. SYNERGY SCREEN ESTEFANY (VITEK) Resistant Enterococcus faecalis LINEZOLID ESTEFANY (VITEK) Sensitive Enterococcus faecalis PENICILLIN G ESTEFANY (VITEK) Sensitive Enterococcus faecalis STR. SYNERGY SCR ESTEFANY (VITEK) Sensitive Enterococcus faecalis TIGECYCLINE ESTEFANY (VITEK) Sensitive Enterococcus faecalis VANCOMYCIN ESTEFANY (VITEK) Sensitive Pily Christianson MD MICROBIOLOGY - GENERAL TK KELLY Final Result Performing Organization Address City/[facility]/ZIP Co de Phone Number [facility] [address] [place] [address], [phone] [facility] [address] [place] [address], * CULTURE URINE (02/03/2025 12:06 PM CDT) SPEC DESCRIPTION URINE CLEAN CATCH 02/03/2025 12:10 PM CDT [facility] SPECIAL REQUESTS NO SPECIAL REQUEST 02/03/2025 12:10 PM CDT [facility] CULTURE RESULT FEW CONTAMINANTS 01/19 10:55 AM CDT [facility] URINE SPECIMEN OBTAINED BY CLEAN CATCH PROCEDURE / Unknown 02/03/2025 12:06 PM CDT 02/03/2025 3:32 PM CDT Pily Christianson MD MICROBIOLOGY - GENERAL TK KELLY Final Result Performing Organization Address [facility]/ZIP Co de Phone Number [facility] [address] [place] [address], [place] [phone] [facility] [address] [place] [address], * XR KNEE JT 3V (11/19/2024 1:50 PM KITCHEN CHEF) Anatomical Region Laterality Modality Knee Radiographic Marlen ging 11/20/2024 1:34 PM KITCHEN CHEF Impressions 11/20/2024 1:36 PM KITCHEN CHEF IMPRESSION: 1) Interval progression of 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 Ordered By: VINAY CHILDERS Interpreted By: Jayy Vee MD, 11/20/2024 1:34 PM Narrative 11/20/2024 1:[address] [facility] [address] [place] [address] Examination: XR KNEE STAND AP JT ONLY, [...] Procedure Note Jayy Vee MD - 11/20/2024 [facility] [address] [place] [address] Examination: XR KNEE STAND AP JT ONLY, [...] both knees as described. Ordered By: VINAY CHILDERS Interpreted By: Jayy Vee MD, 11/20/2024 1:34 PM us Vinay Childers RIPRAP MAN-BC GENERAL IMAGING Final Resu lt * XR KNEE STAND AP JT ONLY (11/19/2024 1:50 PM KITCHEN CHEF) Anatomical Region Laterality Modality Knee Radiographic Marlen ging 11/20/2024 1:34 PM KITCHEN CHEF Impressions 11/20/2024 1:36 PM KITCHEN CHEF IMPRESSION: 1) Interval progression of 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 Ordered By: VINAY CHILDERS Interpreted By: Jayy Vee MD, 11/20/2024 1:34 PM Narrative 11/20/2024 1:36 PM KITCHEN CHEF [address] [place] [address] Examination: XR KNEE STAND AP JT ONLY, [...] Procedure Note Jayy Vee MD - 11/20/2024 [facility] [address] [place] [address] Examination: XR KNEE STAND AP JT ONLY, [...] both knees as described. Ordered By: VINAY CHILDERS Interpreted By: Jayy Vee MD, 11/20/2024 1:34 PM Vinay Childers RIPRAP MAN-BC GENERAL IMAGING Final Resu lt from Last 3 Months Insurance MEDICARE MEDICAID Advance Directives * Full Code (Latest Code Status on File) Date Activated Date Inactivated Comments 02/03/2025 4:13 PM 02/06/2025 1:03 PM Care Teams Custom Tailor Relationship Specialty Start Date End Date Juan Polanco MD [address] [place] [address] PCP - General FAMILY PRACTICE 04/24/23 Jairo Lazaro Jr., DO [facility] [place] [address] Physician ORTHOPAEDIC SURGERY 12/17/24
--- OUTSIDE RECORDS SUMMARY | 2025-02-10 09:38 | XMS_ITS | Encounter Summary ---
Author Organization [facility] Address [address] [place] [address] Care Team Providers Care Informatics Physician Liaison Name Role Phone Juan Polanco MD Primary Care Provider [phone] Tejas Yu DO, George V Unavailable [phone] Encounter Details Date Type Department Care Team (Late st Contact Info) Description 11/19/2024 [employer] Message Enc 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
--- OUTSIDE RECORDS SUMMARY | 2025-02-10 09:38 | XMS_ITS ---
Author Organization [facility] Address [address] [place], [place] [id number] Care Team Providers Care Group Exercise Class Instructor Name Role Phone EVIE ERNANDEZ Unavailable [phone] Juan Polanco Unavailable Unavailable JOSE RAUL IBRAHMI Unavailable [phone] Allergies Allergen (clinical drug ingredient) Drug/Non Drug [...] Active Encounters Encounter Location Date Provider Diagnosis [address] [id number] 08/13/2024 JOSE RAUL IBRAHIM Plan Of Treatment No Information Progress Notes * CYNTHIA AUSTIN EDOB:[birth year] (74 yo M)Acc No.[id number]:08/13/2024 Patient: Ho CYNTHIA CARNEY Provider: Bety IBRAHIM :1950 A ge:73 Y S ex:Male Date:08/13/2024 Address:[address] [place] [address] , [place] [address] Subjective: * Chief Complaints: * 1 . [...] seen by Dr. Polanco was 07/2024., Initials [facility]. * Medical History: * Medications: [...] Electronic signature of CHAY IBRAHIM DPM on 02/10/2025 at 09:38 AM CDT Sign off status: Pending * Provider: Bety IBRAHIM Date: 1 Generated for Chun kearney/Jeff/Mabel on: 0 02/10/2025 [...] seen by Dr. Polanco was 07/2024., Initials [facility]
--- OUTSIDE RECORDS SUMMARY | 2025-02-10 09:38 | XMS_ITS | Encounter Summary ---
Author Organization [facility] Address [address] [place] [address] Care Team Providers Care Transportation Maintenance Specialist Name Role Phone Reanna Owen DO Primary Care Provider [phone] Nora Aragon Primary Care Provider [phone] Juan Polanco MD Primary Care Provider [phone] Tejas Yu DOJairo V Unavailable [phone] Encounter Details Date Type Department Care Team (Late st Contact Info) Description 03/28/2019 Abstract [facility] CON[facility] [address] [place] [address] , Generic Conversion, Social History Tobacco Use Types Packs/Day Years Used Date Smoking Tobacco: Never Assessed Sex and Gender Information Value Date Recorded Sex Assigned at Male 11/19/2024 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
--- OUTSIDE RECORDS SUMMARY | 2025-02-10 09:38 | XMS_ITS | Patient Health Record ---
Author Organization [facility] Address [address] [place], [place] [id number] Care Team Providers Care Planimeter Operator Name Role Phone EVIE ERNANDEZ Unavailable [phone] Juan Polanco Unavailable Unavailable JOSE RAUL IBRAHIM Unavailable [phone] Allergies Allergen (clinical drug ingredient) Drug/Non Drug [...] 04/09/2024 Encounters Encounter Location Date Provider Diagnosis [address] [id number] 04/09/2024 JOSE RAUL IBRAHIM Tinea unguium B35.1 ; Pain in right toe(s) M79.674 ; Pain in left toe(s) M79.675 ; Other hammer toe(s) (acquired), right foot M20.41 ; Other hammer toe(s) (acquired), left foot M20.42 ; Unspecified atherosclerosis of [place] arteries of extremities, bilateral legs I70.203 and Type 2 diabetes mellitus with diabetic peripheral angiopathy without gangrene E11.[address] [id number] 06/11/2024 JOSE RAUL IBRAHIM Tinea unguium B35.1 ; Pain in right toe(s) M79.674 ; Pain in left toe(s) M79.675 ; Other hammer toe(s) (acquired), right foot M20.41 ; Other hammer toe(s) (acquired), left foot M20.42 ; Unspecified atherosclerosis of [place] arteries of extremities, bilateral legs I70.203 and [...] (ICD-10 - M20.42) 04/09/2024 Unspecified atherosclerosis of [place] arteries of extremities, bilateral legs (ICD-10 - I70.203) Patient educated on risks and aggravating factors of PVD, including conservative treatment options such as a diet and exercise regimen to aid in slowing progression of vascular disease 06/11/2024 Unspecified atherosclerosis of [place] arteries of extremities, bilateral legs (ICD-10 - [...] Coverage Start Date Coverage End Date AARP MedicareStefano lidia ([facility] [address] [place], [place] [id number] CYNTHIA GUTIERREZ Self - patient is the insured
--- NOTE | 2025-02-10 09:46 | PC.NURSE ---
RELEASE OF INFORMATION FAXED TO [facility].
[2025-02-10 09:48] LABS: Add Urine Microscopic? NO; Appearance Urine Clear (Clear); Bilirubin Urine Negative (Negative); Blood Urine Negative (Negative); Color Urine Light Yellow (Yellow); Glucose Urine UA Negative (Negative); Ketones Urine Negative (Negative); Leukocyte Esterase Ur Negative LEU/UL (Negative); Nitrate Urine Negative (Negative); Protein Urine Negative (Negative); Urobilinogen Urine 0.2 mg/dL (0.2-1.0); pH Urine 7.5 (5.0-8.0)
--- NOTE | 2025-02-10 09:56 | PC.NURSE ---
PT IS IN ULTRASOUND AT THIS TIME.
[2025-02-10 09:58] LABS: Basophils Absolute Auto 0.03 K/mm3 (0.00-0.10); Basophils Percent Auto 0.4 % (0.0-1.0); Eosinophils Absolute Auto 0.26 K/mm3 (0.02-0.50); Eosinophils Percent Auto 3.1 % (1.0-6.0); Hematocrit 31.7 % (37.0-46.0); Hemoglobin 10.3 g/dL (12.4-15.3); Immature Granulocyte Absolute 0.09 K/mm3 (0.00-0.00); Immature Granulocyte Percent A 1.1 % (0.0-0.0); Lymphocytes Absolute Auto 0.84 K/mm3 (1.10-4.50); Mean Corpuscular HGB Conc 32.5 g/dL (32-36); Mean Corpuscular Hemoglobin 28.5 pg (27.0-31.0); Mean Corpuscular Volume 87.8 fL (78.0-102.0); Mean Platelet Volume 8.1 fl (8.7-11.0); Monocytes Percent Auto 8.3 % (2.0-11.0); Neutrophils Absolute Auto 6.52 K/mm3 (1.70-7.20); Neutrophils Percent Auto 77.1 % (50.0-70.0); Platelet Count Result 398 K/mm3 (150-420); Red Blood Count 3.61 M/mm3 (4.70-6.10); White Blood Count 8.4 K/mm3 (4.8-10.8)
[2025-02-10 10:11] LABS: Partial Thromboplastin Time 28.1 Sec (23.9-30.70); Prothrombin Time 10.9 Seconds (9.50-12.1)
[2025-02-10 10:13] LABS: Alanine Aminotransferase 93 U/L (16-63); Albumin Level 2.8 g/dL (3.4-5.0); Alkaline Phosphatase 147 U/L (46-116); Anion Gap 6 mmol/L (4-12); Aspartate Amino Transferase 36 U/L (15-37); Bilirubin,Total 0.6 mg/dL (0.00-1.00); Blood Urea Nitrogen 14 mg/dL (7-18); Calcium 8.5 mg/dL (8.5-10.1); Carbon Dioxide 31 mmol/L (21-32); Chloride 96 mmol/L (98-108); Estimated CRCL calculation 80 ml/min; Estimated Glomerular Filt Rate > 60; Glucose 165 mg/dL (70-99); Osmolality Calculated 280 mOsm/kg (285-295); Potassium 4.2 mmol/L (3.5-5.1); Sodium 133 mmol/L (136-145); Total Protein 6.8 g/dL (6.4-8.2)
--- NOTE | 2025-02-10 10:13 | PC.NURSE ---
PT HAS RETURNED FROM ULTRASOUND, USED RR FOR THE 2ND TIME. PT TRANSFERS WITHOUT ASSISTANCE. INCISION TO RT KNEE IS HEALING AND WELL APPROXIMATED, NO DRAINAGE NOTED. NEW DRESSING PLACED. ASPHALT HEATER TENDER REMAINS AT BEDSIDE. WILL CONTINUE TO MONITOR.
[2025-02-10 10:15] VITALS: BP 142/80; PULSE 76; RESP 16; O2SAT 97
[2025-02-10 10:18] LABS: Lactic Acid Reflex 1.8 mmol/L (0.4-2.0)
--- OUTSIDE RECORDS SUMMARY | 2025-02-10 10:54 | XMS_ITS | Clinical Summary ---
Author Organization [facility] Address [address] [place] [address] Care Team Providers Care Slip Filler Name Role Phone Juan Polanco MD Primary Care Provider [phone] Tejas Yu DO, George V Unavailable [phone] Allergies Active Allergy Reactions Criticality Noted Date [...] (01/16/2021): Added automatically from request for surgery [id number] Micturition frequency 01/10/2021 Overview (01/10/2021): Added automatically from request for surgery [id number] Puncture wound without forei gn body, left [...] Department Care Team Description 02/04/2025 Orders Only [facility] [address] [facility] [place] [address] Jose Pgae MD 02/03/2025 11:27 AM CDT - 02/06/2025 11:03 AM CDT Hospital Encounter [facility] [address] [facility] [place] [address] Pily Christianson MD Johnson, Phillip W, MD Wound Discharge Disposition: Home or Self Care (Routine Discharge) 02/03/2025 Travel 02/01/2025 10:15 AM CDT Office Visit [address] [address] Jairo Lazaro Jr., DO Postop Followup (DOS: 01/26/2025 RIGHT TKA at [facility]) 02/01/2025 Travel 01/29/[address] [address] Jairo Lazaro Jr., DO Surgery Questions 12/17/[address] [address] Jairo Lazaro Jr., DO Follow Up Call 12/14/2024 1:15 PM MANAGEMENT AIDE Office Visit [address] [address] Jairo Lazaro Jr., DO Knee Pain (RIGHT); Pre-Op Exam 12/14/2024 Travel 11/23/[address] [address] Lisa Collins PA Surgical Clearance (Cardiac) 11/19/2024 2:00 PM MANAGEMENT AIDE Office Visit [address] [address] Vinay Childers FNP-MONIQUE New Patient; Knee Pain (BILATERAL) 11/19/2024 1:30 PM MANAGEMENT AIDE - 11/19/2024 11:59 PM MANAGEMENT AIDE Hospital Encounter [facility] [address] [place] [address] Vinay Childers FNP-MONIQUE Discharge Disposition: Home or Self Care (Routine Discharge) 11/19/2024 MyChart Message Enc [address] [address] Vinay Childers FNP-MONIQUE Visit Follow Up 11/19/2024 Travel 11/13/2024 Orders Only [address] [address] Vinay Childers FNP-BC from Last 3 Months [...] drink = 0.6 oz pur e alcohol) [facility] Utilities Answer Date Recorded In [...] any time in the past 12 m [facility], were you homeless or living in a assisted (including now)? 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 MANAGEMENT AIDE Legal Sex Male 1:26 AM CDT Gender [...] AP JT ONLY Routine 11/19/2024 1:50 PM MANAGEMENT AIDE Acute pain of right knee XR KNEE JT 3V Routine 11/19/2024 1:50 PM MANAGEMENT AIDE Acute pain of right knee from Last 3 Months Results * (ABNORMAL) COMPREHENSIVE METABOLIC PANEL (02/06/2025 4:09 AM CDT) Only the most recent of4 resultswithin the time period is included. SODIUM S/P/B 122(L) 136 - 145 MMOL/L 02/06/2025 5:[address] [facility] POTASSIUM S/P/B 4.2 3.5 - 5.1 MMOL/L 02/06/2025 5:[address] [facility] CHLORIDE S/P/B 88(L) 98 - 107 MMOL/L 02/06/2025 5:[address] [facility] CO2 29.0 21.0 - 32.0 MMOL/L 02/06/2025 5:[address] [facility] GLUCOSE 120(H) 70 - 99 MG/DL 02/06/2025 5:[address] [facility] Comment: FASTING GLUCOSE 100 TO 125 MG/DL IS CONSISTENT WITH IMPAIRED FASTING GLUCOSE. FASTING GLUCOSE >125 MG/DL IS CONSISTENT WITH DIABETES. RANDOM GLUCOSE >200 MG/DL WITH HYPERGLYCEMIC SYMPTOMS IS CONSISTENT WITH DIABETES. PER ADA GUIDELINES BUN 16 6 - 24 MG/DL 02/06/2025 5:[address] [facility] CREATININE S/P/B 0.92 0.70 - 1.30 MG/DL 02/06/2025 5:15 AM [facility] CALCIUM S/P/B 8.4 8.4 - 10.5 MG/DL 02/06/2025 5:15 AM [facility] BILIRUBIN TOTAL S/P/B 0.9 0.2 - 1.0 MG/DL 02/06/2025 5:15 AM [facility] Comment: THIS ASSAY IS NOT RECOMMENDED FOR PATIENTS UNDERGOING TREATMENT WITH ELTROMBOPAG DUE TO THE POTENTIAL FOR FALSELY ELEVATED RESULTS. ALKALINE PHOSPHATASE S/P/B 113 45 - 115 U/L 02/06/2025 5:15 AM [facility] AST 42(H) 15 - 37 U/L 02/06/2025 5:15 AM [facility] ALT 84(H) 16 - 63 U/L 02/06/2025 5:15 AM [facility] TOTAL PROTEIN S/P/B 6.0(L) 6.4 - 8.2 G/DL 02/06/2025 5:15 AM [facility] ALBUMIN S/P/B 2.7(L) 3.4 - 5.0 G/DL 02/06/2025 5:15 AM [facility] ANION GAP 5.0 5.0 - 15.0 MMOL/L 02/06/2025 5:15 AM [facility] OSMOLALITY (CALC) 256 MOSM/KG 025 5:15 AM [facility] Comment:REFERENCE RANGE NOT ESTABLISHED GFR ESTIMATE 87(L) >89 ML/MIN/1. 73 M2 02/06/2025 5:15 AM [facility] GFR NOTES GFR REFERENCE S: 02/06/2025 5:15 AM [facility] Comment: THE ESTIMATED GFR IS CALCULATED [...] m2 02/06/2025 4:09 AM CDT [facility] Final Res ult [facility] [address] [place] [address], * (ABNORMAL) CBC W/DIFF AUTOMATED (02/06/2025 4:09 AM CDT) Only the most recent of4 resultswithin the time period is included. WBC 12.26(H) 4.00 - 10.80 x10'3/uL 02/06/2025 4:[address] [facility] RBC 3.56(L) 4.50 - 6.10 x10'6/uL 02/06/2025 4:[address] [facility] HGB 10.4(L) 13.0 - 18.0 G/DL 02/06/2025 4:[address] [facility] HCT 29.8(L) 37.0 - 52.0 % 02/06/2025 4:[address] [facility] MCV 83.7 78.0 - 100.0 FL 02/06/2025 4:[address] [facility] MCH 29.2 27.0 - 31.0 PG 02/06/2025 4:[address] [facility] MCHC 34.9 33.0 - 36.0 G/DL 02/06/2025 4:[address] [facility] RDW 12.8 11.5 - 14.5 % 02/06/2025 4:[address] [facility] PLT 402(H) 150 - 350 x10'3/uL 02/06/2025 4:[address] [facility] MPV 9.1 7.4 - 10.4 FL 02/06/2025 4:[address] [facility] CBC COMMENT NORMAL REFERENCE RANGE NOT ESTABLISHED FOR THE PROPORTIONAL LEUKOCYTE DIFFERENTIAL. 02/06/2025 4:[address] [facility] SEG NEUTROPHILS 81 % 5:[address] [facility] BANDS 1 % 02/06/2025 5:[address] [facility] MYELOCYTES 1 % 02/06/2025 5:[address] [facility] LYMPHOCYTES 9 % 02/06/2025 5:[address] [facility] MONOCYTES 6 % 02/06/2025 5:[address] [facility] EOSINOPHILS 2 % 02/06/2025 5:[address] [facility] ABS SEGMENTED NEUTS 9.93(H) 1.60 - 8.30 x10'3/uL 02/06/2025 5:[address] [facility] ABS. BANDS 0.12 0.00 - 1.00 x10'3/uL 02/06/2025 5:[address] [facility] ABS. MYELOCYTES 0.12(H) 0.00 x10'3/uL 02/06/2025 5:[address] [facility] ABS. LYMPHOCYTES 1.10 0.80 - 4.70 x10'3/uL 02/06/2025 5:[address] [facility] ABS. MONOCYTES 0.74 0.10 - 1.50 x10'3/uL 02/06/2025 5:[address] [facility] ABS. EOSINOPHILS 0.25 0.00 - 0.40 x10'3/uL 02/06/2025 5:[address] [facility] PLT MORPH. INCREASED 02/06/2025 5:[address] [facility] RBC MORPHOLOGY NORMAL 02/06/2025 5:[address] [facility] 02/06/2025 4:09 AM CDT [facility] Final Res ult [facility] [address] [facility] [place] [address], * (ABNORMAL) BASIC METABOLIC PANEL (02/05/2025 2:05 PM CDT) Only the most recent of3 resultswithin the time period is included. SODIUM S/P/B 121(L) 136 - 145 MMOL/L 02/05/2025 2:[address] [facility] POTASSIUM S/P/B 4.0 3.5 - 5.1 MMOL/L 02/05/2025 2:[address] [facility] CHLORIDE S/P/B 86(L) 98 - 107 MMOL/L 02/05/2025 2:[address] [facility] CO2 29.7 21.0 - 32.0 MMOL/L 02/05/2025 2:[address] [facility] GLUCOSE 134(H) 70 - 99 MG/DL 02/05/2025 2:[address] [facility] Comment: FASTING GLUCOSE 100 TO 125 MG/DL IS CONSISTENT WITH IMPAIRED FASTING GLUCOSE. FASTING GLUCOSE >125 MG/DL IS CONSISTENT WITH DIABETES. RANDOM GLUCOSE >200 MG/DL WITH HYPERGLYCEMIC SYMPTOMS IS CONSISTENT WITH DIABETES. PER ADA GUIDELINES BUN 15 6 - 24 MG/DL 02/05/2025 2:[address] [facility] CREATININE S/P/B 1.00 0.70 - 1.30 MG/DL 02/05/2025 2:[address] [facility] CALCIUM S/P/B 8.1(L) 8.4 - 10.5 MG/DL 02/05/2025 2:[address] [facility] ANION GAP 5.3 5.0 - 15.0 MMOL/L 02/05/2025 2:[address] [facility] OSMOLALITY (CALC) 255 MOSM/KG 025 2:[address] [facility] Comment:REFERENCE RANGE NOT ESTABLISHED GFR ESTIMATE 79(L) >89 ML/MIN/1. 73 M2 02/05/2025 2:[address] [facility] GFR NOTES GFR REFERENCE S: 02/05/2025 2:[address] [facility] Comment: THE ESTIMATED GFR IS CALCULATED [...] Jose Page MD LABORATORY Final Resul t [facility] [address] [place] [address], * (ABNORMAL) COPEPTIN (02/05/2025 4:23 AM CDT) COPEPTIN 16.4(H) < OR = 13.7 pmol/L 02/09/2025 4:52 PM CDT [employer] [facility] MAE Comment: This test was developed and its analytical performance characteristics have been determined by [employer]. It has not been cleared or approved by the FDA. This assay has been validated pursuant to the CLIA regulations and is used for clinical purposes. Test performed by [employer] [facility] [address] [id number] Trimming Cutter: Pita Salcedo MD,PHD,KIRK Test Reported by [facility], [employer] [facility], [address] [place] [address] Stiven Carranza M.D., Ph.D., Director of Laboratories , CLIA [id number] 02/05/2025 4:23 AM CDT us Jose Page MD LABORATORY Final Resul t Performing Organization Address City/[facility]/ZIP Co de Phone Number [employer] [address] , [place] [phone] * (ABNORMAL) PRO-BRAIN NATRIURETIC PEPTIDE (02/05/2025 4:23 AM CDT) PRO-B TYPE NATRIURETIC PEPTIDE 518(H) <125 PG/ML 02/05/2025 9:[address] [facility] Comment: CUT POINTS ESTABLISHED BY INTERNATIONAL [...] Jose Page MD LABORATORY Final Resul t [facility] [address] [place] [address], [place] [phone] * XR KNEE RT 3V (02/03/2025 1:45 [...] 1:51 PM Narrative 02/03/2025 1:[address] [place] [address] EXAM: XR KNEE RT 3V INDICATION: Postsurgical [...] Procedure Note Maicol Marcelo MD - 02/03/[address] [place] [address] EXAM: XR KNEE RT 3V INDICATION: Postsurgical [...] COLOR (U) YELLOW 02/03/2025 1:[address] [facility] TRANSPARENCY CLEAR 02/03/2025 1:[address] [facility] SPECIFIC GRAVITY (U) 1.020 1.000 - 1.025 02/03/2025 1:[address] [facility] U PH 7.5 5.0 - 8.0 02/03/2025 1:[address] [facility] LEUKOCYTES (U) NEGATIVE NEGATIVE 02/03/2025 1:[address] [facility] NITRITES NEGATIVE NEGATIVE 02/03/2025 1:[address] [facility] PROTEIN RANDOM (U) NEGATIVE NEGATIVE 02/03/2025 1:[address] [facility] GLUCOSE (U) NEGATIVE NEGATIVE 02/03/2025 1:[address] [facility] KETONES MG/DL (U) NEGATIVE NEGATIVE 02/03/2025 1:[address] [facility] UROBILINOGEN 0.2 <1.0 EU/DL 02/03/2025 1:[address] [facility] BILIRUBIN (U) NEGATIVE NEGATIVE 02/03/2025 1:[address] [facility] BLOOD (U) NEGATIVE NEGATIVE 02/03/2025 1:[address] [facility] WBC/HPF NONE SEEN(A) 0 - 5 /HPF 02/03/2025 1:[address] [facility] RBC/HPF NONE SEEN(A) 0 - 5 /HPF 02/03/2025 1:[address] [facility] EPI/LPF RARE /LPF 02/03/2025 1:[address] [facility] BACTERIA (U) TRACE /HPF 02/03/2025 1:[address] [facility] URINE SPECIMEN OBTAINED BY CLEAN CATCH PROCEDURE / Unknown 02/03/2025 1:15 PM CDT us Pily Christianson MD URINE ORDERABLES Final Resu lt Performing Organization Address [facility] Co de Phone Number [address] [address], * CULTURE, BACTERIA, BLOOD (02/03/2025 1:04 PM CDT) Only the most recent of2 resultswithin the time period is included. SPEC DESCRIPTION BLOOD 02/03/2025 11:[address] [facility] SPECIAL REQUESTS NO SPECIAL REQUEST 02/03/2025 11:[address] [facility] CULTURE RESULT NO GROWTH 5 DAYS 02/08/2025 7:24 PM CDT [facility] BLOOD SPECIMEN OBTAINED FOR BLOOD CULTURE / Unknown 02/03/2025 1:04 PM CDT 02/03/2025 1:05 PM CDT us Pily Christianson MD MICROBIOLOGY - GENERAL ORDE RABLES Final Result Performing Organization Address City/[facility]/ZIP Co de Phone Number [facility] [address] [place] [address], [place] [phone] [facility] [address] [place] [address], * LACTIC ACID W REFLEX (SEPSIS) (02/03/2025 12:54 PM CDT) LACTIC ACID VENOUS 1.4 0.4 - 2.0 MMOL/L 02/03/2025 1:[address] [facility] 02/03/2025 12:5 4 PM CDT us Pily Christianson MD LABORATORY Final Resul t Performing Organization Address [facility] Co de Phone Number [address] [address], [place] [phone] * PARTIAL THROMBOPLASTIN TIME,PTT (02/03/2025 12:54 PM CDT) PTT 31.2 25.1 - 36.5 SEC 02/03/2025 1:[address] [facility] 02/03/2025 12:5 4 PM CDT us Pily Christianson MD LABORATORY Final Resul t Performing Organization Address [facility] de Phone Number [facility] [address] [place] [address], * (ABNORMAL) SED RATE, ERYTHROCYTE (ESR) (02/03/2025 12:54 PM CDT) ESR 61(H) 0 - 15 MM/HR 02/03/2025 1:[address] [facility] 02/03/2025 12:5 4 PM CDT us Pily Christianson MD LABORATORY Final Resul t Performing Organization Address City[facility] Co de Phone Number [facility] [address] [place] [address], [place] [phone] * (ABNORMAL) C-REACTIVE PROTEIN (02/03/2025 12:54 PM CDT) C-REACTIVE PROTEIN 8.19(H) <0.30 mg/dL 02/03/2025 1:[address] [facility] 02/03/2025 12:5 4 PM CDT us Pily Christianson MD LABORATORY Final Resul t [facility] [address] [place] [address], * [place] NILA DUPLEX LOW EXT RT (02/03/2025 12:44 PM CDT) Anatomical Region Laterality Modality NA Ultrasound 02/03/2025 12:4 8 PM CDT Impressions 02/03/2025 12:48 PM CDT IMPRESSION: No evidence of deep venous thrombosis. Ordered By: PILY CHRISTIANSON Interpreted By: Pancho Laguerre MD, 02/03/2025 12:48 PM Narrative 02/03/2025 12:[address] [place] [address] Examination: Right lower extremity venous color Doppler [...] Procedure Note Pancho Laguerre MD - 02/03/[address] [place] [address] Examination: Right lower extremity venous color Doppler [...] SPEC DESCRIPTION KNEE,RIGHT 02/03/2025 12:[address] [facility] SPECIAL REQUESTS NO SPECIAL REQUEST 02/03/2025 12:[address] [facility] GRAM STAIN RESULT NO WHITE BLOOD CELLS SEEN 02/03/2025 1:[address] [facility] GRAM STAIN RESULT OCCASIONAL GRAM POSITIVE COCCI PAIRS/CLUSTERS 02/03/2025 1:[address] [facility] GRAM STAIN RESULT RARE GRAM NEGATIVE BACILLI 02/03/2025 1:[address] [facility] CULTURE RESULT MANY PROTEUS MIRABILIS 02/05/2025 9:18 AM CDT [facility] CULTURE RESULT MANY ENTEROCOCCUS FAECALIS 02/05/2025 9:18 AM CDT [facility] CULTURE RESULT MANY STAPHYLOCOCCUS , COAGULASE NEGATIVE 02/05/2025 9:18 AM CDT [facility] CULTURE RESULT MANY BACILLUS SPECIES NOT ANTHRACIS 02/05/2025 9:18 AM CDT [facility] STRUCTURE OF RIGHT KNEE REGION / [...] TK KELLY Final Result Performing Organization Address City/[facility]/ZIP Co de Phone Number [facility] [address] [place] [address], [phone] [facility] [address] [place] [address], * CULTURE URINE (02/03/2025 12:06 PM CDT) SPEC DESCRIPTION URINE CLEAN CATCH 02/03/2025 12:[address] [facility] SPECIAL REQUESTS NO SPECIAL REQUEST 02/03/2025 12:[address] [facility] CULTURE RESULT FEW CONTAMINANTS 01/19 10:55 AM CDT [facility] URINE SPECIMEN OBTAINED BY CLEAN CATCH PROCEDURE / Unknown 02/03/2025 12:06 PM CDT 02/03/2025 3:32 PM CDT Pliy Christianson MD MICROBIOLOGY - GENERAL TK KELLY Final Result Performing Organization Address [facility]/ZIP Co de Phone Number [facility] [address] [place] [address], [place] [phone] 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 Ordered By: VINAY CHILDERS Interpreted By: Jayy Vee MD, 11/20/2024 1:34 PM Narrative 11/20/2024 1:36 PM MANAGEMENT AIDE [facility] [address] [facility] [place] [address] Examination: XR KNEE STAND AP JT ONLY, [...] Procedure Note Jayy Vee MD - 11/20/2024 [facility] [address] [facility] 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 Ordered By: VINAY CHILDERS Interpreted By: Jayy Vee MD, 11/20/2024 1:34 PM Narrative 11/20/2024 1:36 PM MANAGEMENT AIDE [address] [place] [address] Examination: XR KNEE STAND AP JT ONLY, [...] Procedure Note Jayy Vee MD - 11/20/2024 [facility] [address] [facility] [facility] [place] [address] Examination: XR KNEE STAND AP JT ONLY, [...] Vee MD, 11/20/2024 1:34 PM Vinay Childers ASSOCIATE CIVIL ENGINEER-BC GENERAL IMAGING Final Resu lt from Last 3 Months Insurance MEDICARE MEDICAID Advance Directives * Full Code (Latest Code Status on File) Date Activated Date Inactivated Comments 02/03/2025 4:13 PM 02/06/2025 1:03 PM Care Teams Slip Filler Relationship Specialty Start Date End Date Juan Polanco MD [address] [place] [address] PCP - General FAMILY PRACTICE 04/24/23 Jairo Lazaro Jr., DO [facility] [place] [address] Physician ORTHOPAEDIC SURGERY 12/17/24
--- OUTSIDE RECORDS SUMMARY | 2025-02-10 10:54 | XMS_ITS | Encounter Summary ---
Author Organization [facility] Address [address] [place] [address] Care Team Providers Care Dispatcher Maintenance Service Name Role Phone Juan Polanco MD Primary Care Provider [phone] Tejas Yu DO, George V Unavailable [phone] Encounter Details Date Type Department Care Team (Late st Contact Info) Description 11/19/[address] [address] [facility] [address] [address] Aneta Wong, [facility] [address] [place] [address] Visit Follow Up Social History Tobacco Use Types Packs/Day Years Used Date Smoking Tobacco: Never Smokeless Tobacco: Never Alcohol Use Standard Drinks/Week Comments Not Currently 0 (1 standard drink = 0.6 oz pur e alcohol) Sex and Gender Information Value Date Recorded Sex Assigned at Male 11/19/2024 1:28 PM BEHAVIOR CLINICIAN Legal Sex Male 1:26 AM CDT Gender Identity Not on file Sexual Orientation Not on file documented as of this encounter Plan of Treatment Not on file documented as of this encounter Visit Diagnoses Not on filedocumented in this encounter Care Teams Dispatcher Maintenance Service Relationship Specialty Start Date End Date Juan Polanco MD [address] [place] [address] PCP - General FAMILY PRACTICE 04/24/23 Jairo Lazaro Jr., DO [address] [place] [phone] Physician ORTHOPAEDIC SURGERY 12/17/24 documented as of this encounter
--- OUTSIDE RECORDS SUMMARY | 2025-02-10 10:54 | XMS_ITS | Encounter Summary ---
Author Organization [facility] Address [address] [place] [address] Care Team Providers Care Refrigeration Plant Cork Insulator Name Role Phone Reanna Owen DO Primary Care Provider [phone] Nora Aragon Primary Care Provider [phone] Juan Polanco MD Primary Care Provider [phone] Tejas Yu DOJairo V Unavailable [phone] Encounter Details Date Type Department Care Team (Late st Contact Info) Description 03/28/2019 Abstract [facility] CONVERSION [address] [place] [address] , Generic Conversion, Social History Tobacco Use Types Packs/Day Years Used Date Smoking Tobacco: Never Assessed Sex and Gender Information Value Date Recorded Sex Assigned at Male 11/19/2024 1:28 PM OPERATIONAL INTELLIGENCE ANALYST Legal Sex Male 1:26 AM CDT Gender [...] documented as of this encounter Care Teams Refrigeration Plant Cork Insulator Relationship Specialty Start Date End Date Reanna Owen DO PCP - General FAMILY PRACTICE 04/27/19 01/09/21 Nora Aragon PA [address] [place] [address] PCP - General PHYSICIAN CAPACITY PLANNING MANAGER 01/10/21 04/23/23 Juan Polanco MD [address] [place] [address] PCP - General FAMILY PRACTICE 04/24/23 Jairo Lazaro Jr., [address] [place] [phone] Physician ORTHOPAEDIC SURGERY 12/17/24 documented as of this encounter
== END 2025-02-10 10:45 | disposition home or self-care (01) ==
PROVIDERS: Emergency Provider Internal Medicine Critical Care Medicine; PCP Family Medicine
DX: D64.9 Anemia, unspecified (principal); M79.89 Other specified soft tissue disorders; E11.9 Type 2 diabetes mellitus without complications; E78.5 Hyperlipidemia, unspecified; I10 Essential (primary) hypertension; Z96.651 Presence of right artificial knee joint
CPT/HCPCS: 36415; 80053; 81003; 83605; 85025; 85610; 85730; 93971; 99284

== ENCOUNTER 2025-03-31 12:07 | Outpatient (CLI) | payer MEDICARE, MEDICAID, SELFPAY ==
--- NOTE | ~2025-03-31 | US_ITS ---
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 COMPARISON: None. FINDINGS: Right and left brachial artery pressures of mm Hg and 160 mm Hg, respectively, are 154 (normal differ ence <= 30 mmHg). The right ankle-brachial index (STELLA) is unable to be obtained due to inability to occlude the vessels at the right ankle (normal >= 0.9-1.0). The right great toe-brachial index (TBI) is 0.88 (normal >= 0.65). Arterial Doppler waveforms are triphasic with brisk systolic upstrokes at both right posterior tibial and dorsalis pedis arteries. The left STELLA is also unable to be obtained due to inability to occlude the vessels. The left TBI is 0 .75. Arterial Doppler waveforms are triphasic with brisk systolic upstrokes at both left posterior ti bial and dorsalis pedis arteries. IMPRESSION: 1. No significant arterial occlusive disease with normal bilateral TBIs and triphasic waveforms with brisk systolic upstrokes at the bilateral dorsalis pedis and posterior tibial arteries. Reviewed, dictated and finalized at location A. IMPRESSION: 1. No significant arterial occlusive disease with normal bilateral TBIs and tri phasic waveforms with brisk systolic upstrokes at the bilateral dorsalis pedis and posterior tibial arteries.
--- OUTSIDE RECORDS SUMMARY | 2025-03-31 14:09 | XMS_ITS ---
Author Organization [facility] Address [address] [place], [place] [address] Care Team Providers Care Ladies Suit Operator Name Role Phone EVIE ERNANDEZ Unavailable [phone] Juan Polanco Unavailable Unavailable JOSE RAUL IBRAHIM Unavailable [phone] Allergies Allergen (clinical drug ingredient) Drug/Non Drug [...] Active Encounters Encounter Location Date Provider Diagnosis [address] [id number] 08/13/2024 JOSE RAUL IBRAHIM Plan Of Treatment No Information Progress Notes * CYNTHIA [place] EDOB:[birth year] (74 yo M)Acc No.[id number]:08/13/2024 Patient: Ho CYNTHIA CARNEY Provider: Bety IBRAHIM :1950 A ge:73 Y S ex:Male Date:08/13/2024 Address:[address] [place] [address] , [place] [address] Subjective: * Chief Complaints: * 1 . [...] seen by Dr. Polanco was 07/2024., Init[facility]. * Medical History: * Medications: T aking [...] Electronic signature of CHAY IBRAHIM DPM on 03/31/2025 at 02:09 PM CDT Sign off status: Pending * Provider: Bety IBRAHIM Date: 1 Generated for Chun kearney/Jeff/Mabel on: 0 03/31/2025 02:09 PM CDT History and Physical Notes * [...] seen by Dr. Polanco was 07/2024., [facility]
--- OUTSIDE RECORDS SUMMARY | 2025-03-31 14:10 | XMS_ITS | Patient Health Record ---
Author Organization [facility] Address [address] [place], [place] [id number] Care Team Providers Care Physical Chemistry Professor Name Role Phone EVIE ERNANDEZ Unavailable [phone] Juan Polanco Unavailable Unavailable JOSE RAUL IBRAHIM Unavailable [phone] Allergies Allergen (clinical drug ingredient) Drug/Non Drug [...] 04/09/2024 Encounters Encounter Location Date Provider Diagnosis [address] [id number] 04/09/2024 JOSE RAUL IBRAHIM Tinea unguium B35.1 ; Pain in right toe(s) M79.674 ; Pain in left toe(s) M79.675 ; Other hammer toe(s) (acquired), right foot M20.41 ; Other hammer toe(s) (acquired), left foot M20.42 ; Unspecified atherosclerosis of [place] arteries of extremities, bilateral legs I70.203 and Type 2 diabetes mellitus with diabetic peripheral angiopathy without gangrene E11.[address] [id number] 06/11/2024 JOSE RAUL IBRAHIM Tinea unguium B35.1 ; Pain in right toe(s) M79.674 ; Pain in left toe(s) M79.675 ; Other hammer toe(s) (acquired), right foot M20.41 ; Other hammer toe(s) (acquired), left foot M20.42 ; Unspecified atherosclerosis of [place] arteries of extremities, bilateral legs I70.203 and [...] (ICD-10 - M20.42) 04/09/2024 Unspecified atherosclerosis of [place] arteries of extremities, bilateral legs (ICD-10 - I70.203) Patient educated on risks and aggravating factors of PVD, including conservative treatment options such as a diet and exercise regimen to aid in slowing progression of vascular disease 06/11/2024 Unspecified atherosclerosis of [place] arteries of extremities, bilateral legs (ICD-10 - [...] Date Coverage End Date AARP MedicareStefano lidia ([facility]) [address] [place], [place] [id number] CYNTHIA GUTIERREZ Self - patient is the insured
== END 2025-03-31 12:08 | disposition home or self-care (01) ==
LOC: CHSIMG 12:08
PROVIDERS: PCP Family Medicine; Visit Provider Nurse Practitioner Family
DX: I87.2 Venous insufficiency (chronic) (peripheral) (principal); L97.319 Non-pressure chronic ulcer of right ankle with unspecified severity
CPT/HCPCS: 93922

== ENCOUNTER 2025-06-09 10:14 | Outpatient (CLI) | payer MEDICARE, MEDICAID, SELFPAY ==
--- OUTSIDE RECORDS SUMMARY | 2024-08-13 05:10 | XMS_ITS ---
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 Name Role Phone EVIE ERNANDEZ Unavailable [phone] Juan Polanco Unavailable Unavailable JOSE RAUL IBRAHIM Unavailable [phone] Allergies Allergen (clinical drug ingredient) Drug/Non Drug Allergy documented on EMR Reaction Allergy Type Onset Date Status Product containing sulfonamide (product) (uncoded) Unknown Allergy 02/14/2019 active REASON FOR VISIT *General care Medications Medication SIG (Take, Route, Frequency, Duration) Notes Start Date End Date Status hydroCHLOROthiazide 12.5 MG Oral; Duration: 90 Days Active cloNIDine HCl 0.1 MG Oral; Duration: 30 Days Active Olmesartan Medoxomil 40 MG Oral; Duration: 90 Days Active Carvedilol 12.5 MG Oral; Duration: 90 Days Active metFORMIN HCl 500 MG Oral; Duration: 90 Days Active Pravastatin Sodium 10 MG Oral; Duration: 30 Days Active amLODIPine Besylate 5 MG Oral; Duration: 90 Days Active Tamsulosin HCl 0.4 MG Oral; Duration: 30 Days Active Encounters Encounter Location Date Provider Diagnosis [address] [id number] 08/13/2024 JOSE RAUL IBRAHIM Plan Of Treatment No Information Progress Notes * CYNTHIA AUSTIN EDOB:[birth year] (74 yo M)Acc No.[id number]:08/13/2024 Patient: Ho CYNTHIA CARNEY Provider: Bety IBRAHIM :1950 A ge:73 Y S ex:Male Date:08/13/2024 Address:[address] [place] [address] , [place] [address] Subjective: * Chief Complaints: * 1 . *General care. * HPI: H PI: General care P aba presents to the office for diabetic foot care. Patient states that their nails are thickened, elongated and painful. Patient states that it is aggravated by shoe gear. Onset is gradual., Patient denies taking prescription blood thinners but does take a daily aspirin., Date last seen by Dr. Polanco was 07/2024., Initials mca. * Medical History: * Medications: T aking amLODIPine Besylate 5 MG Tablet Oral , Taking Pravastatin Sodium 10 MG Tablet Oral , Taking Tamsulosin HCl 0.4 MG Capsule Oral , Taking cloNIDine HCl 0.1 MG Tablet Oral , Taking Olmesartan Medoxomil 40 MG Tablet Oral , Taking metFORMIN HCl 500 MG Tablet Oral , Taking Carvedilol 12.5 MG Tablet Oral , Taking hydroCHLOROthiazide 12.5 MG Tablet Oral * Allergies: P roduct containing sulfonamide (product): Allergy - Onset Date 02/14/2019. Objective: * Vitals: Assessment: Plan: * Treatment: * Billing Information: * Visit Code: * Procedure Codes: * Electronic signature of CHAY IBRAHIM DPM on 06/09/2025 at 10:39 AM CDT Sign off status: Pending * Provider: Bety IBRAHIM Date: 1 Generated for Chun kearney/Jeff/Mabel on: 0 06/09/2025 10:39 AM CDT History and Physical Notes * HPI (History of Present Illness) Category Sub-Category Detail Notes Category Not es HPI General care Patient presents to the office for diabetic foot care. Patient states that their nails are thickened, elongated and painful. Patient states that it is aggravated by shoe gear. Onset is gradual., Patient denies taking prescription blood thinners but does take a daily aspirin., Date last seen by Dr. Polanco was 07/2024., Initials mca
--- NOTE | ~2025-06-09 | CT_ITS ---
EXAMINATION: CT diagnostic chest wo con DATE: 06/09/2025 10:30 INDICATION: Pulmonary fibrosis, unspecified TECHNIQUE: Computed tomography (CT) of the chest was performed without intravenous contrast. The dose-length product was 660.26 mGy-cm. COMPARISON: 05/16/2024 FINDINGS: No enlarged mediastinal or hilar lymph nodes. There are a few nonenlarged, nonspecific mediastinal and hilar lymph nodes. Heart is mildly enlarged, unchanged. There are a few coronary artery calcifications. Thoracic aorta is not aneurysmal but partially calcified. Small hiatal hernia similar to the prior study. Tracheobronchial tree is patent. No pneumothorax. No pleural effusion. No pulmonary mass. Mild bronchiectasis in the lower lobes, unchanged. There are small reticular and patchy subpleural opacities in the mid and lower lungs similar to the study from 05/13/2024. No new focal pulmonary consolidation. Bones appear osteopenic. Multilevel degenerative change in the visualized spine similar to the prior study. IMPRESSION: 1. No new focal pulmonary consolidation. 2. Grossly stable appearance of the chest as compared to study from 05/16/2024. Reviewed, dictated and finalized at location A.
--- OUTSIDE RECORDS SUMMARY | 2025-06-09 10:40 | XMS_ITS | Patient Health Record ---
Author Organization [facility] Address [address] [facility] [address] [place], [place] [id number] Care Team Providers Care Machine Silk Screen Printer Name Role Phone EVIE ERNANDEZ Unavailable [phone] Juan Polanco Unavailable Unavailable JOSE RAUL IBRAHIM Unavailable [phone] Allergies Allergen (clinical drug ingredient) Drug/Non Drug Allergy documented on EMR Reaction Allergy Type Onset Date Status Product containing sulfonamide (product) (uncoded) Unknown Allergy 02/14/2019 active Reason For Referral No Information Medications Medication SIG (Take, Route, Frequency, Duration) Notes Start Date End Date Status hydroCHLOROthiazide 12.5 MG Oral; Duration: 90 Days Active Pravastatin Sodium 10 MG Oral; Duration: 30 Days Active amLODIPine Besylate 5 MG Oral; Duration: 90 Days Active cloNIDine HCl 0.1 MG Oral; Duration: 30 Days Active Tamsulosin HCl 0.4 MG Oral; Duration: 30 Days Active Olmesartan Medoxomil 40 MG Oral; Duration: 90 Days Active Carvedilol 12.5 MG Oral; Duration: 90 Days Active metFORMIN HCl 500 MG Oral; Duration: 90 Days Active Immunizations Vaccine Route Administration Date Status Comme nts Influenza, high dose seasonal Unknown 07/29/2023 Admini stered Encounters Encounter Location Date Provider Diagnosis [address] [id number] 06/11/2024 JOSE RAUL IBRAHIM Tinea unguium B35.1 ; Pain in right toe(s) M79.674 ; Pain in left toe(s) M79.675 ; Other hammer toe(s) (acquired), right foot M20.41 ; Other hammer toe(s) (acquired), left foot M20.42 ; Unspecified atherosclerosis of [place] arteries of extremities, bilateral legs I70.203 and [...] (ICD-10 - M20.42) 06/11/2024 Unspecified atherosclerosis of [place] arteries of extremities, bilateral legs (ICD-10 - [...] Date Coverage End Date AARP MedicareComp lidia ([facility]) [address] [place], [place] [id number] CYNTHIA GUTIERREZ Self - patient is the insured
--- NOTE | 2025-06-16 09:54 | WPDPFTINT ---
PFT Procedure Performed PFT Procedure Performed Spirometry with Pre/Post Bronchodilator Plethysmography (Lung Vol) Diffusing Cap (DLCO) Flow Vol Loop PFT Interpretation DOS: 06/09/2025 REQUESTING: Prieto Moses APRN REASON FOR TESTING: Interstitial lung disease PULMONARY FUNCTION TESTS Results are reliable and reproducible. Repeatability of spirometry FEV1 maneuver pre and post bronchodilator is Grade A. Carroll: Joaquín Cotton Dust reference equations were used. Spirometry: The pre-bronchodilator FEV1 is 2.29 L, 91%, normal. The pre-bronchodilator FVC is 3.02 L, 92%, normal. The FEV1/FVC ratio is 76%, normal. After bronchodilator, the FEV1 is 2.52 L, 100%, +10%. After bronchodilator, the FVC is 3.34 L, 102%, +11%. The FEV1/FVC ratio is 75%. These are normal values. Lung volumes: The total lung capacity is 5.14 L, 94%, normal. The functional residual capacity is 2.20 L, 92%, normal. The residual volume is 1.83 L, 78%, normal. The RV/TLC is 36%, normal. Airway resistance is increased. Diffusion: DLCO is 20.8, 84%, normal. The DLCO/VA is 4.01, 115%, normal. Flow volume loop: The flow volume loop is unremarkable. IMPRESSION: This study shows normal spirometry with a non statistically significant response to bronchodilator, normal lung volumes and normal diffusion. Compared to a prior study on 07/14/2024 values are similar. Lia Reynoso MD
== END 2025-06-09 10:15 | disposition home or self-care (01) ==
LOC: CHSIMG 10:17
PROVIDERS: PCP Family Medicine; Visit Provider Nurse Practitioner Family
DX: J84.10 Pulmonary fibrosis, unspecified (principal)
CPT/HCPCS: 71250; 94060; 94726; 94729

== ENCOUNTER 2025-09-21 10:33 | Outpatient (CLI) | payer MEDICARE, MEDICAID, SELFPAY ==
--- OUTSIDE RECORDS SUMMARY | 2025-09-21 11:32 | XMS_ITS | Encounter Summary ---
Author Organization [facility] Address [address] [place] [address] Care Team Providers Care Lock Tender Name Role Phone Reanna Owen DO Primary Care Provider [phone] Nora Aragon Primary Care Provider [phone] Juan Polanco MD Primary Care Provider [phone] Tejas Yu DOJairo V Unavailable [phone] Encounter Details Date Type Department Care Team (Late st Contact Info) Description 03/28/2019 Abstract SFL CONVERSION [address] [place] [address] , Generic Conversion, Social History Tobacco Use Types Packs/Day Years Used Date Smoking Tobacco: Never Assessed Sex and Gender Information Value Date Recorded Sex Assigned at Male 11/19/2024 1:28 PM MEDICAL SPECIALIST Legal Sex Male 1:26 AM CDT Gender [...] documented as of this encounter Care Teams Lock Tender Relationship Specialty Start Date End Date Reanna Owen DO PCP - General FAMILY PRACTICE 04/27/19 01/09/21 Nora Aragon PA [address] [place] [address] PCP - General PHYSICIAN OTA 01/10/21 04/23/23 Juan Polanco MD [address] [place] [address] PCP - General FAMILY PRACTICE 04/24/23 Jairo Lazaro Jr., [address] [place] [phone] Physician ORTHOPAEDIC SURGERY 12/17/24 documented as of this encounter
--- OUTSIDE RECORDS SUMMARY | 2025-09-21 11:32 | XMS_ITS | Clinical Summary ---
Author Organization [facility] Address [address] [place] [address] Care Team Providers Care Assessment Coordinator Name Role Phone Juan Polanco MD Primary Care Provider [phone] Tejas Yu DO, George V Unavailable [phone] Allergies Active Allergy Reactions Criticality Noted Date Comments Diclofenac Rash Low 02/03/2025 Fentanyl Other (see comment) 02/01/2025 Caused patient to be loopy lasted 3 days Sulfa Antibiotics Unknown 05/05/2015 Medications carvedilol 12.5 MG tablet Take 1 tablet (12.5 mg total) by mouth 2 (two) times daily. 5 04/22/2019 Active cloNIDine 0.1 MG tablet Take 1 tablet (0.1 mg total) by mouth 2 (two) times daily. 3 03/13/2019 Active pravastatin 10 MG tablet Take 1 tablet (10 mg total) by mouth every evening. 3 03/13/2019 Active Melatonin 5 MG Cap 03/26/2017 Active aspirin EC (ASPIRIN EC) 81 MG tablet Take 1 tablet (81 mg total) by mouth daily. 03/26/2017 Active Olmesartan Medoxomil 40 MG Tab Take 1 tablet (40 mg total) by mouth daily. 02/27/2021 Active acetaminophen 325 MG tablet Take 1,000 [...] (six) hours as needed for Pain. Active sodium chloride 1 GM tablet Take 2 tablets (2 g total) by mouth 2 (two) times daily with meals. 120 tablet 1 02/06/2025 Active Active Problems Problem Noted Date Diagnosed Date Hyponatremia 02/03/2025 Status post right knee replacement 02/03/2025 01/26/2025 Effusion of left knee joint 03/16/2021 Primary osteoarthritis of right knee 03/15/2021 Primary osteoarthritis of left knee 03/15/2021 Effusion of right knee joint 03/15/2021 Frequency of micturition 01/16/2021 Overview (01/16/2021): Added automatically from request for surgery [id number] Micturition frequency 01/10/2021 Overview (01/10/2021): Added automatically from request for surgery [id number] Puncture wound without forei gn body, left thigh, subsequent encounter 04/29/2019 Open wound of right thigh, subsequent encounter 04/29/2019 Lumbar stenosis 02/08/2017 Left lumbar radiculopathy 02/03/2017 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 Legal Sex Male 1:26 AM CDT Gender Identity Not on file Sexual Orientation Not on file Last Filed Vital Signs Vital Sign Reading Time Taken Comments Blood Pressure 143/94 02/22/2025 1:00 PM CDT Pulse 75 02/22/2025 12:52 PM CDT Temperature 36.6 C (97.8 F) 02/22/2025 11:37 AM CDT Respiratory Rate 18 02/22/2025 11:37 AM CDT Oxygen Saturation 96% 02/22/2025 1:00 PM CDT Inhaled Oxygen Concentration - - Weight 125.2 kg (276 lb) 02/22/2025 11:37 AM CDT Height 170.2 cm (5' 7) 02/22/2025 11:37 AM CDT Body Mass Index 43.23 02/22/2025 11:37 AM CDT Plan of Treatment Health Maintenance Due Date Last Done Comments Colorectal Cancer Screening Colonoscopy (10 Years) 1950 Hepatitis C 1968 DTaP, Tdap and Td Vaccines ( 1 - Tdap) 1969 RSV Immunization or 60+ Years (1 - Risk 60-74 years 1-dose series) 2010 Annual Medicare Wellness Visit 2015 Pneumococcal Vaccine: 50+ Years (2 of 2 - PCV20 or PCV21) 07/15/2018 07/15/2017 Zoster Vaccines (2 of 3) 01/29/2020 12/04/2019 COVID-19 Vaccine (3 - 2024-2 6 season) 2025 01/04/2021, 12/13/2020 Influenza Adult (#1) 2025 07/29/2023 Hepatitis A Vaccines Aged Out No long er eligible based on patient's age to complete this topic Meningococcal B Vaccine Aged Out No l onger eligible based on patient's age to complete this topic Meningococcal Vaccine Aged Out No erasto leonid eligible based on patient's age to complete this topic RSV Immunizations Under 20 Months Aged Out No longer eligible b ased on patient's age to complete this topic Insurance MEDICARE MEDICAID Advance Directives * Full Code (Latest Code Status on File) Date Activated Date Inactivated Comments 02/03/2025 4:13 PM 02/06/2025 1:03 PM Care Teams Assessment Coordinator Relationship Specialty Start Date End Date Juan Polanco MD [address] [place] [address] PCP - General FAMILY PRACTICE 04/24/23 Jairo Lazaro Jr., DO [address] [place] [phone] Physician ORTHOPAEDIC SURGERY 12/17/24
--- OUTSIDE RECORDS SUMMARY | 2025-09-21 11:32 | XMS_ITS | Encounter Summary ---
Author Organization [facility] Address [address] [place] [address] Care Team Providers Care Customer Counter Representative Name Role Phone Juan Polanco MD Primary Care Provider [phone] Tejas Yu DO, George V Unavailable [phone] Encounter Details Date Type Department Care Team (Late st Contact Info) Description 11/19/2024 SeptRx Message Enc [facility] [address] [address] Aneta Wong, [facility] [address] [place] [address] Visit Follow Up Social History Tobacco Use Types Packs/Day Years Used Date Smoking Tobacco: Never Smokeless Tobacco: Never Alcohol Use Standard Drinks/Week Comments Not Currently 0 (1 standard drink = 0.6 oz pur e alcohol) Sex and Gender Information Value Date Recorded Sex Assigned at Male 11/19/2024 1:28 PM [employer] Legal Sex Male 1:26 AM CDT Gender Identity Not on file Sexual Orientation Not on file documented as of this encounter Plan of Treatment Not on file documented as of this encounter Visit Diagnoses Not on filedocumented in this encounter Care Teams Customer Counter Representative Relationship Specialty Start Date End Date Juan Polanco MD [address] [place] [address] PCP - General FAMILY PRACTICE 04/24/23 Jairo Lazaro Jr., DO [address] [place] [id number] Physician ORTHOPAEDIC SURGERY 12/17/24 documented as of this encounter
[2025-09-22 15:09] LABS: Fats, Neutral Normal (.); Fats, Total Increased (.)
== END 2025-09-21 10:34 | disposition home or self-care (01) ==
PROVIDERS: PCP Family Medicine; Visit Provider Family Medicine
DX: R19.7 Diarrhea, unspecified (principal)
CPT/HCPCS: 82272; 82705